=== PATIENT | female | born 1950 | race Caucasian/White ===

== ENCOUNTER 2018-12-24 10:57 | Inpatient (IN) | payer BC, SELFPAY ==
[2018-12-24 11:04] VITALS: BP 143/76; PULSE 117; RESP 18; TEMP 36.5; O2SAT 96
--- NOTE | 2018-12-24 11:26 | ED.GENADUL_ITS ---
Discharge Plan Discharge Details Chief Complaint: Abd Prob Primary Care Provider: Imani Currie ED Provider: Davis Cordero Home Meds and New Rx's Prescriptions: No Action fluoxetine 40 mg Capsule 40 mg PO DAILY RF: 0 aspirin 325 mg Tablet 325 mg PO DAILY RF: 0 alprazolam [Xanax] 0.5 mg Tablet 0.5 mg PO BID PRNRF: 0 pantoprazole 40 mg Tablet,Delayed Release (Dr/Ec) 40 mg PO DAILY RF: 0 lisinopril 10 mg Tablet 10 mg PO DAILY RF: 0 magnesium 250 mg Tablet 250 mg PO DAILY RF: 0 budesonide 3 mg Capsule,Delayed,Extend.Release 3 mg PO DAILY RF: 0 rosuvastatin [Crestor] 40 mg Tablet 40 mg PO DAILY RF: 0 levothyroxine 50 mcg Capsule 50 mcg PO DAILY RF: 0 Combivent Respimat 20-100 mcg/actuation Mist See Rx Instructions .ROUTE .COMPLEX RF: 0 Medical Decision Making 68-year-old female presents with a day and a half of crampy lower abdominal pain that is associated with nausea but no emesis. She arrives to the ER with slightly tachycardic but afebrile. She is had previous aortobifem as well as ventral hernia repair with mesh. She does have a palpable but reducible hernia in the midline of the upper abdomen. Differential diagnosis includes bowel obstruction, incarcerated hernia, diverticulitis, colitis. IV access established, patient referred for laboratory testing, given antiemetic and fluids, CT of the abdomen obtained Labs are reassuring with a white blood cell count of 10, hematocrit 41, platelets 328. Chemistries reveal all mild prerenal dehydration with a BUN of 28, creatinine 1.3. CT images reveal a sigmoid diverticulitis and also ileus with some partial small bowel dilatation. I did discuss the case with on-call surgery, Dr. Plata. She agrees with medical management. Surgery is happy to consult should the symptoms of bowel obstruction worsen. We will treat with ongoing fluid resuscitation, parenteral antibiotics. Lab Data Lab results reviewed: Yes I reviewed the patient's lab results. Laboratory Results - last 24 hr 12/24/18 12/24/18 11:49 11:49 WBC 10.19 RBC 4.78 Hgb 14.1 Hct 41.5 MCV 86.8 MCH 29.5 MCHC 34.0 RDW 14.3 Plt Count 328 MPV 9.3 Immature Gran % 0.2 Neutrophils % 81.8 Lymphocytes % 14.7 Monocytes % 2.9 Eosinophils % 0.3 Basophils % 0.1 Absolute Neutrophils 8.33 H Absolute Lymphocytes 1.50 Absolute Monocytes 0.30 Absolute Eosinophils 0.03 Absolute Basophils 0.01 Sodium 137 Potassium 4.5 Chloride 100 Carbon Dioxide 27.0 Anion Gap 10.0 BUN 28 H Creatinine 1.32 H Estimated GFR/1.73 m2 39.90 Glucose 181 H Calcium 10.2 H Total Bilirubin 0.2 AST 16 ALT 23 Alkaline Phosphatase 102 Total Protein 7.7 Albumin 3.7 Lipase 98 ECG Data Attestation: I personally reviewed and interpreted this ECG (s) as follows: Interpretation: Sinus tachycardia with a rate of 110, the QRS is narrow, there is no ST segment elevation HPI General Mode of arrival: ambulatory . Date/Time Provider Initiated Documentation: 12/24/18 11:07 . Limitations to Documentation: no limitations . Information obtained by: patient . History of Present Illness 68 year old F presents to the emergency department with the chief complaint of Lower abdominal pain, described as moderate, Quality is described as dull and constant, and is localized to the abdomen. Patient reports no radiation. Patient started experiencing this hour(s) and it has been intermittent. No relieving factors improve symptom(s), No exacerbating factors reported . Patient notes loss of appetite. Patient did receive the following treatments prior to arrival, none Related Data Home Medications Medication Instructions Recorded Confirmed alprazolam [Xanax] 0.5 mg PO BID PRN 12/24/18 12/24/18 aspirin 325 mg PO DAILY 12/24/18 12/24/18 budesonide 3 mg PO DAILY 12/24/18 12/24/18 fluoxetine 40 mg PO DAILY 12/24/18 12/24/18 ipratropium-albuterol [Combivent See Rx Instructions .ROUTE .COMPLEX 12/24/18 12/24/18 Respimat] levothyroxine 50 mcg PO DAILY 12/24/18 12/24/18 lisinopril 10 mg PO DAILY 12/24/18 12/24/18 magnesium 250 mg PO DAILY 12/24/18 12/24/18 pantoprazole 40 mg PO DAILY 12/24/18 12/24/18 rosuvastatin [Crestor] 40 mg PO DAILY 12/24/18 12/24/18 Allergies Allergy/AdvReac Type Severity Reaction Status Date / Time shrimp Allergy Unverified 12/24/18 11:08 General Stated Complaint: Abd Prob ALMAZ: 3 Review of Systems Review of Systems 6 systems reviewed and otherwise negative. Ate at [employer] this weekend. Has had brown stool. Nauseated without vomiting PFSH Social History Smoking/Tobacco Use Status: Never Alcohol Intake: never Drug use: Never Substance use type: does not use Do you feel safe at home: Yes Do you feel safe in your relationship?: Yes Exam Narrative Exam Narrative: GEN: awake, alert, oriented 3. Pleasant, well groomed, interactive. HEAD: Normocephalic, atraumatic ENT: Mucous membranes moist, oropharynx unremarkable, External ear exam unremarkable EYES: PERRL, EOMI NECK: Full ROM, no REKHA, no menigismus CHEST/RESP: Nontender, clear to auscultation bilateral, no wheeze/rhonchi/rales CARDIOVASCULAR: regular, tachycardic, no murmur, rub veda. 2+ Rad pulse bilateral ABDOMEN: Soft, reducible anterior hernia above the umbilicus, tender below the umbilicus to palpation, no mass. +Bowel sounds EXT: Full ROM, no edema, no rash Neuro: Grossly normal neurologic exam, conversant, interactive. Psych: Speech fluent, thoughts congruent, affect normal Course Vital Signs Temperature 36.5 C 12/24/18 11:04 Pulse 117 H 12/24/18 11:04 Respiratory Rate 18 12/24/18 11:04 Blood Pressure 143/76 H 12/24/18 11:04 Pulse Oximetry 96 12/24/18 11:04 Temperature 36.5 C 12/24/18 11:04 Temperature Source Temporal Artery Scan 12/24/18 11:04 Pulse 117 H 12/24/18 11:04 Respiratory Rate 18 12/24/18 11:04 Blood Pressure 143/76 H 12/24/18 11:04 Pulse Oximetry 96 12/24/18 11:04 Oxygen Delivery Method Room Air 12/24/18 11:04 Oxygen Flow Rate 0 12/24/18 11:04
--- NOTE | 2018-12-24 11:54 | NUR.NOTE ---
iv placed 20 in rac labs drawn Nursing Note:
[2018-12-24 12:03] LABS: Abs Immature Grans 0.02 k/cumm (0.0-0.09); Absolute Basophil Count 0.01 k/cumm (0.0-0.2); Absolute Eosinophil Count 0.03 k/cumm (0.0-0.7); Absolute Neutrophil Count 8.33 k/cumm (1.2-6.7); Basophils % 0.1; Eosinophils % 0.3; HCT 41.5 % (36.0-46.0); HGB 14.1 g/dL (12.0-15.5); Immature Grans % 0.2; Lymphocytes % 14.7; Mean Corpuscular Hemoglobin 29.5 pg (27.0-33.0); Mean Corpuscular Volume 86.8 fL (80-95); Mean Platelet Volume 9.3 fL (8.0-11.0); Monocytes % 2.9; Neutrophils % 81.8; Platelet Count 328 x1000/uL (130-400); RBC 4.78 m/cumm (4.00-5.20); RBC Distribution Width 14.3 % (11.7-14.6); White Blood Cell Count 10.19 k/cumm (4.4-10.8)
[2018-12-24 12:20] LABS: ALT 23 U/L (12-78); AST 16 U/L (15-37); Albumin 3.7 g/dL (3.4-5.0); Alkaline Phosphatase 102 U/L (46-116); BUN 28 mg/dL (7-18); Bilirubin, Total 0.2 mg/dL (0.2-1.0); CREATININE 1.32 mg/dL (0.55-1.02); Calcium 10.2 mg/dL (8.5-10.1); Chloride 100 mmol/L (98-107); Glucose 181 mg/dL (70-100); Lipase 98 U/L (73-393); Potassium 4.5 mmol/L (3.5-5.1); Sodium 137 mmol/L (136-145); Total Protein 7.7 g/dL (6.4-8.2)
[2018-12-24] MEDS: Ondansetron 4 MG/2 ML VIAL IVP ×2 (12:52→17:27)
[2018-12-24] MEDS: Normal Saline 1,000 ML 1000 ML IV (12:52)
--- NOTE | 2018-12-24 12:57 | DI.CT_ITS ---
SYMPTOMS/DIAGNOSIS: LOWER ABDOMINAL PAIN, ABDOMINAL HERNIAS CT SCAN OF THE ABDOMEN AND PELVIS: CT scan of the abdomen and pelvis was performed without intravenous contrast material. No acute findings are seen in the lung bases. The unenhanced liver is unremarkable. The patient appears to be status post cholecystectomy. There is no biliary ductal dilatation. The pancreas appears unremarkable, as do the spleen and adrenal glands. The kidneys show no evidence of obstructive uropathy. The urinary bladder is intact. The reproductive organs are unremarkable as visualized. There is diverticulosis of the sigmoid colon. There is a short segment in the mid sigmoid colon with pericolonic inflammatory changes suggestive of acute diverticulitis (series 3 image 614). There are dilated loops of small bowel. These are nonspecific. While this may represent an ileus, early small bowel obstruction cannot be entirely excluded. No free air is seen. There is a small amount of fluid in the pelvis. The patient has an aortobifemoral bypass. No significant abdominal or pelvic adenopathy is appreciated. Degenerative changes are seen in the spine. There are postsurgical changes of an anterior hernia repair with mesh placement. There is a small fat-containing anterior abdominal wall hernia to the left of the mesh. IMPRESSION: 1. Findings of acute sigmoid diverticulitis. No evidence of abscess or free air. 2. Nonspecific small amount of free pelvic fluid. 3. Dilated loops of small bowel. This may represent ileus versus an early small bowel obstruction. The findings were discussed with Dr. Cordero of the Emergency Department on the date of the examination.
--- NOTE | 2018-12-24 13:27 | NUR.NOTE ---
pt to ct Nursing Note:
[2018-12-24 13:49] LABS: Bilirubin Negative (Negative); Blood Negative (Negative); Clarity Clear (Clear); Glucose Negative (Negative); Ketones Negative (Negative); Leukocyte Esterase Negative (Negative); Nitrite Negative (Negative); Specific Gravity 1.015 (1.005-1.025); Urobilinogen 0.2 EU/dL (Up TO 0.2)
[2018-12-24] MEDS: PIPERACILLIN/TAZO 3.375 GM in Normal Saline 50 ML IVPB ×2 (15:58→22:07)
[2018-12-24 17:07] VITALS: BP 154/78; PULSE 138; RESP 22; O2SAT 97
[2018-12-24 17:25] VITALS: BP 122/88; PULSE 133; RESP 18; TEMP 36.7; O2SAT 97
[2018-12-24] MEDS: Lactated Ringers 1,000 ML 125 ML IV (17:29)
[2018-12-24] MEDS: Normal Saline Flush 10 ML SYR IVP ×2 (17:39→20:47)
--- NOTE | 2018-12-24 20:49 | W.MEDCONSULT ---
Date of service: 12/24/18 Time of Service: 16:00 Assessment and Plan (1) Abdominal pain: Current visit: Yes Status: Acute Clinically, I do not see evidence of diverticulitis. I feel that the etiology of abdominal pain has to do with probably transient but recurrent small bowel herniations via the dehisced abdominal muscle wall/failed mesh. Clinically, I think that the patient is developing a small bowel obstruction. I discussed the case with Dr Fowler of general surgery, who took the patient on her services. We will follow in consultation. Agree with bowel rest and empiric metronidazole/ciprofloxacin, though again I am not very impressed with LLQ symptoms where the patient is supposed to have diverticulitis. (2) COPD (chronic obstructive pulmonary disease): Current visit: Yes Status: Chronic Not in acute exacerbation. Will rx prn albuterol. (3) Diet-controlled type 2 diabetes mellitus: Current visit: Yes Status: Acute Will cover with SSI while NPO (4) Hyperlipidemia: Current visit: Yes Status: Acute continue statin (5) Hypertension: Current visit: Yes Status: Chronic hold acei - patient's Cr is slightly worse than her baseline. (6) CKD (chronic kidney disease) stage 3, GFR 30-59 ml/min: Current visit: Yes Status: Acute As above - with slight acute kidney injury, likely due to dehydration. For now, hold kevin-i. Agree with IVF. (7) Dehydration: Current visit: Yes Status: Acute As above (8) Colitis: Current visit: Yes Patient states she has a history of colitis, but cannot tell me exactly what kind. I suspect this is why she is on budesonide. We should attempt to find records. History of Present Illness Chief Complaint: abdominal pain, nausea Narrative: Ms Tejeda is a 68 year old female with PMHx of 2 prior abdominal surgeries, as well as diet-controlled type 2 DM, hypertension, hyperlipidemia, non-oxygen dependent COPD, who presented to [facility] today complaining of diffuse abdominal cramping and nausea with dry heaving since last night. She has not been able to have a BM or pass flatus since then. She has a history of a ventral hernia repair with mesh in place. About a year ago, she started noticing that something changed in the way that her abdomen felt around the place where she had the hernia. Today, in the ED, bowel loops could be palpated in RUQ through what seems to have been failed hernia repair with significant pain. Review of Systems Review of Systems 12 systems reviewed. Pertinent positives and negatives are as per HPI. In addition, the patient endorses sweats/subjective fevers, difficulty sleeping due to severe pain last night. [facility] Medical History (Updated 12/24/18 @ 21:09 by Sujatha Short MD) CKD (chronic kidney disease) stage 3, GFR 30-59 ml/min (Acute) Colitis (Acute) COPD (chronic obstructive pulmonary disease) (Chronic) Diet-controlled type 2 diabetes mellitus (Acute) Hyperlipidemia (Acute) Hypertension (Chronic) Surgical History (Updated 12/24/18 @ 20:57 by Sujatha Short MD) H/O non-cataract eye surgery (Acute) S/P aortic aneurysm repair (Acute) S/P cataract extraction and insertion of intraocular lens (Acute) S/P cholecystectomy (Acute) S/P tonsillectomy (Acute) S/P ventral herniorrhaphy (Acute) Family History (Updated 12/24/18 @ 20:59 by Sujatha Short MD) Father Heart disease CHF (congestive heart failure) Diabetes Hypertension Maternal Grandmother Stroke Paternal Grandmother Breast cancer Mother Vulvar cancer Social History (Updated 12/24/18 @ 20:59 by Sujatha Short MD) Smoking/Tobacco Use Status: Former Tobacco Use Pack-years: 120 Tobacco: How many years used: 30 Alcohol Intake: never Drug use: Never Substance use type: does not use Do you feel safe at home: Yes Do you feel safe in your relationship?: Yes Exam Narrative Exam Narrative: General: Very pleasant middle-aged female, appears comfortable when I came to examine her, A&OX3 Neurological: A&OX3, no focal deficits Psychiatric: Appropriate speech pattern/content Skin: Intact HEENT: Atraumatic, normocephalic, EOMI, dry MM, Clear oropharynx, no submandibular or cervical lymphadenopathy, no goiter or JVD Cardiovascular: RRR, no m/r/g Lungs: CTAB Gastrointestinal: abdomen is soft; a wide well healed incision througout upper abdomen; RUQ has easily palpable bowel which is easy to reduce through the abdominal wall; very TTP, I hear high pitched bowel sounds in RUQ only Extremities: no e/c/c BLE's, 1+ BLE pedal pulses Results Last Vital Signs Temp 36.7 C 12/24/18 17:25 Pulse 133 H 12/24/18 17:25 Resp 18 12/24/18 17:25 BP 122/88 12/24/18 17:25 Pulse Ox 97 12/24/18 17:25 Labs : 12/24/18 11:49 12/24/18 11:49 Laboratory Results - last 24 hr 12/24/18 12/24/18 12/24/18 11:49 11:49 13:40 WBC 10.19 RBC 4.78 Hgb 14.1 Hct 41.5 MCV 86.8 MCH 29.5 MCHC 34.0 RDW 14.3 Plt Count 328 MPV 9.3 Immature Gran % 0.2 Neutrophils % 81.8 Lymphocytes % 14.7 Monocytes % 2.9 Eosinophils % 0.3 Basophils % 0.1 Absolute Neutrophils 8.33 H Absolute Lymphocytes 1.50 Absolute Monocytes 0.30 Absolute Eosinophils 0.03 Absolute Basophils 0.01 Sodium 137 Potassium 4.5 Chloride 100 Carbon Dioxide 27.0 Anion Gap 10.0 BUN 28 H Creatinine 1.32 H Estimated GFR/1.73 m2 39.90 Glucose 181 H Calcium 10.2 H Total Bilirubin 0.2 AST 16 ALT 23 Alkaline Phosphatase 102 Total Protein 7.7 Albumin 3.7 Lipase 98 Urine Color Yellow Urine Clarity Clear Urine pH 7.0 Ur Specific [place] 1.015 Urine Protein Negative Urine Ketones Negative Urine Blood Negative Urine Nitrite Negative Urine Bilirubin Negative Urine Urobilinogen 0.2 Ur Leukocyte Esterase Negative Urine Glucose Negative CT abdomen/pelvis: 1. Findings of acute sigmoid diverticulitis. No evidence of abscess or free air. 2. Nonspecific small amount of free pelvic fluid. 3. Dilated loops of small bowel. This may represent ileus versus an early small bowel obstruction.
--- NOTE | 2018-12-24 22:11 | W.PM.HP.N ---
Date of service: 12/24/18 Time of Service: 16:45 Assessment and Plan (1) Diverticulitis large intestine: Current visit: Yes Status: Acute The CT findings are fairly subtle with a limited area of diverticulitis. Will continue antibiotics. The small bowel is slightly dilated, which may be an ileus from inflammation or a partial small bowel obstruction from adhesions. Hernias do not appear to be contributing. Will plan for bowel rest, antiemetics. If vomiting continues, may need NG placement (2) Ileus: Current visit: Yes Status: Acute History of Present Illness Narrative: Patient presented with a several day history of abdominal pain and dry heaves. Review of Systems Constitutional Denies fatigue and Denies headache(s) Eyes Denies change in vision ENT Denies headache(s) and Denies neck mass Cardiovascular Denies chest pain, Denies edema, Denies palpitations and Denies dyspnea Respiratory Denies cough, Denies dyspnea and Denies wheezing Gastrointestinal Denies hematochezia and Denies change in bowel habits Genitourinary Denies abnormal vaginal bleeding and Denies dysuria Musculoskeletal Denies joint swelling Integumentary/Breasts Denies new lesions and Denies rash Neurologic Denies confusion, Denies headache(s) and Denies focal weakness Psychiatric Reports system reviewed and no additional complaints, except as docu and Denies confusion Endocrine Denies fatigue and Denies palpitations Hematologic/Lymphatic Denies easy bleeding and Denies lymphadenopathy Allergic/Immunologic Denies wheezing [facility] Medical History CKD (chronic kidney disease) stage 3, GFR 30-59 ml/min (Acute) Colitis (Acute) COPD (chronic obstructive pulmonary disease) (Chronic) Diet-controlled type 2 diabetes mellitus (Acute) Hyperlipidemia (Acute) Hypertension (Chronic) Surgical History H/O non-cataract eye surgery (Acute) S/P aortic aneurysm repair (Acute) S/P cataract extraction and insertion of intraocular lens (Acute) S/P cholecystectomy (Acute) S/P tonsillectomy (Acute) S/P ventral herniorrhaphy (Acute) Family History Father Heart disease CHF (congestive heart failure) Diabetes Hypertension Maternal Grandmother Stroke Paternal Grandmother Breast cancer Mother Vulvar cancer Social History Smoking/Tobacco Use Status: Former Tobacco Use Pack-years: 120 Tobacco: How many years used: 30 Alcohol Intake: never Drug use: Never Substance use type: does not use Do you feel safe at home: Yes Do you feel safe in your relationship?: Yes Meds Home Medications Medication Instructions Recorded Confirmed Type alprazolam [Xanax] 0.5 mg PO BID PRN 12/24/18 12/24/18 History aspirin 325 mg PO DAILY 12/24/18 12/24/18 History budesonide 3 mg PO DAILY 12/24/18 12/24/18 History fluoxetine 40 mg PO DAILY 12/24/18 12/24/18 History ipratropium-albuterol [Combivent See Rx Instructions .ROUTE .COMPLEX 12/24/18 12/24/18 History Respimat] levothyroxine 50 mcg PO DAILY 12/24/18 12/24/18 History lisinopril 10 mg PO DAILY 12/24/18 12/24/18 History magnesium 250 mg PO DAILY 12/24/18 12/24/18 History pantoprazole 40 mg PO DAILY 12/24/18 12/24/18 History rosuvastatin [Crestor] 40 mg PO DAILY 12/24/18 12/24/18 History Allergies Allergy/AdvReac Type Severity Reaction Status Date / Time shrimp Allergy Unverified 12/24/18 11:08 Exam Const Orientation: oriented x3 HENMT Head: normal to inspection Eyes Sclera: sclerae normal Pupils: PERRL Neck Neck: no lymphadenopathy Resp Effort & Inspection: normal respiratory effort Auscultation: clear to auscultation bilaterally and no wheezes Cardio Rate: regular rate Rhythm: regular rhythm Pulses: dorsalis pedis pulses present GI Inspection: non-distended Palpation: soft and no hepatosplenomegaly Other: Abdomen is non distended Tender across upper abdomen Prior bilateral subcostal incision present. Fascial defects palpable but appear to be bridged by mesh on CT. No bowel present. Skin General skin exam: no rashes or lesions noted Neuro General: alert Cognition: normal cognition Extrem General: normal to inspection Psych Affect: normal affect Attitude: cooperative Results Labs : 12/24/18 11:49 12/24/18 11:49 Laboratory Results - last 24 hr 12/24/18 12/24/18 12/24/18 11:49 11:49 13:40 WBC 10.19 RBC 4.78 Hgb 14.1 Hct 41.5 MCV 86.8 MCH 29.5 MCHC 34.0 RDW 14.3 Plt Count 328 MPV 9.3 Immature Gran % 0.2 Neutrophils % 81.8 Lymphocytes % 14.7 Monocytes % 2.9 Eosinophils % 0.3 Basophils % 0.1 Absolute Neutrophils 8.33 H Absolute Lymphocytes 1.50 Absolute Monocytes 0.30 Absolute Eosinophils 0.03 Absolute Basophils 0.01 Sodium 137 Potassium 4.5 Chloride 100 Carbon Dioxide 27.0 Anion Gap 10.0 BUN 28 H Creatinine 1.32 H Estimated GFR/1.73 m2 39.90 Glucose 181 H Calcium 10.2 H Total Bilirubin 0.2 AST 16 ALT 23 Alkaline Phosphatase 102 Total Protein 7.7 Albumin 3.7 Lipase 98 Urine Color Yellow Urine Clarity Clear Urine pH 7.0 Ur Specific [place] 1.015 Urine Protein Negative Urine Ketones Negative Urine Blood Negative Urine Nitrite Negative Urine Bilirubin Negative Urine Urobilinogen 0.2 Ur Leukocyte Esterase Negative Urine Glucose Negative Last Vital Signs Temp 98.1 F 12/24/18 17:25 Pulse 133 H 12/24/18 17:25 Resp 18 12/24/18 17:25 BP 122/88 12/24/18 17:25 Pulse Ox 97 12/24/18 17:25
[2018-12-24] MEDS: Insulin Aspart 300 UNITS/3 ML PEN SC (22:54)
[2018-12-24 23:34] VITALS: BP 151/78; PULSE 115; RESP 16; TEMP 36.6; O2SAT 93
[2018-12-25] MEDS: Ondansetron 4 MG/2 ML VIAL IVP ×4 (00:58→21:21)
[2018-12-25] MEDS: Lactated Ringers 1,000 ML 125 ML IV ×2 (01:59→11:17)
[2018-12-25] MEDS: PIPERACILLIN/TAZO 3.375 GM in Normal Saline 50 ML IVPB ×4 (03:42→21:36)
[2018-12-25] MEDS: Insulin Aspart 300 UNITS/3 ML PEN SC (06:05)
--- NOTE | 2018-12-25 07:04 | PGE_ITS ---
Date of Service Date of service: 12/25/18 Time of Service: 07:04 Assessment and Plan (1) Ileus: Current visit: Yes Status: Acute DIET- NPO Antiemetic's are ordered. Continue IV fluids and Zosyn for Diverticulitis. AM labs PENDING Will continue bowel rest and IV hydration. (2) Diverticulitis large intestine: Current visit: Yes Status: Acute Subjective Interval history since last seen: Patient continues to be nauseas. (+) Emesis upon this providers arrival of 100cc's. She reports (+) flatus with dry heaving. She reports she feels she could have a BM. C/o generalized abdominal pain that increases with palpation. Exam Const General: cooperative and diaphoretic Orientation: alert and oriented x3 Resp Effort & Inspection: normal respiratory effort, no audible wheezes and no cough Auscultation: clear to auscultation bilaterally Cardio Rate: regular rate Rhythm: regular rhythm Heart Sounds: S1 normal, S2 normal and no murmurs GI Palpation: soft, no guarding and tender in the epigastrum, in the LLQ and in the RLQ Auscultation: hypoactive bowel sounds Objective Objective Clinical Data: Abnormal lab results 12/24/18 12/24/18 Range/Units 11:49 11:49 Absolute Neutrophils 8.33 H (1.2-6.7) k/cumm BUN 28 H (7-18) mg/dL Creatinine 1.32 H (0.55-1.02) mg/dL Glucose 181 H (70-100) mg/dL Calcium 10.2 H (8.5-10.1) mg/dL Vital Signs Temperature 36.6 C 12/24/18 23:34 Temperature Source Tympanic 12/24/18 23:34 Pulse 115 H 12/24/18 23:34 Pulse Rhythm Regular 12/24/18 20:30 Respiratory Rate 16 12/24/18 23:34 Respiratory Effort 12/24/18 20:30 Respiratory Depth Normal 12/24/18 20:30 Respiratory Pattern Normal 12/24/18 20:30 Blood Pressure 151/78 H 12/24/18 23:34 Pulse Oximetry 93 L 12/24/18 23:34 Oxygen Delivery Method Room Air 12/24/18 23:34 Oxygen Flow Rate 0 12/24/18 23:34 Pain Level 1 12/24/18 23:34 Intake & Output 12/24/18 12/25/18 12/25/18 18:59 06:59 18:59 Intake Total 1000 / 2467.083 1467.083 / 2467.083 Output Total 1450 / 1450 Balance 1000 / 1017.083 17.083 / 1017.083 Weight 71.668 kg Intake: IV 1000 / 2347.083 1347.083 / 2347.083 Oral 120 / 120 Output: Urine 1350 / 1350 Emesis 100 / 100 Other: Urine Color Yellow Urine Appearance Clear Voiding Methods Toilet Laboratory Results WBC 10.19 k/cumm (4.4-10.8) 12/24/18 11:49 RBC 4.78 m/cumm (4.00-5.20) 12/24/18 11:49 Hgb 14.1 g/dL (12.0-15.5) 12/24/18 11:49 Hct 41.5 % (36.0-46.0) 12/24/18 11:49 MCV 86.8 fL (80-95) 12/24/18 11:49 MCH 29.5 pg (27.0-33.0) 12/24/18 11:49 MCHC 34.0 g/dL (32.0-36.0) 12/24/18 11:49 RDW 14.3 % (11.7-14.6) 12/24/18 11:49 Plt Count 328 x1000/uL (130-400) 12/24/18 11:49 MPV 9.3 fL (8.0-11.0) 12/24/18 11:49 Immature Gran % 0.2 12/24/18 11:49 81.8 12/24/18 11:49 14.7 12/24/18 11:49 2.9 12/24/18 11:49 0.3 12/24/18 11:49 0.1 12/24/18 11:49 Absolute Neutrophils 8.33 k/cumm (1.2-6.7) H 12/24/18 11:49 Absolute Lymphocytes 1.50 k/cumm (1.2-3.4) 12/24/18 11:49 Absolute Monocytes 0.30 k/cumm (0.11-0.7) 12/24/18 11:49 Absolute Eosinophils 0.03 k/cumm (0.0-0.7) 12/24/18 11:49 Absolute Basophils 0.01 k/cumm (0.0-0.2) 12/24/18 11:49 Sodium 137 mmol/L (136-145) 12/24/18 11:49 Potassium 4.5 mmol/L (3.5-5.1) 12/24/18 11:49 Chloride 100 mmol/L (98-107) 12/24/18 11:49 Carbon Dioxide 27.0 mmol/L (21.0-32.0) 12/24/18 11:49 10.0 mmol/L (3-11) 12/24/18 11:49 BUN 28 mg/dL (7-18) H 12/24/18 11:49 1.32 mg/dL (0.55-1.02) H 12/24/18 11:49 39.90 (mL/min/1.73m2) 12/24/18 11:49 Glucose 181 mg/dL (70-100) H 12/24/18 11:49 Calcium 10.2 mg/dL (8.5-10.1) H 12/24/18 11:49 0.2 mg/dL (0.2-1.0) 12/24/18 11:49 AST 16 U/L (15-37) 12/24/18 11:49 ALT 23 U/L (12-78) 12/24/18 11:49 102 U/L (46-116) 12/24/18 11:49 7.7 g/dL (6.4-8.2) 12/24/18 11:49 3.7 g/dL (3.4-5.0) 12/24/18 11:49 98 U/L (73-393) 12/24/18 11:49 Yellow (Yellow) 12/24/18 13:40 Clear (Clear) 12/24/18 13:40 7.0 (5-8) 12/24/18 13:40 Ur Specific [place] 1.015 (1.005-1.025) 12/24/18 13:40 Negative mg/dL (Negative) 12/24/18 13:40 Negative mg/dL (Negative) 12/24/18 13:40 Negative (Negative) 12/24/18 13:40 Negative (Negative) 12/24/18 13:40 Negative (Negative) 12/24/18 13:40 0.2 EU/dL (Up TO 0.2) 12/24/18 13:40 Ur Leukocyte Esterase Negative (Negative) 12/24/18 13:40 Negative mg/dL (Negative) 12/24/18 13:40
[2018-12-25 07:25] VITALS: BP 141/87; PULSE 73; RESP 18; TEMP 37; O2SAT 93
[2018-12-25 07:28] LABS: Abs Immature Grans 0.03 k/cumm (0.0-0.09); Absolute Basophil Count 0.01 k/cumm (0.0-0.2); Absolute Eosinophil Count 0.01 k/cumm (0.0-0.7); Absolute Lymphocyte Count 2.25 k/cumm (1.2-3.4); Absolute Monocyte Count 0.53 k/cumm (0.11-0.7); Absolute Neutrophil Count 11.47 k/cumm (1.2-6.7); Basophils % 0.1; Eosinophils % 0.1; HCT 42.5 % (36.0-46.0); HGB 14.5 g/dL (12.0-15.5); Immature Grans % 0.2; Lymphocytes % 15.7; Mean Corp. HGB Concentration 34.1 g/dL (32.0-36.0); Mean Corpuscular Hemoglobin 29.8 pg (27.0-33.0); Mean Corpuscular Volume 87.3 fL (80-95); Mean Platelet Volume 9.7 fL (8.0-11.0); Monocytes % 3.7; Neutrophils % 80.2; Platelet Count 362 x1000/uL (130-400); RBC 4.87 m/cumm (4.00-5.20); RBC Distribution Width 14.7 % (11.7-14.6)
[2018-12-25 07:46] LABS: Anion Gap 10.5 mmol/L (3-11); BUN 25 mg/dL (7-18); CO2 24.5 mmol/L (21.0-32.0); CREATININE 1.32 mg/dL (0.55-1.02); Calcium 9.2 mg/dL (8.5-10.1); Chloride 104 mmol/L (98-107); Glucose 176 mg/dL (70-100); Potassium 4.2 mmol/L (3.5-5.1); Sodium 139 mmol/L (136-145)
[2018-12-25] MEDS: Ipratropium/Albuterol 4 GM 120 PUFF INH IH (09:54)
--- NOTE | 2018-12-25 10:44 | INITIAL_ITS ---
Care Management Initial Assess REASON FOR HOSPITALIZATION:: ileus vs obstruction PAST MEDICAL HISTORY/PAST SURGICAL HISTORY:: Medical: CKD stage 3, colitis, COPD, DM2, hyperlipidemia, HTN. Surgical: H/O non-cataract eye surgery, s/p aortic aneurism repair, s/p cataract and IOL, s/p cholecystectomy, tonsillectomy and ventral herniorrhaphy. PREVIOUS FUNCTIONAL STATUS/SOCIAL/FAMILY SUPPORTS:: Marleni is 68 yo woman who lives in her own home with her ROSAURA Dunlap, with whom she has been for over 30 y ears. She has never had children. 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 She commutes to [place] daily. She is usually active and independent and manages all her own ADL's. CURRENT FUNCTIONAL STATUS:: She is lying on stretcher bed in room when CM enters. She easily engages in discussion re plans. ADVANCE DIRECTIVES:: Document on file at [facility]. Her SO Germán Rogers is agent, and friend Ana Garcia is alternate. Has patient been provided with information about the portal?: Yes Did the patient sign up for the portal?: No CODE STATUS:: Full Code INSURANCE COVERAGE / FINANCIAL ISSUES:: BC/BS CURRENT HOME/COMMUNITY SERVICES/EQUIPMENT:: No services or equipment used PRIMARY CARE PHYSICIAN:: Imani Currie MD, [facility]. POTENTIAL DISCHARGE NEEDS:: Will need follow-up with PCP and surgeon as directed. PATIENT/FAMILY EDUCATION NEEDS:: Review d/c instructions re meds and activity levels, review Ask me Now questions. ANTICIPATED BARRIERS TO DISCHARGE:: none identified TRANSPORTATION:: via car with ROSAURA Dunlap. PLAN:: d/c home as per , no services anticipated.
[2018-12-25] MEDS: Normal Saline Flush 10 ML SYR IVP ×2 (12:52→21:21)
--- NOTE | 2018-12-25 13:03 | PHARADMIT ---
Addendum entered by Giorgio Witt III 12/28/18 10:53: Pharmacy Note Subjective Patient has been diagnosed with Diverticulitis of large intestine without perforation or abscess. Has been unable to tolerate advanced diet and MD will send her for CT scan. Has nausea and emesis overnight. Objective BP-151/87 HR-100 No Labs. FSBS-129 Last BM 12/27 Assessment Zosyn continues. Respiratory meds from home have not arrived. On Spiiva &Symbicort until then. Plan Original Note: Admission Pharmacy Clinical Review ILEUS VS OBSTRUCTION Code Status Full Code Current Weight Wgt-71.6 kg Renally Cleared and Narrow Therapeutic Index Meds CrCl~42 mL/min Meds-OK QTc Value / Action Taken QTc-440 NA BP Control, Fever BP- 141/87 Tmax- 37C Electrolytes reviewed Na- 139 K+4.2 DVT Prophylaxis ASA Opiate Usage / Scheduled Bowel Regimen Ordered Yes No Plt/SCr for Heparin / Enoxaparin Plts-362 SCr-1.32 INR for Warfarin NA H/H stable, WBC/Bands H&H- 14.5/42.5 WBC-14.30 Antibiotic appropriateness Zosyn, Cultures and Sensitivities NONE Surgical ABX d/c within 24 hr na DM control / Insulin Dosing BG- 176 Aspart Heart Failure (Check EF%) (CAROLYN's, B-Block, Diuretics) none IV to PO Switch No Home Meds Reviewed Yes Home Meds Not Ordered Lisinopril, Magnesium Comments
--- NOTE | 2018-12-25 15:06 | W.PM.PROGNOT ---
Date of Service Date of service: 12/25/18 Time of Service: 15:07 Assessment and Plan (1) Ileus: Current visit: Yes Status: Acute Will continue antiemetics. Change antacid to IV If has further emesis, will need NG placement (2) Diverticulitis large intestine: Current visit: Yes Status: Acute Continue IV antibiotics Subjective Interval history since last seen: Pain has improved. Has not used pain medication today. Continues to have nausea, using meds ATC. 100cc emesis early this am but non since. Passed flatus this am. Ambulated today. Exam Narrative Exam Narrative: Appears more comfortable Heart regular, slightly tachy Lungs CTA Abdomen soft, non tender - improved Objective Objective Clinical Data: Abnormal lab results 12/25/18 12/25/18 Range/Units 06:45 06:45 WBC 14.30 H D (4.4-10.8) k/cumm RDW 14.7 H (11.7-14.6) % Absolute Neutrophils 11.47 H (1.2-6.7) k/cumm BUN 25 H (7-18) mg/dL Creatinine 1.32 H (0.55-1.02) mg/dL Glucose 176 H (70-100) mg/dL Vital Signs Temperature 98.6 F 12/25/18 07:25 Temperature Source Tympanic 12/25/18 07:25 Pulse 73 12/25/18 07:25 Pulse Rhythm Regular 12/24/18 20:30 Respiratory Rate 18 12/25/18 07:25 Respiratory Effort 12/24/18 20:30 Respiratory Depth Normal 12/24/18 20:30 Respiratory Pattern Normal 12/24/18 20:30 Blood Pressure 141/87 H 12/25/18 07:25 Pulse Oximetry 93 L 12/25/18 07:25 Oxygen Delivery Method Room Air 12/25/18 07:25 Oxygen Flow Rate 0 12/25/18 07:25 Pain Level 3 12/25/18 07:25 Intake & Output 12/24/18 12/25/18 12/25/18 23:59 11:59 23:59 Intake Total 1681.25 / 1681.25 1623.833 / 1623.833 Output Total 650 / 650 1100 / 1350 250 / 1350 Balance 1031.25 / 1031.25 523.833 / 273.833 -250 / 273.833 Weight 158 lb 0.014 oz Intake: IV 1681.25 / 1681.25 1503.833 / 1503.833 Oral 120 / 120 Output: Urine 650 / 650 1000 / 1250 250 / 1250 Emesis 100 / 100 Other: Urine Color Light Lina Pale Pale Yellow Yellow Straw Urine Appearance Clear Clear Clear Urine Odor Normal Normal Voiding Methods Toilet Toilet Toilet Laboratory Results WBC 14.30 k/cumm (4.4-10.8) H D 12/25/18 06:45 RBC 4.87 m/cumm (4.00-5.20) 12/25/18 06:45 Hgb 14.5 g/dL (12.0-15.5) 12/25/18 06:45 Hct 42.5 % (36.0-46.0) 12/25/18 06:45 MCV 87.3 fL (80-95) 12/25/18 06:45 MCH 29.8 pg (27.0-33.0) 12/25/18 06:45 MCHC 34.1 g/dL (32.0-36.0) 12/25/18 06:45 RDW 14.7 % (11.7-14.6) H 12/25/18 06:45 Plt Count 362 x1000/uL (130-400) 12/25/18 06:45 MPV 9.7 fL (8.0-11.0) 12/25/18 06:45 Immature Gran % 0.2 12/25/18 06:45 80.2 12/25/18 06:45 15.7 12/25/18 06:45 3.7 12/25/18 06:45 0.1 12/25/18 06:45 0.1 12/25/18 06:45 Absolute Neutrophils 11.47 k/cumm (1.2-6.7) H 12/25/18 06:45 Absolute Lymphocytes 2.25 k/cumm (1.2-3.4) 12/25/18 06:45 Absolute Monocytes 0.53 k/cumm (0.11-0.7) 12/25/18 06:45 Absolute Eosinophils 0.01 k/cumm (0.0-0.7) 12/25/18 06:45 Absolute Basophils 0.01 k/cumm (0.0-0.2) 12/25/18 06:45 Sodium 139 mmol/L (136-145) 12/25/18 06:45 Potassium 4.2 mmol/L (3.5-5.1) 12/25/18 06:45 Chloride 104 mmol/L (98-107) 12/25/18 06:45 Carbon Dioxide 24.5 mmol/L (21.0-32.0) 12/25/18 06:45 10.5 mmol/L (3-11) 12/25/18 06:45 BUN 25 mg/dL (7-18) H 12/25/18 06:45 1.32 mg/dL (0.55-1.02) H 12/25/18 06:45 39.90 (mL/min/1.73m2) 12/25/18 06:45 Glucose 176 mg/dL (70-100) H 12/25/18 06:45 Calcium 9.2 mg/dL (8.5-10.1) 12/25/18 06:45 0.2 mg/dL (0.2-1.0) 12/24/18 11:49 AST 16 U/L (15-37) 12/24/18 11:49 ALT 23 U/L (12-78) 12/24/18 11:49 102 U/L (46-116) 12/24/18 11:49 7.7 g/dL (6.4-8.2) 12/24/18 11:49 3.7 g/dL (3.4-5.0) 12/24/18 11:49 98 U/L (73-393) 12/24/18 11:49 Yellow (Yellow) 12/24/18 13:40 Clear (Clear) 12/24/18 13:40 7.0 (5-8) 12/24/18 13:40 Ur Specific [place] 1.015 (1.005-1.025) 12/24/18 13:40 Negative mg/dL (Negative) 12/24/18 13:40 Negative mg/dL (Negative) 12/24/18 13:40 Negative (Negative) 12/24/18 13:40 Negative (Negative) 12/24/18 13:40 Negative (Negative) 12/24/18 13:40 0.2 EU/dL (Up TO 0.2) 12/24/18 13:40 Ur Leukocyte Esterase Negative (Negative) 12/24/18 13:40 Negative mg/dL (Negative) 12/24/18 13:40
[2018-12-25 15:51] VITALS: BP 143/83; PULSE 114; RESP 20; TEMP 37.6; O2SAT 95
[2018-12-25] MEDS: Pantoprazole 40 MG TABCR UD (16:04)
[2018-12-25] MEDS: Normal Saline 1,000 ML 125 ML IV (17:34)
--- NOTE | 2018-12-25 17:53 | W.PM.PROGNOT ---
Date of Service Date of service: 12/25/18 Time of Service: 17:53 Assessment and Plan (1) Abdominal pain: Current visit: Yes Status: Acute Due to an ileus. Defer care to general surgery. We are obtaining records from [facility] re etiology of colitis, though they will likely not have any relevance to what's going on currently (2) COPD (chronic obstructive pulmonary disease): Current visit: Yes Status: Chronic Not in acute exacerbation. Continue prn albuterol; scheduled combivent. (3) Diet-controlled type 2 diabetes mellitus: Current visit: Yes Status: Acute continue SSI while NPO (4) Hyperlipidemia: Current visit: Yes Status: Acute continue statin (5) Hypertension: Current visit: Yes Status: Chronic Continue to hold acei - monitor kidney function (6) CKD (chronic kidney disease) stage 3, GFR 30-59 ml/min: Current visit: Yes Status: Acute As above - with slight acute kidney injury, likely due to dehydration. For now, hold kevin-i. Continue IVF (7) Dehydration: Current visit: Yes Status: Acute As above (8) Colitis: Current visit: Yes Patient states she has a history of colitis, but cannot tell me exactly what kind. Obtaining records from [facility]. Subjective Interval history since last seen: Ms Tejeda states she feels a little better today. She denies dizziness, chest pain, shortness of breath. She hasn't been nauseated since this morning when she did have emesis. She had passed flatus at that time as well - none since. Pain is getting better. Has been having hiccups. Exam Narrative Exam Narrative: General: Very pleasant middle-aged female, laying comfortably in bed - also seen ambulating in the hallway today HEENT: EOMI, MMM Cardiovascular: RRR, no m/r/g Lungs: CTAB Gastrointestinal: abdomen is soft; loops of bowel still palpable in RUQ. 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 I had a hard time hearing any bowel sounds today Extremities: no e/c/c BLE's, 1+ BLE pedal pulses Objective Objective Clinical Data: Abnormal lab results 12/25/18 12/25/18 Range/Units 06:45 06:45 WBC 14.30 H D (4.4-10.8) k/cumm RDW 14.7 H (11.7-14.6) % Absolute Neutrophils 11.47 H (1.2-6.7) k/cumm BUN 25 H (7-18) mg/dL Creatinine 1.32 H (0.55-1.02) mg/dL Glucose 176 H (70-100) mg/dL Vital Signs Temperature 37.6 C H 12/25/18 15:51 Temperature Source Tympanic 12/25/18 15:51 Pulse 114 H 12/25/18 15:51 Pulse Rhythm Regular 12/25/18 07:45 Respiratory Rate 20 12/25/18 15:51 Respiratory Effort 12/25/18 07:45 Respiratory Depth Normal 12/25/18 07:45 Respiratory Pattern Normal 12/25/18 07:45 Blood Pressure 143/83 H 12/25/18 15:51 Pulse Oximetry 95 12/25/18 15:51 Oxygen Delivery Method Room Air 12/25/18 15:51 Oxygen Flow Rate 0 12/25/18 15:51 Pain Level 3 12/25/18 07:25 Intake & Output 12/24/18 12/25/18 12/25/18 23:59 11:59 23:59 Intake Total 1681.25 / 1681.25 1673.833 / 1673.833 Output Total 650 / 650 1100 / 1350 250 / 1350 Balance 1031.25 / 1031.25 573.833 / 323.833 -250 / 323.833 Weight 71.668 kg Intake: IV 1681.25 / 1681.25 1553.833 / 1553.833 Oral 120 / 120 Output: Urine 650 / 650 1000 / 1250 250 / 1250 Emesis 100 / 100 Other: Urine Color Light Lina Pale Pale Yellow Yellow Straw Urine Appearance Clear Clear Clear Urine Odor Normal Normal Voiding Methods Toilet Toilet Toilet Laboratory Results WBC 14.30 k/cumm (4.4-10.8) H D 12/25/18 06:45 RBC 4.87 m/cumm (4.00-5.20) 12/25/18 06:45 Hgb 14.5 g/dL (12.0-15.5) 12/25/18 06:45 Hct 42.5 % (36.0-46.0) 12/25/18 06:45 MCV 87.3 fL (80-95) 12/25/18 06:45 MCH 29.8 pg (27.0-33.0) 12/25/18 06:45 MCHC 34.1 g/dL (32.0-36.0) 12/25/18 06:45 RDW 14.7 % (11.7-14.6) H 12/25/18 06:45 Plt Count 362 x1000/uL (130-400) 12/25/18 06:45 MPV 9.7 fL (8.0-11.0) 12/25/18 06:45 Immature Gran % 0.2 12/25/18 06:45 80.2 12/25/18 06:45 15.7 12/25/18 06:45 3.7 12/25/18 06:45 0.1 12/25/18 06:45 0.1 12/25/18 06:45 Absolute Neutrophils 11.47 k/cumm (1.2-6.7) H 12/25/18 06:45 Absolute Lymphocytes 2.25 k/cumm (1.2-3.4) 12/25/18 06:45 Absolute Monocytes 0.53 k/cumm (0.11-0.7) 12/25/18 06:45 Absolute Eosinophils 0.01 k/cumm (0.0-0.7) 12/25/18 06:45 Absolute Basophils 0.01 k/cumm (0.0-0.2) 12/25/18 06:45 Sodium 139 mmol/L (136-145) 12/25/18 06:45 Potassium 4.2 mmol/L (3.5-5.1) 12/25/18 06:45 Chloride 104 mmol/L (98-107) 12/25/18 06:45 Carbon Dioxide 24.5 mmol/L (21.0-32.0) 12/25/18 06:45 10.5 mmol/L (3-11) 12/25/18 06:45 BUN 25 mg/dL (7-18) H 12/25/18 06:45 1.32 mg/dL (0.55-1.02) H 12/25/18 06:45 39.90 (mL/min/1.73m2) 12/25/18 06:45 Glucose 176 mg/dL (70-100) H 12/25/18 06:45 Calcium 9.2 mg/dL (8.5-10.1) 12/25/18 06:45 0.2 mg/dL (0.2-1.0) 12/24/18 11:49 AST 16 U/L (15-37) 12/24/18 11:49 ALT 23 U/L (12-78) 12/24/18 11:49 102 U/L (46-116) 12/24/18 11:49 7.7 g/dL (6.4-8.2) 12/24/18 11:49 3.7 g/dL (3.4-5.0) 12/24/18 11:49 98 U/L (73-393) 12/24/18 11:49 Yellow (Yellow) 12/24/18 13:40 Clear (Clear) 12/24/18 13:40 7.0 (5-8) 12/24/18 13:40 Ur Specific [place] 1.015 (1.005-1.025) 12/24/18 13:40 Negative mg/dL (Negative) 12/24/18 13:40 Negative mg/dL (Negative) 12/24/18 13:40 Negative (Negative) 12/24/18 13:40 Negative (Negative) 12/24/18 13:40 Negative (Negative) 12/24/18 13:40 0.2 EU/dL (Up TO 0.2) 12/24/18 13:40 Ur Leukocyte Esterase Negative (Negative) 12/24/18 13:40 Negative mg/dL (Negative) 12/24/18 13:40
[2018-12-25] MEDS: ALPRAZolam 0.5 MG TAB PO (18:27)
[2018-12-26 00:02] VITALS: BP 143/84; PULSE 118; RESP 18; TEMP 37.4; O2SAT 93
[2018-12-26] MEDS: Insulin Aspart 300 UNITS/3 ML PEN SC (00:12)
[2018-12-26] MEDS: Normal Saline 1,000 ML 125 ML IV (02:46)
[2018-12-26] MEDS: PIPERACILLIN/TAZO 3.375 GM in Normal Saline 50 ML IVPB ×4 (04:09→21:46)
[2018-12-26 04:16] VITALS: BP 155/90; PULSE 122; RESP 17; TEMP 36.6; O2SAT 94
[2018-12-26 07:12] LABS: Abs Immature Grans 0.03 k/cumm (0.0-0.09); Absolute Basophil Count 0.01 k/cumm (0.0-0.2); Absolute Eosinophil Count 0.01 k/cumm (0.0-0.7); Absolute Monocyte Count 0.64 k/cumm (0.11-0.7); Basophils % 0.1; Eosinophils % 0.1; HCT 39.1 % (36.0-46.0); HGB 13.4 g/dL (12.0-15.5); Immature Grans % 0.3; Lymphocytes % 18.2; Mean Corp. HGB Concentration 34.3 g/dL (32.0-36.0); Mean Corpuscular Hemoglobin 30.2 pg (27.0-33.0); Mean Corpuscular Volume 88.3 fL (80-95); Mean Platelet Volume 9.5 fL (8.0-11.0); Monocytes % 5.5; Neutrophils % 75.8; Platelet Count 293 x1000/uL (130-400); RBC 4.43 m/cumm (4.00-5.20); RBC Distribution Width 14.6 % (11.7-14.6); White Blood Cell Count 11.68 k/cumm (4.4-10.8)
--- NOTE | 2018-12-26 07:13 | PGE_ITS ---
Date of Service Date of service: 12/26/18 Time of Service: 07:13 Assessment and Plan (1) Ileus: Current visit: Yes Status: Acute (2) Diverticulitis large intestine: Current visit: Yes Status: Acute Patient reports feeling better today. Continue NPO, Ice chips okay. Denies nausea and vomiting (+) Flatus, No BM Encouraged ambulation as tolerated. Continue IV antibiotics. Subjective Interval history since last seen: Patient denies any nausea or vomiting. She reports her abdomen continues to be sore. (+) Flatus, No BM. She denies any fevers, chills or night sweats. Exam Const General: cooperative and comfortable Orientation: alert and oriented x3 Resp Effort & Inspection: normal respiratory effort, no audible wheezes and no cough GI Inspection: normal to inspection Palpation: soft, guarding and tender in the epigastrum; with no rebound tenderness Objective Objective Clinical Data: Abnormal lab results 12/25/18 12/25/18 Range/Units 06:45 06:45 WBC 14.30 H D (4.4-10.8) k/cumm RDW 14.7 H (11.7-14.6) % Absolute Neutrophils 11.47 H (1.2-6.7) k/cumm BUN 25 H (7-18) mg/dL Creatinine 1.32 H (0.55-1.02) mg/dL Glucose 176 H (70-100) mg/dL Vital Signs Temperature 36.6 C 12/26/18 04:16 Temperature Source Temporal Artery Scan 12/26/18 04:16 Pulse 122 H 12/26/18 04:16 Pulse Rhythm Regular 12/25/18 15:47 Respiratory Rate 17 12/26/18 04:16 Respiratory Effort 12/25/18 15:47 Respiratory Depth Normal 12/25/18 15:47 Respiratory Pattern Normal 12/25/18 15:47 Blood Pressure 155/90 H 12/26/18 04:16 Pulse Oximetry 94 L 12/26/18 04:16 Oxygen Delivery Method Room Air 12/26/18 04:16 Oxygen Flow Rate 0 12/26/18 04:16 Pain Level 2 12/26/18 04:16 Intake & Output 12/25/18 12/26/18 12/26/18 18:59 06:59 18:59 Intake Total 1689.0 / 2860.0 1171.0 / 2860.0 Output Total 750 / 750 Balance 939.0 / 2110.0 1171.0 / 2110.0 Intake: IV 1689.0 / 2860.0 1171.0 / 2860.0 Output: Urine 750 / 750 Other: Urine Color Yellow Urine Appearance Clear Urine Odor Normal Comment Void in toilet x1. Voiding Methods Toilet Laboratory Results WBC 14.30 k/cumm (4.4-10.8) H D 12/25/18 06:45 RBC 4.87 m/cumm (4.00-5.20) 12/25/18 06:45 Hgb 14.5 g/dL (12.0-15.5) 12/25/18 06:45 Hct 42.5 % (36.0-46.0) 12/25/18 06:45 MCV 87.3 fL (80-95) 12/25/18 06:45 MCH 29.8 pg (27.0-33.0) 12/25/18 06:45 MCHC 34.1 g/dL (32.0-36.0) 12/25/18 06:45 RDW 14.7 % (11.7-14.6) H 12/25/18 06:45 Plt Count 362 x1000/uL (130-400) 12/25/18 06:45 MPV 9.7 fL (8.0-11.0) 12/25/18 06:45 Immature Gran % 0.2 12/25/18 06:45 80.2 12/25/18 06:45 15.7 12/25/18 06:45 3.7 12/25/18 06:45 0.1 12/25/18 06:45 0.1 12/25/18 06:45 Absolute Neutrophils 11.47 k/cumm (1.2-6.7) H 12/25/18 06:45 Absolute Lymphocytes 2.25 k/cumm (1.2-3.4) 12/25/18 06:45 Absolute Monocytes 0.53 k/cumm (0.11-0.7) 12/25/18 06:45 Absolute Eosinophils 0.01 k/cumm (0.0-0.7) 12/25/18 06:45 Absolute Basophils 0.01 k/cumm (0.0-0.2) 12/25/18 06:45 Sodium 139 mmol/L (136-145) 12/25/18 06:45 Potassium 4.2 mmol/L (3.5-5.1) 12/25/18 06:45 Chloride 104 mmol/L (98-107) 12/25/18 06:45 Carbon Dioxide 24.5 mmol/L (21.0-32.0) 12/25/18 06:45 10.5 mmol/L (3-11) 12/25/18 06:45 BUN 25 mg/dL (7-18) H 12/25/18 06:45 1.32 mg/dL (0.55-1.02) H 12/25/18 06:45 39.90 (mL/min/1.73m2) 12/25/18 06:45 Glucose 176 mg/dL (70-100) H 12/25/18 06:45 Calcium 9.2 mg/dL (8.5-10.1) 12/25/18 06:45 0.2 mg/dL (0.2-1.0) 12/24/18 11:49 AST 16 U/L (15-37) 12/24/18 11:49 ALT 23 U/L (12-78) 12/24/18 11:49 102 U/L (46-116) 12/24/18 11:49 7.7 g/dL (6.4-8.2) 12/24/18 11:49 3.7 g/dL (3.4-5.0) 12/24/18 11:49 98 U/L (73-393) 12/24/18 11:49 Yellow (Yellow) 12/24/18 13:40 Clear (Clear) 12/24/18 13:40 7.0 (5-8) 12/24/18 13:40 Ur Specific [place] 1.015 (1.005-1.025) 12/24/18 13:40 Negative mg/dL (Negative) 12/24/18 13:40 Negative mg/dL (Negative) 12/24/18 13:40 Negative (Negative) 12/24/18 13:40 Negative (Negative) 12/24/18 13:40 Negative (Negative) 12/24/18 13:40 0.2 EU/dL (Up TO 0.2) 12/24/18 13:40 Ur Leukocyte Esterase Negative (Negative) 12/24/18 13:40 Negative mg/dL (Negative) 12/24/18 13:40
[2018-12-26 07:15] VITALS: BP 143/85; PULSE 113; RESP 18; TEMP 36.9; O2SAT 93
[2018-12-26 07:15] LABS: Absolute Lymphocyte Count 2.13 k/cumm (1.2-3.4); Absolute Neutrophil Count 8.85 k/cumm (1.2-6.7)
[2018-12-26 07:31] LABS: Anion Gap 11.4 mmol/L (3-11); BUN 20 mg/dL (7-18); CO2 23.6 mmol/L (21.0-32.0); CREATININE 1.24 mg/dL (0.55-1.02); Calcium 8.3 mg/dL (8.5-10.1); Chloride 105 mmol/L (98-107); Estimated GFR 42.89 (mL/min/1.73m2); Glucose 147 mg/dL (70-100); Magnesium 1.6 mg/dL (1.8-2.4); Potassium 3.8 mmol/L (3.5-5.1); Sodium 140 mmol/L (136-145)
[2018-12-26] MEDS: ALPRAZolam 0.5 MG TAB PO (09:52)
[2018-12-26] MEDS: MAGNESIUM SULFATE 2 GM/50 ML BAG IVPB (10:54)
--- NOTE | 2018-12-26 11:21 | PDOC.CMPRO ---
- If Service Date Differs Date of service: 12/26/18 Time of Service: 11:21 Care Management Progress Note S/O:Marleni was sitting up in bed when CM came to visit. She was pleasant and readily engaged in conversation. Marleni states she is feeling much better and that her pain has decreased. She states she is passing flatus but has not yet had a BM. She shared that her doctor told her that when she is able to have a BM she can be discharged. A; Marleni is a 68 year old woman admitted to [facility] on 12/24/18 with diverticulitis P: Marleni will likely be discharged home with no services when ready. CM will continue to support patient, family and discharge planning needs identified.
--- NOTE | 2018-12-26 12:51 | W.PM.PROGNOT ---
Date of Service Date of service: 12/26/18 Time of Service: 12:51 Assessment and Plan (1) Diverticulitis large intestine: Current visit: Yes Status: Acute A\\ Feeling better P\\ Start a clear liquid diet tonight Restart Home medications Suppository Qualifiers: Diverticulitis bleeding: without bleeding Diverticulitis complication: without perforation or abscess Qualified Code(s): K57.32 - Diverticulitis of large intestine without perforation or abscess without bleeding Subjective Interval history since last seen: Mrs. Tejeda is doing well. She has had some Popsicle and sips of water without Nausea or increased pain. She feels pressure like she needs to have a BM but hasn't been able to. Last BM was Monday or Monday. Positive Flatus Patient had some shaking last night. Wondering whether the shaking is due to her not being on her anti-depressant Exam GI Inspection: distended Palpation: soft and nontender Objective Objective Clinical Data: Abnormal lab results 12/26/18 12/26/18 Range/Units 06:40 06:40 WBC 11.68 H (4.4-10.8) k/cumm Absolute Neutrophils 8.85 H (1.2-6.7) k/cumm Anion Gap 11.4 H (3-11) mmol/L BUN 20 H (7-18) mg/dL Creatinine 1.24 H (0.55-1.02) mg/dL Glucose 147 H (70-100) mg/dL Calcium 8.3 L (8.5-10.1) mg/dL Magnesium 1.6 L (1.8-2.4) mg/dL Vital Signs Temperature 98.4 F 12/26/18 07:15 Temperature Source Tympanic 12/26/18 07:15 Pulse 113 H 12/26/18 07:15 Pulse Rhythm Regular 12/26/18 07:45 Respiratory Rate 18 12/26/18 07:15 Respiratory Effort 12/26/18 07:45 Respiratory Depth Normal 12/26/18 07:45 Respiratory Pattern Normal 12/26/18 07:45 Blood Pressure 143/85 H 12/26/18 07:15 Pulse Oximetry 93 L 12/26/18 07:15 Oxygen Delivery Method Room Air 12/26/18 07:15 Oxygen Flow Rate 0 12/26/18 07:15 Pain Level 1 12/26/18 07:15 Intake & Output 12/25/18 12/26/18 12/26/18 23:59 11:59 23:59 Intake Total 921.5 / 2595.333 1150.5 / 1150.5 Output Total 450 / 1550 400 / 400 Balance 471.5 / 1045.333 750.5 / 750.5 Intake: IV 921.5 / 2475.333 1150.5 / 1150.5 Output: Urine 450 / 1450 400 / 400 Other: Urine Color Yellow Pale Yellow Urine Appearance Clear Clear Urine Odor Normal Normal Comment Void in toilet x1. Voiding Methods Toilet Toilet Laboratory Results WBC 11.68 k/cumm (4.4-10.8) H 12/26/18 06:40 RBC 4.43 m/cumm (4.00-5.20) 12/26/18 06:40 Hgb 13.4 g/dL (12.0-15.5) 12/26/18 06:40 Hct 39.1 % (36.0-46.0) 12/26/18 06:40 MCV 88.3 fL (80-95) 12/26/18 06:40 MCH 30.2 pg (27.0-33.0) 12/26/18 06:40 MCHC 34.3 g/dL (32.0-36.0) 12/26/18 06:40 RDW 14.6 % (11.7-14.6) 12/26/18 06:40 Plt Count 293 x1000/uL (130-400) 12/26/18 06:40 MPV 9.5 fL (8.0-11.0) 12/26/18 06:40 Immature Gran % 0.3 12/26/18 06:40 75.8 12/26/18 06:40 18.2 12/26/18 06:40 5.5 12/26/18 06:40 0.1 12/26/18 06:40 0.1 12/26/18 06:40 Absolute Neutrophils 8.85 k/cumm (1.2-6.7) H 12/26/18 06:40 Absolute Lymphocytes 2.13 k/cumm (1.2-3.4) 12/26/18 06:40 Absolute Monocytes 0.64 k/cumm (0.11-0.7) 12/26/18 06:40 Absolute Eosinophils 0.01 k/cumm (0.0-0.7) 12/26/18 06:40 Absolute Basophils 0.01 k/cumm (0.0-0.2) 12/26/18 06:40 Sodium 140 mmol/L (136-145) 12/26/18 06:40 Potassium 3.8 mmol/L (3.5-5.1) 12/26/18 06:40 Chloride 105 mmol/L (98-107) 12/26/18 06:40 Carbon Dioxide 23.6 mmol/L (21.0-32.0) 12/26/18 06:40 11.4 mmol/L (3-11) H 12/26/18 06:40 BUN 20 mg/dL (7-18) H 12/26/18 06:40 1.24 mg/dL (0.55-1.02) H 12/26/18 06:40 42.89 (mL/min/1.73m2) 12/26/18 06:40 Glucose 147 mg/dL (70-100) H 12/26/18 06:40 Calcium 8.3 mg/dL (8.5-10.1) L 12/26/18 06:40 Magnesium 1.6 mg/dL (1.8-2.4) L 12/26/18 06:40 0.2 mg/dL (0.2-1.0) 12/24/18 11:49 AST 16 U/L (15-37) 12/24/18 11:49 ALT 23 U/L (12-78) 12/24/18 11:49 102 U/L (46-116) 12/24/18 11:49 7.7 g/dL (6.4-8.2) 12/24/18 11:49 3.7 g/dL (3.4-5.0) 12/24/18 11:49 98 U/L (73-393) 12/24/18 11:49 Yellow (Yellow) 12/24/18 13:40 Clear (Clear) 12/24/18 13:40 7.0 (5-8) 12/24/18 13:40 Ur Specific [place] 1.015 (1.005-1.025) 12/24/18 13:40 Negative mg/dL (Negative) 12/24/18 13:40 Negative mg/dL (Negative) 12/24/18 13:40 Negative (Negative) 12/24/18 13:40 Negative (Negative) 12/24/18 13:40 Negative (Negative) 12/24/18 13:40 0.2 EU/dL (Up TO 0.2) 12/24/18 13:40 Ur Leukocyte Esterase Negative (Negative) 12/24/18 13:40 Negative mg/dL (Negative) 12/24/18 13:40
[2018-12-26] MEDS: Ipratropium/Albuterol 4 GM 120 PUFF INH IH (12:53)
[2018-12-26] MEDS: Bisacodyl 10 MG SUPP PR (13:14)
[2018-12-26] MEDS: Normal Saline 1,000 ML 80 ML IV (14:38)
[2018-12-26 15:45] VITALS: BP 148/80; PULSE 110; RESP 18; TEMP 37.2; O2SAT 97
[2018-12-26] MEDS: Pantoprazole 40 MG TABCR UD (16:31)
[2018-12-26] MEDS: ALPRAZolam 0.25 MG TAB PO (21:11)
[2018-12-27 00:29] VITALS: BP 147/87; PULSE 107; RESP 16; TEMP 36.7; O2SAT 95
[2018-12-27] MEDS: PIPERACILLIN/TAZO 3.375 GM in Normal Saline 50 ML IVPB ×4 (03:38→22:24)
[2018-12-27] MEDS: Normal Saline 1,000 ML 80 ML IV ×2 (04:39→20:45)
[2018-12-27 07:14] LABS: Abs Immature Grans 0.03 k/cumm (0.0-0.09); Absolute Basophil Count 0.03 k/cumm (0.0-0.2); Absolute Eosinophil Count 0.12 k/cumm (0.0-0.7); Absolute Lymphocyte Count 1.82 k/cumm (1.2-3.4); Absolute Monocyte Count 0.64 k/cumm (0.11-0.7); Absolute Neutrophil Count 6.27 k/cumm (1.2-6.7); Basophils % 0.3; Eosinophils % 1.3; HCT 34.6 % (36.0-46.0); HGB 11.9 g/dL (12.0-15.5); Immature Grans % 0.3; Lymphocytes % 20.4; Mean Corp. HGB Concentration 34.4 g/dL (32.0-36.0); Mean Corpuscular Hemoglobin 30.1 pg (27.0-33.0); Mean Corpuscular Volume 87.6 fL (80-95); Mean Platelet Volume 9.5 fL (8.0-11.0); Monocytes % 7.2; Neutrophils % 70.5; Platelet Count 263 x1000/uL (130-400); RBC 3.95 m/cumm (4.00-5.20); RBC Distribution Width 13.9 % (11.7-14.6); White Blood Cell Count 8.91 k/cumm (4.4-10.8)
[2018-12-27 07:20] VITALS: BP 145/83; PULSE 104; RESP 18; TEMP 36.7; O2SAT 95
[2018-12-27 07:26] LABS: BUN 19 mg/dL (7-18); CREATININE 0.96 mg/dL (0.55-1.02); Calcium 8.3 mg/dL (8.5-10.1); Chloride 106 mmol/L (98-107); Estimated GFR 57.63 (mL/min/1.73m2); Glucose 140 mg/dL (70-100); Magnesium 2.2 mg/dL (1.8-2.4); Potassium 3.5 mmol/L (3.5-5.1); Sodium 140 mmol/L (136-145)
--- NOTE | 2018-12-27 07:30 | W.PM.PROGNOT ---
Date of Service Date of service: 12/27/18 Time of Service: 07:30 Assessment and Plan (1) Ileus: Current visit: Yes Status: Acute (+) BM x 2 Tolerating clear liquids Ambulating frequently. Will progress diet to Regular, Low fiber diet. Disposition- D/C home once tolerating regular diet. (2) Diverticulitis large intestine: Current visit: Yes Status: Acute Qualifiers: Diverticulitis bleeding: without bleeding Diverticulitis complication: without perforation or abscess Qualified Code(s): K57.32 - Diverticulitis of large intestine without perforation or abscess without bleeding Subjective Interval history since last seen: I had 2 BMs this morning. She has been ambulating frequently, independently in the sauceda. Tolerating clear liquids. Denies any nausea or vomiting. Exam Const General: cooperative, healthy appearing and comfortable Orientation: alert and oriented x3 Resp Effort & Inspection: normal respiratory effort, no audible wheezes and no cough GI Inspection: normal to inspection and distended Palpation: soft, no guarding and nontender Objective Objective Clinical Data: Abnormal lab results 12/26/18 12/27/18 Range/Units 06:40 06:25 RBC 3.95 L (4.00-5.20) m/cumm Hgb 11.9 L (12.0-15.5) g/dL Hct 34.6 L (36.0-46.0) % Anion Gap 11.4 H (3-11) mmol/L BUN 20 H (7-18) mg/dL Creatinine 1.24 H (0.55-1.02) mg/dL Glucose 147 H (70-100) mg/dL Calcium 8.3 L (8.5-10.1) mg/dL Magnesium 1.6 L (1.8-2.4) mg/dL Vital Signs Temperature 36.7 C 12/27/18 00:29 Temperature Source Tympanic 12/27/18 00:29 Pulse 107 H 12/27/18 00:29 Pulse Rhythm Regular 12/26/18 22:22 Respiratory Rate 16 12/27/18 00:29 Respiratory Effort Non-Labored 12/26/18 22:22 Respiratory Depth Normal 12/26/18 22:22 Respiratory Pattern Normal 12/26/18 22:22 Blood Pressure 147/87 H 12/27/18 00:29 Pulse Oximetry 95 12/27/18 00:29 Oxygen Delivery Method Room Air 12/27/18 00:29 Oxygen Flow Rate 0 12/27/18 00:29 Pain Level 0 12/27/18 00:29 Intake & Output 12/26/18 12/27/18 12/27/18 18:59 06:59 18:59 Intake Total 1400 / 2550.5 1150.5 / 2550.5 Output Total 600 / 800 200 / 800 Balance 800 / 1750.5 950.5 / 1750.5 Intake: IV 1150 / 2300.5 1150.5 / 2300.5 Oral 250 / 250 Output: Urine 600 / 800 200 / 800 Other: Urine Color Pale Yellow Yellow Yellow Urine Appearance Clear Clear Clear Urine Odor Normal Normal Comment Voiding independantly Stool Size Moderate Moderate Stool Characteristics Formed Liquid Hard Brown Brown Voiding Methods Toilet Toilet Toilet Laboratory Results WBC 8.91 k/cumm (4.4-10.8) 12/27/18 06:25 RBC 3.95 m/cumm (4.00-5.20) L 12/27/18 06:25 Hgb 11.9 g/dL (12.0-15.5) L 12/27/18 06:25 Hct 34.6 % (36.0-46.0) L 12/27/18 06:25 MCV 87.6 fL (80-95) 12/27/18 06:25 MCH 30.1 pg (27.0-33.0) 12/27/18 06:25 MCHC 34.4 g/dL (32.0-36.0) 12/27/18 06:25 RDW 13.9 % (11.7-14.6) 12/27/18 06:25 Plt Count 263 x1000/uL (130-400) 12/27/18 06:25 MPV 9.5 fL (8.0-11.0) 12/27/18 06:25 Immature Gran % 0.3 12/27/18 06:25 70.5 12/27/18 06:25 20.4 12/27/18 06:25 7.2 12/27/18 06:25 1.3 12/27/18 06:25 0.3 12/27/18 06:25 Absolute Neutrophils 6.27 k/cumm (1.2-6.7) 12/27/18 06:25 Absolute Lymphocytes 1.82 k/cumm (1.2-3.4) 12/27/18 06:25 Absolute Monocytes 0.64 k/cumm (0.11-0.7) 12/27/18 06:25 Absolute Eosinophils 0.12 k/cumm (0.0-0.7) 12/27/18 06:25 Absolute Basophils 0.03 k/cumm (0.0-0.2) 12/27/18 06:25 Sodium 140 mmol/L (136-145) 12/26/18 06:40 Potassium 3.8 mmol/L (3.5-5.1) 12/26/18 06:40 Chloride 105 mmol/L (98-107) 12/26/18 06:40 Carbon Dioxide 23.6 mmol/L (21.0-32.0) 12/26/18 06:40 11.4 mmol/L (3-11) H 12/26/18 06:40 BUN 20 mg/dL (7-18) H 12/26/18 06:40 1.24 mg/dL (0.55-1.02) H 12/26/18 06:40 42.89 (mL/min/1.73m2) 12/26/18 06:40 Glucose 147 mg/dL (70-100) H 12/26/18 06:40 Calcium 8.3 mg/dL (8.5-10.1) L 12/26/18 06:40 Magnesium 1.6 mg/dL (1.8-2.4) L 12/26/18 06:40 0.2 mg/dL (0.2-1.0) 12/24/18 11:49 AST 16 U/L (15-37) 12/24/18 11:49 ALT 23 U/L (12-78) 12/24/18 11:49 102 U/L (46-116) 12/24/18 11:49 7.7 g/dL (6.4-8.2) 12/24/18 11:49 3.7 g/dL (3.4-5.0) 12/24/18 11:49 98 U/L (73-393) 12/24/18 11:49 Yellow (Yellow) 12/24/18 13:40 Clear (Clear) 12/24/18 13:40 7.0 (5-8) 12/24/18 13:40 Ur Specific [place] 1.015 (1.005-1.025) 12/24/18 13:40 Negative mg/dL (Negative) 12/24/18 13:40 Negative mg/dL (Negative) 12/24/18 13:40 Negative (Negative) 12/24/18 13:40 Negative (Negative) 12/24/18 13:40 Negative (Negative) 12/24/18 13:40 0.2 EU/dL (Up TO 0.2) 12/24/18 13:40 Ur Leukocyte Esterase Negative (Negative) 12/24/18 13:40 Negative mg/dL (Negative) 12/24/18 13:40
[2018-12-27] MEDS: Lisinopril 20 MG TAB PO (07:47)
[2018-12-27] MEDS: Levothyroxine 50 MCG TAB PO (07:48)
[2018-12-27] MEDS: ROSUVASTATIN 20 MG TAB 40 MG PO (07:48)
[2018-12-27] MEDS: Aspirin 325 MG TAB PO (07:48)
[2018-12-27] MEDS: hydroCHLOROthiazide 12.5 MG TAB PO (07:49)
[2018-12-27] MEDS: Tiotropium Bromide-Respimat 10 PUFF INH 2 PUFF IH (09:35)
[2018-12-27] MEDS: Budesonide/Formoterol 160/4.5 6 GM 60 PUFF INH IH ×2 (09:36→20:45)
--- NOTE | 2018-12-27 15:37 | W.PM.PROGNOT ---
Date of Service Date of service: 12/27/18 Time of Service: 12:30 Assessment and Plan (1) Diverticulitis large intestine: Current visit: Yes Status: Acute Improving If she tolerates PO will plan for discharge in the am Qualifiers: Diverticulitis bleeding: without bleeding Diverticulitis complication: without perforation or abscess Qualified Code(s): K57.32 - Diverticulitis of large intestine without perforation or abscess without bleeding (2) Ileus: Current visit: Yes Status: Acute Subjective Interval history since last seen: Tolerated soft diet Had 3-4 loose stools today No nausea Exam GI Other: Abdomen still distended but soft. No tenderness Objective Objective Clinical Data: Abnormal lab results 12/27/18 12/27/18 Range/Units 06:25 06:25 RBC 3.95 L (4.00-5.20) m/cumm Hgb 11.9 L (12.0-15.5) g/dL Hct 34.6 L (36.0-46.0) % BUN 19 H (7-18) mg/dL Glucose 140 H (70-100) mg/dL Calcium 8.3 L (8.5-10.1) mg/dL Vital Signs Temperature 98.1 F 12/27/18 07:20 Temperature Source Tympanic 12/27/18 07:20 Pulse 104 H 12/27/18 07:20 Pulse Rhythm Regular 12/27/18 07:28 Respiratory Rate 18 12/27/18 07:20 Respiratory Effort Non-Labored 12/27/18 07:28 Respiratory Depth Normal 12/27/18 07:28 Respiratory Pattern Normal 12/27/18 07:28 Blood Pressure 145/83 H 12/27/18 07:20 Pulse Oximetry 95 12/27/18 07:20 Oxygen Delivery Method Room Air 12/27/18 07:20 Oxygen Flow Rate 0 12/27/18 07:20 Pain Level 0 12/27/18 07:20 Intake & Output 12/26/18 12/27/18 12/27/18 23:59 11:59 23:59 Intake Total 400.5 / 2551.0 1049 Output Total 400 / 800 Balance 0.5 / 1751.0 1049 Intake: IV 150.5 / 2301.0 1050 / 1100 50 / 1100 Oral 250 / 250 880 / 880 Output: Urine 400 / 800 Other: Urine Color Yellow Yellow Urine Appearance Clear Clear Urine Odor Normal Comment Voiding independantly pt voiding independently Stool Size Moderate Moderate Stool Characteristics Formed Liquid Hard Brown Brown Voiding Methods Toilet Toilet Laboratory Results WBC 8.91 k/cumm (4.4-10.8) 12/27/18 06:25 RBC 3.95 m/cumm (4.00-5.20) L 12/27/18 06:25 Hgb 11.9 g/dL (12.0-15.5) L 12/27/18 06:25 Hct 34.6 % (36.0-46.0) L 12/27/18 06:25 MCV 87.6 fL (80-95) 12/27/18 06:25 MCH 30.1 pg (27.0-33.0) 12/27/18 06:25 MCHC 34.4 g/dL (32.0-36.0) 12/27/18 06:25 RDW 13.9 % (11.7-14.6) 12/27/18 06:25 Plt Count 263 x1000/uL (130-400) 12/27/18 06:25 MPV 9.5 fL (8.0-11.0) 12/27/18 06:25 Immature Gran % 0.3 12/27/18 06:25 70.5 12/27/18 06:25 20.4 12/27/18 06:25 7.2 12/27/18 06:25 1.3 12/27/18 06:25 0.3 12/27/18 06:25 Absolute Neutrophils 6.27 k/cumm (1.2-6.7) 12/27/18 06:25 Absolute Lymphocytes 1.82 k/cumm (1.2-3.4) 12/27/18 06:25 Absolute Monocytes 0.64 k/cumm (0.11-0.7) 12/27/18 06:25 Absolute Eosinophils 0.12 k/cumm (0.0-0.7) 12/27/18 06:25 Absolute Basophils 0.03 k/cumm (0.0-0.2) 12/27/18 06:25 Sodium 140 mmol/L (136-145) 12/27/18 06:25 Potassium 3.5 mmol/L (3.5-5.1) 12/27/18 06:25 Chloride 106 mmol/L (98-107) 12/27/18 06:25 Carbon Dioxide 24.0 mmol/L (21.0-32.0) 12/27/18 06:25 10.0 mmol/L (3-11) 12/27/18 06:25 BUN 19 mg/dL (7-18) H 12/27/18 06:25 0.96 mg/dL (0.55-1.02) 12/27/18 06:25 57.63 (mL/min/1.73m2) 12/27/18 06:25 Glucose 140 mg/dL (70-100) H 12/27/18 06:25 Calcium 8.3 mg/dL (8.5-10.1) L 12/27/18 06:25 Magnesium 2.2 mg/dL (1.8-2.4) 12/27/18 06:25 0.2 mg/dL (0.2-1.0) 12/24/18 11:49 AST 16 U/L (15-37) 12/24/18 11:49 ALT 23 U/L (12-78) 12/24/18 11:49 102 U/L (46-116) 12/24/18 11:49 7.7 g/dL (6.4-8.2) 12/24/18 11:49 3.7 g/dL (3.4-5.0) 12/24/18 11:49 98 U/L (73-393) 12/24/18 11:49 Yellow (Yellow) 12/24/18 13:40 Clear (Clear) 12/24/18 13:40 7.0 (5-8) 12/24/18 13:40 Ur Specific [place] 1.015 (1.005-1.025) 12/24/18 13:40 Negative mg/dL (Negative) 12/24/18 13:40 Negative mg/dL (Negative) 12/24/18 13:40 Negative (Negative) 12/24/18 13:40 Negative (Negative) 12/24/18 13:40 Negative (Negative) 12/24/18 13:40 0.2 EU/dL (Up TO 0.2) 12/24/18 13:40 Ur Leukocyte Esterase Negative (Negative) 12/24/18 13:40 Negative mg/dL (Negative) 12/24/18 13:40
[2018-12-27 15:46] VITALS: BP 150/84; PULSE 97; RESP 18; TEMP 36.7; O2SAT 95
[2018-12-27] MEDS: Pantoprazole 40 MG TABCR UD (16:30)
--- NOTE | 2018-12-27 16:50 | W.INDIABCONS ---
Date of service: 12/27/18 Time of Service: 16:50 Diabetes Inpatient Consult DESCRIPTION/ASSESSMENT: Appreciate diabetes consult for Marleni Tejeda who is 68 and hospitalized for diverticulitis. She has type 2 diabetes managed with lifestyle with A1c 6.7 which she self reports and states that is high for her. Blood sugars here 109-145. BMI 23 although she states she is bloated because of the infection. Visited with her and her caregiver for the weekend. She reports feeling she knows what to do to manage her diabetes and does not need support at this time. INTERVENTION: No intervention suggested at this time. PLAN: She will continue her usual self management practices. She is aware of our services and will be in touch as desired. Time Spent in Nutritional Counseling and Treatment: 8 minuts face to face
--- NOTE | 2018-12-27 18:09 | PDOC.CMPRO ---
- If Service Date Differs Date of service: 12/27/18 Time of Service: 18:09 Care Management Progress Note S/O:Marleni was sitting up in bed visiting with her when CM came to the room. She was smiling and stated that she was feeling much better. She informed CM that she had been able to move her bowels and that the pain was significantly better. She stated that she will be discharged in the morning. She has only had one meal and said she wanted to be sure symptoms did not reoccur. A: Marleni is a 68 year old woman admitted to [facility] on 12/24/18 with diverticulitis P: Marleni will likely be discharged home with no services when ready. CM will continue to support patient, family and discharge planning needs identified.
[2018-12-27] MEDS: ALPRAZolam 0.25 MG TAB PO (21:41)
[2018-12-27] MEDS: Normal Saline Flush 10 ML SYR IVP (22:58)
[2018-12-27 23:22] VITALS: BP 166/80; PULSE 100; RESP 18; TEMP 36.9; O2SAT 94
[2018-12-28] MEDS: PIPERACILLIN/TAZO 3.375 GM in Normal Saline 50 ML IVPB ×4 (04:45→22:38)
[2018-12-28] MEDS: Ondansetron 4 MG/2 ML VIAL IVP ×2 (05:57→12:25)
[2018-12-28] MEDS: Normal Saline Flush 10 ML SYR IVP ×5 (05:57→20:49)
--- NOTE | 2018-12-28 07:27 | DI.CT_ITS ---
SYMPTOM/DIAGNOSIS: VOMITING CT ABDOMEN AND PELVIS: CT scan of the abdomen and pelvis was performed following the uneventful administration of intravenous and oral contrast material. Comparison is 12/24/18 No acute findings are seen in the lung bases. The liver is normal in size. Tiny hypodensities are seen in the liver. They are too small for further characterization but likely reflect small cysts. The patient is status post cholecystectomy. Mild intra and extra hepatic biliary ductal dilatation is present. This may be due to the post cholecystectomy state. No obstructing lesion is seen. The pancreas is unremarkable as are the spleen and adrenal glands. The kidneys, ureters and bladder are unremarkable. The reproductive organs are unremarkable. There is moderately severe dilatation of the proximal small bowel. There is a transition noted in the right mid abdomen (Series 5, Image 531). The small bowel distally and colon are of normal caliber. There is diverticulosis seen in the colon. Mild pericolonic inflammatory changes and bowel wall thickening are seen in the proximal sigmoid colon. This appears grossly unchanged compared to the prior examination. There is a small amount of abdominal and pelvic ascites. No pneumoperitoneum is seen. No significant abdominal or pelvic adenopathy is present. There is atherosclerosis of the abdominal aorta noted. There is a small right pleural effusion and a small right basilar infiltrate. This may represent atelectasis or pneumonia. IMPRESSION: Findings of a small bowel obstruction with transition seen in the mid right abdomen (Series 5, Image 531). 2. Small right pleural effusion and right basilar infiltrate which may represent atelectasis or pneumonia. 3. Diverticular disease involving the sigmoid colon with mild inflammatory changes see around the proximal sigmoid colon and acute diverticulitis cannot be excluded. 4. Small amount of abdominal and pelvic ascites.
--- NOTE | 2018-12-28 07:29 | W.PM.PROGNOT ---
Date of Service Date of service: 12/28/18 Time of Service: 07:29 Assessment and Plan (1) Vomiting: Current visit: Yes Status: Acute She has not tolerated advancing her diet Will re-evaluate with CT with oral contrast if able Subjective Interval history since last seen: Had light dinner last night. Developed nausea overnight and had several episodes of small volume emesis this am. Bile in appearance No pain but feels bloated Is passing flatus Exam Narrative Exam Narrative: Alert Lungs CTA Heart RRR Abd distended but stable/soft. No tenderness Objective Objective Clinical Data: Abnormal lab results 12/27/18 Range/Units 06:25 BUN 19 H (7-18) mg/dL Glucose 140 H (70-100) mg/dL Calcium 8.3 L (8.5-10.1) mg/dL Vital Signs Temperature 98.4 F 12/27/18 23:22 Temperature Source Tympanic 12/27/18 23:22 Pulse 100 H 12/27/18 23:22 Pulse Rhythm Regular 12/27/18 20:47 Respiratory Rate 18 12/27/18 23:22 Respiratory Effort 12/28/18 05:54 Respiratory Depth Normal 12/28/18 05:54 Respiratory Pattern Normal 12/28/18 05:54 Blood Pressure 166/80 H 12/27/18 23:22 Pulse Oximetry 94 L 12/27/18 23:22 Oxygen Delivery Method Room Air 12/27/18 23:22 Oxygen Flow Rate 0 12/27/18 23:22 Pain Level 0 12/27/18 23:22 Intake & Output 12/27/18 12/27/18 12/28/18 11:59 23:59 11:59 Intake Total 1050 / 3130.5 2080.5 / 3130.5 100.5 / 100.5 Output Total 200 / 200 Balance 1050 / 3130.5 2080.5 / 3130.5 -99.5 / -99.5 Intake: IV 1050 / 2250.5 1200.5 / 2250.5 100.5 / 100.5 Oral 880 / 880 Output: Emesis 200 / 200 Other: Urine Color Yellow Urine Appearance Clear Clear Clear Comment Voiding independantly pt voiding independently Stool Size Moderate Stool Characteristics Liquid Brown Emesis Description Bile Voiding Methods Toilet Toilet Laboratory Results WBC 8.91 k/cumm (4.4-10.8) 12/27/18 06:25 RBC 3.95 m/cumm (4.00-5.20) L 12/27/18 06:25 Hgb 11.9 g/dL (12.0-15.5) L 12/27/18 06:25 Hct 34.6 % (36.0-46.0) L 12/27/18 06:25 MCV 87.6 fL (80-95) 12/27/18 06:25 MCH 30.1 pg (27.0-33.0) 12/27/18 06:25 MCHC 34.4 g/dL (32.0-36.0) 12/27/18 06:25 RDW 13.9 % (11.7-14.6) 12/27/18 06:25 Plt Count 263 x1000/uL (130-400) 12/27/18 06:25 MPV 9.5 fL (8.0-11.0) 12/27/18 06:25 Immature Gran % 0.3 12/27/18 06:25 70.5 12/27/18 06:25 20.4 12/27/18 06:25 7.2 12/27/18 06:25 1.3 12/27/18 06:25 0.3 12/27/18 06:25 Absolute Neutrophils 6.27 k/cumm (1.2-6.7) 12/27/18 06:25 Absolute Lymphocytes 1.82 k/cumm (1.2-3.4) 12/27/18 06:25 Absolute Monocytes 0.64 k/cumm (0.11-0.7) 12/27/18 06:25 Absolute Eosinophils 0.12 k/cumm (0.0-0.7) 12/27/18 06:25 Absolute Basophils 0.03 k/cumm (0.0-0.2) 12/27/18 06:25 Sodium 140 mmol/L (136-145) 12/27/18 06:25 Potassium 3.5 mmol/L (3.5-5.1) 12/27/18 06:25 Chloride 106 mmol/L (98-107) 12/27/18 06:25 Carbon Dioxide 24.0 mmol/L (21.0-32.0) 12/27/18 06:25 10.0 mmol/L (3-11) 12/27/18 06:25 BUN 19 mg/dL (7-18) H 12/27/18 06:25 0.96 mg/dL (0.55-1.02) 12/27/18 06:25 57.63 (mL/min/1.73m2) 12/27/18 06:25 Glucose 140 mg/dL (70-100) H 12/27/18 06:25 Calcium 8.3 mg/dL (8.5-10.1) L 12/27/18 06:25 Magnesium 2.2 mg/dL (1.8-2.4) 12/27/18 06:25 0.2 mg/dL (0.2-1.0) 12/24/18 11:49 AST 16 U/L (15-37) 12/24/18 11:49 ALT 23 U/L (12-78) 12/24/18 11:49 102 U/L (46-116) 12/24/18 11:49 7.7 g/dL (6.4-8.2) 12/24/18 11:49 3.7 g/dL (3.4-5.0) 12/24/18 11:49 98 U/L (73-393) 12/24/18 11:49 Yellow (Yellow) 12/24/18 13:40 Clear (Clear) 12/24/18 13:40 7.0 (5-8) 12/24/18 13:40 Ur Specific [place] 1.015 (1.005-1.025) 12/24/18 13:40 Negative mg/dL (Negative) 12/24/18 13:40 Negative mg/dL (Negative) 12/24/18 13:40 Negative (Negative) 12/24/18 13:40 Negative (Negative) 12/24/18 13:40 Negative (Negative) 12/24/18 13:40 0.2 EU/dL (Up TO 0.2) 12/24/18 13:40 Ur Leukocyte Esterase Negative (Negative) 12/24/18 13:40 Negative mg/dL (Negative) 12/24/18 13:40
[2018-12-28 07:30] VITALS: BP 151/87; PULSE 100; RESP 18; TEMP 36.4; O2SAT 93
[2018-12-28] MEDS: Budesonide/Formoterol 160/4.5 6 GM 60 PUFF INH IH ×2 (08:06→20:50)
[2018-12-28] MEDS: Tiotropium Bromide-Respimat 10 PUFF INH 2 PUFF IH (08:07)
[2018-12-28] MEDS: Omnipaque 350 MG/ML 100 ML BTL IJ (10:16)
--- NOTE | 2018-12-28 13:29 | PGE_ITS ---
Date of Service Date of service: 12/28/18 Time of Service: 13:29 Assessment and Plan (1) Small bowel obstruction: Current visit: Yes Status: Acute CT scan reviewed. Shows distal small bowel obstruction. Discussed options with patient including NG tube placement or surgery. We agreed to proceed with placement of the NG tube, which may need to be in place for 24-48 hours. Objective Objective Clinical Data: Vital Signs Temperature 97.5 F L 12/28/18 07:30 Temperature Source Tympanic 12/28/18 07:30 Pulse 100 H 12/28/18 07:30 Pulse Rhythm Regular 12/28/18 07:30 Respiratory Rate 18 12/28/18 07:30 Respiratory Effort 12/28/18 07:30 Respiratory Depth Normal 12/28/18 07:30 Respiratory Pattern Normal 12/28/18 07:30 Blood Pressure 151/87 H 12/28/18 07:30 Pulse Oximetry 93 L 12/28/18 07:30 Oxygen Delivery Method Room Air 12/28/18 07:30 Oxygen Flow Rate 0 12/28/18 07:30 Pain Level 1 12/28/18 07:30 Intake & Output 12/27/18 12/28/18 12/28/18 23:59 11:59 23:59 Intake Total 2080.5 / 3130.5 951.667 / 971.667 20 / 971.667 Output Total 200 / 200 Balance 2080.5 / 3130.5 751.667 / 771.667 20 / 771.667 Intake: IV 1200.5 / 2250.5 951.667 / 971.667 20 / 971.667 Oral 880 / 880 Output: Emesis 200 / 200 Other: Urine Color Pale Yellow Urine Appearance Clear Clear Comment pt voiding independently Emesis Description Bile Voiding Methods Toilet Toilet Laboratory Results WBC 8.91 k/cumm (4.4-10.8) 12/27/18 06:25 RBC 3.95 m/cumm (4.00-5.20) L 12/27/18 06:25 Hgb 11.9 g/dL (12.0-15.5) L 12/27/18 06:25 Hct 34.6 % (36.0-46.0) L 12/27/18 06:25 MCV 87.6 fL (80-95) 12/27/18 06:25 MCH 30.1 pg (27.0-33.0) 12/27/18 06:25 MCHC 34.4 g/dL (32.0-36.0) 12/27/18 06:25 RDW 13.9 % (11.7-14.6) 12/27/18 06:25 Plt Count 263 x1000/uL (130-400) 12/27/18 06:25 MPV 9.5 fL (8.0-11.0) 12/27/18 06:25 Immature Gran % 0.3 12/27/18 06:25 70.5 12/27/18 06:25 20.4 12/27/18 06:25 7.2 12/27/18 06:25 1.3 12/27/18 06:25 0.3 12/27/18 06:25 Absolute Neutrophils 6.27 k/cumm (1.2-6.7) 12/27/18 06:25 Absolute Lymphocytes 1.82 k/cumm (1.2-3.4) 12/27/18 06:25 Absolute Monocytes 0.64 k/cumm (0.11-0.7) 12/27/18 06:25 Absolute Eosinophils 0.12 k/cumm (0.0-0.7) 12/27/18 06:25 Absolute Basophils 0.03 k/cumm (0.0-0.2) 12/27/18 06:25 Sodium 140 mmol/L (136-145) 12/27/18 06:25 Potassium 3.5 mmol/L (3.5-5.1) 12/27/18 06:25 Chloride 106 mmol/L (98-107) 12/27/18 06:25 Carbon Dioxide 24.0 mmol/L (21.0-32.0) 12/27/18 06:25 10.0 mmol/L (3-11) 12/27/18 06:25 BUN 19 mg/dL (7-18) H 12/27/18 06:25 0.96 mg/dL (0.55-1.02) 12/27/18 06:25 57.63 (mL/min/1.73m2) 12/27/18 06:25 Glucose 140 mg/dL (70-100) H 12/27/18 06:25 Calcium 8.3 mg/dL (8.5-10.1) L 12/27/18 06:25 Magnesium 2.2 mg/dL (1.8-2.4) 12/27/18 06:25 0.2 mg/dL (0.2-1.0) 12/24/18 11:49 AST 16 U/L (15-37) 12/24/18 11:49 ALT 23 U/L (12-78) 12/24/18 11:49 102 U/L (46-116) 12/24/18 11:49 7.7 g/dL (6.4-8.2) 12/24/18 11:49 3.7 g/dL (3.4-5.0) 12/24/18 11:49 98 U/L (73-393) 12/24/18 11:49 Yellow (Yellow) 12/24/18 13:40 Clear (Clear) 12/24/18 13:40 7.0 (5-8) 12/24/18 13:40 Ur Specific [place] 1.015 (1.005-1.025) 12/24/18 13:40 Negative mg/dL (Negative) 12/24/18 13:40 Negative mg/dL (Negative) 12/24/18 13:40 Negative (Negative) 12/24/18 13:40 Negative (Negative) 12/24/18 13:40 Negative (Negative) 12/24/18 13:40 0.2 EU/dL (Up TO 0.2) 12/24/18 13:40 Ur Leukocyte Esterase Negative (Negative) 12/24/18 13:40 Negative mg/dL (Negative) 12/24/18 13:40
[2018-12-28] MEDS: Normal Saline 1,000 ML 125 ML IV (13:44)
[2018-12-28] MEDS: LORazepam 2 MG/ML VIAL 1 MG IVP ×2 (14:42→20:49)
[2018-12-28] MEDS: Lidocaine 2% Jelly 6 ML SYR TP (15:08)
--- NOTE | 2018-12-28 15:27 | CMPROGNOTE_ITS ---
Care Management Progress Note S/O: Marleni was unable to tolerate diet advancement through the evening and developed nausea overnight and emesis this morning. Per MD, Marleni has agreed to NG tube placement-anticipated for at least a day due to recurrent bowel obstruction as noted on CT with oral contrast per MD. Marleni remains on IVF and IV medications at this time. CM continues to follow. A: Marleni is a 68 year old woman admitted to [facility] on 12/24/18 with diverticulitis P: Marleni will have NG tube placed and continue to be closely monitored. CM will continue to support discharge planning considerations.
--- NOTE | 2018-12-28 15:38 | CHAPLAIN ---
I introduced myself to Marleni, explained my role and offered support. She said she is feeling worse today than yesterday, but did not seem distressed about this. Her significant other has been in to visit and walk the halls with her.
--- NOTE | 2018-12-28 15:44 | W.PM.PROGNOT ---
Date of Service Date of service: 12/26/18 Time of Service: 15:44 Subjective Interval history since last seen: Hospitalists are signing off. Please, reconsult if needed. Objective Objective Clinical Data: Vital Signs Temperature 36.4 C L 12/28/18 07:30 Temperature Source Tympanic 12/28/18 07:30 Pulse 100 H 12/28/18 07:30 Pulse Rhythm Regular 12/28/18 07:30 Respiratory Rate 18 12/28/18 07:30 Respiratory Effort 12/28/18 07:30 Respiratory Depth Normal 12/28/18 07:30 Respiratory Pattern Normal 12/28/18 07:30 Blood Pressure 151/87 H 12/28/18 07:30 Pulse Oximetry 93 L 12/28/18 07:30 Oxygen Delivery Method Room Air 12/28/18 07:30 Oxygen Flow Rate 0 12/28/18 07:30 Pain Level 1 12/28/18 07:30 Intake & Output 12/27/18 12/28/18 12/28/18 23:59 11:59 23:59 Intake Total 2080.5 / 3130.5 951.667 / 991.667 40 / 991.667 Output Total 200 / 200 Balance 2080.5 / 3130.5 751.667 / 791.667 40 / 791.667 Intake: IV 1200.5 / 2250.5 951.667 / 991.667 40 / 991.667 Oral 880 / 880 Output: Emesis 200 / 200 Other: Urine Color Pale Yellow Urine Appearance Clear Clear Comment pt voiding independently Emesis Description Bile Voiding Methods Toilet Toilet Laboratory Results WBC 8.91 k/cumm (4.4-10.8) 12/27/18 06:25 RBC 3.95 m/cumm (4.00-5.20) L 12/27/18 06:25 Hgb 11.9 g/dL (12.0-15.5) L 12/27/18 06:25 Hct 34.6 % (36.0-46.0) L 12/27/18 06:25 MCV 87.6 fL (80-95) 12/27/18 06:25 MCH 30.1 pg (27.0-33.0) 12/27/18 06:25 MCHC 34.4 g/dL (32.0-36.0) 12/27/18 06:25 RDW 13.9 % (11.7-14.6) 12/27/18 06:25 Plt Count 263 x1000/uL (130-400) 12/27/18 06:25 MPV 9.5 fL (8.0-11.0) 12/27/18 06:25 Immature Gran % 0.3 12/27/18 06:25 70.5 12/27/18 06:25 20.4 12/27/18 06:25 7.2 12/27/18 06:25 1.3 12/27/18 06:25 0.3 12/27/18 06:25 Absolute Neutrophils 6.27 k/cumm (1.2-6.7) 12/27/18 06:25 Absolute Lymphocytes 1.82 k/cumm (1.2-3.4) 12/27/18 06:25 Absolute Monocytes 0.64 k/cumm (0.11-0.7) 12/27/18 06:25 Absolute Eosinophils 0.12 k/cumm (0.0-0.7) 12/27/18 06:25 Absolute Basophils 0.03 k/cumm (0.0-0.2) 12/27/18 06:25 Sodium 140 mmol/L (136-145) 12/27/18 06:25 Potassium 3.5 mmol/L (3.5-5.1) 12/27/18 06:25 Chloride 106 mmol/L (98-107) 12/27/18 06:25 Carbon Dioxide 24.0 mmol/L (21.0-32.0) 12/27/18 06:25 10.0 mmol/L (3-11) 12/27/18 06:25 BUN 19 mg/dL (7-18) H 12/27/18 06:25 0.96 mg/dL (0.55-1.02) 12/27/18 06:25 57.63 (mL/min/1.73m2) 12/27/18 06:25 Glucose 140 mg/dL (70-100) H 12/27/18 06:25 Calcium 8.3 mg/dL (8.5-10.1) L 12/27/18 06:25 Magnesium 2.2 mg/dL (1.8-2.4) 12/27/18 06:25 0.2 mg/dL (0.2-1.0) 12/24/18 11:49 AST 16 U/L (15-37) 12/24/18 11:49 ALT 23 U/L (12-78) 12/24/18 11:49 102 U/L (46-116) 12/24/18 11:49 7.7 g/dL (6.4-8.2) 12/24/18 11:49 3.7 g/dL (3.4-5.0) 12/24/18 11:49 98 U/L (73-393) 12/24/18 11:49 Yellow (Yellow) 12/24/18 13:40 Clear (Clear) 12/24/18 13:40 7.0 (5-8) 12/24/18 13:40 Ur Specific [place] 1.015 (1.005-1.025) 12/24/18 13:40 Negative mg/dL (Negative) 12/24/18 13:40 Negative mg/dL (Negative) 12/24/18 13:40 Negative (Negative) 12/24/18 13:40 Negative (Negative) 12/24/18 13:40 Negative (Negative) 12/24/18 13:40 0.2 EU/dL (Up TO 0.2) 12/24/18 13:40 Ur Leukocyte Esterase Negative (Negative) 12/24/18 13:40 Negative mg/dL (Negative) 12/24/18 13:40
[2018-12-28 15:56] VITALS: BP 132/80; PULSE 95; RESP 18; TEMP 37.1; O2SAT 95
[2018-12-28] MEDS: Lactated Ringers 1,000 ML 125 ML IV (17:39)
[2018-12-28 18:31] VITALS: PULSE 106
[2018-12-28 19:22] VITALS: BP 133/84; PULSE 93; RESP 16; TEMP 36; O2SAT 96
[2018-12-28 20:54] VITALS: PULSE 97
[2018-12-28 23:52] VITALS: BP 112/67; PULSE 107; RESP 18; TEMP 36.5; O2SAT 94
[2018-12-29] VITALS (14 sets, daily range): BP systolic 134–150; BP diastolic 74–93; PULSE 88–114; RESP 18–20; TEMP 36.8–37.9; O2SAT 94–97
[2018-12-29] MEDS: Lactated Ringers 1,000 ML 125 ML IV ×3 (01:34→18:50)
[2018-12-29] MEDS: PIPERACILLIN/TAZO 3.375 GM in Normal Saline 50 ML IVPB ×4 (04:05→21:11)
[2018-12-29] MEDS: LORazepam 2 MG/ML VIAL 1 MG IVP ×4 (05:22→20:24)
[2018-12-29] MEDS: Normal Saline Flush 10 ML SYR IVP ×5 (05:23→20:46)
--- NOTE | 2018-12-29 07:30 | DI.RAD_ITS ---
SYMPTOMS/DIAGNOSIS: SMALL BOWEL OBSTRUCTION VERSUS ILEUS PA CHEST AND FLAT AND UPRIGHT ABDOMEN: Comparison is made with CT of the abdomen and pelvis December,. There are multiple dilated loops of small bowel seen centrally in the abdomen with air- fluid levels consistent with a small bowel obstruction. No free air is seen. A nasogastric tube has been placed; however, the tip appears to lie in the upper esophagus. The heart size is normal. The lungs are clear. IMPRESSION: Nasogastric tube appears to be positioned in the upper esophagus. Small bowel obstruction.
--- NOTE | 2018-12-29 08:14 | CMPROGNOTE_ITS ---
- If Service Date Differs Date of service: 12/29/18 Time of Service: 08:14 Care Management Progress Note S/O:CM met with Marleni in the room she is alert. She has an NG tube that needs to be reinserted at the time of CM visit. Marleni will have no change in status today her fiance is at the bedside. Marleni has medications ordered to treat pain and nausea she remains NPO. A: Marleni is a 68 year old woman admitted to [facility] on 12/24/18 with diverticulitis P: Marleni will have NG tube placed and continue to be closely monitored. CM will continue to support discharge planning considerations.
[2018-12-29] MEDS: Tiotropium Bromide-Respimat 10 PUFF INH 2 PUFF IH (08:28)
[2018-12-29] MEDS: Budesonide/Formoterol 160/4.5 6 GM 60 PUFF INH IH ×2 (08:29→19:30)
[2018-12-29] MEDS: Levothyroxine 100 MCG VIAL 25 MCG IVP (08:30)
[2018-12-29] MEDS: Pantoprazole 40 MG VIAL IVP (08:30)
--- NOTE | 2018-12-29 09:42 | DI.VRAD_ITS ---
Addendum created by Dylan Gooden MD on 12/29/2018 9:42:15 AM EDT Correction the report should read There is a tube which overlies the midline. The tip terminates 7 cm above the sage Initial report created on 12/29/2018 9:41:44 AM EDT EXAM: XR Abdomen 2 Views with XR Chest 1 View EXAM DATE/TIME: 12/29/2018 12:00 AM CLINICAL HISTORY: 68 years old, female; Abdominal pain; Other: Sbo TECHNIQUE: Imaging protocol: XR of the abdomen (2 views) with XR chest (1 view). COMPARISON: CT ABDOMEN PELVIS WO 12/24/2018 1:32 PM FINDINGS: Tubes, catheters and devices: There is 2 which overlies the midline. The tip terminates 7 cm above the sage. Lungs: Normal. No consolidation. Pleural space: Normal. No pneumothorax. Heart/Mediastinum: Normal. No cardiomegaly. Gastrointestinal tract: Dilated loops of bowel consistent with small bowel obstruction. Multiple air-fluid levels. Intraperitoneal space: Normal. No free air. Bones/joints: Normal. No acute fracture. Soft tissues: Normal. IMPRESSION: 1. There is 2 which overlies the midline. The tip terminates 7 cm above the sage. 2. Dilated loops of bowel consistent with small bowel obstruction. Multiple air-fluid levels. Dictated and Authenticated by: Dylan Gooden MD. Ordering:TED Ayers MD
--- NOTE | 2018-12-29 11:15 | W.PM.PROGNOT ---
Date of Service Date of service: 12/29/18 Time of Service: 11:15 Assessment and Plan (1) Small bowel obstruction: Current visit: Yes Status: Acute A\\ NG tube not in place. Repositioned ABDO Xray showes no imrpovement. Patient not passing flatus. Abdomen is soft and non-tender P\\ Continue with NG to LIWS and bowel rest Discussed potential for surgery with Marleni and her fiance. Usually SBO due to adhesions resolve without usrgery. As long as she doesn't develop any worrisome abdominal symptoms we will give her 48 to 72 hours and re-assess on Monday if no improvement (2) Anxiety: Current visit: Yes Status: Chronic A\\ Patient feeling anxious. requesting Ativan be changed to q4h prn P\\ \Change frequency of ativan to q4H prn Start her back on her desvenlafaxine tomorrow. Will clamp NG for 30 minutes after giving it. Subjective Interval history since last seen: Mrs. Tejeda is doing OK. Her abdomen feels better then yesterday. Has had >2000 ml out of NG tube. NO more emesis. No nausea. Denies flatus. No fevers Exam Resp Effort & Inspection: normal respiratory effort Auscultation: clear to auscultation bilaterally Cardio Rate: regular rate Rhythm: regular rhythm GI Palpation: soft, no hepatosplenomegaly and nontender Auscultation: absent bowel sounds Other: NG tube at 20 cm. XRAY showes it is in the esophagus. NG tube pushed back down and is at 50 cm at the nose. Air is auscultated in the stomach after that. NG tube placed back to suction. Abdomen image: 1. 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 Objective Objective Clinical Data: Vital Signs Temperature 98.4 F 12/29/18 07:55 Temperature Source Temporal Artery Scan 12/29/18 07:55 Pulse 103 H 12/29/18 07:55 Pulse Rhythm Regular 12/29/18 08:15 Respiratory Rate 18 12/29/18 07:55 Respiratory Effort Non-Labored 12/29/18 08:15 Respiratory Depth Normal 12/29/18 08:15 Respiratory Pattern Normal 12/29/18 08:15 Blood Pressure 134/75 12/29/18 07:55 Pulse Oximetry 95 12/29/18 07:55 Oxygen Delivery Method Room Air 12/29/18 07:55 Oxygen Flow Rate 0 12/29/18 07:55 Pain Level 3 12/29/18 07:55 Comment 12/29/18 07:55 Intake & Output 12/28/18 12/28/18 12/29/18 11:59 23:59 11:59 Intake Total 951.667 / 1572.667 570.5 / 5183.723 2280.083 / 2090.083 Output Total 200 / 3450 3250 / 3450 Balance 751.667 / -1877.333 -2679.5 / -6008.570 0216.083 / 2090.083 Intake: IV 951.667 / 1542.667 540.5 / 9450.444 0339.083 / 2090.083 Oral 30 / 30 Output: Gastric Drainage 2450 / 2450 Left Nare 2450 / 2450 Urine 800 / 800 Emesis 200 / 200 Other: Urine Color Pale Yellow Yellow Urine Appearance Clear Clear Emesis Description Bile Gastric Occult Blood Left Nare Negative Voiding Methods Toilet Bedside Commode Laboratory Results WBC 8.91 k/cumm (4.4-10.8) 12/27/18 06:25 RBC 3.95 m/cumm (4.00-5.20) L 12/27/18 06:25 Hgb 11.9 g/dL (12.0-15.5) L 12/27/18 06:25 Hct 34.6 % (36.0-46.0) L 12/27/18 06:25 MCV 87.6 fL (80-95) 12/27/18 06:25 MCH 30.1 pg (27.0-33.0) 12/27/18 06:25 MCHC 34.4 g/dL (32.0-36.0) 12/27/18 06:25 RDW 13.9 % (11.7-14.6) 12/27/18 06:25 Plt Count 263 x1000/uL (130-400) 12/27/18 06:25 MPV 9.5 fL (8.0-11.0) 12/27/18 06:25 Immature Gran % 0.3 12/27/18 06:25 70.5 12/27/18 06:25 20.4 12/27/18 06:25 7.2 12/27/18 06:25 1.3 12/27/18 06:25 0.3 12/27/18 06:25 Absolute Neutrophils 6.27 k/cumm (1.2-6.7) 12/27/18 06:25 Absolute Lymphocytes 1.82 k/cumm (1.2-3.4) 12/27/18 06:25 Absolute Monocytes 0.64 k/cumm (0.11-0.7) 12/27/18 06:25 Absolute Eosinophils 0.12 k/cumm (0.0-0.7) 12/27/18 06:25 Absolute Basophils 0.03 k/cumm (0.0-0.2) 12/27/18 06:25 Sodium 140 mmol/L (136-145) 12/27/18 06:25 Potassium 3.5 mmol/L (3.5-5.1) 12/27/18 06:25 Chloride 106 mmol/L (98-107) 12/27/18 06:25 Carbon Dioxide 24.0 mmol/L (21.0-32.0) 12/27/18 06:25 10.0 mmol/L (3-11) 12/27/18 06:25 BUN 19 mg/dL (7-18) H 12/27/18 06:25 0.96 mg/dL (0.55-1.02) 12/27/18 06:25 57.63 (mL/min/1.73m2) 12/27/18 06:25 Glucose 140 mg/dL (70-100) H 12/27/18 06:25 Calcium 8.3 mg/dL (8.5-10.1) L 12/27/18 06:25 Magnesium 2.2 mg/dL (1.8-2.4) 12/27/18 06:25 0.2 mg/dL (0.2-1.0) 12/24/18 11:49 AST 16 U/L (15-37) 12/24/18 11:49 ALT 23 U/L (12-78) 12/24/18 11:49 102 U/L (46-116) 12/24/18 11:49 7.7 g/dL (6.4-8.2) 12/24/18 11:49 3.7 g/dL (3.4-5.0) 12/24/18 11:49 98 U/L (73-393) 12/24/18 11:49 Yellow (Yellow) 12/24/18 13:40 Clear (Clear) 12/24/18 13:40 7.0 (5-8) 12/24/18 13:40 Ur Specific [place] 1.015 (1.005-1.025) 12/24/18 13:40 Negative mg/dL (Negative) 12/24/18 13:40 Negative mg/dL (Negative) 12/24/18 13:40 Negative (Negative) 12/24/18 13:40 Negative (Negative) 12/24/18 13:40 Negative (Negative) 12/24/18 13:40 0.2 EU/dL (Up TO 0.2) 12/24/18 13:40 Ur Leukocyte Esterase Negative (Negative) 12/24/18 13:40 Negative mg/dL (Negative) 12/24/18 13:40
[2018-12-29] MEDS: Metoprolol 5 MG/5 ML VIAL IVP ×2 (13:48→20:46)
[2018-12-30] VITALS (14 sets, daily range): BP systolic 120–155; BP diastolic 68–92; PULSE 86–129; RESP 16–20; TEMP 36.2–37.1; O2SAT 94–98
[2018-12-30] MEDS: Normal Saline Flush 10 ML SYR IVP ×7 (00:45→23:07)
[2018-12-30] MEDS: LORazepam 2 MG/ML VIAL 1 MG IVP ×6 (00:45→23:06)
[2018-12-30] MEDS: Lactated Ringers 1,000 ML 125 ML IV ×2 (02:42→15:14)
[2018-12-30] MEDS: PIPERACILLIN/TAZO 3.375 GM in Normal Saline 50 ML IVPB ×4 (04:35→23:06)
--- NOTE | 2018-12-30 07:49 | DI.RAD_ITS ---
SYMPTOMS/DIAGNOSIS: SMALL BOWEL OBSTRUCTION PA CHEST AND FLAT AND UPRIGHT VIEWS OF THE ABDOMEN: There are multiple leads coiled over the chest. The nasogastric tube has been advanced, which projects in the fundus of the stomach. There has been some decrease in the degree of small bowel dilatation when compared with the previous exam. A small amount of gas is seen scattered in the colon. The lungs appear clear. IMPRESSION: Improvement in small bowel dilatation status post placement of nasogastric tube.
--- NOTE | 2018-12-30 07:56 | DI.VRAD_ITS ---
EXAM: XR Abdomen 2 Views with XR Chest 1 View EXAM DATE/TIME: 12/30/2018 12:01 AM CLINICAL HISTORY: 68 years old, female; Other: Sbo TECHNIQUE: Imaging protocol: XR of the abdomen (2 views) with XR chest (1 view). COMPARISON: SC XR ABD FLAT UPRIGHT PA CHEST 12/29/2018 9:05 AM FINDINGS: NG tube in the stomach Mild interval decrease in small bowel dilatation with air extending into the colon and rectal vault. No gross free air IMPRESSION: Decrease in bowel distention and air noted distally as described. Findings presumably represent evolving ileus /partial small bowel obstruction Dictated and Authenticated by: Yahir Beatty MD. Ordering:ETD Ayers MD
[2018-12-30] MEDS: Pantoprazole 40 MG VIAL IVP (08:38)
[2018-12-30] MEDS: Levothyroxine 100 MCG VIAL 25 MCG IVP (08:38)
[2018-12-30] MEDS: Budesonide/Formoterol 160/4.5 6 GM 60 PUFF INH IH ×2 (11:37→20:52)
[2018-12-30] MEDS: Tiotropium Bromide-Respimat 10 PUFF INH 2 PUFF IH (11:39)
--- NOTE | 2018-12-30 12:43 | PGE_ITS ---
Date of Service Date of service: 12/30/18 Time of Service: 12:43 Assessment and Plan (1) Anxiety: Current visit: Yes Status: Chronic A\\ Feeling anxious. Has been taking ativan 1 mg q 6 hours P\\ restart home medications for anxiety and mood issues (2) Small bowel obstruction: Current visit: Yes Status: Acute A\\ Abdominal XRAy showes decrease in small bowel dilatation and air to the rectum Clinicall patient having copious amounts of liquid stools and is passing flatus Feels hungry NG out put none since 6:30 am P\\ NG tube removed and started on sips of clears (3) Diverticulitis large intestine: Current visit: Yes Status: Acute A\\ No LLQ pain Last WBC count was normal P\\ Continue antibiotics for 14 days Advance diet slowly to low fiber Is scheduled to have a Colonoscopy in late December or early January already at [facility] Patient asked to follow up in the next 2 weeks with her Manager Installation to schedule Colonoscopy Qualifiers: Diverticulitis bleeding: without bleeding Diverticulitis complication: without perforation or abscess Qualified Code(s): K57.32 - Diverticulitis of large intestine without perforation or abscess without bleeding (4) Hypertension: Current visit: Yes Status: Chronic A\\ HAs had high Bp. Was given only one dose of IV Lopressor overnight P\\ restart Home BP meds and continue to monitor Qualifiers: Hypertension type: renovascular hypertension Qualified Code(s): I15.0 - Renovascular hypertension (5) COPD (chronic obstructive pulmonary disease): Current visit: Yes Status: Chronic A\\ Doing well. No exacerbations P\\ Continue Home medications Qualifiers: COPD type: unspecified COPD Qualified Code(s): J44.9 - Chronic obstructive pulmonary disease, unspecified (6) CKD (chronic kidney disease) stage 3, GFR 30-59 ml/min: Current visit: Yes Status: Acute A\\ No worsening P\\ Continue to monitor (7) Discharged to home: Current visit: Yes Status: Acute Plan on discharge to home either later tomorrow or Monday in am if doing well. Reassess tomorrow Will need to be discharged on either Cipro and Flagyl or Augmentin tid for a total Abx treatment time of 2 weeks Subjective Interval history since last seen: Marleni is feeling better. She had copious amount of liquid stool starting last night. She is passing flatus and her NG output has diminished. She also states her abdominal distention is much better. She feels her stomach is more normal in size now. Exam Resp Effort & Inspection: normal respiratory effort Auscultation: clear to auscultation bilaterally Cardio Rate: regular rate Rhythm: regular rhythm GI Inspection: normal to inspection Palpation: soft, no hepatosplenomegaly and nontender Auscultation: hypoactive bowel sounds Objective Objective Clinical Data: Vital Signs Temperature 98.8 F 12/30/18 11:20 Temperature Source Tympanic 12/30/18 11:20 Pulse 102 H 12/30/18 11:20 Pulse Rhythm Regular 12/29/18 19:41 Respiratory Rate 20 12/30/18 11:20 Respiratory Effort Non-Labored 12/29/18 19:41 Respiratory Depth Normal 12/29/18 19:41 Respiratory Pattern Normal 12/29/18 19:41 Blood Pressure 155/92 H 12/30/18 11:20 Pulse Oximetry 97 12/30/18 11:20 Oxygen Delivery Method Room Air 12/30/18 11:20 Oxygen Flow Rate 0 12/30/18 11:20 Pain Level 0 12/30/18 11:20 Comment 12/30/18 11:20 Intake & Output 12/29/18 12/30/18 12/30/18 23:59 11:59 23:59 Intake Total 1210 / 3400.583 1203.333 / 1203.333 Output Total 600 / 600 600 / 600 Balance 610 / 2800.583 603.333 / 603.333 Intake: IV 1100 / 3290.583 1083.333 / 1083.333 Oral 110 / 110 120 / 120 Output: Gastric Drainage 600 / 600 600 / 600 Left Nare 600 / 600 600 / 600 Other: Urine Appearance Clear Comment Voided with BM. Stool Size Copious Stool Characteristics Liquid Voiding Methods Bedside Commode Laboratory Results WBC 8.91 k/cumm (4.4-10.8) 12/27/18 06:25 RBC 3.95 m/cumm (4.00-5.20) L 12/27/18 06:25 Hgb 11.9 g/dL (12.0-15.5) L 12/27/18 06:25 Hct 34.6 % (36.0-46.0) L 12/27/18 06:25 MCV 87.6 fL (80-95) 12/27/18 06:25 MCH 30.1 pg (27.0-33.0) 12/27/18 06:25 MCHC 34.4 g/dL (32.0-36.0) 12/27/18 06:25 RDW 13.9 % (11.7-14.6) 12/27/18 06:25 Plt Count 263 x1000/uL (130-400) 12/27/18 06:25 MPV 9.5 fL (8.0-11.0) 12/27/18 06:25 Immature Gran % 0.3 12/27/18 06:25 70.5 12/27/18 06:25 20.4 12/27/18 06:25 7.2 12/27/18 06:25 1.3 12/27/18 06:25 0.3 12/27/18 06:25 Absolute Neutrophils 6.27 k/cumm (1.2-6.7) 12/27/18 06:25 Absolute Lymphocytes 1.82 k/cumm (1.2-3.4) 12/27/18 06:25 Absolute Monocytes 0.64 k/cumm (0.11-0.7) 12/27/18 06:25 Absolute Eosinophils 0.12 k/cumm (0.0-0.7) 12/27/18 06:25 Absolute Basophils 0.03 k/cumm (0.0-0.2) 12/27/18 06:25 Sodium 140 mmol/L (136-145) 12/27/18 06:25 Potassium 3.5 mmol/L (3.5-5.1) 12/27/18 06:25 Chloride 106 mmol/L (98-107) 12/27/18 06:25 Carbon Dioxide 24.0 mmol/L (21.0-32.0) 12/27/18 06:25 10.0 mmol/L (3-11) 12/27/18 06:25 BUN 19 mg/dL (7-18) H 12/27/18 06:25 0.96 mg/dL (0.55-1.02) 12/27/18 06:25 57.63 (mL/min/1.73m2) 12/27/18 06:25 Glucose 140 mg/dL (70-100) H 12/27/18 06:25 Calcium 8.3 mg/dL (8.5-10.1) L 12/27/18 06:25 Magnesium 2.2 mg/dL (1.8-2.4) 12/27/18 06:25 0.2 mg/dL (0.2-1.0) 12/24/18 11:49 AST 16 U/L (15-37) 12/24/18 11:49 ALT 23 U/L (12-78) 12/24/18 11:49 102 U/L (46-116) 12/24/18 11:49 7.7 g/dL (6.4-8.2) 12/24/18 11:49 3.7 g/dL (3.4-5.0) 12/24/18 11:49 98 U/L (73-393) 12/24/18 11:49 Yellow (Yellow) 12/24/18 13:40 Clear (Clear) 12/24/18 13:40 7.0 (5-8) 12/24/18 13:40 Ur Specific [place] 1.015 (1.005-1.025) 12/24/18 13:40 Negative mg/dL (Negative) 12/24/18 13:40 Negative mg/dL (Negative) 12/24/18 13:40 Negative (Negative) 12/24/18 13:40 Negative (Negative) 12/24/18 13:40 Negative (Negative) 12/24/18 13:40 0.2 EU/dL (Up TO 0.2) 12/24/18 13:40 Ur Leukocyte Esterase Negative (Negative) 12/24/18 13:40 Negative mg/dL (Negative) 12/24/18 13:40
[2018-12-30] MEDS: Metoprolol 5 MG/5 ML VIAL IVP ×2 (13:37→18:23)
--- NOTE | 2018-12-30 14:03 | PDOC.CMPRO ---
- If Service Date Differs Date of service: 12/30/18 Time of Service: 14:03 Care Management Progress Note S/O:CM met with Marleni in the room she is alert she reported that she is feeling better and has been ambulating in the sauceda. If she continues to improve per provider she may be able to discharge home Monday. A: Marleni is a 68 year old woman admitted to [facility] on 12/24/18 with diverticulitis P: Marleni continues to be closely monitored. CM will continue to support discharge planning considerations. [facility] will transport her home when medically ready she will plan to follow up with GI in two weeks ans as needed.
[2018-12-31] MEDS: PIPERACILLIN/TAZO 3.375 GM in Normal Saline 50 ML IVPB ×2 (03:47→10:20)
[2018-12-31] MEDS: Lactated Ringers 1,000 ML 125 ML IV (03:47)
[2018-12-31] MEDS: Levothyroxine 50 MCG TAB PO (06:49)
[2018-12-31] MEDS: hydroCHLOROthiazide 12.5 MG TAB PO (07:35)
[2018-12-31] MEDS: Lisinopril 20 MG TAB PO (07:35)
[2018-12-31] MEDS: Pantoprazole 40 MG TABCR PO (07:35)
[2018-12-31] MEDS: Tiotropium Bromide-Respimat 10 PUFF INH 2 PUFF IH (07:36)
[2018-12-31] MEDS: Budesonide/Formoterol 160/4.5 6 GM 60 PUFF INH IH (07:36)
--- NOTE | 2018-12-31 07:38 | RESPIRATORY ---
pt took sprivia and sybicort 2 pufs and tolerated well. Bs clear bilat
[2018-12-31] MEDS: Normal Saline Flush 10 ML SYR IVP (07:41)
--- NOTE | 2018-12-31 07:55 | W.PM.PROGNOT ---
Date of Service Date of service: 12/31/18 Time of Service: 07:55 Assessment and Plan (1) Vomiting: Current visit: Yes Status: Acute (2) Small bowel obstruction: Current visit: Yes Status: Acute Tolerated clear liquid diet yesterday, will trial soft post op diet today. Denies nausea and vomiting. (+) BMs; liquid stools Disposition- D/C home once tolerating a regular diet. (3) Anxiety: Current visit: Yes Status: Chronic Subjective Interval history since last seen: I am feeling better, yesterday was the most I have been able to eat. Denies any nausea and vomiting. BMs x 2 of liquid stool this morning. Do you think I can go home today? Exam Const General: cooperative, healthy appearing and comfortable Orientation: alert and oriented x3 Resp Effort & Inspection: normal respiratory effort, no audible wheezes and no cough GI Inspection: normal to inspection and non-distended Palpation: soft, no guarding and nontender Auscultation: hypoactive bowel sounds Objective Objective Clinical Data: Vital Signs Temperature 36.2 C L 12/30/18 19:55 Temperature Source Tympanic 12/30/18 19:55 Pulse 96 H 12/30/18 19:55 Pulse Rhythm Regular 12/30/18 15:30 Respiratory Rate 16 12/30/18 19:55 Respiratory Effort Non-Labored 12/30/18 15:30 Respiratory Depth Normal 12/30/18 15:30 Respiratory Pattern Normal 12/30/18 15:30 Blood Pressure 124/74 12/30/18 19:55 Pulse Oximetry 97 12/30/18 19:55 Oxygen Delivery Method Room Air 12/30/18 19:55 Oxygen Flow Rate 0 12/30/18 19:55 Pain Level 0 12/30/18 19:55 Comment 12/30/18 11:20 Intake & Output 12/30/18 12/31/18 12/31/18 18:59 06:59 18:59 Intake Total 1255.833 / 2980.000 1724.167 / 2980.000 Output Total 1500 / 1500 Balance -244.167 / 5836.253 7097.167 / 1480.000 Intake: IV 1195.833 / 2200.000 1004.167 / 2200.000 Oral 60 / 780 720 / 780 Output: Stool 1500 / 1500 Other: Urine Appearance Clear Comment Urine mixed with stool. Stool Size Moderate Stool Characteristics Liquid Brown Voiding Methods Bedside Commode Laboratory Results WBC 8.91 k/cumm (4.4-10.8) 12/27/18 06:25 RBC 3.95 m/cumm (4.00-5.20) L 12/27/18 06:25 Hgb 11.9 g/dL (12.0-15.5) L 12/27/18 06:25 Hct 34.6 % (36.0-46.0) L 12/27/18 06:25 MCV 87.6 fL (80-95) 12/27/18 06:25 MCH 30.1 pg (27.0-33.0) 12/27/18 06:25 MCHC 34.4 g/dL (32.0-36.0) 12/27/18 06:25 RDW 13.9 % (11.7-14.6) 12/27/18 06:25 Plt Count 263 x1000/uL (130-400) 12/27/18 06:25 MPV 9.5 fL (8.0-11.0) 12/27/18 06:25 Immature Gran % 0.3 12/27/18 06:25 70.5 12/27/18 06:25 20.4 12/27/18 06:25 7.2 12/27/18 06:25 1.3 12/27/18 06:25 0.3 12/27/18 06:25 Absolute Neutrophils 6.27 k/cumm (1.2-6.7) 12/27/18 06:25 Absolute Lymphocytes 1.82 k/cumm (1.2-3.4) 12/27/18 06:25 Absolute Monocytes 0.64 k/cumm (0.11-0.7) 12/27/18 06:25 Absolute Eosinophils 0.12 k/cumm (0.0-0.7) 12/27/18 06:25 Absolute Basophils 0.03 k/cumm (0.0-0.2) 12/27/18 06:25 Sodium 140 mmol/L (136-145) 12/27/18 06:25 Potassium 3.5 mmol/L (3.5-5.1) 12/27/18 06:25 Chloride 106 mmol/L (98-107) 12/27/18 06:25 Carbon Dioxide 24.0 mmol/L (21.0-32.0) 12/27/18 06:25 10.0 mmol/L (3-11) 12/27/18 06:25 BUN 19 mg/dL (7-18) H 12/27/18 06:25 0.96 mg/dL (0.55-1.02) 12/27/18 06:25 57.63 (mL/min/1.73m2) 12/27/18 06:25 Glucose 140 mg/dL (70-100) H 12/27/18 06:25 Calcium 8.3 mg/dL (8.5-10.1) L 12/27/18 06:25 Magnesium 2.2 mg/dL (1.8-2.4) 12/27/18 06:25 0.2 mg/dL (0.2-1.0) 12/24/18 11:49 AST 16 U/L (15-37) 12/24/18 11:49 ALT 23 U/L (12-78) 12/24/18 11:49 102 U/L (46-116) 12/24/18 11:49 7.7 g/dL (6.4-8.2) 12/24/18 11:49 3.7 g/dL (3.4-5.0) 12/24/18 11:49 98 U/L (73-393) 12/24/18 11:49 Yellow (Yellow) 12/24/18 13:40 Clear (Clear) 12/24/18 13:40 7.0 (5-8) 12/24/18 13:40 Ur Specific [place] 1.015 (1.005-1.025) 12/24/18 13:40 Negative mg/dL (Negative) 12/24/18 13:40 Negative mg/dL (Negative) 12/24/18 13:40 Negative (Negative) 12/24/18 13:40 Negative (Negative) 12/24/18 13:40 Negative (Negative) 12/24/18 13:40 0.2 EU/dL (Up TO 0.2) 12/24/18 13:40 Ur Leukocyte Esterase Negative (Negative) 12/24/18 13:40 Negative mg/dL (Negative) 12/24/18 13:40
[2018-12-31 08:06] VITALS: BP 137/78; PULSE 94; RESP 17; TEMP 36.8; O2SAT 96
--- NOTE | 2018-12-31 12:33 | W.PM.DS.N ---
Date of service: 12/31/18 Time of Service: 12:33 DS: Diagnosis Discharge Diagnosis (1) Small bowel obstruction: Status: Acute (2) Diverticulitis large intestine: Status: Acute Discharge Plan Disposition Patient Disposition: HOME Condition: Stable Discharge Details Chief Complaint: Abd Prob Clinical Impression: Diverticulitis of sigmoid colon, Ileus Reason For Visit: Small bowel obstruction Admit Date/Time: 12/24/18 15:41 Admit Provider: Jalyn Fowler Attending Provider: Jalyn Fowler Primary Care Provider: Imani Currie ED Provider: Davis Cordero Hospital Course Hospital Course: This patient presented with nausea, vomiting and upper abdominal pain. CT scan of the abdomen and pelvis showed evidence of mild sigmoid diverticulitis as well as a ileus versus small bowel obstruction. Patient has had prior abdominal surgery including an aortobifemoral bypass and ventral hernia repair. She initially responded to bowel rest and antibiotics. Diet was resumed but when she was back on a soft diet she had return of vomiting. Follow-up CT scan showed a worsening small bowel obstruction so an NG tube was placed with an initial output of over 2 L. After a day or 2 with NG tube she began having multiple stools. Her persistent nausea had also been relieved by the NG placement. The NG tube was discontinued and her diet slowly advanced without difficulty. On the day of discharge she was without nausea or pain. She is tolerating a soft diet. She has had 2 small bowel movements the day of discharge. Her abdominal examination was benign. She was discharged home with instructions to continue soft diet through the end of the week. Home Meds and New Rx's Prescriptions: New amoxicillin-pot clavulanate 875-125 mg tablet 1 tab PO BID Qty: 14 RF: 0 Continued fluoxetine 40 mg Capsule 40 mg PO DAILY RF: 0 aspirin 325 mg Tablet 325 mg PO DAILY RF: 0 pantoprazole 40 mg Tablet,Delayed Release (Dr/Ec) 40 mg PO DAILY RF: 0 rosuvastatin [Crestor] 40 mg Tablet 40 mg PO DAILY RF: 0 levothyroxine 50 mcg Capsule 50 mcg PO DAILY RF: 0 Combivent Respimat 20-100 mcg/actuation Mist See Rx Instructions .ROUTE .COMPLEX RF: 0 ginseng 100 mg Capsule 100 mg PO DAILY RF: 0 lisinopril-hydrochlorothiazide 20-12.5 mg Tablet 1 tab PO DAILY RF: 0 tretinoin [Retin-A] 0.025 % Cream See Rx Instructions .ROUTE .COMPLEX RF: 0 alprazolam 0.25 mg Tablet 0.25 - 0.75 mg PO HS RF: 0 calcium carbonate [Calcium 500] 500 mg calcium (1,250 mg) Tablet 500 mg PO DAILY RF: 0 ascorbic acid (vitamin C) [Vitamin C] 500 mg Tablet 500 mg PO DAILY RF: 0 nitroglycerin [Nitrostat] 0.4 mg Tablet, Sublingual 0.4 mg sublingual PRN PRN (Reason: Chest Pain) RF: 0 vitamin B complex [B-Complex] Tablet 1 tab PO DAILY RF: 0 cholecalciferol (vitamin D3) [Vitamin D3] 1,000 unit Capsule 1,000 unit PO BID RF: 0 magnesium L-lactate 84 mg Tablet Extended Release 84 mg PO DAILY RF: 0 Atrovent HFA 17 mcg/actuation Hfa Aerosol Inhaler 2 puff INHALATION Q8H RF: 0 desvenlafaxine succinate 50 mg Tablet Extended Release 24 Hr 150 mg PO DAILY RF: 0 Anoro Ellipta 62.5-25 mcg/actuation Blister With Device 1 inh INHALATION DAILY RF: 0 Multi-Day Plus Minerals 18 mg iron-400 mcg-25 mcg Tablet 1 tab PO DAILY RF: 0 Discontinued loperamide 2 mg Tablet 2 mg PO Q4H PRNRF: 0 Discharge Instructions Additional Instructions: Call for any worsening pain, nausea or vomiting Follow up as needed Stand Alone Forms: Nursing Discharge Form Referrals: Jalyn Fowler MD [ [facility] STAFF PHYSICIAN] - Activity:: Activity as Tolerated Equipment/Supplies:: No Equipment Needed Diet:: Soft through the rest of the week Discharge Orders Discharge Orders: Discharge Order (Routine); Ordered 12/31/18 Ordered By: Jalyn Fowler DS: Data Vitals/I&O Vitals and I&O: Vital Signs Temperature 98.2 F 12/31/18 08:06 Temperature Source Tympanic 12/31/18 08:06 Pulse 94 H 12/31/18 08:06 Pulse Rhythm Regular 12/31/18 07:30 Respiratory Rate 17 12/31/18 08:06 Respiratory Effort Non-Labored 12/31/18 07:30 Respiratory Depth Normal 12/31/18 07:30 Respiratory Pattern Normal 12/31/18 07:30 Blood Pressure 137/78 12/31/18 08:06 Pulse Oximetry 96 12/31/18 08:06 Oxygen Delivery Method Room Air 12/31/18 08:06 Oxygen Flow Rate 0 12/31/18 08:06 Pain Level 0 12/31/18 07:30 Comment 12/30/18 11:20 Intake & Output 12/30/18 12/31/18 12/31/18 23:59 11:59 23:59 Intake Total 915.833 / 4023.333 1004.167 / 1004.167 Balance 915.833 / 0926.141 4064.167 / 1004.167 Intake: IV 195.833 / 3183.333 1004.167 / 1004.167 Oral 720 / 840 Other: Urine Appearance Clear Comment Urine mixed with stool. voided in toilet Stool Size Moderate Stool Characteristics Liquid Brown Voiding Methods Bedside Commode Toilet [facility] Medical History Anxiety (Chronic) CKD (chronic kidney disease) stage 3, GFR 30-59 ml/min (Acute) Colitis (Acute) COPD (chronic obstructive pulmonary disease) (Chronic) Diet-controlled type 2 diabetes mellitus (Acute) Hyperlipidemia (Acute) Hypertension (Chronic) Surgical History H/O non-cataract eye surgery (Acute) S/P aortic aneurysm repair (Acute) S/P cataract extraction and insertion of intraocular lens (Acute) S/P cholecystectomy (Acute) S/P tonsillectomy (Acute) S/P ventral herniorrhaphy (Acute) Family History Father Heart disease CHF (congestive heart failure) Diabetes Hypertension Maternal Grandmother Stroke Paternal Grandmother Breast cancer Mother Vulvar cancer Social History Smoking/Tobacco Use Status: Former Tobacco Use Pack-years: 120 Tobacco: How many years used: 30 Alcohol Intake: never Drug use: Never Substance use type: does not use Do you feel safe at home: Yes Do you feel safe in your relationship?: Yes
--- NOTE | 2018-12-31 14:16 | PDOC.CMDIS ---
- If Service Date Differs Date of service: 12/31/18 Time of Service: 14:16 LACE Index Scoring Tool - Questions: Length of Stay (in days): 7 - 13 Acuity (Admit via E.D.?): Yes Comorbidities: Chronic Pulmonary Disease, Liver or Renal Disease E.D. Visits: 1 - Answers: Total Score: 14 Risk of Readmission: High Risk Care Management Discharge Reason for Hospitalization: ileus vs obstruction Discharge Plan: Marleni will be discharged home with no new services. She will be transported home with family. Marleni will follow up with her suregeon, PCP and the discharge plan of care. Patient/Family Education Needs: Discharge plan, limitations, follow up plan, Ask Me Three.
== END 2018-12-31 14:03 | disposition home or self-care (01) | DRG 389 ==
LOC: ER 16:18 → MS 17:13
PROVIDERS: Internal Medicine; Admitting Provider Surgery; Emergency Provider Emergency Medicine; PCP Family Medicine; Visit Provider Surgery
DX: K56.609 Unspecified intestinal obstruction, unspecified as to partial versus complete obstruction (principal); K57.32 Diverticulitis of large intestine without perforation or abscess without bleeding; K56.7 Ileus, unspecified; Z98.62 Peripheral vascular angioplasty status; N18.3 Chronic kidney disease, stage 3 (moderate); J44.9 Chronic obstructive pulmonary disease, unspecified; E11.9 Type 2 diabetes mellitus without complications; I12.9 Hypertensive chronic kidney disease with stage 1 through stage 4 chronic kidney disease, or unspecified chronic kidney disease; E78.5 Hyperlipidemia, unspecified; Z87.891 Personal history of nicotine dependence; T84.41 Breakdown (mechanical) of other internal orthopedic devices, implants and grafts; Y83.2 Surgical operation with anastomosis, bypass or graft as the cause of abnormal reaction of the patient, or of later complication, without mention of misadventure at the time of the procedure; E86.0 Dehydration; K52.9 Noninfective gastroenteritis and colitis, unspecified; Z71.3 Dietary counseling and surveillance; R11.2 Nausea with vomiting, unspecified; F41.9 Anxiety disorder, unspecified
CPT/HCPCS: 36415; 80048; 80053; 83690; 93005; 94640; 96361; 96365; 96366; 96375; 99222; 99231; 99232; 99233; 99238; 99254; 99285; NC; 74022; 74176; 74177; 81003; 83735; 85025; 93010; 99284; G0378; J2060; J2405; J2543; J3490

== ENCOUNTER 2019-01-03 17:34 | Emergency (ER) | payer BC, SELFPAY ==
[2019-01-03 17:48] VITALS: BP 129/72; PULSE 118; RESP 16; TEMP 36.5; O2SAT 98
--- NOTE | 2019-01-03 18:18 | ED.GENADUL_ITS ---
Discharge Plan Disposition Patient Disposition: HOME Condition: Good Discharge Details Chief Complaint: RashLesion Clinical Impression: Rash Primary Care Provider: Imani Currie ED Provider: Reji Chavez Home Meds and New Rx's Prescriptions: New moxifloxacin 400 mg tablet 400 mg PO DAILY Qty: 7 RF: 0 Continued fluoxetine 40 mg Capsule 40 mg PO DAILY RF: 0 aspirin 325 mg Tablet 325 mg PO DAILY RF: 0 pantoprazole 40 mg Tablet,Delayed Release (Dr/Ec) 40 mg PO DAILY RF: 0 rosuvastatin [Crestor] 40 mg Tablet 40 mg PO DAILY RF: 0 levothyroxine 50 mcg Capsule 50 mcg PO DAILY RF: 0 Combivent Respimat 20-100 mcg/actuation Mist See Rx Instructions .ROUTE .COMPLEX RF: 0 ginseng 100 mg Capsule 100 mg PO DAILY RF: 0 lisinopril-hydrochlorothiazide 20-12.5 mg Tablet 1 tab PO DAILY RF: 0 tretinoin [Retin-A] 0.025 % Cream See Rx Instructions .ROUTE .COMPLEX RF: 0 alprazolam 0.25 mg Tablet 0.25 - 0.75 mg PO HS RF: 0 calcium carbonate [Calcium 500] 500 mg calcium (1,250 mg) Tablet 500 mg PO DAILY RF: 0 ascorbic acid (vitamin C) [Vitamin C] 500 mg Tablet 500 mg PO DAILY RF: 0 nitroglycerin [Nitrostat] 0.4 mg Tablet, Sublingual 0.4 mg sublingual PRN PRN (Reason: Chest Pain) RF: 0 vitamin B complex [B-Complex] Tablet 1 tab PO DAILY RF: 0 cholecalciferol (vitamin D3) [Vitamin D3] 1,000 unit Capsule 1,000 unit PO BID RF: 0 magnesium L-lactate 84 mg Tablet Extended Release 84 mg PO DAILY RF: 0 Atrovent HFA 17 mcg/actuation Hfa Aerosol Inhaler 2 puff INHALATION Q8H RF: 0 desvenlafaxine succinate 50 mg Tablet Extended Release 24 Hr 150 mg PO DAILY RF: 0 Anoro Ellipta 62.5-25 mcg/actuation Blister With Device 1 inh INHALATION DAILY RF: 0 Multi-Day Plus Minerals 18 mg iron-400 mcg-25 mcg Tablet 1 tab PO DAILY RF: 0 Discontinued amoxicillin-pot clavulanate 875-125 mg tablet 1 tab PO BID Qty: 14 RF: 0 Discharge Instructions Instructions: Urticaria (ED), Acute Rash (ED) Additional Instructions: Your symptoms are consistent with an allergic reaction from your Augmentin. Please stop taking the Augmentin. Please take [id number] 25 mg Benadryl every 6 hours. If you have any return of your abdominal pain or nausea or discomfort over the next 24 hours please start taking the moxifloxacin as directed. If you notice any new lesions in your mouth, any burning when you pee, any worsening of your rash, please return immediately for reassessment. If you notice any worsening of your symptoms, or any new symptoms such as vomiting, diarrhea, fever, chills, shortness of breath, chest pain, numbness, weakness, or fainting , please return immediately to the emergency department for reevaluation. Please follow up with your primary care provider as soon as possible for reassessment and reevaluation. As always, it was a pleasure participating in your medical care today. Referrals: Imani Currie [Primary Care Provider] - Discharge Data Discharge Date/Time-TO BE ENTERED AT DEPARTURE: 01/03/19 18:35 Medical Decision Making This is a 68-year-old female who was recently admitted and then discharged for a small bowel obstruction and diverticulitis. She was discharged home with Augmentin after receiving a course of antibiotics here in the hospital for 8 days. She developed a rash today after 1.5 days of Augmentin use. She has notable maculopapular rash that is blanchable with no red flags of oral lesions, burning with urination, vesicles, or other abnormalities. No current clinical evidence of staph scalded skin syndrome, erythema multiforme, erythema migrans, toxic epidermal necrolysis, Larson-Jose syndrome, Kawasaki-like rash, meningococcemia, pemphigus vulgaris, or necrotizing fasciitis. I suspect her signs and symptoms are secondary to her Augmentin, this is a drug allergic reaction. No sloughing of the skin, negative Nikolsky sign. Will recommend stopping the Augmentin. The patient has complete resolution of her abdominal pain, bowel movements are normal. She has been eating and drinking well. We discussed risks and benefits of switching to an alternative agent. At this time she would like to hold off in any additional antibiotics, but she will be given a prescription for moxifloxacin for diverticulitis. She will reassess her abdominal status in 24 hours, if she has any abdominal pain, nausea or diarrhea she will start taking the moxifloxacin. I did discuss the risk of delaying antibiotic therapy, she also understands this risk. I have extensively reviewed the treatment plan and discharge instructions with the patient and their family. I have addressed all patient concerns at this time. The patient and family was m silver aware of what symptoms to monitor for that would warrant a return to the emergency department. Discussed the plan with the patient and family, they demonstrate verbal understanding and agreement with our assessment and plan at this time. HPI General Date/Time Provider Initiated Documentation: 01/03/19 17:53 . HPI Narrative: This is a 68-year-old female who presents today for evaluation of rash. Patient was recently admitted and then subsequently discharged with an S ENEDINA that resolved with NG tube, as well as diverticulitis. She had course of antibiotics during her 8-day stay here, and was discharged home with a prescription for Augmentin what appears to be 5-day course. She is currently on day 1.5 and this morning she noticed a notable rash no chest abdomen back. It is notably itchy. She denies any lesions in her mouth, she denies any burning sensation when she pees. Aside for shrimp she denies any previous reaction like this. She is unsure if she has had Augmentin before. When she has a reaction to shrimp she gets notable angioedema she denies any of the symptoms at this time. She denies any vomiting, diarrhea, chest pain, abdominal pain, throat tightness, or other complaint. She states that her abdominal pain that was here when she was initially admitted is completely resolved. She has no other complaints modifying factors at this time. Related Data Home Medications Medication Instructions Recorded Confirmed Combivent Respimat See Rx Instructions .ROUTE .COMPLEX 12/24/18 12/24/18 aspirin 325 mg PO DAILY 12/24/18 12/24/18 fluoxetine 40 mg PO DAILY 12/24/18 12/24/18 levothyroxine 50 mcg PO DAILY 12/24/18 12/24/18 pantoprazole 40 mg PO DAILY 12/24/18 12/24/18 rosuvastatin [Crestor] 40 mg PO DAILY 12/24/18 12/24/18 Anoro Ellipta 1 inh INHALATION DAILY 12/26/18 12/26/18 Atrovent HFA 2 puff INHALATION Q8H 12/26/18 12/26/18 Multi-Day Plus Minerals 1 tab PO DAILY 12/26/18 12/26/18 alprazolam 0.25 - 0.75 mg PO HS 12/26/18 12/26/18 ascorbic acid (vitamin C) [Vitamin 500 mg PO DAILY 12/26/18 12/26/18 C] calcium carbonate [Calcium 500] 500 mg PO DAILY 12/26/18 12/26/18 cholecalciferol (vitamin D3) 1,000 unit PO BID 12/26/18 12/26/18 [Vitamin D3] desvenlafaxine succinate 150 mg PO DAILY 12/26/18 12/26/18 ginseng 100 mg PO DAILY 12/26/18 12/26/18 lisinopril-hydrochlorothiazide 1 tab PO DAILY 12/26/18 12/26/18 magnesium L-lactate 84 mg PO DAILY 12/26/18 12/26/18 nitroglycerin [Nitrostat] 0.4 mg SUBLINGUAL PRN PRN 12/26/18 12/26/18 tretinoin [Retin-A] See Rx Instructions .ROUTE .COMPLEX 12/26/18 12/26/18 vitamin B complex [B-Complex] 1 tab PO DAILY 12/26/18 12/26/18 moxifloxacin 400 mg PO DAILY #7 tab 01/03/19 Previous Rx's Medication Instructions Recorded moxifloxacin 400 mg PO DAILY #7 tab 01/03/19 Allergies Allergy/AdvReac Type Severity Reaction Status Date / Time shrimp Allergy Unverified 12/24/18 11:08 General Stated Complaint: RashLesion ALMAZ: 3 Review of Systems Review of Systems All systems reviewed & are unremarkable except as noted in HPI and below PFSH Social History Smoking/Tobacco Use Status: Former Tobacco Use Pack-years: 120 Tobacco: How many years used: 30 Alcohol Intake: never Drug use: Never Substance use type: does not use Do you feel safe at home: Yes Do you feel safe in your relationship?: Yes Exam Narrative Exam Narrative: 1.Const: Well-nourished, Well-developed, appearing stated age 2.Eyes: PERRL, no conjunctival injection, and symmetrical lids. 3.ENT: Atraumatic external nose and ears. Moist MM. Neck: Symmetric, trachea midline, No thyromegaly. No oral lesions 4.CVS: +S1/S2, No murmurs or gallops. Peripheral pulses 2+ and equal in all extremities. Brisk capillary refill in all extremities. 5.RESP: Unlabored respiratory effort. Clear to auscultation bilaterally. No wheezes rales or rhonchi 6.GI: Soft, Nontender/Nondistended, No hepatosplenomegaly. No guarding or rebound. 7.MSK: Normocephalic/Atraumatic, Extremities w/o deformity or ttp No cyanosis or clubbing, Normal movement of all extremities 8.Skin: Notable macular papular rash that is easily blanchable over the chest abdomen back and proximal thighs. Negative Nikolsky sign. No large vesicles or bulla. No palpable purpura. No oral lesions. No mucosal lesions. No evidence of severe cellulitis. No evidence of vaccine preventable rash. 9.Neuro: coater slate II-XII grossly intact. Sensation grossly intact, no focal neurologic deficits. 10.Psych: (AAO) x3. Appropriate mood and affect Course Vital Signs Temperature 36.5 C 01/03/19 17:48 Pulse 118 H 01/03/19 17:48 Respiratory Rate 16 01/03/19 17:48 Blood Pressure 129/72 01/03/19 17:48 Pulse Oximetry 98 01/03/19 17:48 Temperature 36.5 C 01/03/19 17:48 Temperature Source Skin 01/03/19 17:48 Pulse 118 H 01/03/19 17:48 Respiratory Rate 16 01/03/19 17:48 Blood Pressure 129/72 01/03/19 17:48 Blood Pressure Position Sitting 01/03/19 17:48 Pulse Oximetry 98 01/03/19 17:48
== END 2019-01-03 18:35 | disposition home or self-care (01) ==
PROVIDERS: Emergency Provider Student in an Organized Health Care Education/Training Program; PCP Family Medicine
DX: R21 Rash and other nonspecific skin eruption (principal); T36.0X5A Adverse effect of penicillins, initial encounter
CPT/HCPCS: 99283

== ENCOUNTER 2019-12-02 10:02 | Observation (INO) | payer BC, SELFPAY ==
[2019-12-02] VITALS (28 sets, daily range): BP systolic 135–179; BP diastolic 70–99; PULSE 101–126; RESP 1–27; TEMP 36.6–37.1; O2SAT 92–99
--- NOTE | 2019-12-02 | DI.US_ITS ---
EXAM: US EXTREMITY VENOUS BI CLINICAL HISTORY: elevated d-dimer, mild sob. TECHNIQUE: Lower extremity venous ultrasound performed using grayscale, color-flow, and spectral Dop pler analysis. COMPARISON: No exams were available for comparison FINDINGS: The bilateral common femoral, femoral and popliteal veins demonstrate normal compressibility, augment ation, and color Doppler. The posterior tibial veins are patent. The saphenous vein appears free of t hrombus. No Hidalgo's cyst or hematoma is seen. IMPRESSION: No evidence of DVT. DATA REPOSITORY:
--- NOTE | 2019-12-02 10:10 | W.ED.GENAD ---
Discharge Plan Disposition Condition: Good Discharge Details Chief Complaint: GenMedical Admit Date/Time: 12/02/19 12:48 Admit Provider: Sujatha Short Attending Provider: Sujatha Short Primary Care Provider: Imani Currie ED Provider: Bel Vargas Discharge Instructions Activity:: Activity as Tolerated Equipment/Supplies:: No Equipment Needed Diet:: As Tolerated Discharge Orders Discharge Orders: Discharge Order (Routine); Ordered 12/03/19 Ordered By: Jasmina Juan Discharge Data Discharge Date/Time-TO BE ENTERED AT DEPARTURE: 12/02/19 14:05 Medical Decision Making Marleni Tejeda is a 69-year-old woman with a history of chronic kidney disease, COPD, diet-controlled diabetes, hyperlipidemia, hypertension, history of aortic aneurysm repair presenting to the emergency department with weakness, elevated heart rate, and upper abdominal pain over the past 3 days. On exam patient is well and nontoxic-appearing. Heart rate initially 120, 100-110 after 500cc of IV fluid, abdominal exam benign. Concern for dehydration, metabolic/electrolyte derangement, gastritis/PUD, pancreatitis, biliary disease, other. Low suspicion for ACS, pulmonary embolism. Doubt acute aortic pathology. Exam/history is not consistent with sepsis, mesenteric ischemia. Plan for EKG, screening labs, chest x-ray, continue IV fluid hydration, telemetry. Patient refusing pain medications. Will monitor and reassess. Labs reviewed. Leukocytosis at 13, d-dimer elevated, calcium elevated at 12.3, creatinine elevated from most recent 0.9-1.6, GFR 30.. Concern for unclear etiology of hypercalcemia. Ionized calcium is a send out lab. Plan to continue IV fluids. Given heart rate improvement after fluids (heart rate now approximately 100) and labs showing hypercalcemia, overall low suspicion for acute aortic process, pulmonary embolism. Given patient's acute on chronic renal failure, I do not feel that the risk of worsening her kidney failure with IV contrast is worth the benefit of CTA, my given my low suspicion for acute aortic pathology or pulmonary embolism. Plan for CT abdomen/pelvis without contrast at this time. CT okay. Plan for admission for IVF hydration, repeat labs, possible CT versus VQ for r/o PE. Clinical Impression: dehydration, hypercalcemia Disposition: [facility] inpatient Medical Records Medical records reviewed: Yes I reviewed the patient's medical records. Imaging Data Radiologic Study: Attestation: I personally reviewed and interpreted this imaging study as follows: Radiologist's impression: EXAM: CT ABDOMEN PELVIS WO CLINICAL HISTORY: UPPER ABD PAIN. TECHNIQUE: Imaging Protocol: Axial computed tomography images with coronal and sagittal reformatted images were created and reviewed. Oral: no COMPARISON: No exams were available for comparison FINDINGS: ABDOMEN: Lung Bases: Normal where visualized. Liver: Normal density. No measurable mass. Gallbladder and biliary tract: No radiodense calculus or dilation. Pancreas: Normal density, no abnormal calcifications or inflammatory process. Spleen: Normal. Kidneys: Normal size, contour and axis. No radiodense stones or obstructive uropathy. No masses seen. Adrenal glands: No masses seen. Lymph nodes: Within normal limits. Abdominal Aorta: Aortoiliac bypass graft. There is an anterior abdominal wall hernia repair. No new or recurrent hernia. PELVIS: Bladder: Symmetric distention, no gross wall thickening. Bowel: Mild sigmoid diverticulosis. No obstruction or bowel wall thickening. Normal appendix. Peritoneal cavity: No ascites, collection or mesenteric inflammatory response. Reproductive organs: Within normal limits. Bones: Degenerative disc changes.. IMPRESSION: No acute abnormality. EXAM: US EXTREMITY VENOUS BI CLINICAL HISTORY: elevated d-dimer, mild sob. TECHNIQUE: Lower extremity venous ultrasound performed using grayscale, color-flow, and spectral Doppler analysis. COMPARISON: No exams were available for comparison FINDINGS: The bilateral common femoral, femoral and popliteal veins demonstrate normal compressibility, augmentation, and color Doppler. The posterior tibial veins are patent. The saphenous vein appears free of thrombus. No Hidalgo's cyst or hematoma is seen. IMPRESSION: No evidence of DVT. EXAM: XR PORTABLE CHEST AP CLINICAL HISTORY: SOB TECHNIQUE: 2D digital imaging was performed. COMPARISON: No exams were available for comparison FINDINGS: LUNGS: Clear. No pleural abnormality seen. HEART: Normal. MEDIASTINUM: Normal. OTHER FINDINGS: None. IMPRESSION: No acute pulmonary findings. Lab Data Lab results reviewed: Yes I reviewed the patient's lab results. Labs: Laboratory Tests Range/Units 12/02/19 12/02/19 12/02/19 10:25 10:25 10:25 WBC (4.4-10.8) k/cumm 13.27 H RBC (4.00-5.20) m/cumm 5.31 H Hgb (12.0-15.5) g/dL 15.6 H Hct (36.0-46.0) % 46.1 H MCV (80-95) fL 86.8 MCH (27.0-33.0) pg 29.4 MCHC (32.0-36.0) g/dL 33.8 RDW (11.7-14.6) % 15.1 H Plt Count (130-400) x1000/uL 396 MPV (8.0-11.0) fL 9.6 Immature Gran % % 0.2 Neutrophils % 65.8 Lymphocytes % 25.8 Monocytes % 5.0 Eosinophils % 2.7 Basophils % 0.5 Absolute Neutrophils (1.2-6.7) k/cumm 8.73 H Absolute Lymphocytes (1.2-3.4) k/cumm 3.42 H Absolute Monocytes (0.11-0.7) k/cumm 0.66 Absolute Eosinophils (0.0-0.7) k/cumm 0.36 Absolute Basophils (0.0-0.2) k/cumm 0.07 PT (9.3-11.0) sec INR (0.9-1.1) D-Dimer (<500) ng/mlFEU 2169 H Sodium (136-145) mmol/L 136 Potassium (3.5-5.1) mmol/L 4.7 Chloride (98-107) mmol/L 97 L Carbon Dioxide (21.0-32.0) mmol/L 28.6 Anion Gap (3-11) mmol/L 10.4 BUN (7-18) mg/dL 38 H Creatinine (0.55-1.02) mg/dL 1.64 H Estimated GFR/1.73 m2 (mL/min/1.73m2) 30.97 Glucose (74-106) mg/dL 185 H Calcium (8.5-10.1) mg/dL 12.3 H* Magnesium (1.8-2.4) mg/dL Total Bilirubin (0.2-1.0) mg/dL 0.3 AST (15-37) U/L 28 ALT (14-59) U/L 29 Alkaline Phosphatase (46-116) U/L 107 Creatine Kinase (26-192) U/L Troponin I (<0.06) ng/mL < 0.05 NT-Pro-B Natriuret Pep (<300) pg/mL 42 Total Protein (6.4-8.2) g/dL 8.2 Albumin (3.4-5.0) g/dL 4.2 Lipase (73-393) U/L 126 25-OH Vitamin D Total (30-100) ng/ml TSH (0.36-3.74) uIU/mL Patient ABO/Rh Antibody Screen Range/Units 12/02/19 12/02/19 12/02/19 10:25 10:25 10:25 WBC (4.4-10.8) k/cumm RBC (4.00-5.20) m/cumm Hgb (12.0-15.5) g/dL Hct (36.0-46.0) % MCV (80-95) fL MCH (27.0-33.0) pg MCHC (32.0-36.0) g/dL RDW (11.7-14.6) % Plt Count (130-400) x1000/uL MPV (8.0-11.0) fL Immature Gran % % Neutrophils % Lymphocytes % Monocytes % Eosinophils % Basophils % Absolute Neutrophils (1.2-6.7) k/cumm Absolute Lymphocytes (1.2-3.4) k/cumm Absolute Monocytes (0.11-0.7) k/cumm Absolute Eosinophils (0.0-0.7) k/cumm Absolute Basophils (0.0-0.2) k/cumm PT (9.3-11.0) sec 10.7 INR (0.9-1.1) 1.1 D-Dimer (<500) ng/mlFEU Sodium (136-145) mmol/L Potassium (3.5-5.1) mmol/L Chloride (98-107) mmol/L Carbon Dioxide (21.0-32.0) mmol/L Anion Gap (3-11) mmol/L BUN (7-18) mg/dL Creatinine (0.55-1.02) mg/dL Estimated GFR/1.73 m2 (mL/min/1.73m2) Glucose (74-106) mg/dL Calcium (8.5-10.1) mg/dL Magnesium (1.8-2.4) mg/dL 2.0 Total Bilirubin (0.2-1.0) mg/dL AST (15-37) U/L ALT (14-59) U/L Alkaline Phosphatase (46-116) U/L Creatine Kinase (26-192) U/L Troponin I (<0.06) ng/mL NT-Pro-B Natriuret Pep (<300) pg/mL Total Protein (6.4-8.2) g/dL Albumin (3.4-5.0) g/dL Lipase (73-393) U/L 25-OH Vitamin D Total (30-100) ng/ml TSH (0.36-3.74) uIU/mL 3.52 Patient ABO/Rh Antibody Screen Range/Units 12/02/19 12/02/19 12/02/19 10:25 10:25 11:05 WBC (4.4-10.8) k/cumm RBC (4.00-5.20) m/cumm Hgb (12.0-15.5) g/dL Hct (36.0-46.0) % MCV (80-95) fL MCH (27.0-33.0) pg MCHC (32.0-36.0) g/dL RDW (11.7-14.6) % Plt Count (130-400) x1000/uL MPV (8.0-11.0) fL Immature Gran % % Neutrophils % Lymphocytes % Monocytes % Eosinophils % Basophils % Absolute Neutrophils (1.2-6.7) k/cumm Absolute Lymphocytes (1.2-3.4) k/cumm Absolute Monocytes (0.11-0.7) k/cumm Absolute Eosinophils (0.0-0.7) k/cumm Absolute Basophils (0.0-0.2) k/cumm PT (9.3-11.0) sec INR (0.9-1.1) D-Dimer (<500) ng/mlFEU Sodium (136-145) mmol/L Potassium (3.5-5.1) mmol/L Chloride (98-107) mmol/L Carbon Dioxide (21.0-32.0) mmol/L Anion Gap (3-11) mmol/L BUN (7-18) mg/dL Creatinine (0.55-1.02) mg/dL Estimated GFR/1.73 m2 (mL/min/1.73m2) Glucose (74-106) mg/dL Calcium (8.5-10.1) mg/dL Magnesium (1.8-2.4) mg/dL Total Bilirubin (0.2-1.0) mg/dL AST (15-37) U/L ALT (14-59) U/L Alkaline Phosphatase (46-116) U/L Creatine Kinase (26-192) U/L 152 Troponin I (<0.06) ng/mL NT-Pro-B Natriuret Pep (<300) pg/mL Total Protein (6.4-8.2) g/dL Albumin (3.4-5.0) g/dL Lipase (73-393) U/L 25-OH Vitamin D Total (30-100) ng/ml 43.4 TSH (0.36-3.74) uIU/mL Patient ABO/Rh O Positive Antibody Screen Negative ECG Data Attestation: I personally reviewed and interpreted this ECG (s) as follows: Interpretation: EKG shows sinus tachycardia at 125, question NH depression, no acute ischemic changes, poor R wave progression, nondiagnostic EKG HPI General Mode of arrival: ambulatory. Date/Time Provider Initiated Documentation: 12/02/19 10:07. Limitations to Documentation: no limitations. Information obtained by: patient, RN notes reviewed and old records reviewed. HPI Narrative: Marleni Tejeda is a 69-year-old woman with a history of chronic kidney disease, COPD, diet-controlled diabetes, hyperlipidemia, hypertension, status post aortic aneurysm repair presenting to the emergency department with 3 days of lightheadedness with standing, sensation of elevated heart rate, and upper abdominal pain. Patient reports that 3 days ago she noticed that she was feeling generally weak, in addition to feeling lightheaded as if she would pass out when standing. Patient reports that her heart rate has seemed elevated, particularly when climbing stairs or walking. Patient reports that 3 days ago she also developed intermittent upper abdominal pain that seems to occur with eating and then resolved. Patient reports that she has also felt mildly short of breath over the past 3 days, but this has not prevented her from doing her usual activities. Patient reports that she has been eating somewhat less than usual due to the abdominal pain, patient also reports that she has not been drinking fluids. Patient reports that since working at home did the pandemic, she often forgets to drink fluids, and patient is not sure that she has even been drinking 1 cup of water a day. She reports mild intermittent diarrhea over the past few days. Patient denies any other pain, fever, cough, vomiting, numbness, focal weakness, rash, swelling. Related Data Home Medications Medication Instructions Recorded Confirmed Combivent Respimat See Rx Instructions .ROUTE .COMPLEX 12/24/18 12/02/19 aspirin 325 mg PO DAILY 12/24/18 12/02/19 fluoxetine 40 mg PO DAILY 12/24/18 12/02/19 levothyroxine 50 mcg PO DAILY 12/24/18 12/02/19 pantoprazole 40 mg PO DAILY 12/24/18 12/02/19 rosuvastatin [Crestor] 40 mg PO DAILY 12/24/18 12/02/19 Anoro Ellipta 1 inh INHALATION DAILY 12/26/18 12/02/19 Atrovent HFA 2 puff INHALATION Q8H 12/26/18 12/02/19 Multi-Day Plus Minerals 1 tab PO DAILY 12/26/18 12/02/19 alprazolam 0.25 - 0.75 mg PO HS 12/26/18 12/02/19 ascorbic acid (vitamin C) [Vitamin 500 mg PO DAILY 12/26/18 12/02/19 C] calcium carbonate [Calcium 500] 500 mg PO DAILY 12/26/18 12/02/19 cholecalciferol (vitamin D3) 1,000 unit PO BID 12/26/18 12/02/19 [Vitamin D3] desvenlafaxine succinate 150 mg PO DAILY 12/26/18 12/02/19 ginseng 100 mg PO DAILY 12/26/18 12/02/19 lisinopril-hydrochlorothiazide 1 tab PO DAILY 12/26/18 12/02/19 magnesium L-lactate 84 mg PO DAILY 12/26/18 12/02/19 nitroglycerin [Nitrostat] 0.4 mg SUBLINGUAL PRN PRN 12/26/18 12/02/19 tretinoin [Retin-A] See Rx Instructions .ROUTE .COMPLEX 12/26/18 12/02/19 vitamin B complex [B-Complex] 1 tab PO DAILY 12/26/18 12/02/19 moxifloxacin 400 mg PO DAILY #7 tab 01/03/19 12/02/19 dicyclomine 10 mg PO QID #60 cap 12/03/19 famotidine 10 mg PO DAILY #30 tab 12/03/19 Previous Rx's Medication Instructions Recorded moxifloxacin 400 mg PO DAILY #7 tab 01/03/19 dicyclomine 10 mg PO QID #60 cap 12/03/19 famotidine 10 mg PO DAILY #30 tab 12/03/19 Allergies Allergy/AdvReac Type Severity Reaction Status Date / Time shrimp Allergy Unverified 12/02/19 10:15 General ALMAZ: 3 Review of Systems Narrative: Constitutional: denies fevers, reports generalized Eyes: denies eye pain ENT: denies ear pain, dental pain, sore throat Cardiovascular: denies chest pain, edema, reports lightheadedness, palpitations Respiratory: denies cough, reports SOB GI: denies vomiting, diarrhea, reports abdominal pain : denies flank pain MSK: denies back pain, neck pain, arthralgias, myalgias Skin: denies rash Neuro: denies headaches, numbness, focal weakness [facility] Medical History Anxiety (Chronic) CKD (chronic kidney disease) stage 3, GFR 30-59 ml/min (Chronic) Colitis (Acute) COPD (chronic obstructive pulmonary disease) (Chronic) Diet-controlled type 2 diabetes mellitus (Acute) Discharged to home (Inactive) Diverticulitis large intestine (Resolved) Hyperlipidemia (Acute) Hypertension (Chronic) Ileus (Inactive) Small bowel obstruction (Inactive) Vomiting (Inactive) Surgical History H/O non-cataract eye surgery (Acute) L eye - retinal surgery S/P aortic aneurysm repair (Acute) S/P cataract extraction and insertion of intraocular lens (Acute) S/P cholecystectomy (Acute) S/P tonsillectomy (Acute) S/P ventral herniorrhaphy (Acute) Family History Father Heart disease CHF (congestive heart failure) Diabetes Hypertension Maternal Grandmother Stroke Paternal Grandmother Breast cancer Mother Vulvar cancer Social History Smoking/Tobacco Use Status: Former Tobacco Use Pack-years: 120 Tobacco: How many years used: 30 Alcohol Intake: never Drug use: Never Substance use type: does not use Do you feel safe at home: Yes Do you feel safe in your relationship?: Yes Exam Narrative Exam Narrative: Constitutional: well and [id number], pleasant, conversing normally HENT: head atraumatic/normocephalic/normal inspection, mucous membranes moist Eyes: conjunctiva normal, sclera normal, pupils 3mm b/l Neck: no stridor, normal ROM, trachea midline Chest: normal inspection Resp: normal work of breathing, LCTAB Cardio: tachycardic rate, normal rhythm, no murmur appreciated GI: abdomen soft, non-tender, non-distended, well healed surgical scars noted (s/p AAA repair and hernia repair) Back: normal inspection, no rash Skin: warm, dry, normal color, no rash Neuro: alert, not altered, grossly non-focal, normal tone Ext: no edema, no posterior calf TTP Psych: normal mood, normal affect, normal behavior
--- NOTE | 2019-12-02 10:15 | DI.RAD_ITS ---
EXAM: XR PORTABLE CHEST AP CLINICAL HISTORY: SOB TECHNIQUE: 2D digital imaging was performed. COMPARISON: No exams were available for comparison FINDINGS: LUNGS: Clear. No pleural abnormality seen. HEART: Normal. MEDIASTINUM: Normal. OTHER FINDINGS: None. IMPRESSION: No acute pulmonary findings. DATA REPOSITORY: RADIATION DOSE DELIVERED:
[2019-12-02 10:40] LABS: Abs Immature Grans 0.03 k/cumm (0.0-0.09); Absolute Eosinophil Count 0.36 k/cumm (0.0-0.7); Basophils % 0.5; Eosinophils % 2.7; HCT 46.1 % (36.0-46.0); HGB 15.6 g/dL (12.0-15.5); Immature Grans % 0.2 %; Lymphocytes % 25.8; Mean Corp. HGB Concentration 33.8 g/dL (32.0-36.0); Mean Corpuscular Hemoglobin 29.4 pg (27.0-33.0); Mean Corpuscular Volume 86.8 fL (80-95); Mean Platelet Volume 9.6 fL (8.0-11.0); Neutrophils % 65.8; Platelet Count 396 x1000/uL (130-400); RBC 5.31 m/cumm (4.00-5.20); RBC Distribution Width 15.1 % (11.7-14.6); White Blood Cell Count 13.27 k/cumm (4.4-10.8)
[2019-12-02 10:43] LABS: Absolute Basophil Count 0.07 k/cumm (0.0-0.2); Absolute Lymphocyte Count 3.42 k/cumm (1.2-3.4); Absolute Monocyte Count 0.66 k/cumm (0.11-0.7); Absolute Neutrophil Count 8.73 k/cumm (1.2-6.7)
[2019-12-02 11:10] LABS: ALT 29 U/L (14-59); AST 28 U/L (15-37); Albumin 4.2 g/dL (3.4-5.0); Alkaline Phosphatase 107 U/L (46-116); Anion Gap 10.4 mmol/L (3-11); BUN 38 mg/dL (7-18); Bilirubin, Total 0.3 mg/dL (0.2-1.0); CO2 28.6 mmol/L (21.0-32.0); CREATININE 1.64 mg/dL (0.55-1.02); Chloride 97 mmol/L (98-107); Estimated GFR 30.97 (mL/min/1.73m2); Glucose 185 mg/dL (74-106); Lipase 126 U/L (73-393); NT-proBNP 42 pg/mL (<300); Potassium 4.7 mmol/L (3.5-5.1); Sodium 136 mmol/L (136-145); Total Protein 8.2 g/dL (6.4-8.2)
[2019-12-02 11:11] LABS: Calcium 12.3 mg/dL (8.5-10.1); Troponin I < 0.05 ng/mL (<0.06)
--- NOTE | 2019-12-02 11:15 | DI.CT_ITS ---
EXAM: CT ABDOMEN PELVIS WO CLINICAL HISTORY: UPPER ABD PAIN. TECHNIQUE: Imaging Protocol: Axial computed tomography images with coronal and sagittal reformatted images were created and reviewed. Oral: no COMPARISON: No exams were available for comparison FINDINGS: ABDOMEN: Lung Bases: Normal where visualized. Liver: Normal density. No measurable mass. Gallbladder and biliary tract: No radiodense calculus or dilation. Pancreas: Normal density, no abnormal calcifications or inflammatory process. Spleen: Normal. Kidneys: Normal size, contour and axis. No radiodense stones or obstructive uropathy. No masses seen. Adrenal glands: No masses seen. Lymph nodes: Within normal limits. Abdominal Aorta: Aortoiliac bypass graft. There is an anterior abdominal wall hernia repair. No new or recurrent hernia. PELVIS: Bladder: Symmetric distention, no gross wall thickening. Bowel: Mild sigmoid diverticulosis. No obstruction or bowel wall thickening. Normal appendix. Peritoneal cavity: No ascites, collection or mesenteric inflammatory response. Reproductive organs: Within normal limits. Bones: Degenerative disc changes.. IMPRESSION: No acute abnormality. RADIATION DOSE DELIVERED: Total DLP DATA REPOSITORY: All CT scans at this facility are submitted to the National Radiology Data Registry (NRDR) Dose Index Registry (DIR) with the [employer] ([employer]). RADIATION OPTIMIZATION: All CT scans at this facility use at least one of these dose optimization te chniques: automated exposure control; mA and/or kV adjustment per patient size (includes targeted exa ms where dose is matched to clinical indication); or iterative reconstruction.
[2019-12-02 11:17] LABS: INR 1.1 (0.9-1.1); Prothrombin Time 10.7 sec (9.3-11.0)
[2019-12-02 11:24] LABS: D-Dimer 2169 ng/mlFEU (<500)
[2019-12-02 11:44] LABS: TSH (W/Ref FT4) 3.52 uIU/mL (0.36-3.74)
[2019-12-02 13:22] LABS: Creatine Kinase 152 U/L (26-192)
[2019-12-02 13:29] LABS: Lactate 1.8 mmol/L (0.6-1.4)
[2019-12-02 13:49] LABS: Vitamin D 25 Total 43.4 ng/ml (30-100)
--- NOTE | 2019-12-02 13:50 | W.PM.HP.N ---
Date of service: 12/02/19 Time of Service: 13:50 Assessment and Plan Assessment and plan (1) Pulmonary embolism: Status: Chronic (2) Dehydration: Start date: 12/02/19 Start time: 14:10 Status: Acute Assessment and plan: Presents with weakness and light headedness, appears dehydrated, likely also why she is hypercalcemic and could be contributing to symptoms. Will hydrate with NS Repeat labs, hold tums, calcium, vitamins and vitamin D. CPK normal Tsh normal Vitamin D level 43.4 PTH rp pending Lactate 1.8 Likely she is dehydrated contributing to hypercalcemia (3) Hypercalcemia: Start date: 12/02/19 Start time: 14:14 Status: Acute Assessment and plan: see above (4) Acute on chronic kidney failure: Start date: 12/02/19 Start time: 14:20 Status: Acute Assessment and plan: Creatinine 1.64 based on past values appears creatinine has been 1.1-1.2 at baseline. Likely secondary to dehydration. infuse IVF, hold nephrotoxic medications. repeat BMP in am (5) Anxiety: Start date: 12/02/19 Start time: 15:24 Status: Chronic Assessment and plan: This is a highly anxious woman worse since onset of COVID. 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 She takes xanax at night and being at the hospital has increased her anxiety which could be contributing to her elevated HR, could also be dehydration. Will dose xanax BID prn for anxiety and at hs. (6) Hypertension: Start date: 12/02/19 Start time: 14:20 Status: Chronic Assessment and plan: hold kevin and hctz at this time. Monitor BP and will consider CCB if needed. Qualifiers: Hypertension type: renovascular hypertension Qualified Code(s): I15.0 - Renovascular hypertension (7) Abdominal pain: Start date: 12/02/19 Start time: 14:24 Status: Chronic Assessment and plan: This does not appear to be new pain, she really should follow up with GI as an outpatient. For now will put her on dicyclomine QID, add famotidine. (8) COPD (chronic obstructive pulmonary disease): Start date: 12/02/19 Start time: 14:15 Status: Chronic Assessment and plan: Not exacerbated at this time. Continue home regimen Qualifiers: COPD type: unspecified COPD Qualified Code(s): J44.9 - Chronic obstructive pulmonary disease, unspecified (9) Hyperlipidemia: Start date: 12/02/19 Start time: 14:19 Status: Acute Assessment and plan: CPK normal, continue statin (10) Diet-controlled type 2 diabetes mellitus: Start date: 12/02/19 Start time: 14:19 Status: Acute Assessment and plan: Will check BID fingersticks. Diet controlled. Will also check A1C History of Present Illness History of Present Illness Chief Complaint: Dehydration, Hypercalcemia, R/O PE Narrative: 69 y.o female with PMH of HLD, HTN, COPD, CKD, DM-diet controlled, triple A repair presents to emergency department with weakness, elevated HR, and abdominal pain over the past three days. Approximately three days ago patient states she started feeling weak and as if she was going to pass out with abdominal pain intermittently, she states she has not vomited nor did she have nausea. She has been working at home since and her anxiety with current social situations has been worse. She takes xanax for anxiety. She was drinking at least 32 oz of water while at work however since working from home her fluid intake has decreased. She has been walking her dogs daily but when the humidity is high she does have a harder time breathing. She states she has days when she does chew a lot of alkaseltzer chews for her abdominal pain and the pain is usually followed by a BM relieving pain. Labs in the ED remarkable for hypercalcemia-12.3, TL creat1.64, elevated d-dimer- 2169, unable to obtain CTA to r/o PE, will obtain VQ in am, start with heparin drip until VQ r/o PE, not a strong suspicion for PE. Bilateral U/S negative for DVT. CXR negative for acute pulmonary findings. CT abd negative for acute abnormality. Likely her abdominal pain is IBS with constipation based on history and symptoms. Will treat abd pain with dicyclomine, she does need to f/u with GI as outpatient, she also states that sometimes she has mid-sternal pain after eating she currently takes protonix will add famotidine to regimen as well. Hydrate with IVF overnight. VQ scan in am, will admit to m/s observation with telemetry. Repeat calcium this evening. She denies CP, SOB (she states she has VILLALTA from COPD), N/V/D. Review of Systems All systems reviewed & are unremarkable except as noted in HPI and below PFSH Medical History (Updated 12/02/19 @ 14:25 by Jasmina Juan NP) Anxiety (Chronic) CKD (chronic kidney disease) stage 3, GFR 30-59 ml/min (Chronic) Colitis (Acute) COPD (chronic obstructive pulmonary disease) (Chronic) Diet-controlled type 2 diabetes mellitus (Acute) Discharged to home (Inactive) Diverticulitis large intestine (Resolved) Hyperlipidemia (Acute) Hypertension (Chronic) Ileus (Inactive) Small bowel obstruction (Inactive) Vomiting (Inactive) Surgical History H/O non-cataract eye surgery (Acute) L eye - retinal surgery S/P aortic aneurysm repair (Acute) S/P cataract extraction and insertion of intraocular lens (Acute) S/P cholecystectomy (Acute) S/P tonsillectomy (Acute) S/P ventral herniorrhaphy (Acute) Family History Father Heart disease CHF (congestive heart failure) Diabetes Hypertension Maternal Grandmother Stroke Paternal Grandmother Breast cancer Mother Vulvar cancer Social History Smoking/Tobacco Use Status: Former Tobacco Use Pack-years: 120 Tobacco: How many years used: 30 Alcohol Intake: never Drug use: Never Substance use type: does not use Do you feel safe at home: Yes Do you feel safe in your relationship?: Yes Meds Home Medications and Allergies Home Medications Medication Instructions Recorded Confirmed Type Combivent Respimat See Rx Instructions .ROUTE .COMPLEX 12/24/18 12/02/19 History aspirin 325 mg PO DAILY 12/24/18 12/02/19 History fluoxetine 40 mg PO DAILY 12/24/18 12/02/19 History levothyroxine 50 mcg PO DAILY 12/24/18 12/02/19 History pantoprazole 40 mg PO DAILY 12/24/18 12/02/19 History rosuvastatin [Crestor] 40 mg PO DAILY 12/24/18 12/02/19 History Anoro Ellipta 1 inh INHALATION DAILY 12/26/18 12/02/19 History Atrovent HFA 2 puff INHALATION Q8H 12/26/18 12/02/19 History Multi-Day Plus Minerals 1 tab PO DAILY 12/26/18 12/02/19 History alprazolam 0.25 - 0.75 mg PO HS 12/26/18 12/02/19 History ascorbic acid (vitamin C) [Vitamin 500 mg PO DAILY 12/26/18 12/02/19 History C] calcium carbonate [Calcium 500] 500 mg PO DAILY 12/26/18 12/02/19 History cholecalciferol (vitamin D3) 1,000 unit PO BID 12/26/18 12/02/19 History [Vitamin D3] desvenlafaxine succinate 150 mg PO DAILY 12/26/18 12/02/19 History ginseng 100 mg PO DAILY 12/26/18 12/02/19 History lisinopril-hydrochlorothiazide 1 tab PO DAILY 12/26/18 12/02/19 History magnesium L-lactate 84 mg PO DAILY 12/26/18 12/02/19 History nitroglycerin [Nitrostat] 0.4 mg SUBLINGUAL PRN PRN 12/26/18 12/02/19 History tretinoin [Retin-A] See Rx Instructions .ROUTE .COMPLEX 12/26/18 12/02/19 History vitamin B complex [B-Complex] 1 tab PO DAILY 12/26/18 12/02/19 History moxifloxacin 400 mg PO DAILY #7 tab 01/03/19 12/02/19 Rx Allergies Allergy/AdvReac Type Severity Reaction Status Date / Time shrimp Allergy Unverified 12/02/19 10:15 Results Labs Result diagrams: 12/02/19 10:25 12/02/19 10:25 Labs: Laboratory Results - last 24 hr 12/02/19 12/02/19 12/02/19 10:25 10:25 10:25 WBC 13.27 H RBC 5.31 H Hgb 15.6 H Hct 46.1 H MCV 86.8 MCH 29.4 MCHC 33.8 RDW 15.1 H Plt Count 396 MPV 9.6 Immature Gran % 0.2 Neutrophils % 65.8 Lymphocytes % 25.8 Monocytes % 5.0 Eosinophils % 2.7 Basophils % 0.5 Absolute Neutrophils 8.73 H Absolute Lymphocytes 3.42 H Absolute Monocytes 0.66 Absolute Eosinophils 0.36 Absolute Basophils 0.07 PT INR D-Dimer 2169 H Sodium 136 Potassium 4.7 Chloride 97 L Carbon Dioxide 28.6 Anion Gap 10.4 BUN 38 H Creatinine 1.64 H Estimated GFR/1.73 m2 30.97 Glucose 185 H Lactate Calcium 12.3 H* Magnesium Total Bilirubin 0.3 AST 28 ALT 29 Alkaline Phosphatase 107 Creatine Kinase Troponin I < 0.05 NT-Pro-B Natriuret Pep 42 Total Protein 8.2 Albumin 4.2 Lipase 126 TSH Patient ABO/Rh Antibody Screen 12/02/19 12/02/19 12/02/19 10:25 10:25 10:25 WBC RBC Hgb Hct MCV MCH MCHC RDW Plt Count MPV Immature Gran % Neutrophils % Lymphocytes % Monocytes % Eosinophils % Basophils % Absolute Neutrophils Absolute Lymphocytes Absolute Monocytes Absolute Eosinophils Absolute Basophils PT 10.7 INR 1.1 D-Dimer Sodium Potassium Chloride Carbon Dioxide Anion Gap BUN Creatinine Estimated GFR/1.73 m2 Glucose Lactate Calcium Magnesium 2.0 Total Bilirubin AST ALT Alkaline Phosphatase Creatine Kinase Troponin I NT-Pro-B Natriuret Pep Total Protein Albumin Lipase TSH 3.52 Patient ABO/Rh Antibody Screen 12/02/19 12/02/19 12/02/19 10:25 11:05 13:13 WBC RBC Hgb Hct MCV MCH MCHC RDW Plt Count MPV Immature Gran % Neutrophils % Lymphocytes % Monocytes % Eosinophils % Basophils % Absolute Neutrophils Absolute Lymphocytes Absolute Monocytes Absolute Eosinophils Absolute Basophils PT INR D-Dimer Sodium Potassium Chloride Carbon Dioxide Anion Gap BUN Creatinine Estimated GFR/1.73 m2 Glucose Lactate 1.8 H Calcium Magnesium Total Bilirubin AST ALT Alkaline Phosphatase Creatine Kinase 152 Troponin I NT-Pro-B Natriuret Pep Total Protein Albumin Lipase TSH Patient ABO/Rh O Positive Antibody Screen Negative Last Vital Signs Temp 36.6 C 12/02/19 10:08 Pulse 103 H 12/02/19 11:46 Resp 16 12/02/19 12:00 BP 145/71 H 12/02/19 11:46 Pulse Ox 96 12/02/19 11:50 COVID-19 Screening Have you, or has anyone in your household, traveled outside of [place] in the last 14 days?: NO Had IN PERSON contact w/suspected or confirmed C-19 person: No
[2019-12-02 14:25] LABS: Troponin I < 0.05 ng/mL (<0.06)
[2019-12-02] MEDS: Normal Saline 1,000 ML 100 ML IV (15:08)
[2019-12-02] MEDS: Normal Saline Flush 10 ML SYR IVP (15:08)
[2019-12-02] MEDS: Normal Saline 500 ML 1000 ML IV (16:05)
[2019-12-02] MEDS: Dicyclomine 10 MG CAP PO ×2 (16:06→20:13)
[2019-12-02 16:52] LABS: PTT Activated 21.9 sec (21.0-31.4)
[2019-12-02] MEDS: Albuterol/Ipratropium 3 ML UPD VIAL UPD (18:53)
[2019-12-02] MEDS: diphenhydrAMINE 25 MG CAP PO (22:33)
--- NOTE | 2019-12-03 | DI.NM_ITS ---
EXAM: NM LUNG SCAN VENT PERF AEROS CLINICAL HISTORY: SOB, elevated Ddimer. TECHNIQUE: Injected Dose: Ventilation: 33.8 mCi Tc-99m DTPA via inhalation Perfusion: 5.5 mCi Tc-99m MAA via IV COMPARISON: CR XR PORTABLE CHEST AP from 12/02/2019 FINDINGS: Chest X-Ray: Clear lungs. Perfusion: Normal. No segmental or subsegmental defects. Ventilation:Normal homogeneous ventilation . IMPRESSION: 1. Low probability VQ examination. . . . Modified PIOPED II criteria Probability Criteria High Two or more segments of V/Q mismatch Low Normal Perfusion, Non segmental perfusion abnormalitie s, pleural effusion in at least 1/3 of pleural cavity with no other defect Radiograph/perfusion matched defect in mid to upper lung confined to segment, one to three small segmental perfusion defects (<25% of segment) Perfusion defect smaller than corresponding radiogra phic lesion. Intermediate All other findings DATA REPOSITORY:
[2019-12-03 00:16] LABS: PTT Activated > 155.0 sec (21.0-31.4)
[2019-12-03 00:29] VITALS: PULSE 109; RESP 1; RESP 16; O2SAT 94
[2019-12-03] MEDS: Albuterol/Ipratropium 3 ML UPD VIAL UPD ×2 (00:29→06:04)
[2019-12-03 03:55] VITALS: BP 110/72; PULSE 125; RESP 18; TEMP 36.8; O2SAT 95
[2019-12-03 06:04] VITALS: PULSE 109; RESP 1; RESP 20; O2SAT 100
[2019-12-03] MEDS: Levothyroxine 50 MCG TAB PO (06:04)
[2019-12-03] MEDS: Normal Saline 1,000 ML 100 ML IV (06:10)
[2019-12-03 07:04] LABS: Abs Immature Grans 0.02 k/cumm (0.0-0.09); Absolute Basophil Count 0.04 k/cumm (0.0-0.2); Absolute Eosinophil Count 0.25 k/cumm (0.0-0.7); Absolute Lymphocyte Count 3.43 k/cumm (1.2-3.4); Absolute Monocyte Count 0.64 k/cumm (0.11-0.7); Absolute Neutrophil Count 4.87 k/cumm (1.2-6.7); Basophils % 0.4; Eosinophils % 2.7; HCT 36.1 % (36.0-46.0); HGB 11.9 g/dL (12.0-15.5); Immature Grans % 0.2 %; Lymphocytes % 37.1; Mean Corpuscular Hemoglobin 28.9 pg (27.0-33.0); Mean Corpuscular Volume 87.6 fL (80-95); Mean Platelet Volume 9.4 fL (8.0-11.0); Monocytes % 6.9; Neutrophils % 52.7; Platelet Count 265 x1000/uL (130-400); RBC 4.12 m/cumm (4.00-5.20); RBC Distribution Width 15.1 % (11.7-14.6); White Blood Cell Count 9.25 k/cumm (4.4-10.8)
[2019-12-03 07:12] LABS: Anion Gap 6.5 mmol/L (3-11); BUN 27 mg/dL (7-18); CO2 25.5 mmol/L (21.0-32.0); CREATININE 1.29 mg/dL (0.55-1.02); Calcium 9.4 mg/dL (8.5-10.1); Chloride 103 mmol/L (98-107); Estimated GFR 40.86 (mL/min/1.73m2); Glucose 147 mg/dL (74-106); Sodium 135 mmol/L (136-145)
[2019-12-03 07:25] LABS: Hemoglobin A1C 6.5 % (3.8-5.6)
[2019-12-03 07:47] LABS: PTT Activated 75.6 sec (21.0-31.4)
[2019-12-03 08:26] VITALS: BP 134/75; PULSE 107; RESP 18; TEMP 35.9; O2SAT 96
[2019-12-03 08:30] LABS: COVID-19 RT-PCR UVMMC Result Negative (Negative)
[2019-12-03] MEDS: Famotidine 20 MG TAB 10 MG PO (09:16)
[2019-12-03] MEDS: Aspirin 325 MG TAB PO (09:16)
[2019-12-03] MEDS: ROSUVASTATIN 20 MG TAB 40 MG PO (09:17)
[2019-12-03] MEDS: Pantoprazole 40 MG TABCR PO (09:18)
[2019-12-03] MEDS: Dicyclomine 10 MG CAP PO ×2 (09:18→12:25)
--- NOTE | 2019-12-03 10:02 | PDOC.CMIN ---
- If Service Date Differs Date of service: 12/03/19 Time of Service: 10:02 Care Management Initial Assess REASON FOR HOSPITALIZATION:: Pulmonary Embolism PAST MEDICAL HISTORY/PAST SURGICAL HISTORY:: Medical History (Updated 12/02/19 @ 14:25 by Jasmina Juan NP). Anxiety (Chronic). CKD (chronic kidney disease) stage 3, GFR 30-59 ml/min (Chronic). Colitis (Acute). COPD (chronic obstructive pulmonary disease) (Chronic). Diet-controlled type 2 diabetes mellitus (Acute). Discharged to home (Inactive). Diverticulitis large intestine (Resolved). Hyperlipidemia (Acute). Hypertension (Chronic). Ileus (Inactive). Small bowel obstruction (Inactive). Vomiting (Inactive). Surgical History . H/O non-cataract eye surgery (Acute). L eye - retinal surgery. S/P aortic aneurysm repair (Acute). S/P cataract extraction and insertion of intraocular lens (Acute). S/P cholecystectomy (Acute). S/P tonsillectomy (Acute). S/P ventral herniorrhaphy (Acute) PREVIOUS FUNCTIONAL STATUS/SOCIAL/FAMILY SUPPORTS:: Marleni is 69 yo woman who lives in her own home with her fimarjorie Dunlap, with whom she has been for over 30 years. She has never had children. 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 She commutes to [place] daily. She is usually active and independent and manages all her own ADL's. CURRENT FUNCTIONAL STATUS:: Marleni was sitting up in bed when CM met with her. She was pleasant and engaged readily in conversation. Marleni shared that she will be discharged later today, which she is very happy about. 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 Marleni stated that she is really nervous about the Covid pandemic and rarely leaves her home. ADVANCE DIRECTIVES:: On file. Significant other Germán Rogers is agent Has patient been provided with info about the portal/API?: Yes Did the patient sign up for the portal?: No CODE STATUS:: Full Code INSURANCE COVERAGE / FINANCIAL ISSUES:: FERMIN KENDRICK CURRENT HOME/COMMUNITY SERVICES/EQUIPMENT:: none PRIMARY CARE PHYSICIAN:: Imani Currie - [facility] POTENTIAL DISCHARGE NEEDS:: [place] up with PCP and discharge plan of care PATIENT/FAMILY EDUCATION NEEDS:: Discharge plan, limitations, Follow up plan, Ask Me Three TRANSPORTATION:: via private vehicle with friends PLAN:: Marleni will ne discharged home with no new services. She will folllow up with her PCP and discharge plan of care and transport via private vehicle with her fiancee.
[2019-12-03] MEDS: ALPRAZolam 0.25 MG TAB PO (10:57)
[2019-12-03] MEDS: Normal Saline Flush 10 ML SYR IVP (10:58)
--- NOTE | 2019-12-03 11:26 | W.PM.DS.N ---
Date of service: 12/03/19 Time of Service: 11:27 DS: Diagnosis Discharge Diagnosis (1) Hypercalcemia: Start date: 12/03/19 Start time: 11:40 Status: Resolved Asessment and Plan: Likely due in setting of dehydration. Normalized at 9.4 today. Also held all calcium supplements. She denies drinking milk. She does endorse not drinking as much as usual. Recommend increasing fluid intake, cut back on taking calcium supplements. (2) Dehydration: Start date: 12/03/19 Start time: 11:43 Status: Resolved Asessment and Plan: Likely in setting of poor fluid intake. Labs normalized and she does feel better today. Ambulated around hallway no weakness, dizziness or lightheadedness. (3) Pulmonary embolism: Start date: 12/03/19 Start time: 11:27 Status: Ruled-out Asessment and Plan: VQ scan negative. Heparin drip dcd (4) Acute on chronic kidney failure: Start date: 12/03/19 Start time: 11:44 Status: Resolved Asessment and Plan: Renal function improved. At baseline now of 1.29. (5) Anxiety: Start date: 12/03/19 Start time: 11:45 Status: Chronic Asessment and Plan: Would likely benefit from SSRI, recommend follow up with primary and have discussion regarding anxiety. She uses xanax as needed at this time. (6) Hypertension: Start date: 12/03/19 Start time: 11:47 Status: Chronic Asessment and Plan: Will restart bp meds on discharge (7) Abdominal pain: Start date: 12/03/19 Start time: 11:47 Status: Chronic Asessment and Plan: No abdominal pain on admission. I did start bentayl while she was here and this appeared to be beneficial I will write for home script. Also recommend follow up with GI for further management of abdominal symptoms. (8) COPD (chronic obstructive pulmonary disease): Start date: 12/03/19 Start time: 11:48 Status: Chronic Asessment and Plan: Not exacerbated at this time. Continue home regimen (9) Hyperlipidemia: Start date: 12/03/19 Start time: 11:49 Status: Acute Asessment and Plan: continue statin (10) Diet-controlled type 2 diabetes mellitus: Start date: 12/03/19 Start time: 11:49 Status: Acute Asessment and Plan: A1c 6.5, continue to control with diet and exercise. Above case discussed with Dr. Short who is in agreement. Discharge Plan Disposition Patient Disposition: HOME Condition: Good Discharge Details Chief Complaint: GenMedical Reason For Visit: HYPERCALCEMIA,DEHYDRATION Admit Date/Time: 12/02/19 12:48 Admit Provider: Sujatha Short Attending Provider: Sujatha Short Primary Care Provider: Imani Currie ED Provider: Bel Vargas Hospital Course Hospital Course: 69 y.o female with PMH of HLD, HTN, COPD, CKD, DM-diet controlled, triple A repair presents to emergency department with weakness, elevated HR, and abdominal pain over the past three days. Approximately four days ago patient states she started feeling weak and as if she was going to pass out with abdominal pain intermittently, she states she has not vomited nor did she have nausea. She has been working at home since [facility] and her anxiety with current social situations has been worse. She takes xanax for anxiety. She was drinking at least 32 oz of water while at work however since working from home her fluid intake has decreased. She has been walking her dogs daily but when the humidity is high she does have a harder time breathing. She states she has days when she does chew a lot of alkaseltzer chews for her abdominal pain and the pain is usually followed by a BM relieving pain. Labs in the ED remarkable for hypercalcemia-12.3, TL creat1.64, elevated d-dimer- 2169, unable to obtain CTA to r/o PE, Bilateral U/S negative for DVT. CXR negative for acute pulmonary findings. She was admitted to obs for further management. CT abd negative for acute abnormality. Likely her abdominal pain is IBS with constipation based on history and symptoms. Abd pain was treated with dicyclomine, and she appeared to do well having no pain on admission, she does need to f/u with GI as outpatient, she also states that sometimes she has mid-sternal pain after eating she currently takes protonix will add famotidine to regimen as well. Her labs normazlied overnight with IV hydration. VQ scan was negative for PE, Heparin gtt dcd, she was able to ambulate around unit without any dizziness or lightheadedness. She feels well and is being discharged home. She will need follow up with PCP in 2 weeks. She is a very anxious lady that would benefit from an SSRI with xanax for break threw anxiety. She denies CP, SOB, N/V/D. Home Meds and New Rx's Prescriptions: New famotidine 20 mg Tablet 10 mg PO DAILY Qty: 30 RF: 0 dicyclomine 10 mg Capsule 10 mg PO QID Qty: 60 RF: 0 Continued fluoxetine 40 mg Capsule 40 mg PO DAILY RF: 0 aspirin 325 mg Tablet 325 mg PO DAILY RF: 0 pantoprazole 40 mg Tablet,Delayed Release (Dr/Ec) 40 mg PO DAILY RF: 0 rosuvastatin [Crestor] 40 mg Tablet 40 mg PO DAILY RF: 0 levothyroxine 50 mcg Capsule 50 mcg PO DAILY RF: 0 Combivent Respimat 20-100 mcg/actuation Mist See Rx Instructions .ROUTE .COMPLEX RF: 0 ginseng 100 mg Capsule 100 mg PO DAILY RF: 0 lisinopril-hydrochlorothiazide 20-12.5 mg Tablet 1 tab PO DAILY RF: 0 tretinoin [Retin-A] 0.025 % Cream See Rx Instructions .ROUTE .COMPLEX RF: 0 alprazolam 0.25 mg Tablet 0.25 - 0.75 mg PO HS RF: 0 calcium carbonate [Calcium 500] 500 mg calcium (1,250 mg) Tablet 500 mg PO DAILY RF: 0 ascorbic acid (vitamin C) [Vitamin C] 500 mg Tablet 500 mg PO DAILY RF: 0 nitroglycerin [Nitrostat] 0.4 mg Tablet, Sublingual 0.4 mg sublingual PRN PRN (Reason: Chest Pain) RF: 0 vitamin B complex [B-Complex] Tablet 1 tab PO DAILY RF: 0 cholecalciferol (vitamin D3) [Vitamin D3] 1,000 unit Capsule 1,000 unit PO BID RF: 0 magnesium L-lactate 84 mg Tablet Extended Release 84 mg PO DAILY RF: 0 Atrovent HFA 17 mcg/actuation Hfa Aerosol Inhaler 2 puff INHALATION Q8H RF: 0 desvenlafaxine succinate 50 mg Tablet Extended Release 24 Hr 150 mg PO DAILY RF: 0 Anoro Ellipta 62.5-25 mcg/actuation Blister With Device 1 inh INHALATION DAILY RF: 0 Multi-Day Plus Minerals 18 mg iron-400 mcg-25 mcg Tablet 1 tab PO DAILY RF: 0 moxifloxacin 400 mg tablet 400 mg PO DAILY Qty: 7 RF: 0 Discharge Instructions Instructions: Acute Kidney Injury (DC), Hypercalcemia (DC), Anxiety (DC) Additional Instructions: Follow up with PCP in 2 weeks. Speak with them about trying an SSRI for anxiety. I have started you on bentyl for abdominal pain, you can take 1 tab 4 times a day for abdominal pain. Follow up with GI for abdominal pain and symptoms. Activity:: Activity as Tolerated Equipment/Supplies:: No Equipment Needed Diet:: As Tolerated Discharge Orders Discharge Orders: Discharge Order (Routine); Ordered 12/03/19 Ordered By: Jasmina Juan DS: Summary Status at Discharge Functional status at discharge: independent ambulation Overall status at discharge: patient is back to baseline Mental Status: mental status grossly normal Speech and Movement: speech and movement normal Mood: congruent mood Affect: normal affect Exam Narrative Exam Narrative: Constitutional: well and [id number], pleasant, conversing normally HENT: head atraumatic/normocephalic/normal inspection, mucous membranes moist Eyes: conjunctiva normal, sclera normal, pupils 3mm b/l Neck: no stridor, normal ROM, trachea midline Chest: normal inspection Resp: normal work of breathing, LCTAB Cardio: normal rate, normal rhythm, no murmur appreciated GI: abdomen soft, non-tender, non-distended Back: normal inspection, no rash Skin: warm, dry, normal color, no rash Neuro: alert, not altered, grossly non-focal, normal tone Ext: no edema Psych: normal mood, normal affect, normal behavior Psych Mental Status: mental status grossly normal Speech and Movement: speech and movement normal Mood: congruent mood Affect: normal affect DS: Data Vitals/I&O Vitals and I&O: Vital Signs Temperature 35.9 C L 12/03/19 08:26 Temperature Source Tympanic 12/03/19 08:26 Pulse 107 H 12/03/19 08:26 Pulse Rhythm Regular 12/03/19 00:30 Pulse 109 H 12/02/19 12:00 Respiratory Rate 18 12/03/19 08:26 Respiratory Effort 12/03/19 00:30 Respiratory Depth Normal 12/03/19 00:30 Respiratory Pattern Normal 12/03/19 00:30 Blood Pressure 134/75 12/03/19 08:26 Blood Pressure Mean 90 07/06/20 11:46 Blood Pressure Position Supine 12/02/19 10:08 Pulse Oximetry 96 12/03/19 08:26 Oxygen Delivery Method Room Air 12/03/19 08:26 Oxygen Flow Rate 0 12/03/19 08:26 Pain Level 0 12/03/19 08:26 Comment 12/03/19 08:26 Intake & Output 12/02/19 12/02/19 12/03/19 11:59 23:59 11:59 Intake Total 595 / 595 1798.333 / 1798.333 Output Total 1350 / 1350 Balance 595 / 595 448.333 / 448.333 Weight 68.039 kg 68.039 kg Intake: IV 595 / 595 1218.333 / 1218.333 Oral 580 / 580 Output: Urine 1350 / 1350 Other: Urine Color Yellow Urine Appearance Clear Clear Urine Odor Normal Comment pt flushed Voiding Methods Toilet Toilet Data Completed and Pending Completed studies during hospitalization [Text1]: CLINICAL HISTORY: SOB, elevated Ddimer. TECHNIQUE: Injected Dose: Ventilation: 33.8 mCi Tc-99m DTPA via inhalation Perfusion: 5.5 mCi Tc-99m MAA via IV COMPARISON: CR XR PORTABLE CHEST AP from 12/02/2019 FINDINGS: Chest X-Ray: Clear lungs. Perfusion: Normal. No segmental or subsegmental defects. Ventilation:Normal homogeneous ventilation . IMPRESSION: 1. Low probability VQ examination. . . . Modified PIOPED II criteria Probability Criteria High Two or more segments of V/Q mismatch Low Normal Perfusion, Non segmental perfusion abnormalities, pleural effusion in at least 1/3 of pleural cavity with no other defect Radiograph/perfusion matched defect in mid to upper lung confined to segment, one to three small segmental perfusion defects (<25% of segment) Perfusion defect smaller than corresponding radiographic lesion. Intermediate All other findings DATA REPOSITORY: EXAM: CT ABDOMEN PELVIS WO CLINICAL HISTORY: UPPER ABD PAIN. TECHNIQUE: Imaging Protocol: Axial computed tomography images with coronal and sagittal reformatted images were created and reviewed. Oral: no COMPARISON: No exams were available for comparison FINDINGS: ABDOMEN: Lung Bases: Normal where visualized. Liver: Normal density. No measurable mass. Gallbladder and biliary tract: No radiodense calculus or dilation. Pancreas: Normal density, no abnormal calcifications or inflammatory process. Spleen: Normal. Kidneys: Normal size, contour and axis. No radiodense stones or obstructive uropathy. No masses seen. Adrenal glands: No masses seen. Lymph nodes: Within normal limits. Abdominal Aorta: Aortoiliac bypass graft. There is an anterior abdominal wall hernia repair. No new or recurrent hernia. PELVIS: Bladder: Symmetric distention, no gross wall thickening. Bowel: Mild sigmoid diverticulosis. No obstruction or bowel wall thickening. Normal appendix. Peritoneal cavity: No ascites, collection or mesenteric inflammatory response. Reproductive organs: Within normal limits. Bones: Degenerative disc changes.. IMPRESSION: No acute abnormality. RADIATION DOSE DELIVERED: Total DLP Labs on day of discharge: Labs from last 24 hours 12/03/19 12/03/19 12/03/19 15:23 06:35 06:35 WBC RBC Hgb Hct MCV MCH MCHC RDW Plt Count MPV Immature Gran % Neutrophils % Lymphocytes % Monocytes % Eosinophils % Basophils % Absolute Neutrophils Absolute Lymphocytes Absolute Monocytes Absolute Eosinophils Absolute Basophils PT INR APTT Pending 75.6 H D Sodium Potassium Chloride Carbon Dioxide Anion Gap BUN Creatinine Estimated GFR/1.73 m2 Glucose Hemoglobin A1c 6.5 H Lactate Calcium Magnesium Creatine Kinase Troponin I 25-OH Vitamin D Total TSH PTH Related Peptide Urine Color Urine Clarity Urine pH Ur Specific [place] Urine Protein Urine Ketones Urine Blood Urine Nitrite Urine Bilirubin Urine Urobilinogen Ur Leukocyte Esterase Urine Glucose COVID-19 PCR Nasopharyn COVID-19 PCR Ref Test Perform Site Patient ABO/Rh Antibody Screen 12/03/19 12/03/19 12/02/19 06:35 06:35 23:15 WBC 9.25 D RBC 4.12 Hgb 11.9 L D Hct 36.1 D MCV 87.6 MCH 28.9 MCHC 33.0 RDW 15.1 H Plt Count 265 D MPV 9.4 Immature Gran % 0.2 Neutrophils % 52.7 Lymphocytes % 37.1 Monocytes % 6.9 Eosinophils % 2.7 Basophils % 0.4 Absolute Neutrophils 4.87 Absolute Lymphocytes 3.43 H Absolute Monocytes 0.64 Absolute Eosinophils 0.25 Absolute Basophils 0.04 PT INR APTT > 155.0 H* D Sodium 135 L Potassium 4.0 Chloride 103 Carbon Dioxide 25.5 Anion Gap 6.5 BUN 27 H D Creatinine 1.29 H Estimated GFR/1.73 m2 40.86 Glucose 147 H Hemoglobin A1c Lactate Calcium 9.4 Magnesium Creatine Kinase Troponin I 25-OH Vitamin D Total TSH PTH Related Peptide Urine Color Urine Clarity Urine pH Ur Specific [place] Urine Protein Urine Ketones Urine Blood Urine Nitrite Urine Bilirubin Urine Urobilinogen Ur Leukocyte Esterase Urine Glucose COVID-19 PCR Nasopharyn COVID-19 PCR Ref Test Perform Site Patient ABO/Rh Antibody Screen 12/02/19 12/02/19 12/02/19 21:15 16:22 13:50 WBC RBC Hgb Hct MCV MCH MCHC RDW Plt Count MPV Immature Gran % Neutrophils % Lymphocytes % Monocytes % Eosinophils % Basophils % Absolute Neutrophils Absolute Lymphocytes Absolute Monocytes Absolute Eosinophils Absolute Basophils PT INR APTT 21.9 Sodium Potassium Chloride Carbon Dioxide Anion Gap BUN Creatinine Estimated GFR/1.73 m2 Glucose Hemoglobin A1c Lactate Calcium 10.0 Magnesium Creatine Kinase Troponin I 25-OH Vitamin D Total TSH PTH Related Peptide Urine Color Urine Clarity Urine pH Ur Specific [place] Urine Protein Urine Ketones Urine Blood Urine Nitrite Urine Bilirubin Urine Urobilinogen Ur Leukocyte Esterase Urine Glucose COVID-19 PCR Negative Nasopharyn COVID-19 PCR Not Applicable Ref Test Perform Site [facility] lab Patient ABO/Rh Antibody Screen 12/02/19 12/02/19 12/02/19 13:50 13:13 13:13 WBC RBC Hgb Hct MCV MCH MCHC RDW Plt Count MPV Immature Gran % Neutrophils % Lymphocytes % Monocytes % Eosinophils % Basophils % Absolute Neutrophils Absolute Lymphocytes Absolute Monocytes Absolute Eosinophils Absolute Basophils PT INR APTT Sodium Potassium Chloride Carbon Dioxide Anion Gap BUN Creatinine Estimated GFR/1.73 m2 Glucose Hemoglobin A1c Lactate 1.8 H Calcium Magnesium Creatine Kinase Troponin I < 0.05 25-OH Vitamin D Total TSH PTH Related Peptide Pending Urine Color Urine Clarity Urine pH Ur Specific [place] Urine Protein Urine Ketones Urine Blood Urine Nitrite Urine Bilirubin Urine Urobilinogen Ur Leukocyte Esterase Urine Glucose COVID-19 PCR Nasopharyn COVID-19 PCR Ref Test Perform Site Patient ABO/Rh Antibody Screen 12/02/19 12/02/19 12/02/19 13:06 11:05 10:25 WBC RBC Hgb Hct MCV MCH MCHC RDW Plt Count MPV Immature Gran % Neutrophils % Lymphocytes % Monocytes % Eosinophils % Basophils % Absolute Neutrophils Absolute Lymphocytes Absolute Monocytes Absolute Eosinophils Absolute Basophils PT INR APTT Sodium Potassium Chloride Carbon Dioxide Anion Gap BUN Creatinine Estimated GFR/1.73 m2 Glucose Hemoglobin A1c Lactate Calcium Magnesium Creatine Kinase Troponin I 25-OH Vitamin D Total 43.4 TSH PTH Related Peptide Urine Color Cancelled Urine Clarity Cancelled Urine pH Cancelled Ur Specific [place] Cancelled Urine Protein Cancelled Urine Ketones Cancelled Urine Blood Cancelled Urine Nitrite Cancelled Urine Bilirubin Cancelled Urine Urobilinogen Cancelled Ur Leukocyte Esterase Cancelled Urine Glucose Cancelled COVID-19 PCR Nasopharyn COVID-19 PCR Ref Test Perform Site Patient ABO/Rh O Positive Antibody Screen Negative 12/02/19 12/02/19 12/02/19 10:25 10:25 10:25 WBC RBC Hgb Hct MCV MCH MCHC RDW Plt Count MPV Immature Gran % Neutrophils % Lymphocytes % Monocytes % Eosinophils % Basophils % Absolute Neutrophils Absolute Lymphocytes Absolute Monocytes Absolute Eosinophils Absolute Basophils PT INR APTT Sodium Potassium Chloride Carbon Dioxide Anion Gap BUN Creatinine Estimated GFR/1.73 m2 Glucose Hemoglobin A1c Lactate Calcium Magnesium 2.0 Creatine Kinase 152 Troponin I 25-OH Vitamin D Total TSH 3.52 PTH Related Peptide Urine Color Urine Clarity Urine pH Ur Specific [place] Urine Protein Urine Ketones Urine Blood Urine Nitrite Urine Bilirubin Urine Urobilinogen Ur Leukocyte Esterase Urine Glucose COVID-19 PCR Nasopharyn COVID-19 PCR Ref Test Perform Site Patient ABO/Rh Antibody Screen 12/02/19 10:25 WBC RBC Hgb Hct MCV MCH MCHC RDW Plt Count MPV Immature Gran % Neutrophils % Lymphocytes % Monocytes % Eosinophils % Basophils % Absolute Neutrophils Absolute Lymphocytes Absolute Monocytes Absolute Eosinophils Absolute Basophils PT 10.7 INR 1.1 APTT Sodium Potassium Chloride Carbon Dioxide Anion Gap BUN Creatinine Estimated GFR/1.73 m2 Glucose Hemoglobin A1c Lactate Calcium Magnesium Creatine Kinase Troponin I 25-OH Vitamin D Total TSH PTH Related Peptide Urine Color Urine Clarity Urine pH Ur Specific [place] Urine Protein Urine Ketones Urine Blood Urine Nitrite Urine Bilirubin Urine Urobilinogen Ur Leukocyte Esterase Urine Glucose COVID-19 PCR Nasopharyn COVID-19 PCR Ref Test Perform Site Patient ABO/Rh Antibody Screen [facility] Medical History Anxiety (Chronic) CKD (chronic kidney disease) stage 3, GFR 30-59 ml/min (Chronic) Colitis (Acute) COPD (chronic obstructive pulmonary disease) (Chronic) Diet-controlled type 2 diabetes mellitus (Acute) Discharged to home (Inactive) Diverticulitis large intestine (Resolved) Hyperlipidemia (Acute) Hypertension (Chronic) Ileus (Inactive) Small bowel obstruction (Inactive) Vomiting (Inactive) Surgical History H/O non-cataract eye surgery (Acute) L eye - retinal surgery S/P aortic aneurysm repair (Acute) S/P cataract extraction and insertion of intraocular lens (Acute) S/P cholecystectomy (Acute) S/P tonsillectomy (Acute) S/P ventral herniorrhaphy (Acute) Family History Father Heart disease CHF (congestive heart failure) Diabetes Hypertension Maternal Grandmother Stroke Paternal Grandmother Breast cancer Mother Vulvar cancer Social History Smoking/Tobacco Use Status: Former Tobacco Use Pack-years: 120 Tobacco: How many years used: 30 Alcohol Intake: never Drug use: Never Substance use type: does not use Do you feel safe at home: Yes Do you feel safe in your relationship?: Yes
[2019-12-03 11:40] VITALS: BP 144/74; PULSE 92; RESP 18; TEMP 36.7; O2SAT 97
[2019-12-03 11:54] VITALS: PULSE 104
--- NOTE | 2019-12-03 15:20 | PDOC.CMDIS ---
- If Service Date Differs Date of service: 12/03/19 Time of Service: 15:20 LACE Index Scoring Tool - Questions: Length of Stay (in days): 1 Acuity (Admit via E.D.?): Yes Comorbidities: Chronic Pulmonary Disease, Liver or Renal Disease E.D. Visits: 3 - Answers: Total Score: 12 Risk of Readmission: High Risk Care Management Discharge Reason for Hospitalization: Pulmonary Embolism Discharge Plan: Marleni will be discharged home with no new services. She will folllow up with her PCP and discharge plan of care and transport via private vehicle with her justinmargarethe. Patient/Family Education Needs: Discharge plan, limitations, Follow up plan, Ask Me Three
[2019-12-06 16:10] LABS: PTH-Related Peptide 0.6 pmol/L (< or = 4.2)
== END 2019-12-03 13:25 | disposition home or self-care (01) ==
LOC: ER 13:06 → MS 14:04
PROVIDERS: General Practice; Nurse Practitioner Family; Admitting Provider Internal Medicine; Emergency Provider Student in an Organized Health Care Education/Training Program; PCP Family Medicine; Visit Provider Internal Medicine
DX: E86.0 Dehydration (principal); E83.52 Hypercalcemia; N17.9 Acute kidney failure, unspecified; F41.9 Anxiety disorder, unspecified; Z11.59 Encounter for screening for other viral diseases; I15.0 Renovascular hypertension; J44.9 Chronic obstructive pulmonary disease, unspecified; E11.22 Type 2 diabetes mellitus with diabetic chronic kidney disease; E78.5 Hyperlipidemia, unspecified; N18.3 Chronic kidney disease, stage 3 (moderate); Z79.899 Other long term (current) drug therapy
CPT/HCPCS: 36410; 36415; 80048; 80053; 82306; 82550; 83690; 86850; 86900; 86901; 93005; 94640; 99217; 99220; 99285; U0003; 71045; 74176; 78582; 81003; 82310; 82397; 83036; 83605; 83735; 83880; 84443; 84484; 85025; 85379; 85610; 85730; 93010; 93970; G0378; J7620

== ENCOUNTER 2020-06-02 11:20 | Emergency (ER) | payer BC, SELFPAY ==
[2020-06-02] VITALS (41 sets, daily range): BP systolic 92–108; BP diastolic 51–83; PULSE 86–115; RESP 12–28; TEMP 36.3–36.4; O2SAT 94–98
--- NOTE | 2020-06-02 11:15 | RT.EKG_ITS ---
APPROVED REPORT Exam: Resting ECG Patient Location: E HR:109 bpm ECG Measurements Heart Rate 109 AXIS MS 129 P 59 QRSd 86 QRS 65 QT 337 T 24 QTc 455 Conclusion Sinus tachycardia...rate> 99 I have reviewed and interpreted ECG and agree with software generated interpretation.
--- NOTE | 2020-06-02 11:21 | ED.GENADUL_ITS ---
Discharge Plan Disposition Patient Disposition: HOME Condition: Improving Discharge Details Clinical Impression: Fatigue, Diarrhea Primary Care Provider: Imani Currie ED Provider: Ingrid Sandoval Home Meds and New Rx's Prescriptions: Continued aspirin 325 mg Tablet 325 mg PO DAILY RF: 0 pantoprazole 40 mg Tablet,Delayed Release (Dr/Ec) 40 mg PO DAILY RF: 0 rosuvastatin [Crestor] 40 mg Tablet 40 mg PO DAILY RF: 0 levothyroxine 50 mcg Capsule 50 mcg PO DAILY RF: 0 Combivent Respimat 20-100 mcg/actuation Mist See Rx Instructions .ROUTE .COMPLEX RF: 0 lisinopril-hydrochlorothiazide 20-12.5 mg Tablet 1 tab PO DAILY RF: 0 alprazolam 0.25 mg Tablet 0.25 - 0.75 mg PO HS RF: 0 ascorbic acid (vitamin C) [Vitamin C] 500 mg Tablet 500 mg PO DAILY RF: 0 nitroglycerin [Nitrostat] 0.4 mg Tablet, Sublingual 0.4 mg sublingual PRN PRN (Reason: Chest Pain) RF: 0 vitamin B complex [B-Complex] Tablet 1 tab PO DAILY RF: 0 cholecalciferol (vitamin D3) [Vitamin D3] 1,000 unit Capsule 1,000 unit PO BID RF: 0 magnesium L-lactate 84 mg Tablet Extended Release 84 mg PO DAILY RF: 0 desvenlafaxine succinate 50 mg Tablet Extended Release 24 Hr 150 mg PO DAILY RF: 0 Anoro Ellipta 62.5-25 mcg/actuation Blister With Device 1 inh INHALATION DAILY RF: 0 Multi-Day Plus Minerals 18 mg iron-400 mcg-25 mcg Tablet 1 tab PO DAILY RF: 0 albuterol sulfate 90 mcg/actuation HFA aerosol inhaler 2 inh INHALATION Q6H PRN PRNRF: 0 Discharge Instructions Instructions: Acute Diarrhea (ED), Fatigue (ED) Additional Instructions: Drink plenty of fluids and get plenty of rest. Alternate tylenol and motrin as needed and directed for pain. Call your primary care doctor's office tomorrow to schedule follow-up appointment for reevaluation and for final results of your stool specimen. Return immediately to the emergency department if you develop any worsening or new concerning symptoms. Discharge Data Discharge Physician: Ingrid Sandoval Medical Decision Making 69-year-old female with a history of anxiety, hypertension, hyperlipidemia, COPD, diabetes and chronic kidney disease presents with 1 month of fatigue, shortness of breath with exertion and body aches and 1 week of watery brown diarrhea. Heart rate 100s. Blood pressure soft at systolic of 90s to 100s. She is afebrile and appears comfortable and nontoxic. Lungs clear bilaterally. Abdomen soft with tenderness across lower aspect. Differential diagnosis includes ACS, pneumonia, CHF, PE, colitis, gastroenteritis, bacterial diarrheal illness, UTI. Will place an IV, bolus IV fluids, screening labs, urinalysis, CT chest abdomen pelvis. Labs reviewed and note a normal white blood cell count. Her BUN and creatinine and GFR are diminished, will cancel IV contrast and give oral contrast. Troponin negative. 1430 --patient reassessed and she states she feels better. History and presentation not consistent with PE. Her heart rate has improved with IV fluids and she denies any shortness of breath at rest, only with exertion. She has had diarrhea and fatigue which is likely contributing to her tachycardia and shortness of breath with exertion. CT chest abdomen pelvis negative for acute findings. Able to eventually obtain a urine which was negative for infection. C. difficile negative. 1800 --patient disposition delayed due to critical patient in ED. Patient reassessed and she feels much better. She is requesting to go home. She is advised to increase fluids, rest and to follow-up with her primary care doctor for reevaluation and for final results of her stool sample. Usual and customary return precautions given prior to discharge. Medical Records Medical records reviewed: Yes I reviewed the patient's medical records. Imaging Data Radiologic Study: Radiologist's impression: CT CHEST/ABD/PEL WO CLINICAL HISTORY: sob w/ exertion, r/o PE/pneumonia TECHNIQUE: Imaging Protocol: Axial computed tomography images with coronal and sagittal reformatted images were created and reviewed CONTRAST MATERIAL: Imaging Protocol: Axial computed tomography images with coronal and sagittal reformatted images were created and reviewed. COMPARISON: CT CT ABDOMEN PELVIS WO from 12/02/2019 FINDINGS: CHEST: Tracheobronchial tree: Patent where visualized. Mediastinum and Raiza: No dominant adenopathy or fluid collection. Pulmonary parenchyma: No consolidation or dominant measurable mass. Centrilobular emphysema. Dependent atelectasis in the bases. Pleura: No effusion or pneumothorax. Heart: The heart is not dilated. Mild coronary artery calcification. No pericardial effusion. Aorta: Thoracic aorta non-dilated. Atherosclerosis. Lymph nodes: Within normal limits. Bones:Degenerative changes. Soft tissues: Unremarkable. ABDOMEN: Liver: Normal density. No measurable mass. Gallbladder and Biliary Tract: Status post cholecystectomy. No biliary ductal dilatation. Pancreas: Normal density, no abnormal calcifications or inflammatory process. Spleen: Normal. Adrenals: No masses seen. Kidneys: Normal size, contour and axis. No radiodense stones or obstructive uropathy. No masses seen. Abdominal Aorta: Abdominal portion non-dilated. There is an aortoiliac bypass graft. Atherosclerosis. Bowel: No obstruction or bowel wall thickening. No evidence of acute appendicitis. There are fluid-filled loops of small and large bowel suspicious for a diarrheal illness. Please correlate clinically. The cecum lies to the left of midline. Peritoneal Cavity: No ascites, collection or mesenteric inflammatory response. Lymph Nodes: Within normal limits. Bones: Degenerative changes. Soft Tissues: Unremarkable. PELVIS: Bladder: Symmetric distention, no gross wall thickening. Reproductive Organs: Unremarkable as visualized. Lymph Nodes: Within normal limits. Bones: Degenerative changes. IMPRESSION: 1. No acute pulmonary process. 2. Fluid-filled loops of small and large bowel suspicious for diarrheal illness. 3. Findings were discussed with the emergency department on the date of the examination. Lab Data Lab results reviewed: Yes I reviewed the patient's lab results. ECG Data Attestation: I personally reviewed and interpreted this ECG (s) as follows: Interpretation: Rate of 109, sinus, no acute ST ovation or depression. DE 129. QRS 86. QTc 455. HPI General Mode of arrival: ambulatory . Date/Time Provider Initiated Documentation: 06/02/20 11:21 . Limitations to Documentation: no limitations . Information obtained by: patient . HPI Narrative: Patient is a 6-year-old female with a history of anxiety, hypertension, hyperlipidemia, chronic kidney disease, COPD presents for fatigue, shortness of breath with exertion, body aches for the past 3 weeks and watery brown diarrhea for the past week, and headache for the past 2 days. She states she has not sought treatment for these symptoms but wanted to be checked out as it was not improving. She states when she gets up and walks around she becomes short of breath and this improves with rest. She admits to a minimal nonproductive cough. She states she has had approximately 4-5 episodes of watery brown diarrhea daily for the past week. She states she has been eating normally. She denies any chest pain, fever, chills, abdominal pain, nausea, vomiting, urinary symptoms, recent travel, recent antibiotics, recent known sick contacts. Related Data Home Medications Medication Instructions Recorded Confirmed Combivent Respimat See Rx Instructions .ROUTE .COMPLEX 12/24/18 06/02/20 aspirin 325 mg PO DAILY 12/24/18 06/02/20 levothyroxine 50 mcg PO DAILY 12/24/18 06/02/20 pantoprazole 40 mg PO DAILY 12/24/18 06/02/20 rosuvastatin [Crestor] 40 mg PO DAILY 12/24/18 06/02/20 Anoro Ellipta 1 inh INHALATION DAILY 12/26/18 06/02/20 Multi-Day Plus Minerals 1 tab PO DAILY 12/26/18 06/02/20 alprazolam 0.25 - 0.75 mg PO HS 12/26/18 06/02/20 ascorbic acid (vitamin C) [Vitamin 500 mg PO DAILY 12/26/18 06/02/20 C] cholecalciferol (vitamin D3) 1,000 unit PO BID 12/26/18 06/02/20 [Vitamin D3] desvenlafaxine succinate 150 mg PO DAILY 12/26/18 06/02/20 lisinopril-hydrochlorothiazide 1 tab PO DAILY 12/26/18 06/02/20 magnesium L-lactate 84 mg PO DAILY 12/26/18 06/02/20 nitroglycerin [Nitrostat] 0.4 mg SUBLINGUAL PRN PRN 12/26/18 06/02/20 vitamin B complex [B-Complex] 1 tab PO DAILY 12/26/18 06/02/20 albuterol sulfate 2 inh INHALATION Q6H PRN PRN 06/02/20 06/02/20 Allergies Allergy/AdvReac Type Severity Reaction Status Date / Time shrimp Allergy Unverified 06/02/20 11:33 General ALMAZ: 2 Review of Systems All systems reviewed & are unremarkable except as noted in HPI and below Constitutional Constitutional: Reports as per HPI, Denies chills and Denies fever(s) Eyes Eyes: Denies blurry vision ENT Ears, Nose, Mouth, and Throat: Denies dizziness, Denies sore throat and Denies throat swelling Cardiovascular Cardiovascular: Denies chest pain and Reports dyspnea Respiratory Respiratory: Denies cough and Reports dyspnea Gastrointestinal Gastrointestinal: Denies abdominal pain, Reports diarrhea and Denies vomiting Genitourinary Genitourinary: Denies hematuria and Denies dysuria Musculoskeletal Musculoskeletal: Denies back pain and Denies numbness Integumentary/Breasts Skin/Breast: Denies lesions and Denies rash Neurologic Neurologic: Denies dizziness, Denies localized weakness and Denies numbness Allergic/Immunologic Allergic/Immunologic: Denies throat swelling [facility] Medical History (Updated 06/02/20 @ 18:16 by Ingrid Sandoval DO) Anxiety CKD (chronic kidney disease) stage 3, GFR 30-59 ml/min Colitis COPD (chronic obstructive pulmonary disease) Diet-controlled type 2 diabetes mellitus Discharged to home Diverticulitis large intestine Hyperlipidemia Hypertension Ileus Small bowel obstruction Vomiting Surgical History H/O non-cataract eye surgery L eye - retinal surgery S/P aortic aneurysm repair S/P cataract extraction and insertion of intraocular lens S/P cholecystectomy S/P tonsillectomy S/P ventral herniorrhaphy Family History Father Heart disease CHF (congestive heart failure) Diabetes Hypertension Maternal Grandmother Stroke Paternal Grandmother Breast cancer Mother Vulvar cancer Social History Smoking/Tobacco Use Status: Former Tobacco Use Pack-years: 120 Tobacco: How many years used: 30 Smoking risk assessment performed?: Yes Alcohol Intake: never Drug use: Never Substance use type: does not use Do you feel safe at home: Yes Do you feel safe in your relationship?: Yes Exam Const General: cooperative and no acute distress Orientation: alert, awake and oriented x3 HENMT Head: normal to inspection Face and sinus: normal facial exam Eyes General: appearance normal, both eyes and all related structures EOM: EOM intact bilaterally Neck Neck: normal visual inspection and No submandibular swelling Lymphatic: no lymphadenopathy noted Chest Chest: normal inspection of the chest and no tenderness Resp Effort & Inspection: normal respiratory effort and able to speak in complete sentences Auscultation: clear to auscultation bilaterally Cardio Rate: regular rate Rhythm: regular rhythm GI Inspection: normal to inspection Palpation: soft, not firm, not rigid and tender in the LLQ, in the RLQ and suprapubicly Auscultation: hypoactive bowel sounds Back/Spine/Pelvis Thoracic/Lumbar Spine: thoracic and lumbar spine normal to inspection Skin General skin exam: no rashes or lesions noted Neuro General: patient alert, patient awake and patient oriented x3 Cognition: normal cognition Speech: speech normal Motor: muscle tone normal throughout Sensory Exam: no sensory deficits noted Extrem General: normal to inspection, full ROM, capillary refill normal, no calf tenderness bilaterally and no edema Psych Appearance: grossly normal Mental Status: mental status grossly normal Speech and Movement: speech and movement normal Affect: normal affect
[2020-06-02 12:20] LABS: Abs Immature Grans 0.01 10^3/uL (0.0-0.06); Absolute Basophil Count 0.04 10^3/uL (0.0-0.2); Absolute Eosinophil Count 0.03 10^3/uL (0.0-0.7); Absolute Lymphocyte Count 1.91 10^3/uL (1.2-3.4); Absolute Neutrophil Count 2.66 10^3/uL (1.2-6.7); Basophils % 0.8; Eosinophils % 0.6; HCT 38.7 % (36.0-46.0); HGB 13.1 g/dL (11.2-15.7); Immature Grans % 0.2; Lymphocytes % 36.4; MCH 29.3 pg (27.0-33.0); MCHC 33.9 % (32.0-36.0); MCV 86.6 fL (80-95); MPV 9.8 fL (8.0-11.0); Monocytes % 11.4; Neutrophils % 50.6; Nucleated RBC 0 %; Platelet Count 194 10^3/uL (130-400); RBC 4.47 10^6/uL (3.93-5.22); RDW 14.1 % (11.7-14.6); RDW-SD 45.2 fL; WBC 5.25 10^3/uL (4.4-10.8)
--- NOTE | 2020-06-02 12:23 | DI.CT_ITS ---
EXAM: CT CHEST/ABD/PEL WO CLINICAL HISTORY: sob w/ exertion, r/o PE/pneumonia TECHNIQUE: Imaging Protocol: Axial computed tomography images with coronal and sagittal reformatted images were created and reviewed CONTRAST MATERIAL: Imaging Protocol: Axial computed tomography images with coronal and sagittal refo rmatted images were created and reviewed. COMPARISON: CT CT ABDOMEN PELVIS WO from 12/02/2019 FINDINGS: CHEST: Tracheobronchial tree: Patent where visualized. Mediastinum and Raiza: No dominant adenopathy or fluid collection. Pulmonary parenchyma: No consolidation or dominant measurable mass. Centrilobular emphysema. Depende nt atelectasis in the bases. Pleura: No effusion or pneumothorax. Heart: The heart is not dilated. Mild coronary artery calcification. No pericardial effusion. Aorta: Thoracic aorta non-dilated. Atherosclerosis. Lymph nodes: Within normal limits. Bones:Degenerative changes. Soft tissues: Unremarkable. ABDOMEN: Liver: Normal density. No measurable mass. Gallbladder and Biliary Tract: Status post cholecystectomy. No biliary ductal dilatation. Pancreas: Normal density, no abnormal calcifications or inflammatory process. Spleen: Normal. Adrenals: No masses seen. Kidneys: Normal size, contour and axis. No radiodense stones or obstructive uropathy. No masses seen. Abdominal Aorta: Abdominal portion non-dilated. There is an aortoiliac bypass graft. Atherosclerosis . Bowel: No obstruction or bowel wall thickening. No evidence of acute appendicitis. There are fluid-f illed loops of small and large bowel suspicious for a diarrheal illness. Please correlate clinically . The cecum lies to the left of midline. Peritoneal Cavity: No ascites, collection or mesenteric inflammatory response. Lymph Nodes: Within normal limits. Bones: Degenerative changes. Soft Tissues: Unremarkable. PELVIS: Bladder: Symmetric distention, no gross wall thickening. Reproductive Organs: Unremarkable as visualized. Lymph Nodes: Within normal limits. Bones: Degenerative changes. IMPRESSION: 1. No acute pulmonary process. 2. Fluid-filled loops of small and large bowel suspicious for diarrheal illness. 3. Findings were discussed with the emergency department on the date of the examination. RADIATION DOSE DELIVERED: 1,338.21mGy.cm Total DLP 1,338.21mGy.cm Total DLP DATA REPOSITORY: All CT scans at this facility are submitted to the National Radiology Data Registry (NRDR) Dose Index Registry (DIR) with the [employer] ([employer]). RADIATION OPTIMIZATION: All CT scans at this facility use at least one of these dose optimization te chniques: automated exposure control; mA and/or kV adjustment per patient size (includes targeted exa ms where dose is matched to clinical indication); or iterative reconstruction.
[2020-06-02 12:33] LABS: INR 1.1 (0.9-1.1); PTT Activated 22.1 sec (21.0-27.5); Prothrombin Time 10.8 sec (9.3-11.0)
[2020-06-02 12:37] LABS: ALT 28 U/L (14-59); AST 21 U/L (15-37); Albumin 3.3 g/dL (3.4-5.0); Alkaline Phosphatase 123 U/L (46-116); Anion Gap 11.6 mmol/L (3-11); BUN 37 mg/dL (7-18); Bilirubin, Total 0.2 mg/dL (0.2-1.0); CO2 22.4 mmol/L (21.0-32.0); CREATININE 1.96 mg/dL (0.55-1.02); Calcium 9.6 mg/dL (8.5-10.1); Chloride 100 mmol/L (98-107); Estimated GFR 25.21 (mL/min/1.73m2); Glucose 175 mg/dL (74-106); Magnesium 2.1 mg/dL (1.8-2.4); Potassium 3.6 mmol/L (3.5-5.1); Sodium 134 mmol/L (136-145); Total Protein 7.9 g/dL (6.4-8.2); Troponin I < 0.05 ng/mL (<0.06)
[2020-06-02] MEDS: Normal Saline 500 ML IV ×2 (12:38→15:11)
[2020-06-02] MEDS: ACETAMINOPHEN 1,000 MG/100 ML BTL 400 MG IVPB (12:38)
[2020-06-02] MEDS: Omnipaque 350 MG/ML 50 ML BTL IJ (13:23)
[2020-06-02] MEDS: Breeza Beverage 473 ML BTL PO (13:25)
[2020-06-02 15:59] LABS: C Diff PCR Negative (Negative)
[2020-06-02 16:37] LABS: Bilirubin Negative (Negative); Blood Negative (Negative); Clarity Clear (Clear); Glucose Negative (Negative); Ketones Negative (Negative); Leukocyte Esterase Trace (Negative); Nitrite Negative (Negative); Specific Gravity 1.015 (1.005-1.025); Urobilinogen 0.2 EU/dL (Up TO 0.2); pH 5.5 (5-8)
[2020-06-02 16:48] LABS: Bacteria Rare HPF (Negative); Casts Negative LPF (Negative); Crystals Negative HPF (Negative); Epithelial Cells Rare HPF (Negative); Mucus Negative (Negative); Other Cells Negative (Negative); RBC Negative HPF (0-2); WBC 0-2 HPF (0-5)
[2020-06-02 16:49] LABS: C & S Indicated? No
[2020-06-05 11:06] LABS: Campylobacter PCR Negative (Negative); Salmonella PCR Negative (Negative); Shiga Toxin PCR Negative (Negative); Shigella/Enteroinvasive Ecoli Negative (Negative)
== END 2020-06-02 18:27 | disposition home or self-care (01) ==
PROVIDERS: Emergency Provider Physician Assistant; PCP Family Medicine
DX: R53.83 Other fatigue (principal); R19.7 Diarrhea, unspecified; M79.10 Myalgia, unspecified site; E11.22 Type 2 diabetes mellitus with diabetic chronic kidney disease; I12.9 Hypertensive chronic kidney disease with stage 1 through stage 4 chronic kidney disease, or unspecified chronic kidney disease; N18.30 Chronic kidney disease, stage 3 unspecified; J44.9 Chronic obstructive pulmonary disease, unspecified; Z87.891 Personal history of nicotine dependence
CPT/HCPCS: 36415; 71250; 80053; 87493; 87505; 93005; 96361; 96374; 99285; 74176; 81003; 81015; 83735; 84443; 84484; 85025; 85610; 85730; 93010; J0131; Q9967

== ENCOUNTER 2021-01-18 10:33 | Emergency (ER) | payer MEDICARE, BC, SELFPAY ==
[2021-01-18] VITALS (31 sets, daily range): BP systolic 100–123; BP diastolic 52–74; PULSE 75–99; RESP 13–23; TEMP 36.4–36.6; O2SAT 94–98
--- NOTE | 2021-01-18 10:30 | RT.EKG_ITS ---
APPROVED REPORT Exam: Resting ECG Reason for Exam: dizzy Patient Location: E HR:94 bpm ECG Measurements Heart Rate 94 AXIS MS 139 P 61 QRSd 89 QRS 65 QT 378 T 21 QTc 474 Conclusion Sinus rhythm...normal P axis, V-rate 60- 99
--- NOTE | 2021-01-18 11:00 | DI.RAD_ITS ---
Exam(s) XR CHEST 2V PA LATERAL EXAM: XR CHEST 2V PA LATERAL CLINICAL HISTORY: weakness. TECHNIQUE: 2D digital imaging was performed. COMPARISON: CR XR PORTABLE CHEST AP from 12/02/2019 FINDINGS: Heart size is normal. The mediastinum is not widened. Lungs are clear. No infiltrates nor pleural effusions. IMPRESSION: No acute pulmonary findings.No significant change compared to November 2019 DATA REPOSITORY: RADIATION DOSE DELIVERED:
--- NOTE | 2021-01-18 11:03 | ED.GENADUL_ITS ---
Discharge Plan Disposition Patient Disposition: HOME Condition: Improving Discharge Details Clinical Impression: Acute dehydration, Acute hypokalemia, UTI (urinary tract infection) Primary Care Provider: Imani Currie ED Provider: Ingrid Sandoval Home Meds and New Rx's Prescriptions: New cephalexin 500 mg capsule 500 mg PO TID 7 Days Qty: 21 RF: 0 psyllium Powder 1 tbsp PO BID Qty: 300 RF: 0 Continued aspirin 325 mg Tablet 325 mg PO DAILY RF: 0 pantoprazole 40 mg Tablet,Delayed Release (Dr/Ec) 40 mg PO DAILY RF: 0 rosuvastatin [Crestor] 40 mg Tablet 40 mg PO DAILY RF: 0 levothyroxine 50 mcg Capsule 50 mcg PO DAILY RF: 0 alprazolam 0.25 mg Tablet 0.25 - 0.75 mg PO HS RF: 0 ascorbic acid (vitamin C) [Vitamin C] 500 mg Tablet 500 mg PO DAILY RF: 0 nitroglycerin [Nitrostat] 0.4 mg Tablet, Sublingual 0.4 mg sublingual PRN PRN (Reason: Chest Pain) RF: 0 vitamin B complex [B-Complex] Tablet 1 tab PO DAILY RF: 0 cholecalciferol (vitamin D3) [Vitamin D3] 1,000 unit Capsule 1,000 unit PO BID RF: 0 magnesium L-lactate 84 mg Tablet Extended Release 84 mg PO DAILY RF: 0 desvenlafaxine succinate 50 mg Tablet Extended Release 24 Hr 150 mg PO DAILY RF: 0 Anoro Ellipta 62.5-25 mcg/actuation Blister With Device 1 inh INHALATION DAILY RF: 0 Multi-Day Plus Minerals 18 mg iron-400 mcg-25 mcg Tablet 1 tab PO DAILY RF: 0 ginseng 100 mg Capsule 100 mg PO DAILY RF: 0 metoprolol succinate 25 mg Tablet Extended Release 24 Hr 25 mg PO DAILY RF: 0 lisinopril-hydrochlorothiazide 10-12.5 mg tablet 1 tab PO DAILY RF: 0 albuterol sulfate [Proventil HFA] 90 mcg/actuation Hfa Aerosol Inhaler 2 puff INHALATION QID PRNRF: 0 fluticasone propionate 50 mcg/actuation spray,suspension 50 mcg INTRANASAL DAILY RF: 0 omega-3 fatty acids-vitamin E 1,000 mg Capsule 1 cap PO DAILY RF: 0 Januvia 100 mg Tablet 100 mg PO DAILY RF: 0 Discharge Instructions Instructions: Dehydration (ED), Urinary Tract Infection in Women (ED), Hypokalemia (ED) Additional Instructions: Please take antibiotic as prescribed for urinary tract infection. We will ask the laboratory to perform a culture of your urinalysis today. You will receive a phone call if you need any further instructions for this. May liberalize potassium-containing foods in the diet such as almonds or cashews, strawberries and bananas, dark leafy greens. You may also use a caas-ycp-yewcwqv electrolyte supplement such as NUUN tablets, once per day. We will ask our care management team to arrange a follow-up for you at the [facility]. I will ask that a copy of the chart be sent for their records. You may benefit from a stool bulking agent such as 1 teaspoon of psyllium twice daily. Return to the emergency department for any acute concerns Referrals: Imani Currie [Primary Care Provider] - Discharge Data Discharge Date/Time-TO BE ENTERED AT DEPARTURE: 01/18/21 15:34 Medical Decision Making <Davis Cordero MD - Last Filed: 01/19/21 09:11> 70-year-old female with a history of chronic kidney disease, colitis with frequent bouts of diarrhea presents with generalized illness over 1 week which she describes as a weakness that is worse with ambulation and with rising to seated position. She is not had chest pain but does have some mild shortness of breath with exertion. On arrival her vital signs are notable for slightly elevated pulse at triage, mucous membranes are dry. Differential diagnosis includes dehydration, electrolyte abnormalities, must rule out underlying coronary disease. Patient had an unremarkable screening EKG. She is referred for laboratory testing, which reveals dehydration and hypokalemia. Urinalysis with probable UTI, will be cultured. Will place on Keflex. Chest x-ray unremarkable. Electrolyte supplemented in the emergency department, repeat laboratories obtained; repeat troponin is negative, repeat electrolyte. Patient improving, will arrange follow-up with the patient's primary care physician for recheck of labs. Lab Data Lab results reviewed: Yes I reviewed the patient's lab results. Labs: Laboratory Results - last 24 hr 01/18/21 01/18/21 01/18/21 11:05 11:05 11:20 WBC 6.01 RBC 4.66 Hgb 14.0 Hct 40.9 MCV 87.8 MCH 30.0 MCHC 34.2 RDW 14.5 Plt Count 325 MPV 9.6 Immature Gran % 0.3 Neutrophils % 33.6 Lymphocytes % 52.6 Monocytes % 12.0 Eosinophils % 0.5 Basophils % 1.0 Nucleated RBC % 0 Absolute Neutrophils 2.02 Absolute Lymphocytes 3.16 Absolute Monocytes 0.72 Absolute Eosinophils 0.03 Absolute Basophils 0.06 Sodium 132 L Potassium 2.9 L Chloride 94 L Carbon Dioxide 22.6 Anion Gap 15.4 H BUN 52 H Creatinine 2.7 H Estimated GFR/1.73 m2 17.37 Glucose 166 H Calcium 10.1 Magnesium 1.8 Total Bilirubin 0.3 AST 20 ALT 23 Alkaline Phosphatase 108 Troponin I < 0.05 Total Protein 8.1 Albumin 3.7 TSH 0.23 L Urine Color Yellow Urine Clarity Sl Cloudy Urine pH 5.0 Ur Specific [place] >= 1.030 H Urine Protein Negative Urine Ketones Negative Urine Blood Negative Urine Nitrite Negative Urine Bilirubin Negative Urine Urobilinogen 0.2 Ur Leukocyte Esterase Small H Urine RBC Negative Urine WBC 5-10 Ur Epithelial Cells Rare Urine Crystals Negative Urine Bacteria Moderate Urine Casts Negative Urine Mucus Negative Urine Other Negative Ur Culture Indicated? Yes Urine Glucose Negative <Ingrid Sandoval DO - Last Filed: 01/18/21 21:50> 1500 -- please see Dr. Cordero's note for initial presentation, exam and plan. Case endorsed to follow-up on repeat BMP for renal function. If renal function improves, will plan for discharge to home. 1510 -- Repeat BMP notes improvement in BUN and creatinine. K+ normalized. Patient states she feels much better and is requesting to go home. She appears comfortable and nontoxic. Her vitals are within normal limits. She requested prescriptions sent electronically to her pharmacy. She admitted to 3 weeks of fatigue, low back pain and intermittent dyspnea on exertion. Discussed that her work-up was reassuring with 2 negative troponins, unremarkable EKG and a negative chest x-ray. Discussed that her fatigue, diarrhea and low back pain may be due to her UTI found on workup today. Advised to increase fluids, rest, supplement K+ in her diet. She is advised to call her primary doctor tomorrow for follow-up within the next week for reevaluation and consideration for outpatient stress test or pulmonary function test if her mild dyspnea on exertion persists or worsens. Her chart notes an allergy to penicillin which she states is itching. She denies any history of anaphylaxis to penicillin. She was placed on Keflex by Dr. Cordero and given 1 dose here without adverse reaction. Usual and customary return precautions given prior to discharge. HPI <Davis Cordero MD - Last Filed: 01/19/21 09:11> General Mode of arrival: ambulatory . Date/Time Provider Initiated Documentation: 01/18/21 10:33 . Limitations to Documentation: no limitations . Information obtained by: patient and family . History of Present Illness 70 year old F presents to the emergency department with the chief complaint of Generalized weakness, lightheadedness, described as moderate, Quality is described as dull and constant, Patient reports no radiation. Patient started experiencing this day(s) and it has been intermittent. Rest improves symptom(s), Movement worsens symptoms . Patient notes shortness of breath and weakness; denies chest pain, headaches, loss of appetite, nausea/vomiting and syncope. Patient did receive the following treatments prior to arrival, none Related Data Home Medications Medication Instructions Recorded Confirmed aspirin 325 mg PO DAILY 12/24/18 01/18/21 levothyroxine 50 mcg PO DAILY 12/24/18 01/18/21 pantoprazole 40 mg PO DAILY 12/24/18 01/18/21 rosuvastatin [Crestor] 40 mg PO DAILY 12/24/18 01/18/21 Anoro Ellipta 1 inh INHALATION DAILY 12/26/18 01/18/21 Multi-Day Plus Minerals 1 tab PO DAILY 12/26/18 01/18/21 alprazolam 0.25 - 0.75 mg PO HS 12/26/18 01/18/21 ascorbic acid (vitamin C) [Vitamin 500 mg PO DAILY 12/26/18 01/18/21 C] cholecalciferol (vitamin D3) 1,000 unit PO BID 12/26/18 01/18/21 [Vitamin D3] desvenlafaxine succinate 150 mg PO DAILY 12/26/18 01/18/21 magnesium L-lactate 84 mg PO DAILY 12/26/18 01/18/21 nitroglycerin [Nitrostat] 0.4 mg SUBLINGUAL PRN PRN 12/26/18 01/18/21 vitamin B complex [B-Complex] 1 tab PO DAILY 12/26/18 01/18/21 Januvia 100 mg PO DAILY 01/18/21 01/18/21 albuterol sulfate [Proventil HFA] 2 puff INHALATION QID PRN 01/18/21 01/18/21 cephalexin 500 mg PO TID 7 Days #21 cap 01/18/21 fluticasone propionate 50 mcg INTRANASAL DAILY 01/18/21 01/18/21 ginseng 100 mg PO DAILY 01/18/21 01/18/21 lisinopril-hydrochlorothiazide 1 tab PO DAILY 01/18/21 01/18/21 metoprolol succinate 25 mg PO DAILY 01/18/21 01/18/21 omega-3 fatty acids-vitamin E 1 cap PO DAILY 01/18/21 01/18/21 psyllium 1 tbsp PO BID #300 g 01/18/21 Previous Rx's Medication Instructions Recorded cephalexin 500 mg PO TID 7 Days #21 cap 01/18/21 psyllium 1 tbsp PO BID #300 g 01/18/21 Allergies Allergy/AdvReac Type Severity Reaction Status Date / Time adhesive Allergy Unverified 01/18/21 15:20 amoxicillin [From Augmentin] Allergy Unverified 01/18/21 15:20 clavulanic acid Allergy Unverified 01/18/21 15:20 [From Augmentin] Penicillins Allergy Unverified 01/18/21 15:20 shrimp Allergy Unverified 01/18/21 15:20 trazodone Allergy Unverified 01/18/21 15:20 General Stated Complaint: Dizzy/Sync ALMAZ: 3 Review of Systems <Davis Cordero MD - Last Filed: 01/19/21 09:11> Narrative: Frequent diarrhea, history of colitis, states no change. Feels weak and lightheaded with movement. No syncope. No headache. 8 systems reviewed and otherwise negative. PFSH <Davis Cordero MD - Last Filed: 01/19/21 09:11> Medical History (Updated 01/18/21 @ 14:51 by Davis Cordero MD) Anxiety CKD (chronic kidney disease) stage 3, GFR 30-59 ml/min Colitis COPD (chronic obstructive pulmonary disease) Diet-controlled type 2 diabetes mellitus Discharged to home Diverticulitis large intestine Hyperlipidemia Hypertension Ileus Small bowel obstruction Vomiting Surgical History H/O non-cataract eye surgery L eye - retinal surgery S/P aortic aneurysm repair S/P cataract extraction and insertion of intraocular lens S/P cholecystectomy S/P tonsillectomy S/P ventral herniorrhaphy Family History Father Heart disease CHF (congestive heart failure) Diabetes Hypertension Maternal Grandmother Stroke Paternal Grandmother Breast cancer Mother Vulvar cancer Social History Smoking/Tobacco Use Status: Former Tobacco Use Pack-years: 120 Tobacco: How many years used: 30 Smoking risk assessment performed?: Yes Alcohol Intake: current Drug use: Never Substance use type: does not use Do you feel safe at home: Yes Do you feel safe in your relationship?: Yes Exam <Davis Cordero MD - Last Filed: 01/19/21 09:11> Narrative Exam Narrative: GEN: awake, alert, oriented 3. Pleasant, well groomed, interactive. HEAD: Normocephalic, atraumatic ENT: Mucous membranes dry, oropharynx unremarkable, External ear exam unremarkable EYES: PERRL, EOMI NECK: Full ROM, no REKHA, no menigismus CHEST/RESP: Nontender, clear to auscultation bilateral, no wheeze/rhonchi/rales CARDIOVASCULAR: RRR, no murmur, rub veda. 2+ Rad pulse bilateral ABDOMEN: Soft, nontender, no mass. +Bowel sounds EXT: Full ROM, no edema, no rash Neuro: Grossly normal neurologic exam, conversant, interactive. Psych: Speech fluent, thoughts congruent, affect normal Course <Davis Cordero MD - Last Filed: 01/19/21 09:11> Vital Signs Vital signs: Vital Signs Temperature 36.6 C 01/18/21 10:47 Pulse 99 H 01/18/21 10:47 Respiratory Rate 18 01/18/21 10:47 Blood Pressure 119/55 L 01/18/21 10:47 Pulse Oximetry 96 01/18/21 10:47 Temperature 36.6 C 01/18/21 10:47 Temperature Source Skin 01/18/21 10:47 Pulse 99 H 01/18/21 10:47 Respiratory Rate 18 01/18/21 10:47 Respiratory Effort Non-Labored 01/18/21 10:49 Blood Pressure 119/55 L 01/18/21 10:47 Blood Pressure Position Sitting 01/18/21 10:47 Pulse Oximetry 96 01/18/21 10:47 Oxygen Delivery Method Room Air 01/18/21 10:47 Oxygen Flow Rate 0 01/18/21 10:47 Pain Level 5 01/18/21 10:47 Sign Out <Davis Cordero MD - Last Filed: 01/19/21 09:11> Sign Out Data: Sign Out Comment: pending repeat basic Last updated by Davis Cordero MD at 01/18/21 14:58
[2021-01-18 11:14] LABS: Abs Immature Grans 0.02 10^3/uL (0.0-0.06); Absolute Basophil Count 0.06 10^3/uL (0.0-0.2); Absolute Eosinophil Count 0.03 10^3/uL (0.0-0.7); Absolute Lymphocyte Count 3.16 10^3/uL (1.2-3.4); Absolute Monocyte Count 0.72 10^3/uL (0.1-0.8); Absolute Neutrophil Count 2.02 10^3/uL (1.2-6.7); Eosinophils % 0.5; HCT 40.9 % (36.0-46.0); Immature Grans % 0.3; Lymphocytes % 52.6; MCHC 34.2 % (32.0-36.0); MCV 87.8 fL (80-95); MPV 9.6 fL (8.0-11.0); Neutrophils % 33.6; Nucleated RBC 0 %; Platelet Count 325 10^3/uL (130-400); RBC 4.66 10^6/uL (3.93-5.22); RDW 14.5 % (11.7-14.6); RDW-SD 46.7 fL; WBC 6.01 10^3/uL (4.4-10.8)
[2021-01-18] MEDS: Normal Saline 1,000 ML 150 ML IV (11:21)
[2021-01-18 11:27] LABS: Bilirubin Negative (Negative); Blood Negative (Negative); Clarity Sl Cloudy (Clear); Glucose Negative (Negative); Ketones Negative (Negative); Leukocyte Esterase Small (Negative); Nitrite Negative (Negative); Specific Gravity >= 1.030 (1.005-1.025); Urobilinogen 0.2 EU/dL (Up TO 0.2)
[2021-01-18 11:35] LABS: Bacteria Moderate HPF (Negative); Casts Negative LPF (Negative); Crystals Negative HPF (Negative); Epithelial Cells Rare HPF (Negative); Mucus Negative (Negative); Other Cells Negative (Negative); RBC Negative HPF (0-2)
[2021-01-18 11:36] LABS: ALT 23 U/L (14-59); AST 20 U/L (15-37); Albumin 3.7 g/dL (3.4-5.0); Alkaline Phosphatase 108 U/L (46-116); Anion Gap 15.4 mmol/L (3-11); BUN 52 mg/dL (7-18); Bilirubin, Total 0.3 mg/dL (0.2-1.0); CO2 22.6 mmol/L (21.0-32.0); CREATININE 2.7 mg/dL (0.55-1.02); Calcium 10.1 mg/dL (8.5-10.1); Chloride 94 mmol/L (98-107); Estimated GFR 17.37 (mL/min/1.73m2); Glucose 166 mg/dL (74-106); Magnesium 1.8 mg/dL (1.8-2.4); Sodium 132 mmol/L (136-145); TSH 0.23 uIU/mL (0.36-3.74); Total Protein 8.1 g/dL (6.4-8.2)
[2021-01-18 11:36] LABS: C & S Indicated? Yes
[2021-01-18 11:38] LABS: Potassium 2.9 mmol/L (3.5-5.1); Troponin I < 0.05 ng/mL (<0.06)
[2021-01-18] MEDS: Potassium Chloride Liquid 20 MEQ PKT PO (12:06)
[2021-01-18] MEDS: POTASSIUM CHLORIDE 20 MEQ/100 ML BAG 50 MEQ IVPB (12:07)
[2021-01-18] MEDS: Normal Saline 1,000 ML 500 ML IV (13:13)
[2021-01-18 14:38] LABS: Troponin I < 0.05 ng/mL (<0.06)
[2021-01-18 15:02] LABS: Anion Gap 10.3 mmol/L (3-11); BUN 49 mg/dL (7-18); CO2 22.7 mmol/L (21.0-32.0); CREATININE 2.2 mg/dL (0.55-1.02); Calcium 8.8 mg/dL (8.5-10.1); Chloride 103 mmol/L (98-107); Glucose 89 mg/dL (74-106); Potassium 3.7 mmol/L (3.5-5.1); Sodium 136 mmol/L (136-145)
[2021-01-18] MEDS: Cephalexin 500 MG CAP PO (15:16)
== END 2021-01-18 15:34 | disposition home or self-care (01) ==
PROVIDERS: Emergency Medicine; Emergency Provider Physician Assistant; PCP Family Medicine
DX: E86.0 Dehydration (principal); N39.0 Urinary tract infection, site not specified; B96.89 Other specified bacterial agents as the cause of diseases classified elsewhere; E87.6 Hypokalemia; R53.1 Weakness; R42 Dizziness and giddiness
CPT/HCPCS: 36415; 80048; 80053; 93005; 96361; 96365; 96366; 99284; 71046; 81003; 81015; 83735; 84443; 84484; 85025; 87086; 93010; J3480

== ENCOUNTER 2022-03-09 16:02 | Outpatient (REF) | payer MEDICARE, BC, SELFPAY ==
[2022-03-09 19:43] LABS: Abs Immature Grans 0.05 10^3/uL (0.0-0.06); Absolute Basophil Count 0.05 10^3/uL (0.0-0.2); Absolute Eosinophil Count 0.04 10^3/uL (0.0-0.7); Absolute Lymphocyte Count 2.93 10^3/uL (1.2-3.4); Absolute Monocyte Count 0.51 10^3/uL (0.1-0.8); Absolute Neutrophil Count 4.72 10^3/uL (1.2-6.7); Basophils % 0.6; Eosinophils % 0.5; HCT 39.4 % (36.0-46.0); Immature Grans % 0.6; Lymphocytes % 35.3; MCH 29.7 pg (27.0-33.0); MCV 90 fL (80-95); Monocytes % 6.1; Neutrophils % 56.9; Platelet Count 270 10^3/uL (130-400); RBC 4.38 10^6/uL (3.93-5.22); RDW 13.6 % (11.7-14.6)
[2022-03-09 20:00] LABS: ALT 62 U/L (14-59); AST 45 U/L (15-37); Albumin 3.8 g/dL (3.4-5.0); Alkaline Phosphatase 109 U/L (46-116); Anion Gap 10.1 mmol/L (3-11); BUN 31 mg/dL (7-18); Bilirubin, Total 0.2 mg/dL (0.2-1.0); CO2 25.9 mmol/L (21.0-32.0); CREATININE 1.1 mg/dL (0.55-1.02); Calcium 9.4 mg/dL (8.5-10.1); Chloride 105 mmol/L (98-107); Estimated GFR 53.39 (mL/min/1.73m2); Glucose 134 mg/dL (74-106); Potassium 3.9 mmol/L (3.5-5.1); Sodium 141 mmol/L (136-145); TSH (W/Ref FT4) 0.72 uIU/mL (0.36-3.74); Total Protein 7.2 g/dL (6.4-8.2)
[2022-03-09 20:01] LABS: COMMENT (LAB VIEW ONLY) 89.77 mg/dL; Microalb ug/mg Crea 5.2 ug/mg Cr
== END 2022-03-09 16:03 | disposition home or self-care (01) ==
LOC: NCHCN 16:02
PROVIDERS: PCP Family Medicine; Visit Provider Nurse Practitioner Family
DX: E11.9 Type 2 diabetes mellitus without complications (principal); E03.9 Hypothyroidism, unspecified; I10 Essential (primary) hypertension; N18.30 Chronic kidney disease, stage 3 unspecified; J44.9 Chronic obstructive pulmonary disease, unspecified
CPT/HCPCS: 80053; 82043; 82570; 84443; 85025

== ENCOUNTER 2022-07-14 02:48 | Outpatient (CLI) | payer MEDICARE, BC, SELFPAY ==
[2022-07-14] MEDS: Albuterol HFA 18 GM 200 PUFF INH IH (16:15)
[2022-07-14] MEDS: Inhaler, Assist Device 1 EACH MC (16:16)
--- NOTE | 2022-07-15 15:12 | W.PFT ---
Date of service: 07/14/22 Time of Service: 15:06 Pulmonary Function Test Result Requesting Provider Raysa Tan Indications: Asthma and COPD Interpretation Spirometry: Although the FEV1/FVC ratio is normal, mild obstructive disease is possible based on the flow volume loop and volume time curve. No significant bronchodilator response. Lung Volumes: Normal lung volumes. Diffusion Capacity: Decreased diffusion. Airway Pressure: Normal airways resistance. Impression Possible mild chronic obstruction. Decreased diffusion could represent early interstitial lung disease, emphysema without COPD or pulmonary vascular disease (pulmonary hypertension). Clinical Correlation therefore is recommended.
== END 2022-07-14 02:49 | disposition home or self-care (01) ==
LOC: RT 02:49
PROVIDERS: PCP Family Medicine; Visit Provider Nurse Practitioner Family
DX: J44.9 Chronic obstructive pulmonary disease, unspecified (principal)
CPT/HCPCS: 94060; 94726; 94729

== ENCOUNTER 2022-09-12 15:11 | Outpatient (REF) | payer MEDICARE, BC, SELFPAY ==
[2022-09-12 15:45] LABS: Abs Immature Grans 0.04 10^3/uL (0.0-0.06); Absolute Basophil Count 0.06 10^3/uL (0.0-0.2); Absolute Eosinophil Count 0.03 10^3/uL (0.0-0.7); Absolute Lymphocyte Count 3.33 10^3/uL (1.2-3.4); Absolute Neutrophil Count 5.07 10^3/uL (1.2-6.7); Basophils % 0.6; Eosinophils % 0.3; HCT 39.3 % (36.0-46.0); HGB 13.1 g/dL (11.2-15.7); Immature Grans % 0.4; Lymphocytes % 35.7; MCH 29.4 pg (27.0-33.0); MCHC 33.3 % (32.0-36.0); MCV 88 fL (80-95); Monocytes % 8.6; Neutrophils % 54.4; Platelet Count 264 10^3/uL (130-400); RBC 4.45 10^6/uL (3.93-5.22); RDW 14.9 % (11.7-14.6); RDW-SD 48.3 fL; WBC 9.33 10^3/uL (4.4-10.8)
[2022-09-12 16:07] LABS: Hemoglobin A1C 7.1 % (<5.7)
[2022-09-12 16:16] LABS: ALT 27 U/L (14-59); AST 22 U/L (15-37); Albumin 3.7 g/dL (3.4-5.0); Alkaline Phosphatase 80 U/L (46-116); BUN 38 mg/dL (7-18); Bilirubin, Total 0.3 mg/dL (0.2-1.0); CREATININE 1.7 mg/dL (0.55-1.02); Calcium 9.8 mg/dL (8.5-10.1); Calculated LDL 63 mg/dL (<100); Chloride 104 mmol/L (98-107); Cholesterol 186 mg/dL (<200); Estimated GFR 31.66 (mL/min/1.73m2); Glucose 108 mg/dL (74-106); HDL Cholesterol 89 mg/dL (40-60); Potassium 3.3 mmol/L (3.5-5.1); Sodium 141 mmol/L (136-145); TSH (W/Ref FT4) 1.47 uIU/mL (0.36-3.74); Total Protein 7.2 g/dL (6.4-8.2); Triglyceride 170 mg/dL (<150)
== END 2022-09-12 15:12 | disposition home or self-care (01) ==
LOC: NCHCN 15:11
PROVIDERS: PCP Family Medicine; Visit Provider Nurse Practitioner Family
DX: E03.9 Hypothyroidism, unspecified (principal); I10 Essential (primary) hypertension; E83.42 Hypomagnesemia; E11.9 Type 2 diabetes mellitus without complications; K52.831 Collagenous colitis
CPT/HCPCS: 80053; 80061; 83036; 84443; 85025

== ENCOUNTER 2022-09-22 01:06 | Outpatient (CLI) | payer MEDICARE, BC, SELFPAY ==
--- NOTE | 2022-09-22 | DI.MAMMO_ITS ---
Exam(s) MAMMO SCREENING EXAM: MAMMO SCREENING CLINICAL HISTORY: SCREENING MAMMO FOR BREAST CANCER Z12.39 TECHNIQUE: Bilateral full field digital CC and MLO mammographic images were obtained with 3D tomosyn thesis and utilizing computer aided detection (CAD). COMPARISON: Available for comparison. FINDINGS: Masses/Architectural Distortion: None seen. Microcalcifications: No suspicious pleomorphic-type are seen. Stable benign type calcifications are s een in both breasts. Skin Thickening/Nipple Retraction: None. IMPRESSION: 1. No significant interval change with no specific features of malignancy noted. 2. Unless there is more urgent need, screening mammography is recommended, as per [place] [employer] guidelines. BI-RADS Category 2 - Benign Findings Breast Density - Category C - Heterogeneously dense Breast density category C or D implies that the patient has dense breast tissue. Dense breast tissue is very common and is not abnormal but dense breast tissue can make it harder to find cancer on a ma mmogram. Also, dense breast tissue may increase their breast cancer risk. This information about the result of the mammogram report was provided to the patient to raise their awareness. Use this report when you speak with the patient about their risks for breast cancer, which includes their family hist ory. At that time, you may recommend for more screening tests (Ultrasound or MRI) as they might be us eful based on their risk. A negative radiographic report should not delay biopsy if a dominant or clinically suspicious mass is present. Up to ten percent of cancers are not identified on mammography. A negative report may reinforce clinical impression. Adenosis and dense breasts may obscure an underlying neoplasm. False positive reports average 6 to 10%. Patient will receive a letter notifying them of these results.
== END 2022-09-22 01:26 ==
LOC: DI 01:07
PROVIDERS: PCP Family Medicine; Visit Provider Nurse Practitioner Family
DX: Z12.31 Encounter for screening mammogram for malignant neoplasm of breast (principal)
CPT/HCPCS: 77063; 77067

== ENCOUNTER 2022-09-26 01:38 | Outpatient (CLI) | payer MEDICARE, BC, SELFPAY ==
--- NOTE | 2022-09-26 | DI.DEXA_ITS ---
Exam(s) XR DEXA BONE DENSITY W/WO LILI EXAM: XR DEXA BONE DENSITY W/WO LILI CLINICAL HISTORY: SCREENING FOR OSTEOPOROSIS IN POSTMENOPAUSAL WOMAN,Z78.0 TECHNIQUE: COMPARISON: No exams were available for comparison FINDINGS: Lateral Spine Image: Unremarkable. No compression deformities identified. Left hip: Total T-Score: -0.3 Total Z-Score: 1.4 T- and Z-scores: Within normal limits. Lumbar Spine: Total T-Score: 0.2 Total Z-Score: 2.5 T- and Z-scores: Within normal limits. IMPRESSION: No evidence of osteoporosis.
== END 2022-09-26 01:58 ==
PROVIDERS: PCP Family Medicine; Visit Provider Nurse Practitioner Family
DX: Z78.0 Asymptomatic menopausal state (principal)
CPT/HCPCS: 77080

== ENCOUNTER 2022-12-19 14:51 | Outpatient (REF) | payer MEDICARE, BC, SELFPAY ==
--- OUTSIDE RECORDS SUMMARY | 2022-12-19 14:55 | XMS_ITS | Continuity of Care Document ---
Author Name Unknown Organization [facility] Address [address] [place] [address] Care Team Providers Care Rhinologist Name Role Phone SHIRLEY LAWLER Primary Care Physician [phone] Encounter [facility] [facility] NBR [id number] Date(s): 12/05/22 - 12/05/22 [facility] [address] [place] [address]- [place] Encounter Diagnosis Lymphocytic colitis(Discharge Diagnosis) - 12/05/22 History of adenomatous polyp of colon(Discharge Diagnosis) - 12/05/22 Discharge Disposition: Home-No Follow Up Attending Physician: Mohamud Carpenter MD Admitting Physician: Mohamud Carpenter MD Referring Physician: Mohamud Carpenter MD Allergies, Adverse Reactions, Alerts Substance Reaction Severity Status amoxicillin Hives Severe Active Adhesive Bandage Moderate Active Shrimp Hives Severe Active Assessment and Plan Future Appointments Diagnostic Tests Pending * Pathology Request 12/05/22 Functional Status 12/05/22 ADLs Independent Other exposure to Infectious Disease Non e 11/30/22 Living Situation Home independently Medications Albuterol (Eqv-Proventil HFA) 90 mcg/inh inhalation aerosol 1 puffs, Inhale, every 4 hr, 0 Refill(s) Start Date: 09/21/22 Status: Ordered ALPRAZolam 0.5 mg oral tablet 0.5 mg = 1 tab, Oral, TID, 0 Refill(s) Start Date: 09/21/22 Stop Date: 10/21/22 Status: Ordered Anoro Ellipta 62.5 mcg-25 mcg/inh inhalation powder 1 puffs, Inhale, Daily, # 60 EA, 0 Refill(s) Start Date: 09/21/22 Status: Ordered B-Complex with B-12 oral tablet 1 tab, Oral, Daily, # 90 tab, 0 Refill(s) Start Date: 09/21/22 Stop Date: 12/20/22 Status: Ordered Blood Glucose Monitor Kit Supply, See instructions, # 1 EA, 0 Refill(s) Start Date: 09/21/22 Status: Ordered budesonide 3 mg oral delayed release capsule 9 mg = 3 cap, Oral, every morning, PRN colitis, Take 3 capsules by mouth once a day., # 168 cap, 0 Refill(s) Start Date: 09/21/22 Status: Ordered calcium carbonate 500 mg (200 mg elemental calcium) oral tablet, chewable 500 mg = 1 tab, Chewed, Daily, # 60 tab, 0 Refill(s) Start Date: 09/21/22 Status: Ordered Delica Lancets See Instructions, 0 Refill(s) Start Date: 09/21/22 Status: Ordered Fish Oil 1000 mg oral capsule 1,000 mg = 1 cap, Oral, Daily, # 60 cap, 0 Refill(s) Start Date: 09/21/22 Stop Date: 11/20/22 Status: Ordered fluticasone propionate 50 mcg =, Subacromial, BID, [place] 2 sprays into both nostrils BID, 0 Refill(s) Start Date: 09/21/22 Status: Ordered glyBURIDE 5 mg oral tablet 5 mg = 1 tab, Oral, Daily, PRN elevated blood sugar, # 90 tab, 0 Refill(s) Start Date: 11/30/22 Status: Ordered GoLYTELY oral powder for reconstitution 240 mL, Oral, every 10 min, # 4,000 mL, 0 Refill(s), Pharmacy: [id number] Start Date: 09/23/22 Stop Date: 09/24/22 Status: Ordered Januvia 100 mg oral tablet 100 mg 1 tab, Oral, Daily, # 30 tab, 0 Refill(s) Start Date: 09/21/22 Stop Date: 10/21/22 Status: Ordered Lexapro 20 mg oral tablet 20 mg = 1 tab, Oral, Daily, # 30 tab, 0 Refill(s) Start Date: 09/21/22 Stop Date: 10/21/22 Status: Ordered lisinopril-hydroCHLOROthiazide 10 mg-12.5 mg oral tablet 1 tab, Oral, Daily, # 90 tab, 0 Refill(s) Start Date: 09/21/22 Status: Ordered magnesium lactate 84 mg oral tablet, extended release 84 mg = 1 tab, Oral, Daily, 0 Refill(s) Start Date: 09/21/22 Stop Date: 10/21/22 Status: Ordered metoprolol succinate 25 mg oral capsule, extended release 25 mg = 1 cap, Oral, Daily, # 90 cap, 0 Refill(s) Start Date: 09/21/22 Stop Date: 12/20/22 Status: Ordered One Touch Ultra Test Strips Supply, See instructions, # 1 EA, 0 Refill(s) Start Date: 09/21/22 Status: Ordered pantoprazole 40 mg oral delayed release tablet 40 mg = 1 tab, Oral, Daily, # 60 tab, 0 Refill(s) Start Date: 09/21/22 Stop Date: 11/20/22 Status: Ordered rosuvastatin 40 mg oral tablet 40 mg = 1 tab, Oral, Daily, # 90 tab, 0 Refill(s) Start Date: 09/21/22 Status: Ordered Vitamin C 500 mg oral tablet 500 mg = 1 tab, Oral, Daily, # 90 tab, 0 Refill(s) Start Date: 09/21/22 Stop Date: 12/20/22 Status: Ordered Vitamin D3 1000 intl units oral capsule 25 mcg = 1 cap, Oral, Daily, # 100 cap, 0 Refill(s) Start Date: 09/21/22 Status: Ordered Problem List Condition Confirmation Course Effective Dates Status Health Status Informant Antral ulcer Confirmed Active Anxiety Confirmed Active Asthma with COPD (chronic obstructive pulmonary disease) Confirmed Active Tubulovillous adenoma Confirmed Active Cataract Confirmed Active Chronic kidney disease Confirmed Active CKD stage 3 Confirmed Active Constipation Confirmed Active Depression Confirmed Active Diarrhea Confirmed Active Diverticulitis Confirmed Active Dyspnea Confirmed Active GERD (gastroesophageal reflux disease) Confirmed Active Hearing loss Confirmed Active Pyrosis Confirmed Active History of adenomatous polyp of colon Confirmed Active Hyperlipidemia Confirmed Active HTN (hypertension) Confirmed Active Hypertriglyceridemia Confirmed Active Hypomagnesemia Confirmed Active Hypothyroidism Confirmed Active Ingrown toenail Confirmed Active Claudication Confirmed Active Bowel obstruction Confirmed Active Long QT syndrome Confirmed Active Hair loss Confirmed Active Lymphocytic colitis Confirmed Active Macular drusen Confirmed Active Type II diabetes mellitus Confirmed Active Vitamin D deficiency Confirmed Active Procedures Procedure Date Related Diagnosis Body Site Status Colonoscopy Biopsy 1 12/05/22 Comp leted Arthroscopy of shoulder C ompleted Bypass/graft of artery, lower legs Completed Cholecystectomy Completed Cholecystectomy Completed Colonoscopy Completed EGD - Esophagogastroduodenoscopy Completed Tonsillectomy Completed 1auto-populated from documented surgical case Vital Signs Most recent to oldest [Reference Range]: 1 2 Temperature Tympanic [36.6-37.9 Deg C] 3 6.4 Deg C *LOW* (12/05/22 7:13 AM) Peripheral Pulse Rate [60-100 bpm] 90 bp m (12/05/22 9:15 AM) 86 bpm (12/05/22 9:08 AM) Heart Rate Monitored [60-100 bpm] 100 bp m (12/05/22 7:13 AM) Respiratory Rate [12-24 br/min] 16 br/mi n (12/05/22 7:13 AM) Blood Pressure [90-140/60-90 mmHg] 103/6 2mmHg (12/05/22 9:08 AM) 144/93mmHg *HI* (12/05/22 7:13 AM) Mean Arterial Pressure, Cuff [65-140 mmH g] 76 mmHg (12/05/22 9:08 AM) Mean Arterial Pressure Cuff 74 mmHg (12/05/22 9:08 AM) Weight 63.500 kg (11/30/22 3:53 PM) Weight Dosing 63.500 kg (11/30/22 3:53 PM) Height 157.480 cm (11/30/22 3:53 PM) Height/Length Dosing 157.480 cm (11/30/22 3:53 PM) Social History Social History Type Response Tobacco Former tobacco user Tobacco Use:. Sex Hospital Discharge Instructions Patient Education 12/05/2022 08:06:41 Diverticulosis Diverticulosis Diverticulosis is a condition that develops when small pouches (diverticula) form in the wall of the large intestine (colon). The colon is where water is absorbed and stool (feces) is formed. The pouches form when the inside layer of the colon pushes through weak spots in the outer layers of the colon. You may have a few pouches or many of them. The pouches usually do not cause problems unless they become inflamed or infected. When this happens, the condition is called diverticulitis. What are the causes? The cause of this condition is not known. What increases the risk? The following factors may make you more likely to develop this condition: ??? Being older than age 60. Your risk for this condition increases with age. Diverticulosis is rare among people younger than age 30. By age 80, many people have it. ??? Eating a low-fiber diet. ??? Having frequent constipation. ??? Being overweight. ??? Not getting enough exercise. ??? Smoking. ??? Taking kssi-weo-wqfjwod pain medicines, like aspirin and ibuprofen. ??? Having a family history of diverticulosis. What are the signs or symptoms? In most people, there are no symptoms of this condition. If you do have symptoms, they may include: ??? Bloating. ??? Cramps in the abdomen. ??? Constipation or diarrhea. ??? Pain in the lower left side of the abdomen. How is this diagnosed? Because diverticulosis usually has no symptoms, it is most often diagnosed during an exam for othercolon problems. The condition may be diagnosed by: ??? Using a flexible scope to examine the colon (colonoscopy). ??? Taking an X-ray of the colon after dye has been put into the colon (barium enema). ??? Having a CT scan. How is this treated? You may not need treatment for this condition. Your health care provider may recommend treatment toprevent problems. You may need treatment if you have symptoms or if you previously had diverticulitis. Treatment may include: ??? Eating a high-fiber diet. ??? Taking a fiber supplement. ??? Taking a live bacteria supplement (probiotic). ??? Taking medicine to relax your colon. Follow these instructions at home: Medicines ??? Take owsg-pbx-aviadxy and prescription medicines only as told by your health care provider. ??? If told by your health care provider, take a fiber supplement or probiotic. Constipation prevention Your condition may cause constipation. To prevent or treat constipation, you may need to: ??? Drink enough fluid to keep your urine pale yellow. ??? Take rkgu-qui-xcduvdt or prescription medicines. ??? Eat foods that are high in fiber, such as beans, whole grains, and fresh fruits and vegetables. ??? Limit foods that are high in fat and processed sugars, such as fried or sweet foods. General instructions ??? Try not to strain when you have a bowel movement. ??? Keep all follow-up visits as told by your health care provider. This is important. Contact a health care provider if you: ??? Have pain in your abdomen. ??? Have bloating. ??? Have cramps. ??? Have not had a bowel movement in 3 days. Get help right away if: ??? Your pain gets worse. ??? Your bloating becomes very bad. ??? You have a fever or chills, and your symptoms suddenly get worse. ??? You vomit. ??? You have bowel movements that are bloody or black. ??? You have bleeding from your rectum. Summary ??? Diverticulosis is a condition that develops when small pouches (diverticula) form in the wall of the large intestine (colon). ??? You may have a few pouches or many of them. ??? This condition is most often diagnosed during an exam for other colon problems. ??? Treatment may include increasing the fiber in your diet, taking supplements, or taking medicines. This information is not intended to replace advice given to you by your health care provider. Make sure you discuss any questions you have with your health care provider. Document Revised: 12/12/2019 Document Reviewed: 12/12/2019 [employer] Patient Education ?? 2022 [employer]. 12/05/2022 08:06:40 Colonoscopy, Adult, Care After Colonoscopy, Adult, Care After The following information offers guidance on how to care for yourself after your procedure. Your health care provider may also give you more specific instructions. If you have problems or questions, contact your health care provider. What can I expect after the procedure? After the procedure, it is common to have: ??? A small amount of blood in your stool for 24 hours after the procedure. ??? Some gas. ??? Mild cramping or bloating of your abdomen. Follow these instructions at home: Eating and drinking ??? Drink enough fluid to keep your urine pale yellow. ??? Follow instructions from your health care provider about eating or drinking restrictions. ??? Resume your normal diet as told by your health care provider. Avoid heavy or fried foods that are hard to digest. Activity ??? Rest as told by your health care provider. ??? Avoid sitting for a long time without moving. Get up to take short walks every 1???2 hours. This is important to improve blood flow and breathing. Ask for help if you feel weak or unsteady. ??? Return to your normal activities as told by your health care provider. Ask your health care provider what activities are safe for you. Managing cramping and bloating ??? Try walking around when you have cramps or feel bloated. ??? If directed, apply heat to your abdomen as told by your health care provider. Use the heat source that your health care provider recommends, such as a moist heat pack or a heating pad. ??? Place a towel between your skin and the heat source. ??? Leave the heat on for 20???30 minutes. ??? Remove the heat if your skin turns bright red. This is especially important if you are unable to feel pain, heat, or cold. You have a greater risk of getting burned. General instructions ??? If you were given a sedative during the procedure, it can affect you for several hours. Do not drive or operate machinery until your health care provider says that it is safe. ??? For the first 24 hours after the procedure: ??? Do not sign important documents. ??? Do not drink alcohol. ??? Do your regular daily activities at a slower pace than normal. ??? Eat soft foods that are easy to digest. ??? Take gcph-wnw-uiwjzei and prescription medicines only as told by your health care provider. ??? Keep all follow-up visits. This is important. Contact a health care provider if: ??? You have blood in your stool 2???3 days after the procedure. Get help right away if: ??? You have more than a small spotting of blood in your stool. ??? You have large blood clots in your stool. ??? You have swelling of your abdomen. ??? You have nausea or vomiting. ??? You have a fever. ??? You have increasing pain in your abdomen that is not relieved with medicine. These symptoms may be an emergency. Get help right away. Call 911. ??? Do not wait to see if the symptoms will go away. ??? Do not drive yourself to the hospital. Summary ??? After the procedure, it is common to have a small amount of blood in your stool. You may also have mild cramping and bloating of your abdomen. ??? If you were given a sedative during the procedure, it can affect you for several hours. Do not drive or operate machinery until your health care provider says that it is safe. ??? Get help right away if you have a lot of blood in your stool, nausea or vomiting, a fever, or increased pain in your abdomen. This information is not intended to replace advice given to you by your health care provider. Make sure you discuss any questions you have with your health care provider. Document Revised: 01/05/2022 Document Reviewed: 01/05/2022 [facility] Patient Education ?? 2022 [employer] 12/05/2022 08:06:38 Colon Polyps Colon Polyps Colon polyps are tissue growths inside the colon, which is part of the large intestine. They are one of the types of polyps that can grow in the body. A polyp may be a round bump or a mushroom-shapedgrowth. You could have one polyp or more than one. Most colon polyps are noncancerous (benign). However, some colon polyps can become cancerous over time. Finding and removing the polyps early can help prevent this. What are the causes? The exact cause of colon polyps is not known. What increases the risk? The following factors may make you more likely to develop this condition: ??? Having a family history of colorectal cancer or colon polyps. ??? Being older than 45 years of age. ??? Being younger than 45 years of age and having a significant family history of colorectal canceror colon polyps or a genetic condition that puts you at higher risk of getting colon polyps. ??? Having inflammatory bowel disease, such as ulcerative colitis or Crohn's disease. ??? Having certain conditions passed from parent to child (hereditary conditions), such as: ??? Familial adenomatous polyposis (FAP). ??? Sánchez syndrome. ??? Turcot syndrome. ??? Peutz???Jeghers syndrome. ??? MUTYH-associated polyposis (MAP). ??? Being overweight. ??? Certain lifestyle factors. These include smoking cigarettes, drinking too much alcohol, not getting enough exercise, and eating a diet that is high in fat and red meat and low in fiber. ??? Having had childhood cancer that was treated with radiation of the abdomen. What are the signs or symptoms? Many times, there are no symptoms. If you have symptoms, they may include: ??? Blood coming from the rectum during a bowel movement. ??? Blood in the stool (feces). The blood may be bright red or very dark in color. ??? Pain in the abdomen. ??? A change in bowel habits, such as constipation or diarrhea. How is this diagnosed? This condition is diagnosed with a colonoscopy. This is a procedure in which a lighted, flexible scope is inserted into the opening between the buttocks (anus) and then passed into the colon to examine the area. Polyps are sometimes found when a colonoscopy is done as part of routine cancer screening tests. How is this treated? This condition is treated by removing any polyps that are found. Most polyps can be removed during a colonoscopy. Those polyps will then be tested for cancer. Additional treatment may be needed depending on the results of testing. Follow these instructions at home: Eating and drinking ??? Eat foods that are high in fiber, such as fruits, vegetables, and whole grains. ??? Eat foods that are high in calcium and vitamin D, such as milk, cheese, yogurt, eggs, liver, fish, and broccoli. ??? Limit foods that are high in fat, such as fried foods and desserts. ??? Limit the amount of red meat, precooked or cured meat, or other processed meat that you eat, such as hot dogs, sausages, foster, or meat loaves. ??? Limit sugary drinks. Lifestyle ??? Maintain a healthy weight, or lose weight if recommended by your health care provider. ??? Exercise every day or as told by your health care provider. ??? Do not use any products that contain nicotine or tobacco, such as cigarettes, e-cigarettes, andchewing tobacco. If you need help quitting, ask your health care provider. ??? Do not drink alcohol if: ??? Your health care provider tells you not to drink. ??? You are , may be , or are planning to become . ??? If you drink alcohol: ??? Limit how much you use to: ??? 0???1 drink a day for women. ??? 0???2 drinks a day for men. ??? Know how much alcohol is in your drink. In the [place] one drink equals one 12 oz bottle of beer (355 mL), one 5 oz glass of wine (148 mL), or one 1?? oz glass of hard liquor (44 mL). General instructions ??? Take xqzy-iqs-fzoajtd and prescription medicines only as told by your health care provider. ??? Keep all follow-up visits. This is important. This includes having regularly scheduled colonoscopies. Talk to your health care provider about when you need a colonoscopy. Contact a health care provider if: ??? You have new or worsening bleeding during a bowel movement. ??? You have new or increased blood in your stool. ??? You have a change in bowel habits. ??? You lose weight for no known reason. Summary ??? Colon polyps are tissue growths inside the colon, which is part of the large intestine. They are one type of polyp that can grow in the body. ??? Most colon polyps are noncancerous (benign), but some can become cancerous over time. ??? This condition is diagnosed with a colonoscopy. ??? This condition is treated by removing any polyps that are found. Most polyps can be removed during a colonoscopy. This information is not intended to replace advice given to you by your health care provider. Make sure you discuss any questions you have with your health care provider. Document Revised: 09/02/2020 Document Reviewed: 09/02/2020 [facility] Patient Education ?? 2022 [employer]. Discharge instructions * Sara Tomlinson: PERFORM Event Display: Discharge Instructions Authored Date: [id number] YAEL TERRAZAS :1950 Age:72 years Sex:Female Visit Date:12/05/2022 Primary Care Physician: SHIRLEY LAWLER [facility] Discharge Instructions We would like to thank you for allowing us to assist you with your healthcare needs. The following includes patient education materials and information regarding your injury/illness. Your Next Steps Scheduled Future Appointments Monday 11:30 AM EDT ?? With: Yael Saldana APRN Where: [facility] Gastroenterology Status: Confirmed Medications What How Much When Why Instructions Next Dose Unchanged albuterol (Albuterol (Eqv-Proventil HFA) 90mcg/ inh inhalation aerosol) 1 Puffs Inhale (breathe in) Every 4 hours Unchanged ALPRAZolam (ALPRAZolam 0.5 mg oral tablet) 1 tab Oral (given by mouth) 3 times a day Duration: 30 Days Unchanged ascorbic acid (Vitamin C 500 mg oral tablet) 1 tab Oral (given by mouth) Every day Duration: 90 Days Unchanged budesonide (budesonide 3 mg oral delayed release capsule) 3 Capsules Oral (given by mouth) Every morning as needed for colitis Take 3 capsules by mouth once a day. ?? Unchanged calcium carbonate (calcium carbonate 500 mg (200 mg elemental calcium) oral tablet, chewable) 1 tab Chewed Every day Unchanged cholecalciferol (Vitamin D3 1000 intl units oral capsule) 1 Capsules Oral (given by mouth) Every day Unchanged Delica Lancets See instructions Unchanged Durable Medical Equipment for Prescription (Blood Glucose Monitor Kit) See instructions Unchanged escitalopram (Lexapro 20 mg oral tablet) 1 tab Oral (given by mouth) Every day Duration: 30 Days Unchanged fluticasone (fluticasone propionate) 50 Micrograms Subacromial 2 times a day [place] 2 sprays into both nostrils BID ?? Unchanged glyBURIDE (glyBURIDE 5 mg oral tablet) 1 tab Oral (given by mouth) Every day as needed for elevated blood sugar Unchanged lisinopril-hydroCHLOROthiazide (lisinopril-hydroCHLOROthiazide 10 mg- 12.5 mg oral tablet) 1 tab Oral (given by mouth) Every day Unchanged magnesium lactate (magnesium lactate 84 mg oral tablet, extended release) 1 tab Oral (given by mouth) Every day Duration: 30 Days Unchanged metoprolol (metoprolol succinate 25 mg oral capsule, extended release) 1 Capsules Oral (given by mouth) Every day Duration: 90 Days Unchanged multivitamin (B-Complex with B-12 oral tablet) 1 tab Oral (given by mouth) Every day Duration: 90 Days Unchanged omega-3 polyunsaturated fatty acids (Fish Oil 1000 mg oral capsule) 1 Capsules Oral (given by mouth) Every day Duration: 60 Days Unchanged One Touch Ultra Test Strips See instructions Unchanged pantoprazole (pantoprazole 40 mg oral delayed release tablet) 1 tab Oral (given by mouth) Every day Duration: 60 Days Unchanged polyethylene glycol 3350 with electrolytes (GoLYTELY oral powder for reconstitution) 240 [place]iliters Oral (given by mouth) Every 10 minutes Collagenous colitis Diarrhea Pyrosis GERD (gastroesophageal reflux disease) Duration: 1 Days Unchanged rosuvastatin (rosuvastatin 40 mg oral tablet) 1 tab Oral (given by mouth) Every day Unchanged SITagliptin (Januvia 100 mg oral tablet) 1 tab Oral (given by mouth) Every day Duration: 30 Days Unchanged umeclidinium-vilanterol (Anoro Ellipta 62.5 mcg-25 mcg/ inh inhalation powder) 1 Puffs Inhale (breathe in) Every day Your Summary Your Care Team Admitting Physician - Mohamud Carpenter MD Attending Physician - Mohamud Carpenter MD Primary Care Physician - SHIRLEY LAWLER Referring Physician - Mohamud Carpenter MD Your Diagnosis Lymphocytic colitis History of adenomatous polyp of colon Problems Ongoing - Any problem that you are currently receiving treatment for. Antral ulcer Anxiety Asthma with COPD (chronic obstructive pulmonary disease) Bowel obstruction Cataract Chronic kidney disease CKD stage 3 Claudication Constipation Depression Diarrhea Diverticulitis Dyspnea GERD (gastroesophageal reflux disease) Hair loss Hearing loss History of adenomatous polyp of colon HTN (hypertension) Hyperlipidemia Hypertriglyceridemia Hypomagnesemia Hypothyroidism Ingrown toenail Long QT syndrome Lymphocytic colitis Macular drusen Pyrosis Tubulovillous adenoma Type II diabetes mellitus Vitamin D deficiency Procedures Performed ???Colonoscopy Biopsy (12/05/2022)???Arthroscopy of shoulder???Bypass/graft of artery, lower legs???Cholecystectomy???EGD - Esophagogastroduodenoscopy???Tonsillectomy Discharge Vitals Temperature??(Tympanic) 97.5 ??F (36.4 ??C) Heart Rate??(Peripheral) 90 Respiratory Rate?? 16 Blood Pressure?? 103/62?? Allergies Shrimp??(Hives) amoxicillin??(Hives) Adhesive Bandage Education Materials Diverticulosis Diverticulosis is a condition that develops when small pouches (diverticula) form in the wall of the large intestine (colon). The colon is where water is absorbed and stool (feces) is formed. The pouches form when the inside layer of the colon pushes through weak spots in the outer layers of the colon. You may have a few pouches or many of them. The pouches usually do not cause problems unless they become inflamed or infected. When this happens, the condition is called diverticulitis. What are the causes? The cause of this condition is not known. What increases the risk? The following factors may make you more likely to develop this condition: ? Being older than age 60. Your risk for this condition increases with age. Diverticulosis is rare among people younger than age 30. By age 80, many people have it. ? Eating a low-fiber diet. ? Having frequent constipation. ? Being overweight. ? Not getting enough exercise. ? Smoking. ? Taking dcxp-xww-qwvvjcm pain medicines, like aspirin and ibuprofen. ? Having a family history of diverticulosis. What are the signs or symptoms? In most people, there are no symptoms of this condition. If you do have symptoms, they may include: ? Bloating. ? Cramps in the abdomen. ? Constipation or diarrhea. ? Pain in the lower left side of the abdomen. How is this diagnosed? Because diverticulosis usually has no symptoms, it is most often diagnosed during an exam for othercolon problems. The condition may be diagnosed by: ? Using a flexible scope to examine the colon (colonoscopy). ? Taking an X-ray of the colon after dye has been put into the colon (barium enema). ? Having a CT scan. How is this treated? You may not need treatment for this condition. Your health care provider may recommend treatment toprevent problems. You may need treatment if you have symptoms or if you previously had diverticulitis. Treatment may include: ? Eating a high-fiber diet. ? Taking a fiber supplement. ? Taking a live bacteria supplement (probiotic). ? Taking medicine to relax your colon. Follow these instructions at home: Medicines ? Take yrgw-ctq-snnbaho and prescription medicines only as told by your health care provider. ? If told by your health care provider, take a fiber supplement or probiotic. Constipation prevention Your condition may cause constipation. To prevent or treat constipation, you may need to: ? Drink enough fluid to keep your urine pale yellow. ? Take hcyl-vil-gmhqkmj or prescription medicines. ? Eat foods that are high in fiber, such as beans, whole grains, and fresh fruits and vegetables. ? Limit foods that are high in fat and processed sugars, such as fried or sweet foods. General instructions ? Try not to strain when you have a bowel movement. ? Keep all follow-up visits as told by your health care provider. This is important. Contact a health care provider if you: ? Have pain in your abdomen. ? Have bloating. ? Have cramps. ? Have not had a bowel movement in 3 days. Get help right away if: ? Your pain gets worse. ? Your bloating becomes very bad. ? You have a fever or chills, and your symptoms suddenly get worse. ? You vomit. ? You have bowel movements that are bloody or black. ? You have bleeding from your rectum. Summary ? Diverticulosis is a condition that develops when small pouches (diverticula) form in the wall of the large intestine (colon). ? You may have a few pouches or many of them. ? This condition is most often diagnosed during an exam for other colon problems. ? Treatment may include increasing the fiber in your diet, taking supplements, or taking medicines. This information is not intended to replace advice given to you by your health care provider. Make sure you discuss any questions you have with your health care provider. Document Revised: 12/12/2019 Document Reviewed: 12/12/2019 [employer] Patient Education ?? 2022 [employer]. Colonoscopy, Adult, Care After The following information offers guidance on how to care for yourself after your procedure. Your health care provider may also give you more specific instructions. If you have problems or questions, contact your health care provider. What can I expect after the procedure? After the procedure, it is common to have: ? A small amount of blood in your stool for 24 hours after the procedure. ? Some gas. ? Mild cramping or bloating of your abdomen. Follow these instructions at home: Eating and drinking ? Drink enough fluid to keep your urine pale yellow. ? Follow instructions from your health care provider about eating or drinking restrictions. ? Resume your normal diet as told by your health care provider. Avoid heavy or fried foods that are hard to digest. Activity ? Rest as told by your health care provider. ? Avoid sitting for a long time without moving. Get up to take short walks every 1???2 hours. This isimportant to improve blood flow and breathing. Ask for help if you feel weak or unsteady. ? Return to your normal activities as told by your health care provider. Ask your health care provider what activities are safe for you. Managing cramping and bloating ? Try walking around when you have cramps or feel bloated. ? If directed, apply heat to your abdomen as told by your health care provider. Use the heat source that your health care provider recommends, such as a moist heat pack or a heating pad. ? Place a towel between your skin and the heat source. ? Leave the heat on for 20???30 minutes. ? Remove the heat if your skin turns bright red. This is especially important if you are unable to feel pain, heat, or cold. You have a greater risk of getting burned. General instructions ? If you were given a sedative during the procedure, it can affect you for several hours. Do not drive or operate machinery until your health care provider says that it is safe. ? For the first 24 hours after the procedure: ? Do not sign important documents. ? Do not drink alcohol. ? Do your regular daily activities at a slower pace than normal. ? Eat soft foods that are easy to digest. ? Take rvcz-ggc-uzlbewl and prescription medicines only as told by your health care provider. ? Keep all follow-up visits. This is important. Contact a health care provider if: ? You have blood in your stool 2???3 days after the procedure. Get help right away if: ? You have more than a small spotting of blood in your stool. ? You have large blood clots in your stool. ? You have swelling of your abdomen. ? You have nausea or vomiting. ? You have a fever. ? You have increasing pain in your abdomen that is not relieved with medicine. These symptoms may be an emergency. Get help right away. Call 911. ? Do not wait to see if the symptoms will go away. ? Do not drive yourself to the hospital. Summary ? After the procedure, it is common to have a small amount of blood in your stool. You may also have mild cramping and bloating of your abdomen. ? If you were given a sedative during the procedure, it can affect you for several hours. Do not drive or operate machinery until your health care provider says that it is safe. ? Get help right away if you have a lot of blood in your stool, nausea or vomiting, a fever, or increased pain in your abdomen. This information is not intended to replace advice given to you by your health care provider. Make sure you discuss any questions you have with your health care provider. Document Revised: 01/05/2022 Document Reviewed: 01/05/2022 [facility] Patient Education ?? 2022 [employer] Colon Polyps Colon polyps are tissue growths inside the colon, which is part of the large intestine. They are one of the types of polyps that can grow in the body. A polyp may be a round bump or a mushroom-shapedgrowth. You could have one polyp or more than one. Most colon polyps are noncancerous (benign). However, some colon polyps can become cancerous over time. Finding and removing the polyps early can help prevent this. What are the causes? The exact cause of colon polyps is not known. What increases the risk? The following factors may make you more likely to develop this condition: ? Having a family history of colorectal cancer or colon polyps. ? Being older than 45 years of age. ? Being younger than 45 years of age and having a significant family history of colorectal cancer or colon polyps or a genetic condition that puts you at higher risk of getting colon polyps. ? Having inflammatory bowel disease, such as ulcerative colitis or Crohn's disease. ? Having certain conditions passed from parent to child (hereditary conditions), such as: ? Familial adenomatous polyposis (FAP). ? Sánchez syndrome. ? Turcot syndrome. ? Peutz???Jeghers syndrome. ? MUTYH-associated polyposis (MAP). ? Being overweight. ? Certain lifestyle factors. These include smoking cigarettes, drinking too much alcohol, not gettingenough exercise, and eating a diet that is high in fat and red meat and low in fiber. ? Having had childhood cancer that was treated with radiation of the abdomen. What are the signs or symptoms? Many times, there are no symptoms. If you have symptoms, they may include: ? Blood coming from the rectum during a bowel movement. ? Blood in the stool (feces). The blood may be bright red or very dark in color. ? Pain in the abdomen. ? A change in bowel habits, such as constipation or diarrhea. How is this diagnosed? This condition is diagnosed with a colonoscopy. This is a procedure in which a lighted, flexible scope is inserted into the opening between the buttocks (anus) and then passed into the colon to examine the area. Polyps are sometimes found when a colonoscopy is done as part of routine cancer screening tests. How is this treated? This condition is treated by removing any polyps that are found. Most polyps can be removed during a colonoscopy. Those polyps will then be tested for cancer. Additional treatment may be needed depending on the results of testing. Follow these instructions at home: Eating and drinking ? Eat foods that are high in fiber, such as fruits, vegetables, and whole grains. ? Eat foods that are high in calcium and vitamin D, such as milk, cheese, yogurt, eggs, liver, fish, and broccoli. ? Limit foods that are high in fat, such as fried foods and desserts. ? Limit the amount of red meat, precooked or cured meat, or other processed meat that you eat, such as hot dogs, sausages, foster, or meat loaves. ? Limit sugary drinks. Lifestyle ? Maintain a healthy weight, or lose weight if recommended by your health care provider. ? Exercise every day or as told by your health care provider. ? Do not use any products that contain nicotine or tobacco, such as cigarettes, e- cigarettes, and chewing tobacco. If you need help quitting, ask your health care provider. ? Do not drink alcohol if: ? Your health care provider tells you not to drink. ? You are , may be , or are planning to become . ? If you drink alcohol: ? Limit how much you use to: ? 0???1 drink a day for women. ? 0???2 drinks a day for men. ? Know how much alcohol is in your drink. In the [place] one drink equals one 12 oz bottle of beer (355mL), one 5 oz glass of wine (148 mL), or one 1?? oz glass of hard liquor (44 mL). General instructions ? Take wggc-ecz-ajykpmd and prescription medicines only as told by your health care provider. ? Keep all follow-up visits. This is important. This includes having regularly scheduled colonoscopies. Talk to your health care provider about when you need a colonoscopy. Contact a health care provider if: ? You have new or worsening bleeding during a bowel movement. ? You have new or increased blood in your stool. ? You have a change in bowel habits. ? You lose weight for no known reason. Summary ? Colon polyps are tissue growths inside the colon, which is part of the large intestine. They are one type of polyp that can grow in the body. ? Most colon polyps are noncancerous (benign), but some can become cancerous over time. ? This condition is diagnosed with a colonoscopy. ? This condition is treated by removing any polyps that are found. Most polyps can be removed during a colonoscopy. This information is not intended to replace advice given to you by your health care provider. Make sure you discuss any questions you have with your health care provider. Document Revised: 09/02/2020 Document Reviewed: 09/02/2020 [employer] Patient Education ?? 2022 [employer] Patient Name:YAEL TERRAZAS Karthikeyan I have received this information and my questions have been answered. Patient/Campground Attendant Name: Patient/Campground Attendant Signature: Relationship to Patient: Witness Name/Signature: Date: Electronically Signed on: 12/05/2022 09:17 EDTSigned by: * Event Display: Discharge Instructions History and physical note * Event Display: History and Physical Update * Mohamud Carpenter MD: PERFORM Event Display: History and Physical Authored Date: [id number] YAEL TERRAZAS :1950 Age:72 years Sex:Female Visit Date:12/05/2022 Primary Care Physician: SHIRLEY LAWLER History of Present Illness 72-year-old female with a history of adenomatous colon polyps in 2012,??negative colonoscopy in 2016, history of lymphocytic colitis in 2013.?? Noncompliant with budesonide??which is effective when taken. Physical Exam Vitals & Measurements T:??36.4?C ??(Tympanic)?? HR:??100??(Monitored)?? RR:??16?? BP:??144/93?? SpO2:??100%?? Well-developed well-nourished white female no acute distress Lungs: Clear to auscultation bilaterally Heart: Regular rhythm S1-S2 Abdomen: Soft nontender Assessment/Plan 1.??Lymphocytic colitis??K52.832 Colonoscopy??to confirm diagnosis. 2.??History of adenomatous polyp of colon??Z86.010 Surveillance colonoscopy today. Orders: Normal Saline Flush, 10 mL, IV Flush, Injection, As Directed, PRN linen sorter, First Dose: 12/05/22 7:14:00 EDT, Routine Sodium Chloride 0.9% 1,000 mL, Total Volume (mL): 1,000, 1,000 mL, Soln-IV, IV, 50 mL/hr, Start Date: 12/05/22 7:14:00 EDT, 63.5 kg, Populate Charting Weight From Order, 1.67, m2 Blood Glucose Monitoring POC RE, 12/05/22 7:14:00 EDT, Stop date 12/05/22 7:14:00 EDT NPO, 12/05/22 7:14:00 EDT, Constant Indicator Obtain consent, 12/05/22 7:14:00 EDT, Constant Order, 12/05/22 7:14:00 EDT Peripheral IV Insertion, 12/05/22 7:14:00 EDT Saline Lock Convert From IV, 12/05/22 7:14:00 EDT, Stop date 12/05/22 7:14:00 EDT Vital Signs, 12/05/22 7:14:00 EDT, Stop date 12/05/22 7:14:00 EDT, Routine Problem List/Past Medical History Ongoing Antral ulcer Anxiety Asthma with COPD (chronic obstructive pulmonary disease) Bowel obstruction Cataract Chronic kidney disease CKD stage 3 Claudication Constipation Depression Diarrhea Diverticulitis Dyspnea GERD (gastroesophageal reflux disease) Hair loss Hearing loss History of adenomatous polyp of colon HTN (hypertension) Hyperlipidemia Hypertriglyceridemia Hypomagnesemia Hypothyroidism Ingrown toenail Long QT syndrome Lymphocytic colitis Macular drusen Pyrosis Tubulovillous adenoma Type II diabetes mellitus Vitamin D deficiency Historical No qualifying data Procedure/Surgical History ???Arthroscopy of shoulder???Bypass/graft of artery, lower legs???Cholecystectomy???Cholecystectomy???Colonoscopy???EGD - Esophagogastroduodenoscopy???Tonsillectomy Medications Inpatient Normal Saline Flush, 10 mL, IV Flush, As Directed, PRN Sodium Chloride 0.9% 1,000 mL, 1000 mL, IV Home Albuterol (Eqv-Proventil HFA) 90 mcg/inh inhalation aerosol, 1 puffs, Inhale, every 4 hr ALPRAZolam 0.5 mg oral tablet, 0.5 mg= 1 tab, Oral, TID Anoro Ellipta 62.5 mcg-25 mcg/inh inhalation powder, 1 puffs, Inhale, Daily B-Complex with B-12 oral tablet, 1 tab, Oral, Daily Blood Glucose Monitor Kit, See instructions budesonide 3 mg oral delayed release capsule, 9 mg= 3 cap, Oral, every morning, PRN calcium carbonate 500 mg (200 mg elemental calcium) oral tablet, chewable, 500 mg= 1 tab, Chewed, Daily Delica Lancets, See Instructions Fish Oil 1000 mg oral capsule, 1000 mg= 1 cap, Oral, Daily fluticasone propionate, 50 mcg, Subacromial, BID glyBURIDE 5 mg oral tablet, 5 mg= 1 tab, Oral, Daily, PRN GoLYTELY oral powder for reconstitution, 240 mL, Oral, every 10 min Januvia 100 mg oral tablet, 100 mg= 1 tab, Oral, Daily Lexapro 20 mg oral tablet, 20 mg= 1 tab, Oral, Daily lisinopril-hydroCHLOROthiazide 10 mg-12.5 mg oral tablet, 1 tab, Oral, Daily magnesium lactate 84 mg oral tablet, extended release, 84 mg= 1 tab, Oral, Daily metoprolol succinate 25 mg oral capsule, extended release, 25 mg= 1 cap, Oral, Daily One Touch Ultra Test Strips, See instructions pantoprazole 40 mg oral delayed release tablet, 40 mg= 1 tab, Oral, Daily rosuvastatin 40 mg oral tablet, 40 mg= 1 tab, Oral, Daily Vitamin C 500 mg oral tablet, 500 mg= 1 tab, Oral, Daily Vitamin D3 1000 intl units oral capsule, 25 mcg= 1 cap, Oral, Daily Allergies Shrimp??(Hives) amoxicillin??(Hives) Adhesive Bandage Social History Alcohol Current, Liquor, 1-2 times per month Electronic Cigarette/Vaping Electronic Cigarette Use: Never. Substance Use Never Tobacco Former tobacco user Tobacco Use:. Family History Family history is negative Electronically Signed on 12/05/22 07:47 AM Mohamud Carpenter MD Patient Care team information Care Team Personnel Name: SHIRLEY LAWLER Position: No Access Member Role: Primary Care Physician Address: Address: [address] [place] [address]- Care Team Related Persons Name: DEBRA AYALA
--- OUTSIDE RECORDS SUMMARY | 2022-12-19 14:55 | XMS_ITS | Continuity of Care Document ---
Author Name Unknown Organization [facility] Ambulatory Clinics Address [address] [place] [address] Care Team Providers Care Grizzlyman Name Role Phone Raysa Tan Primary Care Physician [phone] Encounter [facility] NBR [id number] Date(s): 09/23/22 - 09/23/22 [facility] Ambulatory Clinics [address] [place], [place] [address] Encounter Diagnosis Collagenous colitis(Discharge Diagnosis) - 09/23/22 Diarrhea(Discharge Diagnosis) - 09/23/22 Pyrosis(Discharge Diagnosis) - 09/23/22 GERD (gastroesophageal reflux disease)(Discharge Diagnosis) - 09/23/22 Discharge Disposition: Home or Self Care Attending Physician: Yael Saldana APRN Allergies, Adverse Reactions, Alerts No Known Allergies Assessment and Plan Future Appointments Functional Status 09/23/22 Other exposure to Infectious Disease Non e Medications Albuterol (Eqv-Proventil HFA) 90 mcg/inh inhalation [...] 0 Refill(s) Start Date: 09/21/22 Status: Ordered Atrovent HFA 17 mcg/inh inhalation aerosol 2 puffs, Inhale, QID, # 12.9 g, 0 Refill(s) Start Date: 09/21/22 Status: Ordered B-Complex with B-12 oral tablet 1 tab, Oral, Daily, # 90 tab, 0 Refill(s) Start Date: 09/21/22 Stop Date: 12/20/22 Status: Ordered Blood Glucose Monitor Kit Supply, See instructions, # 1 EA, 0 Refill(s) Start Date: 09/21/22 Status: Ordered budesonide 3 mg oral delayed release capsule 9 mg = 3 cap, Oral, every morning, Take 3 capsules by mouth once a [...] fluticasone propionate 50 mcg =, Subacromial, BID, [place] 2 sprays into both nostrils BID, 0 Refill(s) Start Date: 09/21/22 Status: Ordered GoLYTELY oral powder for reconstitution 240 mL, Oral, every 10 min, # 4,000 mL, 0 Refill(s), Pharmacy: [id number] Start Date: 09/23/22 Stop Date: 09/24/22 [...] Confirmed Active Chronic kidney disease Confirmed Active Collagenous colitis Confirmed Active Constipation Confirmed Active Depression Confirmed Active Diarrhea Confirmed Active Diverticulitis Confirmed Active Dyspnea Confirmed Active GERD (gastroesophageal reflux disease) Confirmed Active Hearing loss Confirmed Active Pyrosis Confirmed Active Hyperlipidemia Confirmed Active HTN (hypertension) Confirmed Active Hypertriglyceridemia Confirmed Active Hypomagnesemia Confirmed Active Hypothyroidism Confirmed Active Ingrown toenail Confirmed Active Claudication Confirmed Active Bowel obstruction Confirmed Active Long QT syndrome Confirmed Active Hair loss Confirmed Active Macular drusen Confirmed Active Type II diabetes mellitus Confirmed Active Vitamin D deficiency Confirmed Active Procedures Procedure Date Related Diagnosis Body Site Status Cholecystectomy Completed Colonoscopy Completed EGD (esophagogastroduodenosc opy) and closure of duodenal fistula Comp leted Vital Signs Most recent to oldest [Reference Range]: 1 Temperature Temporal Artery [36-38 Deg C ] 35.3 Deg C *LOW* (09/23/22 10:55 AM) Apical Heart Rate [60-100 bpm] 75 bpm (09/23/22 10:55 AM) Blood Pressure [90-140/60-90 mmHg] 112/6 0mmHg (09/23/22 10:55 AM) Weight 61.9 kg (09/23/22 10:55 AM) Weight Measured (lbs) 136.466 lb (09/23/22 10:55 AM) Hardy Body Weight Calculated 50.1 kg (09/23/22 10:55 AM) Height 157.48 cm (09/23/22 10:55 AM) Height/Length Measured (inches) 62 inch (09/23/22 10:55 AM) BSA Measured 1.65 m2 (09/23/22 10:55 AM) Body Mass Index 24.96 kg/m2 (09/23/22 10:55 AM) Social History Social History Type Response Tobacco Former tobacco user Tobacco Use:. Sex Physician Outpatient Note * Yael Saldana APRN: PERFORM Event Display: Office Clinic Note Physician Authored Date: [id number] YAEL TERRAZAS :1950 Age:71 years Sex:Female Visit Date:09/23/2022 Primary Care Physician: Raysa Tan Chief Complaint Chronic diarrhea collagenous colitis History of Present Illness Patient is a 71-year-old female at the request of Raysa Tan??for chronic diarrhea and collagenous colitis.?This is an initial consult.?Patient states she has been told she has a??collagenous colitis for years. ??She has been on budesonide 9 mg??daily intermittently.?? She states in the last??2 weeks she has been taking??either 6 or 9 mg daily??as she is having 6-7 bowel movements per day.??Her stools are [place] form 7. ??Denies any melena or hematochezia.?? Usually develops diarrhea after taking??Yaa-[place] for??stomach upset and constipation.?? This usually triggers diarrhea. ??She avoids all other NSAIDs.?? She takes pantoprazole 40 mg every morning. ??Advised to take it 40 mg??30 minutes before evening meal as her symptoms of pyrosis are worse at night.?? Has abdominal cramping with diarrhea. ??Denies any nausea or vomiting. ??Denies melena or hematochezia.?? Weight is stable. ??Has decreased appetite with diarrhea. ??Denies dyspepsia, dysphagia or globus sensation. ?? 5 to 6 years ago she had a EGD showing gastric ulcers??with NSAID use. ??She has been avoiding NSAIDs since.?? She also had a colonoscopy and was told to follow- up in 10 years. ?? She has sought care??at [facility] in the past for GI.?? Those records are??pending. ?? Patient reports having a cholecystectomy at the age of 44.?? At the time of questioning she wondersif that is when her diarrhea began. ?? Denies any family history of gastrointestinal cancers, inflammatory bowel disease or celiac disease. Review of Systems General: Denies malaise or fatigue. HEENT: Denies globus sensation or dysphagia. Respiratory: Denies shortness of breath, cough, or wheeze. Cardiovascular: Denies chest pain, palpitations, lightheadedness, dizziness, syncope or peripheral edema. ?? Abdomen:??Complains of lower abdominal cramping with diarrhea, diarrhea, decreased appetite with diarrhea and pyrosis.?? Denies any nausea or vomiting. ??Denies constipation, melena or hematochezia.?? Weight is stable. ??Denies dyspepsia. Skin: Denies rashes or lesions. Neurological: Denies any problems with gait or balance. Physical Exam Vitals & Measurements T:??35.3?C ??(Temporal Artery)?? HR:??75??(Apical)?? BP:??112/60?? SpO2:??94%?? HT:??157.48??cm?? WT:??61.9??kg?? BMI:??24.96?? BSA:??1.65?? General: Well-nourished well-developed??female??in no acute distress. HEENT: Head is normocephalic, trachea midline, and no cervical lymphadenopathy. Respiratory: Respirations are even and unlabored. ??Lungs are clear to auscultation. Cardiovascular: Regular rate and rhythm with S1 and S2. Abdomen: Positive bowel sounds x4 quadrants, no masses, no guarding, no tenderness. ??No hepatosplenomegaly. ??Abdomen is soft. Skin: Warm, dry, and pink. Neurological: Alert and oriented x3, speech is clear and gait is steady. Psychological: Pleasant, calm and cooperative. Assessment/Plan 1.??Collagenous colitis??K52.831 Patient reports a history of collagenous colitis and on budesonide 9 mg daily.?? She uses this intermittently. ??We will get a copy of previous??colonoscopy and pathology reports. ??Schedule colonoscopy to??assess for colitis or neoplasm.?? Cannot continue budesonide 9 mg daily. Ordered: GoLYTELY oral powder for reconstitution, 240 mL, Oral, every 10 min, # 4,000 mL, 0 Refill(s), Pharmacy: [id number] Follow-up Appointment Request LT_OR, *Est. 10/07/22 +/- 2 days, Future Order, after colonoscopy, In Approximately, [facility] Gastro[facility]ology Surgical Procedure Booking Request LT, 09/23/22 11:23:00 EDT, 12/05/22 10:00:00 EDT, diarrhea h/ocolits, Collagenous colitis Diarrhea Dyspnea Pyrosis, Outpatient, Colonoscopy, Primary Procedure, 30, MAC, 25, Mohamud Carpenter MD, Consent to read: [facility] [id number], [id number], [phone]... ?? 2.??Diarrhea??R19.7 As above.?? A component of her diarrhea may also be??bile acid malabsorption as she??has had a cholecystectomy. ??Consider??bile acid??sequestrant's??if pathology??shows no signs of??collagenous colitis. Ordered: GoLYTELY oral powder for reconstitution, 240 mL, Oral, every 10 min, # 4,000 mL, 0 Refill(s), Pharmacy: [id number] Follow-up Appointment Request LT_OR, *Est. 10/07/22 +/- 2 days, Future Order, after colonoscopy, In Approximately, [facility] Gastroenterology Surgical Procedure Booking Request LTTL, 09/23/22 11:23:00 EDT, 12/05/22 10:00:00 EDT, diarrhea h/ocolits, Collagenous colitis Diarrhea Dyspnea Pyrosis, Outpatient, Colonoscopy, Primary Procedure, 30, MAC, 25, Mohamud Carpenter MD, Consent to read: [facility] [id number], [phone], 453... ?? 3.??Pyrosis??R12 Pyrosis with GERD. ??Recommend??switching pantoprazole 40 mg daily to 30 minutes before evening meal. ??We discussed reflux triggering foods and beverages to avoid, to avoid eating 3 hours before bedtime and eat small frequent meals. ??We will get copy of previous EGD.?? If symptoms are not resolved with changing of timing of pantoprazole??and lifestyle modification consider EGD.?? Continue to avoid NSAIDs. Ordered: GoLYTELY oral powder for reconstitution, 240 mL, Oral, every 10 min, # 4,000 mL, 0 Refill(s), Pharmacy: [id number] Follow-up Appointment Request LT_OR, *Est. 10/07/22 +/- 2 days, Future Order, after colonoscopy, In Approximately, [facility] Gastroenterology Surgical Procedure Booking Request LT, 09/23/22 11:23:00 EDT, 12/05/22 10:00:00 EDT, diarrhea h/ocolits, Collagenous colitis Diarrhea Dyspnea Pyrosis, Outpatient, Colonoscopy, Primary Procedure, 30, MAC, 25, Mohamud Carpenter MD, Consent to read: [facility] [id number], [phone], 453... ?? 4.??GERD (gastroesophageal reflux disease)??K21.9 As above. Ordered: GoLYTELY oral powder for reconstitution, 240 mL, Oral, every 10 min, # 4,000 mL, 0 Refill(s), Pharmacy: [id number] ?? Voice recognition software utilized which may result in minor wine specialist error. Problem List/Past Medical History Ongoing Antral ulcer Anxiety Asthma with COPD (chronic obstructive pulmonary disease) Bowel obstruction Cataract Chronic kidney disease Claudication Collagenous colitis Constipation Depression Diarrhea Diverticulitis Dyspnea GERD (gastroesophageal reflux disease) Hair loss Hearing loss HTN (hypertension) Hyperlipidemia Hypertriglyceridemia Hypomagnesemia Hypothyroidism Ingrown toenail Long QT syndrome Macular drusen Pyrosis Tubulovillous adenoma Type II diabetes mellitus Vitamin D deficiency Historical No qualifying data Procedure/Surgical History ???Cholecystectomy???Colonoscopy???EGD (esophagogastroduodenoscopy) and closure of duodenal fistula Medications Albuterol (Eqv-Proventil HFA) 90 mcg/inh inhalation aerosol, 1 puffs, Inhale, every 4 hr ALPRAZolam 0.5 mg oral tablet, 0.5 mg= 1 tab, Oral, TID Anoro Ellipta 62.5 mcg-25 mcg/inh inhalation powder, 1 puffs, Inhale, Daily Atrovent HFA 17 mcg/inh inhalation aerosol, 2 puffs, Inhale, QID B-Complex with B-12 oral tablet, 1 tab, Oral, Daily Blood Glucose Monitor Kit, See instructions budesonide 3 mg oral delayed release capsule, 9 mg= 3 cap, Oral, every morning calcium carbonate 500 mg (200 mg elemental calcium) oral tablet, chewable, 500 mg= 1 tab, Chewed, Daily Delica Lancets, See Instructions Fish Oil 1000 mg oral capsule, 1000 mg= 1 cap, Oral, Daily fluticasone propionate, 50 mcg, Subacromial, BID Januvia 100 mg oral tablet, 100 mg= [...] 25 mcg= 1 cap, Oral, Daily Allergies No Known Allergies Social History Alcohol Current, Liquor, 1-2 times per month Electronic Cigarette/Vaping Electronic Cigarette Use: Never. Substance Use Never Tobacco Former tobacco user Tobacco Use:. Family History Family history is negative Electronically Signed on 09/23/22 11:30 AM Yael Saldana APRN Patient Care team information Care Team Personnel Name: Raysa Tan Position: No Access Member Role: Primary Care Physician Address: Address: [address] [place] [address]-
--- OUTSIDE RECORDS SUMMARY | 2022-12-19 14:55 | XMS_ITS | Continuity of Care Document ---
Author Name Unknown Organization [facility] Ambulatory Clinics Address [address] [place] [address] Care Team Providers Care Housecleaner Name Role Phone Raysa Tan Primary Care Physician [phone] Encounter [facility] NBR [id number] Date(s): 09/13/22 - 09/13/22 [facility] Ambulatory Clinics [address] [place] [address]- [place] Patient Care team information Care Team Personnel Name: Raysa Tan Position: No Access Member Role: Primary Care Physician Address: Address: [address] [place] [address]- [place]
[2022-12-19 15:05] LABS: Hemoglobin A1C 6.7 % (<5.7)
[2022-12-19 15:16] LABS: Anion Gap 6.4 mmol/L (3-11); BUN 22 mg/dL (7-18); CO2 29.6 mmol/L (21.0-32.0); CREATININE 1.5 mg/dL (0.55-1.02); Calcium 8.8 mg/dL (8.5-10.1); Chloride 97 mmol/L (98-107); Estimated GFR 36.57 (mL/min/1.73m2); Glucose 108 mg/dL (74-106); Potassium 4.4 mmol/L (3.5-5.1); Sodium 133 mmol/L (136-145); TSH (W/Ref FT4) 0.21 uIU/mL (0.36-3.74)
[2022-12-19 15:37] LABS: FREE T4 1.08 ng/dL (0.76-1.46)
== END 2022-12-19 14:52 | disposition home or self-care (01) ==
LOC: NCHCN 14:51
PROVIDERS: PCP Family Medicine; Visit Provider Nurse Practitioner Family
DX: E11.9 Type 2 diabetes mellitus without complications (principal); I10 Essential (primary) hypertension; E03.9 Hypothyroidism, unspecified; N18.30 Chronic kidney disease, stage 3 unspecified
CPT/HCPCS: 80048; 83036; 84439; 84443

== ENCOUNTER 2023-06-19 16:06 | Outpatient (REF) | payer MEDICARE, BC, SELFPAY ==
[2023-06-19 19:09] LABS: HCT 37.4 % (36.0-46.0); HGB 12.7 g/dL (11.2-15.7); MCH 29.1 pg (27.0-33.0); MCV 86 fL (80-95); MPV 9.9 fL (8.0-11.0); Platelet Count 281 10^3/uL (130-400); RBC 4.36 10^6/uL (3.93-5.22); RDW 14.5 % (11.7-14.6); RDW-SD 45.4 fL; WBC 9.03 10^3/uL (4.4-10.8)
[2023-06-19 19:24] LABS: ALT 23 U/L (14-59); AST 17 U/L (15-37); Albumin 3.5 g/dL (3.4-5.0); Alkaline Phosphatase 110 U/L (46-116); Anion Gap 11.2 mmol/L (3-11); BUN 19 mg/dL (7-18); Bilirubin, Total 0.3 mg/dL (0.2-1.0); CO2 24.8 mmol/L (21.0-32.0); CREATININE 1.7 mg/dL (0.55-1.02); Calcium 9.1 mg/dL (8.5-10.1); Calculated LDL 112 mg/dL (<100); Chloride 98 mmol/L (98-107); Cholesterol 218 mg/dL (<200); Estimated GFR 31.47 (mL/min/1.73m2); Glucose 96 mg/dL (74-106); HDL Cholesterol 63 mg/dL (40-60); Potassium 4.1 mmol/L (3.5-5.1); Sodium 134 mmol/L (136-145); TSH 1.43 uIU/mL (0.36-3.74); Total Protein 6.5 g/dL (6.4-8.2); Triglyceride 215 mg/dL (<150)
[2023-06-19 19:43] LABS: FREE T4 1.13 ng/dL (0.76-1.46)
[2023-06-19 20:05] LABS: Hemoglobin A1C 7.3 % (<5.7)
== END 2023-06-19 16:07 | disposition home or self-care (01) ==
LOC: NCHCN 16:06
PROVIDERS: PCP Family Medicine; Visit Provider Nurse Practitioner Family
DX: E11.9 Type 2 diabetes mellitus without complications (principal); E03.9 Hypothyroidism, unspecified; E78.5 Hyperlipidemia, unspecified; N18.30 Chronic kidney disease, stage 3 unspecified
CPT/HCPCS: 80053; 80061; 85027; 83036; 84439; 84443

== ENCOUNTER 2023-10-16 14:17 | Outpatient (REF) | payer MEDICARE, BC, SELFPAY ==
[2023-10-16 16:03] LABS: ALT 56 U/L (14-59); AST 38 U/L (15-37); Albumin 4.2 g/dL (3.4-5.0); Alkaline Phosphatase 116 U/L (46-116); Anion Gap 9.3 mmol/L (3-11); BUN 39 mg/dL (7-18); Bilirubin, Total 0.3 mg/dL (0.2-1.0); CO2 27.7 mmol/L (21.0-32.0); CREATININE 2.2 mg/dL (0.55-1.02); Calcium 9.8 mg/dL (8.5-10.1); Calculated LDL 45 mg/dL (<100); Chloride 101 mmol/L (98-107); Cholesterol 147 mg/dL (<200); Estimated GFR 23.09 (mL/min/1.73m2); Glucose 122 mg/dL (74-106); HDL Cholesterol 83 mg/dL (40-60); Potassium 4.3 mmol/L (3.5-5.1); Sodium 138 mmol/L (136-145); Total Protein 7.4 g/dL (6.4-8.2); Triglyceride 95 mg/dL (<150)
== END 2023-10-16 14:18 | disposition home or self-care (01) ==
LOC: NCHCN 14:17
PROVIDERS: PCP Family Medicine; Visit Provider Nurse Practitioner Family
DX: N18.30 Chronic kidney disease, stage 3 unspecified (principal); E78.5 Hyperlipidemia, unspecified
CPT/HCPCS: 80053; 80061

== ENCOUNTER → 2023-11-08 00:25 | Outpatient (CLI) | payer MEDICARE, BC, SELFPAY ==
--- NOTE | 2023-11-08 | DI.US_ITS ---
Exam(s) US AAA DIAGNOSTIC EXAM: US AAA DIAGNOSTIC CLINICAL HISTORY: H/O AAA REPAIR, Z98.62-peripheral vascular angioplasty status COMPARISON: CT CT CHEST/ABD/PEL WO from 06/02/2020 CR XR DEXA BONE DENSITY W/WO LILI from 09/26/2022 FINDINGS: Abdominal Aorta: Proximal: 2.0 x 1.9 cm. This is proximal to the abdominal aortic aneurysm repair. Mid: 1.6 x 1.6 cm Distal: 1.7 x 1.7 cm Iliac's: Right: 0.7 x 0.9 cm Left: 0.8 x 0.9 cm The origins of the celiac, superior mesenteric and renal arteries were visualized and are patent. Th e aortic repair appears to extend into the common iliac arteries. IMPRESSION: No evidence of abdominal aortic aneurysm. DATA REPOSITORY:
== END ==
PROVIDERS: PCP Family Medicine; Visit Provider Nurse Practitioner Family
DX: Z13.6 Encounter for screening for cardiovascular disorders (principal); Z98.62 Peripheral vascular angioplasty status
CPT/HCPCS: 76775

== ENCOUNTER 2024-01-15 15:16 | Outpatient (REF) | payer MEDICARE, BC, SELFPAY ==
[2024-01-15 19:21] LABS: ALT 70 U/L (14-59); AST 52 U/L (15-37); Albumin 4.2 g/dL (3.4-5.0); Alkaline Phosphatase 116 U/L (46-116); Anion Gap 9.5 mmol/L (3-11); BUN 33 mg/dL (7-18); Bilirubin, Total 0.39 mg/dL (0.2-1.0); CO2 28.5 mmol/L (21.0-32.0); CREATININE 1.8 mg/dL (0.55-1.02); Calcium 9.8 mg/dL (8.5-10.1); Chloride 98 mmol/L (98-107); Glucose 127 mg/dL (74-106); Potassium 4.3 mmol/L (3.5-5.1); Sodium 136 mmol/L (136-145); Total Protein 7.7 g/dL (6.4-8.2)
== END 2024-01-15 15:17 | disposition home or self-care (01) ==
LOC: NCHCN 15:16
PROVIDERS: PCP Nurse Practitioner Family; Visit Provider Nurse Practitioner Family
DX: N18.30 Chronic kidney disease, stage 3 unspecified (principal)
CPT/HCPCS: 80053

== ENCOUNTER 2024-05-23 16:05 | Emergency (ER) | payer MEDICARE, BC, SELFPAY ==
[2024-05-23 16:13] VITALS: BP 109/52; PULSE 70; RESP 16; TEMP 35.6; O2SAT 93
--- NOTE | 2024-05-23 16:15 | DI.RAD_ITS ---
Exam(s) XR HIP LT COMPLETE AP PELVIS XR FEMUR LT EXAM: XR HIP LT COMPLETE AP PELVIS and XR femur LT CLINICAL HISTORY: Fall, hip pain. TECHNIQUE: 2D digital imaging was performed of the left femur and hip. Five views were obtained. A P pelvis and lateral left hip, AP and lateral femur views were obtained. COMPARISON: CR XR ABD FLAT UPRIGHT PA CHEST from 12/30/2018 FINDINGS: BONES: No acute fracture is present. No bony destructive lesion is seen. JOINTS: No dislocation present. There are degenerative changes seen in the lower lumbar spine. The s acroiliac joints and symphysis pubis are unremarkable. SOFT TISSUE: Normal. IMPRESSION: No acute fracture or dislocation. DATA REPOSITORY: RADIATION DOSE DELIVERED:
--- NOTE | 2024-05-23 16:35 | ED.GENADUL_ITS ---
Discharge Plan Disposition Patient Disposition: Home Condition: Stable Discharge Details Clinical Impression: Sprain of left hip Primary Care Provider: SHIRLEY LAWLER ED Provider: Leslie Sandoval Home Meds and New Rx's Prescriptions: Continued aspirin 325 mg Tablet 325 mg PO DAILY pantoprazole 40 mg Tablet,Delayed Release (Dr/Ec) 40 mg PO DAILY rosuvastatin [Crestor] 40 mg Tablet 40 mg PO DAILY levothyroxine 50 mcg Capsule 50 mcg PO DAILY alprazolam 0.25 mg Tablet 0.25 - 0.75 mg PO HS ascorbic acid (vitamin C) [Vitamin C] 500 mg Tablet 500 mg PO DAILY vitamin B complex [B-Complex] Tablet 1 tab PO DAILY cholecalciferol (vitamin D3) [Vitamin D3] 1,000 unit Capsule 1,000 unit PO BID magnesium L-lactate 84 mg Tablet Extended Release 84 mg PO DAILY desvenlafaxine succinate 50 mg Tablet Extended Release 24 Hr 150 mg PO DAILY Anoro Ellipta 62.5-25 mcg/actuation Blister With Device 1 inh INHALATION DAILY Multi-Day Plus Minerals 18 mg iron-400 mcg-25 mcg Tablet 1 tab PO DAILY metoprolol succinate 25 mg Tablet Extended Release 24 Hr 25 mg PO DAILY lisinopril-hydrochlorothiazide 10-12.5 mg tablet 1 tab PO DAILY Patient Comments: TAKE ONE TABLET BY MOUTH EVERY DAY albuterol sulfate [Proventil HFA] 90 mcg/actuation Hfa Aerosol Inhaler 2 puff INHALATION QID PRN fluticasone propionate 50 mcg/actuation spray,suspension 50 mcg INTRANASAL DAILY PRN Patient Comments: USE 1 TO 2 SPRAYS INTO EACH NOSTRILS TWO TIMES A DAY FOR 1 WEEK omega-3 fatty acids-vitamin E 1,000 mg Capsule 1 cap PO DAILY Januvia 100 mg Tablet 100 mg PO DAILY escitalopram oxalate 20 mg tablet 20 mg PO DAILY Patient Comments: TAKE ONE TABLET BY MOUTH EVERY DAY hydroxyzine HCl 25 mg tablet 25 mg PO HS PRN Patient Comments: TAKE ONE TO TWO TABLETS BY MOUTH AT BEDTIME NEEDED Invokana 100 mg tablet 100 mg PO DAILY Discharge Instructions Instructions: Lower Extremity Muscle Strain, Preventing falls in adults, Using Cold for Pain Additional Instructions: No evidence of bony abnormality or fracture or broken bone time. Do suspect that you have a sprain or strain of your hip area and thigh area. Alternate ice and heat. Please take Tylenol or Ibuprofen with food every 4-6 hours as needed for pain and swelling. Take the muscle relaxers as needed, do not drive while taking these medications as they may make you sleepy. Follow up with primary care provider in 3-5 days. Return to ED sooner if any worsening or concerns. Referrals: SHIRLEY LAWLER, STATISTICAL REPORTING ANALYST [Primary Care Provider] - 5 days Discharge Data Discharge Date/Time-TO BE ENTERED AT DEPARTURE: 05/23/24 18:00 HPI General Mode of arrival: ambulatory . Date/Time Provider Initiated Documentation: 05/23/24 16:23 . Limitations to Documentation: no limitations . Information obtained by: patient, family, RN notes reviewed and old records rev iewed . HPI Narrative: 73-year-old female presents to the ER with a chief complaint of left posterior thigh and hip pain with walking backwards. She slipped on a vacuum cord around 3 PM this afternoon and did the splits. Couple of days ago she also fell on some boards while working on a project at home. She does have some bruising to the lateral aspect of her left thigh and lower leg from that fall. She has not pain with extension of her left hip, distal pulses intact, no pain with passive flexion or rotation. No shortening or obvious deformity. She did take some Tylenol prior to arrival. Does have a past medical history of high cholesterol, small bowel obstruction, diverticulitis, hypothyroidism, COPD. Related Data Home Medications ?Medication ?Instructions ?Recorded ?Confirmed aspirin 325 mg tablet 325 mg PO DAILY 12/24/18 05/23/24 levothyroxine 50 mcg capsule 50 mcg PO DAILY 12/24/18 05/23/24 pantoprazole 40 mg tablet,delayed 40 mg PO DAILY 12/24/18 05/23/24 release rosuvastatin 40 mg tablet (Crestor) 40 mg PO DAILY 12/24/18 01/18/21 alprazolam 0.25 mg tablet 0.25 - 0.75 mg PO HS 12/26/18 05/23/24 ascorbic acid (vitamin C) 500 mg 500 mg PO DAILY 12/26/18 05/23/24 tablet (Vitamin C) cholecalciferol (vitamin D3) 25 1,000 unit PO BID 12/26/18 05/23/24 mcg (1,000 unit) capsule (Vitamin D3) desvenlafaxine succinate 50 mg 150 mg PO DAILY 12/26/18 05/23/24 tablet,extended release 24 hr magnesium L-lactate 84 mg 84 mg PO DAILY 12/26/18 05/23/24 tablet,extended release multivit with minerals-iron 18 1 tab PO DAILY 12/26/18 05/23/24 mg-folic ac 400 mcg-vit K 25 mcg tablet (Multi-Day Plus Minerals) umeclidinium 62.5 mcg-vilanterol 1 inh inhalation DAILY 12/26/18 05/23/24 25 mcg/actuation powdr for inhalation (Anoro Ellipta) vitamin B complex (B-Complex 1 tab PO DAILY 12/26/18 05/23/24 tablet) albuterol sulfate 90 mcg/actuation 2 puff inhalation QID PRN 01/18/21 05/23/24 aerosol inhaler (Proventil HFA) fluticasone propionate 50 50 mcg intranasal DAILY PRN 01/18/21 05/23/24 mcg/actuation nasal spray,suspension lisinopril 10 1 tab PO DAILY 01/18/21 05/23/24 mg-hydrochlorothiazide 12.5 mg tablet metoprolol succinate 25 mg 25 mg PO DAILY 01/18/21 05/23/24 tablet,extended release 24 hr omega-3 fatty acids-vitamin E 1 cap PO DAILY 01/18/21 05/23/24 1,000 mg capsule sitagliptin phosphate 100 mg 100 mg PO DAILY 01/18/21 05/23/24 tablet (Januvia) canagliflozin 100 mg tablet 100 mg PO DAILY 05/23/24 05/23/24 (Invokana) escitalopram oxalate 20 mg tablet 20 mg PO DAILY 05/23/24 05/23/24 hydroxyzine HCl 25 mg tablet 25 mg PO HS PRN 05/23/24 05/23/24 Allergies Allergy/AdvReac Type Severity Reaction Status Date / Time Penicillins Allergy Unknown Other (See Unverified 05/23/24 16:19 Comment) adhesive Allergy Itching Unverified 05/23/24 16:19 amoxicillin (From Augmentin) Allergy Hives Unverified 05/23/24 16:19 clavulanic acid (From Allergy Hives Unverified 05/23/24 16:19 Augmentin) shrimp Allergy Anaphylaxis Unverified 05/23/24 16:19 trazodone Allergy Other (See Unverified 05/23/24 16:19 Comment) General Stated Complaint: Orthopedic ALMAZ: 3 Review of Systems All systems reviewed & are unremarkable except as noted in HPI and below Musculoskeletal Musculoskeletal: Reports as per HPI, Reports abnormal gait, Denies back pain, Denies deformity, Reports arthralgias, Reports limited range of motion and Repor ts stiffness Neurologic Neurologic: Reports abnormal gait Exam Narrative Exam Narrative: Constitutional: Alert and oriented x3. Appears stated age. Normal body habitus. Head: Normocephalic, no trauma. Chest: RRR, Normal S1, S2, distal pulses intact. Resp: Lungs clear to auscultation bilaterally, no wheezes, rales, or rhonchi. Abdomen: Soft, non-distended, Normoactive bowel sounds all 4 quads. Musculoskeletal: Moves all 4 extremities without difficulty. Does have pain with extension, as per HPI no pain with rotation. Distal CMS intact. Skin: No suspicious rashes or lesions. Capillary refill less than 2 sec. purple contusion noted to left lateral thigh at left lateral calf. Patient states that this is from a different fall. Neurologic: Cranial nerves II-XII intact. Alert and oriented x 3. Motor: No deficits noted. Sensory: Intact bilaterally all 4 extremities. Hematologic/Lymphatic: No ecchymosis, no lymphadenopathy. Course Vital Signs Vital signs: Vital Signs Temperature 35.6 C L 05/23/24 16:13 Pulse 70 05/23/24 16:13 Respiratory Rate 16 05/23/24 16:13 Blood Pressure 109/52 L 05/23/24 16:13 Pulse Oximetry 93 05/23/24 16:13 Temperature 35.6 C L 05/23/24 16:13 Temperature Source Temporal Artery Scan 05/23/24 16:13 Pulse 70 05/23/24 16:13 Respiratory Rate 16 05/23/24 16:13 Blood Pressure 109/52 L 05/23/24 16:13 Pulse Oximetry 93 05/23/24 16:13 Medical Decision Making 73-year-old female presents to the ER with a chief complaint of left posterior thigh and hip pain with walking backwards. She slipped on a vacuum cord around 3 PM this afternoon and did the splits. Couple of days ago she also fell on some boards while working on a project at home. She does have some bruising to the lateral aspect of her left thigh and lower leg from that fall. She has not pain with extension of her left hip, distal pulses intact, no pain with passive flexion or rotation. No shortening or obvious deformity. X-ray left hip pelvis and femur ordered. I do suspect musculoskeletal or ligament sprain. Will give Flexeril 10 mg p.o. X-rays show no acute dislocation or fracture I do suspect a sprain as noted above. Will give patient a few tablets of Flexeril to go home with short-term ice, heat Tylenol ibuprofen and follow-up if needed. This text was generated using [employer] system, please disregard any oddities of phrase or misspellings. Quality:SDOH Health Related Social Needs: No Data to Display PFSH All Active Problems (Updated 05/23/24 @ 17:35 by Leslie Sandoval NP) Sprain of left hip (Acute) UTI (urinary tract infection) (Acute) Acute hypokalemia (Acute) Acute dehydration (Acute) Anxiety (Chronic) CKD (chronic kidney disease) stage 3, GFR 30-59 ml/min (Chronic) Abdominal pain (Chronic) COPD (chronic obstructive pulmonary disease) (Chronic) Diet-controlled type 2 diabetes mellitus (Acute) Hyperlipidemia (Acute) Hypertension (Chronic) Medical History (Updated 05/23/24 @ 17:35 by Leslie Sandoval NP) Discharged to home Small bowel obstruction Vomiting Ileus Diverticulitis large intestine Colitis Surgical History S/P ventral herniorrhaphy S/P aortic aneurysm repair S/P tonsillectomy S/P cholecystectomy H/O non-cataract eye surgery L eye - retinal surgery S/P cataract extraction and insertion of intraocular lens Family History Father Heart disease CHF (congestive heart failure) Diabetes Hypertension Maternal Grandmother Stroke Paternal Grandmother Breast cancer Mother Vulvar cancer Social History Smoking/Tobacco Use Status: Former Tobacco Use Pack-years: 120 Tobacco: How many years used: 30 Smoking risk assessment performed?: Yes Alcohol Intake: current Drug use: Never Substance use type: does not use Do you feel safe at home: Yes Do you feel safe in your relationship?: Yes
[2024-05-23] MEDS: Cyclobenzaprine 10 MG TAB PO (16:59)
[2024-05-23 17:49] VITALS: BP 122/54; PULSE 69; O2SAT 93
[2024-05-23] MEDS: Cyclobenzaprine 10 MG TAB, 3 TABS/BTL PO (17:50)
== END 2024-05-23 18:00 | disposition home or self-care (01) ==
PROVIDERS: Emergency Provider Registered Nurse Emergency; PCP Nurse Practitioner Family
DX: S73.102A Unspecified sprain of left hip, initial encounter (principal); X58.XXXA Exposure to other specified factors, initial encounter
CPT/HCPCS: 73552; 99284; 73502; 99283

== ENCOUNTER 2024-06-09 05:51 | Emergency (ER) | payer MEDICARE, BC, SELFPAY ==
[2024-06-09] VITALS (26 sets, daily range): BP systolic 139–172; BP diastolic 51–69; PULSE 59–79; RESP 12–24; TEMP 36.1–36.5; O2SAT 86–98
--- NOTE | 2024-06-09 05:45 | DI.RAD_ITS ---
Exam(s) XR PELVIS AP EXAM: XR PELVIS AP CLINICAL HISTORY: fall, left hip pain. TECHNIQUE: 2D digital imaging was performed.One images were obtained. COMPARISON: CR XR HIP LT COMPLETE AP PELVIS from 05/23/2024 FINDINGS: BONES: No acute fracture is present. No bony destructive lesion is seen. JOINTS: No dislocation present. No joint space narrowing is present. SOFT TISSUE: Normal. IMPRESSION: No acute fracture. DATA REPOSITORY: RADIATION DOSE DELIVERED:
--- NOTE | 2024-06-09 05:45 | DI.RAD_ITS ---
Exam(s) XR FEMUR LT EXAM: XR FEMUR LT CLINICAL HISTORY: fall, left hip pain. TECHNIQUE: 2D digital imaging was performed of the left femur. Four images were obtained. AP and lat eral views were obtained. COMPARISON: CR XR FEMUR LT from 05/23/2024 FINDINGS: BONES: No acute fracture is present. No bony destructive lesion is seen. Visualized portion of knee a nd hip joints are unremarkable. SOFT TISSUE: Normal. IMPRESSION: No acute abnormalities present. DATA REPOSITORY: RADIATION DOSE DELIVERED:
--- NOTE | 2024-06-09 06:04 | DI.RAD_ITS ---
Exam(s) XR CHEST 1V IN DI DEPT EXAM: XR CHEST 1V IN DI DEPT CLINICAL HISTORY: SOB TECHNIQUE: 2D digital imaging was performed of the chest. One image was obtained. An AP view was ob tained. COMPARISON: CR XR CHEST 2V PA LATERAL from 01/18/2021 FINDINGS: MEDIASTINUM: Normal. HEART: Normal. PULMONARY VASCULATURE: Normal. LUNGS: No focal consolidating infiltrates. PLEURAL SPACE: There does appear to be blunting of the left costophrenic angle which may represent a tiny left pleural effusion. No right pleural effusion. No pneumothorax. BONE:Within normal limits for the patient's age. OTHER FINDINGS:Normal. IMPRESSION: Blunting of the left costophrenic angle suggesting a tiny left pleural effusion. Otherwise unremarka ble examination. DATA REPOSITORY: RADIATION DOSE DELIVERED:
[2024-06-09] MEDS: Acetaminophen 500 MG TAB 1000 MG PO (06:07)
[2024-06-09] MEDS: Diph,Pertuss(Acell),Tet Vac/Pf 0.5 ML SYR IM (06:12)
--- NOTE | 2024-06-09 06:16 | ED.GENADUL_ITS ---
Discharge Plan Disposition Patient Disposition: Home Condition: Good Discharge Details Clinical Impression: Contusion of left buttock, Skin tear of left forearm without complication Primary Care Provider: SHIRLEY LAWLER ED Provider: Reji Chavez Home Meds and New Rx's Prescriptions: New lidocaine [Lidoderm] 5 % adhesive patch,medicated 1 patch Topical Q24H Qty: 15 0RF No Action pantoprazole 40 mg Tablet,Delayed Release (Dr/Ec) 40 mg PO DAILY rosuvastatin [Crestor] 40 mg Tablet 40 mg PO DAILY levothyroxine 50 mcg Capsule 50 mcg PO DAILY alprazolam 0.25 mg Tablet 0.25 - 0.75 mg PO HS ascorbic acid (vitamin C) [Vitamin C] 500 mg Tablet 500 mg PO DAILY vitamin B complex [B-Complex] Tablet 1 tab PO DAILY cholecalciferol (vitamin D3) [Vitamin D3] 1,000 unit Capsule 1,000 unit PO BID magnesium L-lactate 84 mg Tablet Extended Release 84 mg PO DAILY desvenlafaxine succinate 50 mg Tablet Extended Release 24 Hr 150 mg PO DAILY Anoro Ellipta 62.5-25 mcg/actuation Blister With Device 1 inh INHALATION DAILY Multi-Day Plus Minerals 18 mg iron-400 mcg-25 mcg Tablet 1 tab PO DAILY metoprolol succinate 25 mg Tablet Extended Release 24 Hr 25 mg PO DAILY lisinopril-hydrochlorothiazide 10-12.5 mg tablet 1 tab PO DAILY Patient Comments: TAKE ONE TABLET BY MOUTH EVERY DAY albuterol sulfate [Proventil HFA] 90 mcg/actuation Hfa Aerosol Inhaler 2 puff INHALATION QID PRN fluticasone propionate 50 mcg/actuation spray,suspension 50 mcg INTRANASAL DAILY PRN Patient Comments: USE 1 TO 2 SPRAYS INTO EACH NOSTRILS TWO TIMES A DAY FOR 1 WEEK omega-3 fatty acids-vitamin E 1,000 mg Capsule 1 cap PO DAILY Januvia 100 mg Tablet 100 mg PO DAILY escitalopram oxalate 20 mg tablet 20 mg PO DAILY Patient Comments: TAKE ONE TABLET BY MOUTH EVERY DAY hydroxyzine HCl 25 mg tablet 25 mg PO HS PRN Patient Comments: TAKE ONE TO TWO TABLETS BY MOUTH AT BEDTIME NEEDED Invokana 100 mg tablet 100 mg PO DAILY aspirin 81 mg capsule 81 mg PO DAILY Discharge Instructions Instructions: Minor Contusion ED Additional Instructions: At this time you have no evidence of a fracture or broken hip thankfully. You do have a large contusion on your buttock. This will take a few days to reabsorb. Please use ice for the next 24 hours, and then transition to heat after that to help with reabsorption. I have sent a prescription of numbing patches that you can use on your buttock as needed for pain. Please use your walker at all times. Please do not go up stairs for the next week as your bruises heal. If you notice any worsening of your symptoms, or any new symptoms such as vomiting, diarrhea, fever, chills, shortness of breath, chest pain, numbness, weakness, or fainting , please return immediately to the emergency department for reevaluation. Please follow up with your primary care provider as soon as possible for reassessment and reevaluation. As always, it was a pleasure participating in your medical care today. Referrals: SHIRLEY LAWLER NP [Primary Care Provider] - Discharge Data Discharge Date/Time-TO BE ENTERED AT DEPARTURE: 06/09/24 09:04 HPI General Date/Time Provider Initiated Documentation: 06/09/24 05:56 . HPI Narrative: 73-year-old female with past medical history of chronic kidney disease, COPD, type 2 diabetes mellitus, hypertension, high cholesterol, who presents today for left hip pain after a fall. Patient states that she got up to go to the bathroom, and then unfortunately slipped in dog urine and landed on her left hip. She did not hit her head. She did not lose consciousness. She recalls the entire event. She was able to ambulate shortly thereafter but had pain in the left hip. EMS was contacted and they brought the patient to the ER for further evaluation. She denies any numbness or tingling. She does have a small skin tear on her left forearm. No pain in her forearm. No other complaints at this time. She is not on any blood thinners. Related Data Home Medications ?Medication ?Instructions ?Recorded ?Confirmed levothyroxine 50 mcg capsule 50 mcg PO DAILY 12/24/18 06/09/24 pantoprazole 40 mg tablet,delayed 40 mg PO DAILY 12/24/18 06/09/24 release rosuvastatin 40 mg tablet (Crestor) 40 mg PO DAILY 12/24/18 06/09/24 alprazolam 0.25 mg tablet 0.25 - 0.75 mg PO HS 12/26/18 06/09/24 ascorbic acid (vitamin C) 500 mg 500 mg PO DAILY 12/26/18 06/09/24 tablet (Vitamin C) cholecalciferol (vitamin D3) 25 1,000 unit PO BID 12/26/18 06/09/24 mcg (1,000 unit) capsule (Vitamin D3) desvenlafaxine succinate 50 mg 150 mg PO DAILY 12/26/18 06/09/24 tablet,extended release 24 hr magnesium L-lactate 84 mg 84 mg PO DAILY 12/26/18 06/09/24 tablet,extended release multivit with minerals-iron 18 1 tab PO DAILY 12/26/18 06/09/24 mg-folic ac 400 mcg-vit K 25 mcg tablet (Multi-Day Plus Minerals) umeclidinium 62.5 mcg-vilanterol 1 inh inhalation DAILY 12/26/18 06/09/24 25 mcg/actuation powdr for inhalation (Anoro Ellipta) vitamin B complex (B-Complex 1 tab PO DAILY 12/26/18 06/09/24 tablet) albuterol sulfate 90 mcg/actuation 2 puff inhalation QID PRN 01/18/21 06/09/24 aerosol inhaler (Proventil HFA) fluticasone propionate 50 50 mcg intranasal DAILY PRN 01/18/21 06/09/24 mcg/actuation nasal spray,suspension lisinopril 10 1 tab PO DAILY 01/18/21 06/09/24 mg-hydrochlorothiazide 12.5 mg tablet metoprolol succinate 25 mg 25 mg PO DAILY 01/18/21 06/09/24 tablet,extended release 24 hr omega-3 fatty acids-vitamin E 1 cap PO DAILY 01/18/21 06/09/24 1,000 mg capsule sitagliptin phosphate 100 mg 100 mg PO DAILY 01/18/21 06/09/24 tablet (Januvia) canagliflozin 100 mg tablet 100 mg PO DAILY 05/23/24 06/09/24 (Invokana) escitalopram oxalate 20 mg tablet 20 mg PO DAILY 05/23/24 06/09/24 hydroxyzine HCl 25 mg tablet 25 mg PO HS PRN 05/23/24 06/09/24 aspirin 81 mg capsule 81 mg PO DAILY 06/09/24 06/09/24 lidocaine 5 % topical patch 1 patch topical Q24H #15 ea 06/09/24 (Lidoderm) Previous Rx's ?Medication ?Instructions ?Recorded lidocaine 5 % topical patch 1 patch topical Q24H #15 ea 06/09/24 (Lidoderm) Allergies Allergy/AdvReac Type Severity Reaction Status Date / Time Penicillins Allergy Unknown Other (See Unverified 06/09/24 05:56 Comment) adhesive Allergy Itching Unverified 06/09/24 05:56 amoxicillin (From Augmentin) Allergy Hives Unverified 06/09/24 05:56 clavulanic acid (From Allergy Hives Unverified 06/09/24 05:56 Augmentin) shrimp Allergy Anaphylaxis Unverified 06/09/24 05:56 trazodone Allergy Other (See Unverified 06/09/24 05:56 Comment) General Stated Complaint: Fall/Non TraumaCriteria ALMAZ: 3 Exam Narrative Exam Narrative: 1.Const: Well-nourished, Well-developed, appearing stated age 2.Eyes: PERRL, no conjunctival injection, and symmetrical lids. 3.ENT: Atraumatic external nose and ears. Moist MM. Neck: Symmetric, trachea midline, No thyromegaly. 4.CVS: +S1/S2, Peripheral pulses 2+ and equal in all extremities. Brisk capillary refill in all extremities. 5.RESP: Unlabored respiratory effort. Clear to auscultation bilaterally. No wheezes rales or rhonchi 6.GI: Soft, Nontender/Nondistended, No hepatosplenomegaly. No guarding or rebound. 7.MSK: Normocephalic, left lower extremity demonstrates minimal greater trochanteric tenderness. No major deformity. She is able to flex and extend her hip with mild pain. Mild pain with rotation for both internal and external. Pelvis is stable. Right lower extremity unremarkable and nontender. Bilateral upper extremities nontender. There is a small skin tear over the left forearm. No active bleeding. No midline cervical thoracic or lumbar spine tenderness. 8.Skin: Warm, Dry. No rashes or lesions. Small skin tear on the left forearm with no active bleeding. 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 Sensation grossly intact, no focal neurologic deficits. 10.Psych: (AAO) x3. Appropriate mood and affect Course Vital Signs Vital signs: Vital Signs Temperature 36.1 C L 06/09/24 05:51 Pulse 79 06/09/24 05:51 Respiratory Rate 18 06/09/24 05:51 Blood Pressure 157/69 H 06/09/24 05:51 Pulse Oximetry 86 L 06/09/24 05:51 Temperature 36.1 C L 06/09/24 05:51 Temperature Source Temporal Artery Scan 06/09/24 05:51 Pulse 60 06/09/24 06:03 Pulse 63 06/09/24 06:10 Respiratory Rate 16 06/09/24 06:10 Blood Pressure 156/65 H 06/09/24 06:03 Blood Pressure Mean 93 06/09/24 06:03 Blood Pressure Position Supine 06/09/24 05:51 Pulse Oximetry 93 06/09/24 06:03 Oxygen Delivery Method Nasal Cannula 06/09/24 05:58 Oxygen Flow Rate 2 06/09/24 05:58 Pain Level 4 06/09/24 05:51 Medical Decision Making 73-year-old female with past medical history of chronic kidney disease, COPD, type 2 diabetes mellitus, hypertension, high cholesterol, who presents today for left hip pain after a fall. Patient states that she got up to go to the bathroom, and then unfortunately slipped in dog urine and landed on her left hip. She did not hit her head. She did not lose consciousness. She recalls the entire event. She was able to ambulate shortly thereafter but had pain in the left hip. EMS was contacted and they brought the patient to the ER for further evaluation. She denies any numbness or tingling. She does have a small skin tear on her left forearm. No pain in her forearm. No other complaints at this time. She is not on any blood thinners. Exam demonstrates mild left-sided hip pain, however she does demonstrate excellent range of motion with only mild pain. Neurovascular exam distally to the left hip demonstrates no neurovascular compromise. Concern for fracture versus contusion. Will give Tylenol, update her tetanus from her skin tear, get x-rays, monitor closely and reassess. With no evidence of cranial trauma, cervical thoracic or lumbar spine tenderness, or other signs of significant trauma I do not see an indication for further imaging of the head or neck. 7:56 AM X-rays are negative for acute fracture. No evidence of pneumonia, COVID flu and RSV are negative, no evidence of hip or pelvis fracture per radiology. Repeat exam was performed, the patient was able to get up and ambulate well with a walker. She does have a hematoma on her left buttock, but no evidence of fracture. Patient stable for discharge. Discussed the case with the patient and her who is at home. They both agree with plan. I have extensively reviewed the treatment plan and discharge instructions with the patient. I have addressed all patient concerns at this time. The patient was made aware of what symptoms to monitor for that would warrant a return to the emergency department. Discussed the plan with the patient, they demonstrate verbal understanding and agreement with our assessment and plan at this time. The documentation in this chart was dictated using [employer] net dictation software. Please excuse any dictation errors. FINDINGS: Bones/joints: Unremarkable. No acute fracture. Soft tissues: Unremarkable. IMPRESSION: No acute fracture or dislocation. Thank you for allowing us to participate in the care of your patient. Dictated and Authenticated by: Ailin Ware MD 06/09/2024 7:42 AM Eastern Time ([place] & [place]) FINDINGS: Lungs: No consolidation. Pleural spaces: Suspected trace left pleural effusion. No sizable right pleural effusion or pneumothorax. Heart/Mediastinum: No cardiomegaly. Bones/joints: Unremarkable. IMPRESSION: Suspected trace left pleural effusion. Thank you for allowing us to participate in the care of your patient. Dictated and Authenticated by: Ailin Ware MD 06/09/2024 7:43 AM Eastern Time ([place] & [place]) FINDINGS: Bones/joints: Unremarkable. No acute fracture. Soft tissues: Unremarkable. IMPRESSION: No acute fracture or dislocation. Thank you for allowing us to participate in the care of your patient. Dictated and Authenticated by: Ailin Ware MD 06/09/2024 7:43 AM Eastern Time ([place] & [place]) Quality:SDOH Health Related Social Needs: No Data to Display PFSH All Active Problems (Updated 06/09/24 @ 08:01 by Reji Chavez DO) Skin tear of left forearm without complication (Acute) Contusion of left buttock (Acute) Sprain of left hip (Acute) UTI (urinary tract infection) (Acute) Acute hypokalemia (Acute) Acute dehydration (Acute) Anxiety (Chronic) CKD (chronic kidney disease) stage 3, GFR 30-59 ml/min (Chronic) Abdominal pain (Chronic) COPD (chronic obstructive pulmonary disease) (Chronic) Diet-controlled type 2 diabetes mellitus (Acute) Hyperlipidemia (Acute) Hypertension (Chronic) Medical History (Updated 06/09/24 @ 08:01 by Reji Chavez DO) Discharged to home Small bowel obstruction Vomiting Ileus Diverticulitis large intestine Colitis Surgical History S/P ventral herniorrhaphy S/P aortic aneurysm repair S/P tonsillectomy S/P cholecystectomy H/O non-cataract eye surgery L eye - retinal surgery S/P cataract extraction and insertion of intraocular lens Family History Father Heart disease CHF (congestive heart failure) Diabetes Hypertension Maternal Grandmother Stroke Paternal Grandmother Breast cancer Mother Vulvar cancer Social History Smoking/Tobacco Use Status: Former Tobacco Use Pack-years: 120 Tobacco: How many years used: 30 Smoking risk assessment performed?: Yes Alcohol Intake: current Drug use: Never Substance use type: does not use Do you feel safe at home: Yes Do you feel safe in your relationship?: Yes
[2024-06-09 07:05] LABS: COVID-19 PCR Negative (Negative); Influenza A PCR Negative (Negative); Influenza B PCR Negative (Negative); RSV PCR Negative (Negative); Source Nasopharynx
--- NOTE | 2024-06-09 07:43 | DI.VRAD_ITS ---
PROCEDURE INFORMATION: Exam: XR Left Femur Exam date and time: 06/09/2024 6:46 AM Age: 73 years old Clinical indication: Other: Left hip pain TECHNIQUE: Imaging protocol: Radiologic exam of the left femur. Views: 2 views. COMPARISON: CR XR FEMUR LT 05/23/2024 4:44 PM FINDINGS: Bones/joints: Unremarkable. No acute fracture. Soft tissues: Unremarkable. IMPRESSION: No acute fracture or dislocation. Dictated and Authenticated by: Ailin Ware MD. Ordering:PRANAV Mendoza MD
--- NOTE | 2024-06-09 07:44 | DI.VRAD_ITS ---
PROCEDURE INFORMATION: Exam: XR Pelvis Exam date and time: 06/09/2024 6:53 AM Age: 73 years old Clinical indication: Hip pain and pelvic pain; Left hip TECHNIQUE: Imaging protocol: Radiologic exam of the pelvis. Views: 1 or 2 view. COMPARISON: CR XR HIP LT COMPLETE AP PELVIS 05/23/2024 4:42 PM FINDINGS: Bones/joints: Unremarkable. No acute fracture. Soft tissues: Unremarkable. IMPRESSION: No acute fracture or dislocation. Dictated and Authenticated by: Ailin Ware MD. Ordering:PRANAV Mendoza MD
--- NOTE | 2024-06-09 07:44 | DI.VRAD_ITS ---
PROCEDURE INFORMATION: Exam: XR Chest Exam date and time: 06/09/2024 6:59 AM Age: 73 years old Clinical indication: Shortness of breath TECHNIQUE: Imaging protocol: Radiologic exam of the chest. Views: 1 view. COMPARISON: CR XR CHEST 2V PA LATERAL 01/18/2021 12:21 PM FINDINGS: Lungs: No consolidation. Pleural spaces: Suspected trace left pleural effusion. No sizable right pleural effusion or pneumothorax. Heart/Mediastinum: No cardiomegaly. Bones/joints: Unremarkable. IMPRESSION: Suspected trace left pleural effusion. Dictated and Authenticated by: Ailin Ware MD. Ordering:PRANAV Mendoza MD
[2024-06-09] MEDS: Lidocaine 5% Patch 1 PATCH TP (08:12)
--- NOTE | 2024-06-10 10:04 | NUR.NOTE ---
Access chart to see if there was any documentation regarding the use of [facility] to transport the patient. Authorization form filled out, Maeve Santiago CM aware. Nursing Note:
== END 2024-06-09 09:04 | disposition home or self-care (01) ==
PROVIDERS: Emergency Provider Student in an Organized Health Care Education/Training Program; PCP Nurse Practitioner Family
DX: S51.812A Laceration without foreign body of left forearm, initial encounter (principal); S30.0XXA Contusion of lower back and pelvis, initial encounter; E11.22 Type 2 diabetes mellitus with diabetic chronic kidney disease; I12.9 Hypertensive chronic kidney disease with stage 1 through stage 4 chronic kidney disease, or unspecified chronic kidney disease; N18.30 Chronic kidney disease, stage 3 unspecified; E78.5 Hyperlipidemia, unspecified; J44.9 Chronic obstructive pulmonary disease, unspecified; Z79.82 Long term (current) use of aspirin; W01.0XXA Fall on same level from slipping, tripping and stumbling without subsequent striking against object, initial encounter; Y93.89 Activity, other specified; Y92.018 Other place in single-family (private) house as the place of occurrence of the external cause; Z87.891 Personal history of nicotine dependence; Z23 Encounter for immunization
CPT/HCPCS: 36415; 73552; 87637; 90471; 90715; 99284; 71045; 72170

== ENCOUNTER 2024-07-22 11:31 | Outpatient (REF) | payer MEDICARE, BC, SELFPAY ==
[2024-07-22 16:13] LABS: ALT 19 U/L (14-59); AST 23 U/L (15-37); Albumin 3.7 g/dL (3.4-5.0); Alkaline Phosphatase 100 U/L (46-116); Anion Gap 11.1 mmol/L (3-11); BUN 24 mg/dL (7-18); Bilirubin, Total 0.35 mg/dL (0.2-1.0); CO2 26.9 mmol/L (21.0-32.0); CREATININE 1.5 mg/dL (0.55-1.02); Calcium 9.8 mg/dL (8.5-10.1); Chloride 103 mmol/L (98-107); Estimated GFR 36.34 (mL/min/1.73m2); Glucose 134 mg/dL (74-106); Sodium 141 mmol/L (136-145); TSH (W/Ref FT4) 1.88 uIU/mL (0.36-3.74); Total Protein 7.4 g/dL (6.4-8.2)
[2024-07-22 16:17] LABS: Potassium 2.6 mmol/L (3.5-5.1)
[2024-07-22 19:40] LABS: Hemoglobin A1C 6.3 % (<5.7)
== END 2024-07-22 11:32 | disposition home or self-care (01) ==
LOC: NCHCN 11:31
PROVIDERS: PCP Nurse Practitioner Family; Visit Provider Nurse Practitioner Family
DX: E11.9 Type 2 diabetes mellitus without complications (principal); E03.9 Hypothyroidism, unspecified; N18.30 Chronic kidney disease, stage 3 unspecified
CPT/HCPCS: 80053; 83036; 84443

== ENCOUNTER 2024-08-02 11:15 | Outpatient (REF) | payer MEDICARE, BC, SELFPAY ==
[2024-08-02 16:29] LABS: Anion Gap 13.1 mmol/L (3-11); BUN 29 mg/dL (7-18); CO2 23.9 mmol/L (21.0-32.0); CREATININE 1.6 mg/dL (0.55-1.02); Calcium 9.7 mg/dL (8.5-10.1); Chloride 105 mmol/L (98-107); Estimated GFR 33.63 (mL/min/1.73m2); Glucose 130 mg/dL (74-106); Potassium 3.2 mmol/L (3.5-5.1); Sodium 142 mmol/L (136-145)
== END 2024-08-02 11:16 | disposition home or self-care (01) ==
LOC: NCHCN 11:15
PROVIDERS: PCP Nurse Practitioner Family; Visit Provider Nurse Practitioner Family
DX: E87.6 Hypokalemia (principal)
CPT/HCPCS: 80048

== ENCOUNTER 2024-10-14 13:30 | Outpatient (REF) | payer MEDICARE, BC, SELFPAY ==
[2024-10-14 16:41] LABS: Hemoglobin A1C 8.1 % (<5.7)
[2024-10-14 16:43] LABS: ALT 67 U/L (14-59); AST 41 U/L (15-37); Albumin 3.1 g/dL (3.4-5.0); Alkaline Phosphatase 120 U/L (46-116); BUN 23 mg/dL (7-18); Bilirubin, Total 0.4 mg/dL (0.2-1.0); CREATININE 1.5 mg/dL (0.55-1.02); Calcium 9.2 mg/dL (8.5-10.1); Chloride 107 mmol/L (98-107); Estimated GFR 36.34 (mL/min/1.73m2); Glucose 142 mg/dL (74-106); Potassium 3.3 mmol/L (3.5-5.1); Sodium 143 mmol/L (136-145); Total Protein 6.8 g/dL (6.4-8.2)
== END 2024-10-14 13:31 | disposition home or self-care (01) ==
LOC: NCHCN 13:30
PROVIDERS: PCP Nurse Practitioner Family; Visit Provider Nurse Practitioner Family
DX: E11.9 Type 2 diabetes mellitus without complications (principal); N18.30 Chronic kidney disease, stage 3 unspecified
CPT/HCPCS: 80053; 83036

== ENCOUNTER 2025-01-07 12:48 | Outpatient (REF) | payer MEDICARE, BC, SELFPAY ==
[2025-01-07 16:05] LABS: HCT 39.5 % (36.0-46.0); HGB 13.1 g/dL (11.2-15.7); MCH 28.1 pg (27.0-33.0); MCHC 33.2 % (32.0-36.0); MCV 85 fL (80-95); MPV 10.2 fL (8.0-11.0); Platelet Count 283 10^3/uL (130-400); RBC 4.66 10^6/uL (3.93-5.22); RDW 15.9 % (11.7-14.6); RDW-SD 49.1 fL; WBC 8.18 10^3/uL (4.4-10.8)
[2025-01-07 16:34] LABS: ALT 31 U/L (14-59); AST 39 U/L (15-37); Albumin 3.5 g/dL (3.4-5.0); Alkaline Phosphatase 103 U/L (46-116); Anion Gap 10.4 mmol/L (3-11); BUN 28 mg/dL (7-18); Bilirubin, Total 0.3 mg/dL (0.2-1.0); CO2 28.6 mmol/L (21.0-32.0); Calcium 9.2 mg/dL (8.5-10.1); Chloride 103 mmol/L (98-107); Estimated GFR 47.21 (mL/min/1.73m2); Glucose 132 mg/dL (74-106); Sodium 142 mmol/L (136-145); Total Protein 7.3 g/dL (6.4-8.2)
[2025-01-07 16:40] LABS: Potassium 2.8 mmol/L (3.5-5.1)
[2025-01-07 17:13] LABS: Hemoglobin A1C 6.1 % (<5.7)
== END 2025-01-07 12:49 | disposition home or self-care (01) ==
LOC: NCHCN 12:48
PROVIDERS: PCP Nurse Practitioner Family; Visit Provider Nurse Practitioner Family
DX: E11.22 Type 2 diabetes mellitus with diabetic chronic kidney disease (principal)
CPT/HCPCS: 80053; 85027; 83036

== ENCOUNTER 2025-01-28 15:20 | Outpatient (REF) | payer MEDICARE, BC, SELFPAY ==
[2025-01-28 15:43] LABS: ALT 48 U/L (14-59); AST 32 U/L (15-37); Albumin 3.5 g/dL (3.4-5.0); Alkaline Phosphatase 116 U/L (46-116); Anion Gap 8.4 mmol/L (3-11); BUN 21 mg/dL (7-18); Bilirubin, Total 0.3 mg/dL (0.2-1.0); CO2 28.6 mmol/L (21.0-32.0); Calcium 8.9 mg/dL (8.5-10.1); Chloride 108 mmol/L (98-107); Estimated GFR 39.23 (mL/min/1.73m2); Glucose 100 mg/dL (74-106); Magnesium 2.1 mg/dL (1.8-2.4); Sodium 145 mmol/L (136-145); Total Protein 6.8 g/dL (6.4-8.2)
[2025-01-28 15:48] LABS: Potassium 2.8 mmol/L (3.5-5.1)
== END 2025-01-28 15:21 | disposition home or self-care (01) ==
LOC: NCHCN 15:20
PROVIDERS: PCP Nurse Practitioner Family; Visit Provider Nurse Practitioner Family
DX: E87.6 Hypokalemia (principal)
CPT/HCPCS: 80053; 83735

== ENCOUNTER 2025-02-03 19:40 | Outpatient (REF) | payer MEDICARE, BC, SELFPAY ==
[2025-02-04 22:40] LABS: SAMPLE LIPEMIA CHECK 500 ml
== END 2025-02-03 19:41 | disposition home or self-care (01) ==
LOC: NCHCN 19:40
PROVIDERS: PCP Nurse Practitioner Family; Visit Provider Nurse Practitioner Family
DX: E87.6 Hypokalemia (principal)
CPT/HCPCS: 82088; 81050; 84133

== ENCOUNTER 2025-04-09 12:12 | Outpatient (REF) | payer MEDICARE, BC, SELFPAY ==
[2025-04-09 16:21] LABS: HCT 39.1 % (36.0-46.0); HGB 13.2 g/dL (11.2-15.7); MCH 27.8 pg (27.0-33.0); MCHC 33.8 % (32.0-36.0); MCV 83 fL (80-95); MPV 10.0 fL (8.0-11.0); Platelet Count 264 10^3/uL (130-400); RBC 4.74 10^6/uL (3.93-5.22); RDW 16.4 % (11.7-14.6); RDW-SD 49.1 fL; WBC 7.78 10^3/uL (4.4-10.8)
[2025-04-09 17:40] LABS: Hemoglobin A1C 6.8 % (<5.7)
[2025-04-09 18:28] LABS: ALT 23 U/L (10-49); AST 30 U/L (<34); Albumin 3.8 g/dL (3.4-5.0); Alkaline Phosphatase 122 U/L (46-116); Anion Gap 9.5 mmol/L (3-11); BUN 18 mg/dL (9-23); Bilirubin, Total 0.30 mg/dL (0.2-1.2); CO2 28.5 mmol/L (20.0-31.0); Calcium 8.5 mg/dL (8.3-10.6); Chloride 107 mmol/L (98-107); Glucose 122 mg/dL (74-106); Potassium 3.0 mmol/L (3.5-5.1); Sodium 145 mmol/L (136-145); Total Protein 6.3 g/dL (5.7-8.2)
== END 2025-04-09 12:13 | disposition home or self-care (01) ==
LOC: NCHCN 12:12
PROVIDERS: PCP Nurse Practitioner Family; Visit Provider Nurse Practitioner Family
DX: E11.22 Type 2 diabetes mellitus with diabetic chronic kidney disease (principal); N18.31 Chronic kidney disease, stage 3a; N18.30 Chronic kidney disease, stage 3 unspecified
CPT/HCPCS: 80053; 85027; 83036

== ENCOUNTER 2025-04-09 18:56 | Emergency (ER) | payer MEDICARE, BC, SELFPAY ==
[2025-04-09 19:02] VITALS: BP 155/87; PULSE 81; RESP 20; TEMP 36.4; O2SAT 92
[2025-04-09] MEDS: Potassium Chloride 20 MEQ TABCR (19:35)
[2025-04-09 20:43] VITALS: BP 155/87; PULSE 81; RESP 15; RESP 20; TEMP 36.4; O2SAT 92
--- NOTE | 2025-04-09 20:44 | W.ED.GENAD ---
Discharge Plan Disposition Patient Disposition: Home Condition: Stable Discharge Details Clinical Impression: Hypokalemia Primary Care Provider: SHIRLEY LAWLER ED Provider: Dex Miguel Home Meds and New Rx's Prescriptions: Continued pantoprazole 40 mg Tablet,Delayed Release (Dr/Ec) 40 mg PO DAILY rosuvastatin [Crestor] 40 mg Tablet 40 mg PO DAILY levothyroxine 50 mcg Capsule 50 mcg PO DAILY alprazolam 0.25 mg Tablet 0.25 - 0.75 mg PO HS ascorbic acid (vitamin C) [Vitamin C] 500 mg Tablet 500 mg PO DAILY vitamin B complex [B-Complex] Tablet 1 tab PO DAILY cholecalciferol (vitamin D3) [Vitamin D3] 1,000 unit Capsule 1,000 unit PO BID magnesium L-lactate 84 mg Tablet Extended Release 84 mg PO DAILY desvenlafaxine succinate 50 mg Tablet Extended Release 24 Hr 150 mg PO DAILY umeclidinium-vilanterol [Anoro Ellipta] 62.5-25 mcg/actuation Blister With Device 1 inh INHALATION DAILY Multi-Day Plus Minerals 18 mg iron-400 mcg-25 mcg Tablet 1 tab PO DAILY metoprolol succinate 25 mg Tablet Extended Release 24 Hr 25 mg PO DAILY lisinopril-hydrochlorothiazide 10-12.5 mg tablet 1 tab PO DAILY Patient Comments: TAKE ONE TABLET BY MOUTH EVERY DAY albuterol sulfate [Proventil HFA] 90 mcg/actuation Hfa Aerosol Inhaler 2 puff INHALATION QID PRN fluticasone propionate 50 mcg/actuation spray,suspension 50 mcg INTRANASAL DAILY PRN Patient Comments: USE 1 TO 2 SPRAYS INTO EACH NOSTRILS TWO TIMES A DAY FOR 1 WEEK omega-3 fatty acids-vitamin E 1,000 mg Capsule 1 cap PO DAILY Januvia 100 mg Tablet 100 mg PO DAILY escitalopram oxalate 20 mg tablet 20 mg PO DAILY Patient Comments: TAKE ONE TABLET BY MOUTH EVERY DAY hydroxyzine HCl 25 mg tablet 25 mg PO HS PRN Patient Comments: TAKE ONE TO TWO TABLETS BY MOUTH AT BEDTIME NEEDED Invokana 100 mg tablet 100 mg PO DAILY aspirin 81 mg capsule 81 mg PO DAILY lidocaine [Lidoderm] 5 % adhesive patch,medicated 1 patch Topical Q24H Qty: 15 0RF Discharge Instructions Additional Instructions: You had a creatinine of 1.2 and a GFR 44 on your labs today which were reassuring. I would recommend taking 30 mill equivalents twice daily of your potassium supplements and having your potassium rechecked next week with your primary care provider. If you feel more ill or have new symptoms such as severe weakness or difficulty breathing return to emergency department for reevaluation. Stand Alone Forms: Portal Information HPI General Mode of arrival: ambulatory. Date/Time Provider Initiated Documentation: 04/09/25 19:08. Limitations to Documentation: no limitations. Information obtained by: patient. History of Present Illness 74 year old F presents to the emergency department with the chief complaint of low potassium on routine labs, described as moderate, Patient started experiencing this day(s) (1) and it has been constant. No relieving factors improve symptom(s), No exacerbating factors reported . Patient notes no other symptoms.. Related Data Home Medications Medication Instructions Recorded Confirmed levothyroxine 50 mcg capsule 50 mcg PO DAILY 12/24/18 04/09/25 pantoprazole 40 mg tablet,delayed 40 mg PO DAILY 12/24/18 04/09/25 release rosuvastatin 40 mg tablet (Crestor) 40 mg PO DAILY 12/24/18 04/09/25 alprazolam 0.25 mg tablet 0.25 - 0.75 mg PO HS 12/26/18 04/09/25 ascorbic acid (vitamin C) 500 mg 500 mg PO DAILY 12/26/18 04/09/25 tablet (Vitamin C) cholecalciferol (vitamin D3) 25 1,000 unit PO BID 12/26/18 04/09/25 mcg (1,000 unit) capsule (Vitamin D3) desvenlafaxine succinate 50 mg 150 mg PO DAILY 12/26/18 04/09/25 tablet,extended release 24 hr magnesium L-lactate 84 mg 84 mg PO DAILY 12/26/18 04/09/25 tablet,extended release multivit with minerals-iron 18 1 tab PO DAILY 12/26/18 04/09/25 mg-folic ac 400 mcg-vit K 25 mcg tablet (Multi-Day Plus Minerals) umeclidinium 62.5 mcg-vilanterol 1 inh inhalation DAILY 12/26/18 04/09/25 25 mcg/actuation powdr for inhalation (Anoro Ellipta) vitamin B complex (B-Complex 1 tab PO DAILY 12/26/18 04/09/25 tablet) albuterol sulfate 90 mcg/actuation 2 puff inhalation QID PRN 01/18/21 04/09/25 aerosol inhaler (Proventil HFA) fluticasone propionate 50 50 mcg intranasal DAILY PRN 01/18/21 04/09/25 mcg/actuation nasal spray,suspension lisinopril 10 1 tab PO DAILY 01/18/21 04/09/25 mg-hydrochlorothiazide 12.5 mg tablet metoprolol succinate 25 mg 25 mg PO DAILY 01/18/21 04/09/25 tablet,extended release 24 hr omega-3 fatty acids-vitamin E 1 cap PO DAILY 01/18/21 04/09/25 1,000 mg capsule sitagliptin phosphate 100 mg 100 mg PO DAILY 01/18/21 04/09/25 tablet (Januvia) canagliflozin 100 mg tablet 100 mg PO DAILY 05/23/24 04/09/25 (Invokana) escitalopram oxalate 20 mg tablet 20 mg PO DAILY 05/23/24 04/09/25 hydroxyzine HCl 25 mg tablet 25 mg PO HS PRN 05/23/24 04/09/25 aspirin 81 mg capsule 81 mg PO DAILY 06/09/24 04/09/25 lidocaine 5 % topical patch 1 patch topical Q24H #15 ea 06/09/24 04/09/25 (Lidoderm) Previous Rx's Medication Instructions Recorded lidocaine 5 % topical patch 1 patch topical Q24H #15 ea 06/09/24 (Lidoderm) Allergies Allergy/AdvReac Type Severity Reaction Status Date / Time Penicillins Allergy Unknown Other (See Unverified 06/09/24 05:56 Comment) adhesive Allergy Itching Unverified 06/09/24 05:56 amoxicillin (From Augmentin) Allergy Hives Unverified 06/09/24 05:56 clavulanic acid (From Allergy Hives Unverified 06/09/24 05:56 Augmentin) shrimp Allergy Anaphylaxis Unverified 06/09/24 05:56 trazodone Allergy Other (See Unverified 06/09/24 05:56 Comment) General Stated Complaint: GenMedical ALMAZ: 3 Review of Systems All systems reviewed & are unremarkable except as noted in HPI and below Constitutional Constitutional: Denies chills and Denies fever(s) Cardiovascular Cardiovascular: Denies chest pain and Denies dyspnea Respiratory Respiratory: Denies cough and Denies dyspnea Gastrointestinal Gastrointestinal: Denies abdominal pain, Denies nausea and Denies vomiting Exam Const General: no acute distress Orientation: alert [facility] Head: normal to inspection Ears: external ears normal General nose exam: external nose normal Mouth: moist mucous membranes Eyes General: appearance normal, both eyes and all related structures Neck Neck: normal visual inspection Resp Effort & Inspection: normal respiratory effort and able to speak in complete sentences Cardio Rate: regular rate Skin General skin exam: no rashes or lesions noted Neuro General: patient alert and patient oriented x3 Extrem General: normal to inspection Psych Mental Status: mental status grossly normal Course Vital Signs Vital signs: Vital Signs Temperature 36.4 C 04/09/25 19:02 Pulse 81 04/09/25 19:02 Respiratory Rate 20 04/09/25 19:02 Blood Pressure 155/87 H 04/09/25 19:02 Pulse Oximetry 92 04/09/25 19:02 Temperature 36.4 C 04/09/25 19:02 Pulse 81 04/09/25 19:02 Respiratory Rate 20 04/09/25 19:02 Blood Pressure 155/87 H 04/09/25 19:02 Blood Pressure Position Sitting 04/09/25 19:02 Pulse Oximetry 92 04/09/25 19:02 Oxygen Delivery Method Room Air 04/09/25 19:02 Oxygen Flow Rate 0 04/09/25 19:02 Medical Decision Making 74-year-old female who states that her potassium level was usually low and takes 10 mill equivalents daily comes in after she had routine labs done with her PCP and her potassium was 3.0. She states she feels well without any complaints. Denies any weakness, difficulty breathing, chest pain, fevers, chills. Renal function was at baseline when was checked earlier today. I suspect her hypokalemia is from being on insulin and also hydrochlorothiazide and she states she has chronic colitis which causes her to have a lot of diarrhea which is likely causing this. She was given oral potassium, will recheck potassium and magnesium level and reassess. Patient still asymptomatic, potassium no significant changes. Given her lack of symptoms I do not feel she requires IV infusions or other workup. She has been taking 20 mill equivalents of potassium daily and will have her take 30 mill equivalents twice daily and have her potassium rechecked next week with her primary. Return precautions given. Differential Diagnosis Differential Diagnosis: Hypokalemia, hypomagnesemia PFSH All Active Problems (Updated 04/09/25 @ 21:50 by Dex Miguel MD) Hypokalemia (Acute) UTI (urinary tract infection) (Acute) Acute hypokalemia (Acute) Acute dehydration (Acute) Anxiety (Chronic) CKD (chronic kidney disease) stage 3, GFR 30-59 ml/min (Chronic) Abdominal pain (Chronic) COPD (chronic obstructive pulmonary disease) (Chronic) Diet-controlled type 2 diabetes mellitus (Acute) Hyperlipidemia (Acute) Hypertension (Chronic) Medical History (Updated 04/09/25 @ 21:50 by Dex Migule MD) Discharged to home Small bowel obstruction Vomiting Ileus Diverticulitis large intestine Colitis Surgical History S/P ventral herniorrhaphy S/P aortic aneurysm repair S/P tonsillectomy S/P cholecystectomy H/O non-cataract eye surgery L eye - retinal surgery S/P cataract extraction and insertion of intraocular lens Family History Father Heart disease CHF (congestive heart failure) Diabetes Hypertension Maternal Grandmother Stroke Paternal Grandmother Breast cancer Mother Vulvar cancer Social History Smoking/Tobacco Use Status: Former Tobacco Use Pack-years: 120 Tobacco: How many years used: 30 Smoking risk assessment performed?: Yes Alcohol Intake: current Drug use: Never Substance use type: does not use Do you feel safe at home: Yes Do you feel safe in your relationship?: Yes
[2025-04-09 21:14] LABS: Potassium 2.9 mmol/L (3.5-5.1)
[2025-04-09 21:16] LABS: Magnesium 1.9 mg/dL (1.6-2.6)
[2025-04-09 21:56] VITALS: BP 141/78; PULSE 72; RESP 20; O2SAT 97
== END 2025-04-09 21:56 | disposition home or self-care (01) ==
PROVIDERS: Emergency Provider Emergency Medicine; PCP Nurse Practitioner Family
DX: E87.6 Hypokalemia (principal)
CPT/HCPCS: 99283 ×2; 83735; 84132

== ENCOUNTER 2025-04-21 23:53 | Inpatient (IN) | payer MEDICARE, BC, SELFPAY ==
--- NOTE | 2025-04-21 23:45 | RT.EKG_ITS ---
APPROVED REPORT Exam: Resting ECG Reason for Exam: chest pain Patient Location: E HR:113 bpm ECG Measurements Heart Rate 113 AXIS LA 131 P 85 QRSd 82 QRS 43 QT 361 T 18 QTc 495 Conclusion Sinus tachycardia...rate> [address] segment or T wave abnormalities to suggest occlusive [place]
[2025-04-21 23:54] VITALS: PULSE 111; RESP 24; TEMP 35.7; O2SAT 97
[2025-04-21 23:57] VITALS: PULSE 111; PULSE 113; RESP 20; O2SAT 97
[2025-04-21 23:59] VITALS: RESP 16
[2025-04-22] VITALS (43 sets, daily range): BP systolic 103–192; BP diastolic 67–109; PULSE 86–127; RESP 10–33; TEMP 36.3–37; O2SAT 95–100; BMI 20.5
--- NOTE | 2025-04-22 | DI.CT_ITS ---
Exam(s) CT THORAX ABD/PEL CTA EXAM: CT THORAX ABD/PEL CTA CLINICAL HISTORY: Chest pain concern for dissection. TECHNIQUE: Imaging Protocol: Axial CT angiography was performed with multi- slice acquisition and multi-planar and/or 3D reconstructions. Lung Computer Aided Detection (CAD) was utilized. CONTRAST MATERIAL: Intravenous: Omnipaque 350 contrast volume:65 mL Oral: No COMPARISON: CT CT ABDOMEN PELVIS WO from 12/24/[address] ABDOMEN PELVIS W from 12/28/[address] ABDOMEN PELVIS WO from 12/02/[address] CHEST/ABD/PEL WO from 06/02/2020 FINDINGS: CHEST: Tracheobronchial tree: Patent where visualized. There is no evidence of bronchiectasis. Pulmonary parenchyma: No consolidation or dominant measurable mass. Moderate centrilobular emphysematous changes are present. Pulmonary Arteries: No evidence of filling defect to suggest pulmonary emboli. Mediastinum and Raiza: No dominant adenopathy or fluid collection. The esophagus is unremarkable.There is a small hiatal hernia. Visualized thyroid: Unremarkable. Pleura: No effusion or pneumothorax. Heart: The heart is not dilated. No coronary artery calcifications are seen. No pericardial effusion. Aorta: Thoracic aorta non-dilated. There is no evidence of dissection. Atherosclerotic calcification is present. Soft Tissues: Unremarkable. Bones: Within normal limits for the patient's age. ABDOMEN AND PELVIS: Abdomen: Celiac axis/mesenteric arteries: No evidence of occlusion or significant stenosis. Mild atherosclerotic calcification at the origin without significant stenosis. Renal Arteries: No evidence of occlusion or significant stenosis. Aorta: No evidence of occlusion or significant stenosis. No aneurysm or dissection. There is mural thrombus in the abdominal aorta narrowing the diameter down to 9 mm inferior to the renal artery takeoff. Pelvis: Iliac Arteries: No evidence of occlusion or significant stenosis. Common Femoral Arteries: No evidence of occlusion or significant stenosis. ABDOMEN: Liver: Normal density. No measurable mass. Portal, superior mesenteric and splenic veins: Unremarkable. Gallbladder and Biliary Tract: Gallbladder is absent. No significant biliary ductal dilatation. Pancreas: Normal density, no abnormal calcifications or inflammatory process. Spleen: Normal. Adrenals: No masses seen. Kidneys: Normal size, contour and axis. No radiodense stones or obstructive uropathy. There is a tiny simple cyst in the left kidney. No follow-up is recommended. Bowel: The cecum now appears to be located in the central abdomen and is distended. There is distension of small bowel and colonic loops. There is swirling of the mesenteric vessel seen in the central abdomen. 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 There is no evidence of appendicitis. Peritoneal Cavity: No ascites, collection or mesenteric inflammatory response. No free air. Lymph Nodes: Within normal limits. Bones: Within normal limits for the patient's age. Soft Tissues: There are postsurgical changes seen in the anterior abdominal wall. PELVIS: Bladder: Symmetric distention, no gross wall thickening. Reproductive Organs: Unremarkable as visualized. Lymph Nodes: Within normal limits. Bones: Within normal limits for the patient's age. IMPRESSION: 1. Distended cecum with with swelling of the mesenteric vessels and distended air-fluid levels in the small and large bowel, suspicious for cecal volvulus. 2. There is no evidence of a pulmonary embolism, thoracic aortic aneurysm or dissection. 3. No acute pulmonary process. 4. The preliminary [facility] report was reviewed. RADIATION DOSE DELIVERED: 317.75mGy.cm Total DLP DATA REPOSITORY: All CT scans at this facility are submitted to the National Radiology Data Registry (NRDR) Dose Index Registry (DIR) with the [employer] ([employer]). RADIATION OPTIMIZATION: All CT scans at this facility use at least one of these dose optimization techniques: automated exposure control; mA and/or kV adjustment per patient size (includes targeted exams where dose is matched to clinical indication); or iterative reconstruction.
--- NOTE | 2025-04-22 | RT.EKG_ITS ---
APPROVED REPORT Exam: Resting ECG Reason for Exam: chest pain Patient Location: E HR:102 bpm ECG Measurements Heart Rate 102 AXIS IN 134 P 82 QRSd 85 QRS 72 QT 374 T 43 QTc 488 Conclusion Sinus tachycardia...rate> [address] segment or T wave abnormalities to suggest occlusive [place]
[2025-04-22] MEDS: nitroGLYcerin 0.4 MG TAB SL (00:17)
[2025-04-22 00:18] LABS: Abs Immature Grans 0.06 10^3/uL (0.0-0.06); HCT 43.4 % (36.0-46.0); HGB 14.2 g/dL (11.2-15.7); MCH 27.0 pg (27.0-33.0); MCHC 32.7 % (32.0-36.0); MCV 83 fL (80-95); MPV 9.8 fL (8.0-11.0); Platelet Count 309 10^3/uL (130-400); RBC 5.26 10^6/uL (3.93-5.22); RDW 16.9 % (11.7-14.6); RDW-SD 50.6 fL; WBC 17.00 10^3/uL (4.4-10.8)
[2025-04-22] MEDS: MYLANTA 30 ML, LIDOCAINE 2% VISCOUS UD 15 ML PO (00:20)
[2025-04-22] MEDS: Normal Saline - Diluent 50 ML VIAL IJ (00:22)
[2025-04-22] MEDS: Omnipaque 350 MG/ML 100 ML BTL IJ (00:22)
[2025-04-22] MEDS: Normal Saline Flush 10 ML SYR IVP ×5 (00:23→20:50)
[2025-04-22 00:32] LABS: INR 1.2 (0.9-1.1); PTT Activated 23.0 sec (20.6-30.2); Prothrombin Time 11.7 sec (9.1-11.1)
--- NOTE | 2025-04-22 00:32 | ED.GENADUL_ITS ---
Discharge Plan Disposition Patient Disposition: Admit to [facility] Condition: Serious Discharge Details Clinical Impression: Cecal volvulus, Bowel obstruction, Metabolic acidosis Primary Care Provider: SHIRLEY LAWLER ED Provider: Dorene Zuluaga Home Meds and New Rx's Prescriptions: No Action pantoprazole 40 mg Tablet,Delayed Release (Dr/Ec) 40 mg PO DAILY rosuvastatin [Crestor] 40 mg Tablet 40 mg PO DAILY levothyroxine 50 mcg Capsule 50 mcg PO DAILY alprazolam 0.25 mg Tablet 0.25 - 0.75 mg PO HS ascorbic acid (vitamin C) [Vitamin C] 500 mg Tablet 500 mg PO DAILY vitamin B complex [B-Complex] Tablet 1 tab PO DAILY cholecalciferol (vitamin D3) [Vitamin D3] 1,000 unit Capsule 1,000 unit PO BID magnesium L-lactate 84 mg Tablet Extended Release 84 mg PO DAILY desvenlafaxine succinate 50 mg Tablet Extended Release 24 Hr 150 mg PO DAILY umeclidinium-vilanterol [Anoro Ellipta] 62.5-25 mcg/actuation Blister With Device 1 inh INHALATION DAILY Multi-Day Plus Minerals 18 mg iron-400 mcg-25 mcg Tablet 1 tab PO DAILY metoprolol succinate 25 mg Tablet Extended Release 24 Hr 25 mg PO DAILY lisinopril-hydrochlorothiazide 10-12.5 mg tablet 1 tab PO DAILY Patient Comments: TAKE ONE TABLET BY MOUTH EVERY DAY albuterol sulfate [Proventil HFA] 90 mcg/actuation Hfa Aerosol Inhaler 2 puff INHALATION QID PRN fluticasone propionate 50 mcg/actuation spray,suspension 50 mcg INTRANASAL DAILY PRN Patient Comments: USE 1 TO 2 SPRAYS INTO EACH NOSTRILS TWO TIMES A DAY FOR 1 WEEK omega-3 fatty acids-vitamin E 1,000 mg Capsule 1 cap PO DAILY Januvia 100 mg Tablet 100 mg PO DAILY (DME) FreeStyle Lite Strips Strip MISCELLANEOUS Patient Comments: USE 1 STRIP EVERY DAY DIRECTED FOR BLOOD GLUCOSE MONITORING lisinopril 5 mg tablet 5 mg PO DAILY Patient Comments: TAKE ONE TABLET BY MOUTH EVERY DAY FOR BLOOD PRESSURE ezetimibe 10 mg tablet 10 mg PO DAILY Patient Comments: TAKE ONE TABLET BY MOUTH EVERY DAY dapagliflozin propanediol [Farxiga] 5 mg tablet 5 mg PO DAILY Patient Comments: TAKE ONE TABLET BY MOUTH EVERY DAY DIRECTED FOR KIDNEY PROTECTION AND DIABETES potassium chloride 20 mEq tablet extended release 20 meq PO BID Patient Comments: TAKE ONE TABLET BY MOUTH TWICE A DAY DIRECTED insulin glargine U-300 conc 300 unit/mL (1.5 mL) insulin pen See Rx Instructions SUBCUT .COMPLEX Patient Comments: INJECT 10 UNITS SUBCUTANEOUSLY EVERY EVENING FOR DIABETES. MAY TITRATE BY 2 UNITS EVERY THREE DAYS TO MAINTAIN A MORNING B.G BETWEEN 80-140. Rx Instructions: subcutaneously INJECT 10 UNITS SUBCUTANEOUSLY EVERY EVENING FOR DIABETES. MAY TITRATE BY 2 UNITS EVERY THREE DAYS TO MAINTAIN A MORNING B.G BETWEEN 80-140.; INJECT 10 UNITS SUBCUTANEOUSLY EVERY EVENING FOR DIABETES. MAY TITRATE BY 2 UNITS EVERY THREE DAYS TO MAINTAIN A MORNING B.G BETWEEN 80-140. escitalopram oxalate 20 mg tablet 20 mg PO DAILY Patient Comments: TAKE ONE TABLET BY MOUTH EVERY DAY hydroxyzine HCl 25 mg tablet 25 mg PO HS PRN Patient Comments: TAKE ONE TO TWO TABLETS BY MOUTH AT BEDTIME NEEDED Invokana 100 mg tablet 100 mg PO DAILY aspirin 81 mg capsule 81 mg PO DAILY HPI General Mode of arrival: EMS . Date/Time Provider Initiated Documentation: 04/21/25 23:55 . Limitations to Documentation: no limitations . Information obtained by: patient, family and old records reviewed . HPI Narrative: 74yo F with hx T2DM, HTN, HLD, CKD, COPD, hypokalemia, hx aortibifemoral bypass presenting via EMS for chest pain. Started around 11pm while watching TV; first felt very nauseated, and then had 8/10 sharp chest pain with no alleviating or aggravating factors. Does not radiate. Not pleuritic. Never had pain like this before. Took 325 of ASA and called 911. After EMS arrival vomited x 1 (nonbloody nonbilious) with immediate improvement in chest pain though it was still present. Subsquently given nitro x 2 from EMS, pain continued to decrease after this. Currently 3/10 in severity. No shortness of breath or back pain. No numbness or tingling to her upper extremities. Has felt generally fatigued and unwell for the past several days with some diarrhea (nonbloody) and had been planning on coming in to the ED later in the morning to evaluated for this. Otherwise in her usual state of health with no fevers, chills, rash, abdomminal pain, dysuria, hematuria, LE edema, or other concerns. Related Data Home Medications ?Medication ?Instructions ?Recorded ?Confirmed levothyroxine 50 mcg capsule 50 mcg PO DAILY 12/24/18 04/22/25 pantoprazole 40 mg tablet,delayed 40 mg PO DAILY 12/2404/22/25 release rosuvastatin 40 mg tablet (Crestor) 40 mg PO DAILY 04/22/25 alprazolam 0.25 mg tablet 0.25 - 0.75 mg PO HS 9 04/22/25 ascorbic acid (vitamin C) 500 mg 500 mg PO DAILY 12/2604/22/25 tablet (Vitamin C) cholecalciferol (vitamin D3) 25 1,000 unit PO BID 11/2804/22/25 mcg (1,000 unit) capsule (Vitamin D3) desvenlafaxine succinate 50 mg 150 mg PO DAILY 9 04/22/25 tablet,extended release 24 hr magnesium L-lactate 84 mg 84 mg PO DAILY 12/26/1803/30 tablet,extended release multivit with minerals-iron 18 1 tab PO DAILY 12/26/18 04/22/25 mg-folic ac 400 mcg-vit K 25 mcg tablet (Multi-Day Plus Minerals) umeclidinium 62.5 mcg-vilanterol 1 inh inhalation ADONIS Y 12/26/18 04/22/25 25 mcg/actuation powdr for inhalation (Anoro Ellipta) vitamin B complex (B-Complex 1 tab PO DAILY 12/26/18 1 06/22/24 tablet) albuterol sulfate 90 mcg/actuation 2 puff inhalation Q ID PRN 01/18/21 04/22/25 aerosol inhaler (Proventil HFA) fluticasone propionate 50 50 mcg intranasal DAILY PRN 01/18/21 04/22/25 mcg/actuation nasal spray,suspension lisinopril 10 1 tab PO DAILY 01/18/2103/29 2/25 mg-hydrochlorothiazide 12.5 mg tablet metoprolol succinate 25 mg 25 mg PO DAILY 01/18/21 tablet,extended release 24 hr omega-3 fatty acids-vitamin E 1 cap PO DAILY 01/18/21 04/22/25 1,000 mg capsule sitagliptin phosphate 100 mg 100 mg PO DAILY 01/18/21 04/22/25 tablet (Januvia) canagliflozin 100 mg tablet 100 mg PO DAILY 05/23/24 1 06/22/24 (Invokana) escitalopram oxalate 20 mg tablet 20 mg PO DAILY 05/2304/22/25 hydroxyzine HCl 25 mg tablet 25 mg PO HS PRN 05/23/24 04/22/25 aspirin 81 mg capsule 81 mg PO DAILY 06/09/2403/30 blood sugar diagnostic (FreeStyle 04/22/25 04/22/25 Lite Strips) dapagliflozin propanediol 5 mg 5 mg PO DAILY 04/22/25 04/22/25 tablet (Farxiga) ezetimibe 10 mg tablet 10 mg PO DAILY 04/22/2503/30 insulin glargine U-300 conc 300 See Rx Instructions patterson bcut .COMPLEX 04/22/25 04/22/25 unit/mL (1.5 mL) subcutaneous pen lisinopril 5 mg tablet 5 mg PO DAILY 04/22/2504/22 potassium chloride 20 mEq 20 meq PO BID 04/22/2504/22 tablet,extended release Allergies Allergy/AdvReac Type Severity Reaction Status Date / Time Penicillins Allergy Unknown Other (See Unverified 04/22/25 00:03 Comment) adhesive Allergy Itching Unverified 04/22/25 00:03 amoxicillin (From Augmentin) Allergy Hives Unverified 04/22/25 00:03 clavulanic acid (From Allergy Hives Unverified 04/22/25 00:03 Augmentin) shrimp Allergy Anaphylaxis Unverified 04/22/25 00:03 trazodone Allergy Other (See Unverified 04/22/25 00:03 Comment) General Stated Complaint: Chest Pain ALMAZ: 2 Review of Systems Narrative: see HPI Exam Narrative Exam Narrative: General: Alert, in no acute distress. Head: Normocephalic, atraumatic Neck: Trachea midline, ?Neck supple. ENT: ?MMM.? No oropharygeal lesions or exudate. Cardiac: ?RRR, no murmurs appreciated. Equal radial pulses. Resp: No respiratory distress. CTAB. Abd: ?Soft, non-distended, diffusley tender to palpation with no rebound or guarding. : ?No suprapubic tenderness. No CVA tenderness. Extremities: ?No deformities.? No peripheral edema. Neurologic: GCS 15. ? Moves all extremities freely against gravity Course Vital Signs Vital signs: Vital Signs Temperature 35.7 C L 04/21/25 23:54 Pulse 111 H 04/21/25 23:54 Respiratory Rate 24 04/21/25 23:54 Pulse Oximetry 97 04/21/25 23:54 Temperature 35.7 C L 04/21/25 23:54 Temperature Source Tympanic 04/21/25 23:54 Pulse 111 H 04/21/25 23:54 Respiratory Rate 16 04/21/25 23:59 Respiratory Effort Normal, Non-Labored 04/21/25 23:59 Respiratory Depth Normal 04/21/25 23:59 Respiratory Pattern Normal 04/21/25 23:59 Blood Pressure Position Sitting 04/21/25 23:54 Pulse Oximetry 97 04/21/25 23:54 Oxygen Delivery Method Room Air 04/21/25 23:54 Oxygen Flow Rate 0 04/21/25 23:54 Pain Level 5 04/21/25 23:59 Medical Decision Making 74yo F with hx T2DM, HTN, HLD, CKD, COPD, hypokalemia, hx aortibifemoral bypass presenting via EMS for chest pain. Started around 11pm while watching TV; first felt very nauseated, and then had 8/10 sharp nonradiating chest pain. After EMS arrival vomited x 1 (nonbloody nonbilious) with immediate improvement in chest pain though it was still present; subsquently given nitro x 2 from EMS, pain continued to decrease after this. Hypertensive on arrival 160's/80's and tachycardiac to low 100's. Non-toxic and in no distress on exam, reports ongoing chest pain 3/10. Diffuse abdominal tenderness on exam. She had 325 of ASA and 2 SL nitro prior to arrival; will give 3rd nitro and GI cocktail here while awaiting results of workup. -EKG sinus tachycardia, appropriate intervals, no ST segment or T wave abnormalities to suggest occlusive AL. -Labs reviewed as below, CBC with marked leukocytosis to 17 (with tachcyardia and abdominal tenderness will treat empirically for sepsis, send cultures), CMP with mild hyponatremia and Cr around baseline on [facility] record review with no actionable abnormalities, Mg normal, VBG with metabolic acidosis with respiratory compensation pH 7.28 and bicarb 20, lactate mildly elevated at 2.3 (will repeat after 1L IVFB), TSH elevated with normal, T4, procal reassuring. Troponin negative with one hour repeat also negative. UA not infected. -CTA independently reviewed; no clear aortic dissection or saddle embolus on my view though concern for bowel obstruction, radiology read discussed with reading [facility] radiologist with cecal volvulus and resultant obstruction. Discussed with surgeon loss prevention/safety district manager Dr. Plasencia who will come to see pt. Repeat lactate improved to 0.9, pt reports minimal pain (will give 2mg IV morphine). BP remains acceptable, HR in low 100's. Surgery evaluated pt; taken emergently to OR. IMPRESSION: Swirling of mesenteric vessels at the right abdomen with focal gaseous distension of the cecum with the appearance suspicious for cecal volvulus. Surrounding dilated bowel loops consistent with resulting obstruction. Lab Data Lab results reviewed: Yes I reviewed the patient's lab results. Labs: 04/22/25 01:34 Blood Blood Culture - Pending 04/22/25 01:14 Urine - Clean Catch Urine Culture - Pending 04/22/25 01:18 Blood Blood Culture - Pending Laboratory Tests Range/Units 04/22/25 04/22/25 00:01 01:18 WBC (4.4-10.8) 10^3/uL 17.00 H RBC (3.93-5.22) 10^6/uL 5.26 H Hgb (11.2-15.7) g/dL 14.2 Hct (36.0-46.0) % 43.4 MCV (80-95) fL 83 MCH (27.0-33.0) pg 27.0 MCHC (32.0-36.0) % 32.7 RDW (11.7-14.6) % 16.9 H Plt Count (130-400) 10^3/uL 309 MPV (8.0-11.0) fL 9.8 Immature Gran % % 0.0 Neutrophils % % 63.0 Lymphocytes % % 33.0 Atypical Lymphs % % 2 Monocytes % % 2.0 Eosinophils % % 0.0 Basophils % % 0.0 Nucleated RBC % (0.0-0.3) % 0.0 Absolute Neutrophils (1.2-6.7) 10^3/uL 10.71 H Absolute Lymphocytes (1.2-3.4) 10^3/uL 5.95 H Absolute Monocytes (0.1-0.8) 10^3/uL 0.34 Absolute Eosinophils (0.0-0.7) 10^3/uL 0.00 Absolute Basophils (0.0-0.2) 10^3/uL 0.00 RBC Morphology Normal PT (9.1-11.1) sec 11.7 H INR (0.9-1.1) 1.2 H APTT (20.6-30.2) sec 23.0 VBG pH (7.31-7.41) 7.28 L VBG pCO2 (41-51) mmHg 41 VBG pO2 mmHg 29 VBG HCO3 (23-28) mmol/L 20 L VBG Total CO2 (24-29) mmol/L 18 L VBG O2 Saturation % 43 VBG Base Excess (-2-3) mmol/L -7 L VBG Lactate (<or=2.0) mmol/L 2.3 H* Sodium (136-145) mmol/L 132 L Potassium (3.5-5.1) mmol/L 4.5 Chloride (98-107) mmol/L 105 Carbon Dioxide (20.0-31.0) mmol/L 20.0 Anion Gap (3-11) mmol/L 7 BUN (9-23) mg/dL 22 Creatinine (0.55-1.02) mg/dL 1.49 H Est GFR (CKD-EPI 2020) (mL/min/1.73m2) 34.08 Glucose (74-106) mg/dL 220 H Calcium (8.3-10.6) mg/dL 9.7 Magnesium (1.6-2.6) mg/dL 2.1 Total Bilirubin (0.2-1.2) mg/dL 0.40 AST (<34) U/L 40 H ALT (10-49) U/L 37 Alkaline Phosphatase (46-116) U/L 125 H Troponin I (<35) ng/L < 3 < 3 NT-Pro-B Natriuret Pep (<300) pg/mL 84 Total Protein (5.7-8.2) g/dL 7.4 Albumin (3.4-5.0) g/dL 4.4 Lipase (<53) U/L 31 Procalcitonin ng/mL < 0.10 TSH (0.55-4.78) uIU/mL 16.13 H Free T4 (0.89-1.76) ng/mL 1.27 Urine Color (Yellow) Yellow Urine Clarity (Clear) Clear Urine pH (5-8) 5.5 Ur Specific [place] (1.005-1.025) 1.015 Urine Protein (Neg-Trace) mg/dL Negative Urine Ketones (Negative) mg/dL 15 H Urine Blood (Negative) Negative Urine Nitrite (Negative) Negative Urine Bilirubin (Negative) Negative Urine Urobilinogen (Up to 0.2) mg/dL 0.2 Ur Leukocyte Esterase (Negative) Negative Urine RBC (0-2) HPF 0-2 Urine WBC (0-5) HPF 3-5 Ur Epithelial Cells (Negative) HPF Few Urine Crystals (Negative) HPF Negative Urine Bacteria (Negative) HPF Few Urine Casts (Negative) LPF Negative Urine Mucus (Negative) Trace Ur Culture Indicated? No Urine Glucose (Negative) mg/dL >=1000 H Critical Care Time Critical Care Time Critical Care Time: Yes Total Critical Care Time: 34 Attestation: Due to a high probability of clinically significant, life threatening deterioration, the patient required my highest level of preparedness to inte rvene emergently and I personally spent this critical care time directly and personally managing the patient. This critical care time included obtaining a history; examining the patient; pulse oximetry; ordering and review of studies; arranging urgent treatment with development of a management plan; evaluation of patient's response to treatment; frequent reassessment; and, discussions with other providers. This critical care time was performed to assess and manage the high probability of imminent, life-threatening deterioration that could result in multi-organ failure. It was exclusive of separately billable procedures and treating other patients [facility] All Active Problems (Updated 04/22/25 @ 03:59 by Dorene Zuluaga MD) Metabolic acidosis (Acute) Bowel obstruction (Acute) Cecal volvulus (Acute) Hypokalemia (Acute) UTI (urinary tract infection) (Acute) Acute hypokalemia (Acute) Acute dehydration (Acute) Anxiety (Chronic) CKD (chronic kidney disease) stage 3, GFR 30-59 ml/min (Chronic) Abdominal pain (Chronic) COPD (chronic obstructive pulmonary disease) (Chronic) Diet-controlled type 2 diabetes mellitus (Acute) Hyperlipidemia (Acute) Hypertension (Chronic) Medical History (Updated 04/22/25 @ 03:59 by Dorene Zuluaga MD) Discharged to home Small bowel obstruction Vomiting Ileus Diverticulitis large intestine Colitis Surgical History S/P ventral herniorrhaphy S/P aortic aneurysm repair S/P tonsillectomy S/P cholecystectomy H/O non-cataract eye surgery L eye - retinal surgery S/P cataract extraction and insertion of intraocular lens Family History Father Heart disease CHF (congestive heart failure) Diabetes Hypertension Maternal Grandmother Stroke Paternal Grandmother Breast cancer Mother Vulvar cancer Social History Smoking/Tobacco Use Status: Former Tobacco Use Pack-years: 120 Tobacco: How many years used: 30 Smoking risk assessment performed?: Yes Alcohol Intake: current Drug use: Never Substance use type: does not use Housing: house Do you feel safe at home: Yes Do you feel safe in your relationship?: Yes
[2025-04-22 00:38] LABS: Lipase 31 U/L (<53)
[2025-04-22 00:39] LABS: Magnesium 2.1 mg/dL (1.6-2.6)
[2025-04-22 00:40] LABS: ALT 37 U/L (10-49); AST 40 U/L (<34); Albumin 4.4 g/dL (3.4-5.0); Alkaline Phosphatase 125 U/L (46-116); Anion Gap 7 mmol/L (3-11); BUN 22 mg/dL (9-23); Bilirubin, Total 0.40 mg/dL (0.2-1.2); CO2 20.0 mmol/L (20.0-31.0); Calcium 9.7 mg/dL (8.3-10.6); Chloride 105 mmol/L (98-107); Glucose 220 mg/dL (74-106); Potassium 4.5 mmol/L (3.5-5.1); Sodium 132 mmol/L (136-145); Total Protein 7.4 g/dL (5.7-8.2)
[2025-04-22 00:41] LABS: Troponin I < 3 ng/L (<35)
[2025-04-22 00:44] LABS: Immature Grans % 0.0 %
[2025-04-22 00:45] LABS: RBC Morphology Normal
[2025-04-22 00:54] LABS: TSH (W/Ref FT4) 16.13 uIU/mL (0.55-4.78)
[2025-04-22 01:25] LABS: BE (Venous) -7 mmol/L (-2-3); HCO3 (Venous) 20 mmol/L (23-28); O2 Sat (Venous) 43 %; TCO2 (Venous) 18 mmol/L (24-29); pCO2 (Venous) 41 mmHg (41-51); pO2 (Venous) 29 mmHg
[2025-04-22] MEDS: AZTREONAM 2,000 MG in Normal Saline 100 ML 200 MG IVPB (01:25)
[2025-04-22 01:31] LABS: Glucose >=1000 mg/dL (Negative)
[2025-04-22 01:41] LABS: C & S Indicated? No; RBC 0-2 HPF (0-2)
[2025-04-22 01:45] LABS: Troponin I < 3 ng/L (<35)
[2025-04-22] MEDS: Normal Saline 1,000 ML 1000 ML IV (01:51)
[2025-04-22 01:54] LABS: Procalcitonin < 0.10 ng/mL
--- NOTE | 2025-04-22 02:05 | DI.[facility]_ITS ---
Addendum created by Emeka Bennett MD on 04/22/2025 2:06:03 AM EST: THIS REPORT CONTAINS FINDINGS THAT MAY BE CRITICAL TO PATIENT CARE. The findings were verbally communicated via telephone conference with ALESHA DREW at 2:05 AM EST on 04/22/2025. The findings were acknowledged and understood. Initial report created on 04/22/2025 2:05:39 AM EST: PROCEDURE INFORMATION: Exam: CTA Chest With Contrast CTA Abdomen and Pelvis With Contrast Exam date and time: 04/22/2025 12:22 AM Age: 74 years old Clinical indication: Abdominal pain; Generalized; Prior surgery; Surgery date: 6+ months; Surgery type: Cholecystectomy; Chest pain concern for dissection TECHNIQUE: Imaging protocol: Computed tomographic angiography of the chest with contrast. Exam focused on the arteries. Computed tomographic angiography of the abdomen and pelvis with contrast. Exam focused on the arteries. 3D rendering (Not supervised by radiologist): MIP and/or 3D reconstructed images were created by the technologist. Radiation optimization: All CT scans at this facility use at least one of these dose optimization techniques: automated exposure control; mA and/or kV adjustment per patient size (includes targeted exams where dose is matched to clinical indication); or iterative reconstruction. Contrast material: OMNIPAQUE 350; Contrast volume: 65 ml; Contrast route: INTRAVENOUS (IV); COMPARISON: CT CHEST/ABD/PEL WO 06/02/2020 2:07 PM FINDINGS: VASCULATURE: Pulmonary arteries: Normal. No pulmonary emboli. Aorta: Aorta demonstrates mild atherosclerotic calcification. No aortic aneurysm or dissection. Celiac and mesenteric arteries: No occlusion or significant stenosis. Renal arteries: No occlusion or significant stenosis. Right iliac arteries: No occlusion or significant stenosis. Left iliac arteries: No occlusion or significant stenosis. CHEST: Lungs: Unremarkable. No consolidation. No masses. Pleural spaces: Unremarkable. No pneumothorax. No pleural effusion. Heart: Unremarkable. No cardiomegaly. No pericardial effusion. Coronary arteries: No coronary artery calcification. Diaphragm: Small hiatal hernia. ABDOMEN AND PELVIS: Liver: No mass. Gallbladder and biliary ducts: No gallbladder is identified. Pancreas: Unremarkable. No mass. No ductal dilation. Spleen: Unremarkable. No splenomegaly. Adrenal glands: Unremarkable. No mass. Kidneys and ureters: Unremarkable. No solid mass. No hydronephrosis. Stomach and bowel: Swirling of mesenteric vessels at the right abdomen with focal gaseous distension of the cecum with the appearance suspicious for cecal volvulus. Surrounding dilated bowel loops consistent with resulting obstruction. No findings to suggest bowel perforation. Appendix: No evidence of appendicitis. Intraperitoneal space: Unremarkable. No free air. No significant fluid collection. Urinary bladder: Unremarkable. No mass. Reproductive: Unremarkable as visualized. Lymph nodes: Unremarkable. No enlarged lymph nodes. Bones/joints: Thoracolumbar scoliosis. Soft tissues: Diastasis recti and laxity of the ventral abdominal wall noted. Other findings: Previous aortobifemoral bypass graft. IMPRESSION: Swirling of mesenteric vessels at the right abdomen with focal gaseous distension of the cecum with the appearance suspicious for cecal volvulus. Surrounding dilated bowel loops consistent with resulting obstruction. Dictated and Authenticated by: Emeka Bennett MD. Orderin Zan Catherine MD
[2025-04-22] MEDS: VANCOMYCIN IVPB (02:09)
[2025-04-22] MEDS: NORMAL SALINE IVPB (02:09)
[2025-04-22] MEDS: MORPHine 10 MG/ML VIAL 2 MG IVP (02:55)
[2025-04-22] MEDS: Ondansetron 4 MG/2 ML VIAL IVP (02:55)
[2025-04-22 03:37] LABS: Troponin I < 3 ng/L (<35)
[2025-04-22 03:53] LABS: Salicylate < 3.0 mg/dL (<30.0)
--- NOTE | 2025-04-22 03:54 | W.PM.HP.N ---
Date of service: 04/22/25 Time of Service: 03:54 Assessment and Plan Assessment and plan (1) Cecal volvulus: Status: Acute Assessment and plan: volvulus with obstruction. No perforation or peritonitis. Proceed with ileocecectomy as the best indicated course of action. Discussedprocedure risks, benefits, alternatives and expectations with patient and including risk of pain, bleeding, infection of skin, intraabd abscess or mesh infection, damage to nearby structures such as bowel or bladder, and the possible need for more procedures. Discussed indications for more extensive resection or right hemicolectomy such as ischemia. Plan to place garcía and leave it in place to monitor UOP given acute on chronic renal insufficiency. Patient and spouse asked good questions and are agreeable. Proceed to OR. Will consult hospitalist postoperatively for management of medical problems such as diabetes with hyperglycemia, HTN, CKD. (2) Acute on chronic kidney failure: Status: Resolved Assessment and plan: Volume deplete due to volvulus and obstruction. Plan to manage volvulus as above, replete fluid volume and monitor closely. Will keep garcía catheter in place post op to monitor UOP. Hold nephrotoxic meds. renal dose meds. (3) COPD (chronic obstructive pulmonary disease): Status: Chronic Assessment and plan: Manage expectantly. Discussed risks of ventilator requirement post op. Possible but low. She is oxygenating well now and does not use oxygen at baseline. (4) Hypertension: Status: Chronic Assessment and plan: manage expectantly, restart home meds when appropriate. (5) Hyperlipidemia: Status: Acute Assessment and plan: resume homemeds when appropriate. (6) Anxiety: Status: Chronic Assessment and plan: Resume home meds when appropriate. History of Present Illness Narrative: Chief Complaint: cecal volvulus HPI: 74yo F with cecal volvulus. She has been weak for 7-8 days at home, feeling progressively tired, poor appetite, feeling dehydrated. Tonight she experienced severe acute epigastric pain with nausea. She thought she was having a heart attack and called EMS. She was given 325mg of aspirin and brought to ED where evaluation ruled out [place] and identified cecal volvulus. Pain is new, she has never had it before. abdomen feels bloated and like its popping out in the epigastrium near a prior hernia repair. She denies current nausea or emesis. Flatus has been minimal today but had been having BMs prior. Notes a lifelong history of GI issues. She has had colonoscopy and is up to date. She is diabetic. She has COPD and uses an Anoro inhaler irregularly, not as well as she should she says. She has CKD. Was here with hypokalemia a few days ago and potassium supplement was increased to 30meq BID. Urine has been yellow. is present and notes she has an epigastric mesh from prior hernia repair 10 years ago. History of open aortic graft in [facility]. PFSH All Active Problems (Updated 04/22/25 @ 03:59 by Dorene Zuluaga MD) Metabolic acidosis (Acute) Bowel obstruction (Acute) Cecal volvulus (Acute) Hypokalemia (Acute) UTI (urinary tract infection) (Acute) Acute hypokalemia (Acute) Acute dehydration (Acute) Anxiety (Chronic) CKD (chronic kidney disease) stage 3, GFR 30-59 ml/min (Chronic) Abdominal pain (Chronic) COPD (chronic obstructive pulmonary disease) (Chronic) Diet-controlled type 2 diabetes mellitus (Acute) Hyperlipidemia (Acute) Hypertension (Chronic) Medical History (Updated 04/22/25 @ 03:59 by Dorene Zuluaga MD) Discharged to home Small bowel obstruction Vomiting Ileus Diverticulitis large intestine Colitis Surgical History S/P ventral herniorrhaphy S/P aortic aneurysm repair S/P tonsillectomy S/P cholecystectomy H/O non-cataract eye surgery L eye - retinal surgery S/P cataract extraction and insertion of intraocular lens Family History Father Heart disease CHF (congestive heart failure) Diabetes Hypertension Maternal Grandmother Stroke Paternal Grandmother Breast cancer Mother Vulvar cancer Social History Smoking/Tobacco Use Status: Former Tobacco Use Pack-years: 120 Tobacco: How many years used: 30 Smoking risk assessment performed?: Yes Alcohol Intake: current Drug use: Never Substance use type: does not use Housing: house Do you feel safe at home: Yes Do you feel safe in your relationship?: Yes Meds Allergies and Home Medications Allergies Allergy/AdvReac Type Severity Reaction Status Date / Time Penicillins Allergy Unknown Other (See Unverified 04/22/25 00:03 Comment) adhesive Allergy Itching Unverified 04/22/25 00:03 amoxicillin (From Augmentin) Allergy Hives Unverified 04/22/25 00:03 clavulanic acid (From Allergy Hives Unverified 04/22/25 00:03 Augmentin) shrimp Allergy Anaphylaxis Unverified 04/22/25 00:03 trazodone Allergy Other (See Unverified 04/22/25 00:03 Comment) Home Medications ?Medication ?Instructions ?Recorded ?Confirmed ?Type levothyroxine 50 mcg capsule 50 mcg PO DAILY 12/24/18 04/22/25 History pantoprazole 40 mg tablet,delayed 40 mg PO DAILY 12/24/18 04/22/25 History release rosuvastatin 40 mg tablet (Crestor) 40 mg PO DAILY 12/24/18 04/22/25 History alprazolam 0.25 mg tablet 0.25 - 0.75 mg PO HS 12/26/18 04/22/25 History ascorbic acid (vitamin C) 500 mg 500 mg PO DAILY 12/26/18 04/22/25 History tablet (Vitamin C) cholecalciferol (vitamin D3) 25 1,000 unit PO BID 12/26/18 04/22/25 History mcg (1,000 unit) capsule (Vitamin D3) desvenlafaxine succinate 50 mg 150 mg PO DAILY 12/26/18 04/22/25 History tablet,extended release 24 hr magnesium L-lactate 84 mg 84 mg PO DAILY 12/26/18 04/22/25 History tablet,extended release multivit with minerals-iron 18 1 tab PO DAILY 12/26/18 04/22/25 History mg-folic ac 400 mcg-vit K 25 mcg tablet (Multi-Day Plus Minerals) umeclidinium 62.5 mcg-vilanterol 1 inh inhalation DAILY 12/26/18 04/22/25 History 25 mcg/actuation powdr for inhalation (Anoro Ellipta) vitamin B complex (B-Complex 1 tab PO DAILY 12/26/18 04/22/25 History tablet) albuterol sulfate 90 mcg/actuation 2 puff inhalation QID PRN 01/18/21 04/22/25 History aerosol inhaler (Proventil HFA) fluticasone propionate 50 50 mcg intranasal DAILY PRN 01/18/21 04/22/25 History mcg/actuation nasal spray,suspension lisinopril 10 1 tab PO DAILY 01/18/21 04/09/25 History mg-hydrochlorothiazide 12.5 mg tablet metoprolol succinate 25 mg 25 mg PO DAILY 01/18/21 04/22/25 History tablet,extended release 24 hr omega-3 fatty acids-vitamin E 1 cap PO DAILY 01/18/21 04/22/25 History 1,000 mg capsule sitagliptin phosphate 100 mg 100 mg PO DAILY 01/18/21 04/22/25 History tablet (Januvia) canagliflozin 100 mg tablet 100 mg PO DAILY 05/23/24 04/22/25 History (Invokana) escitalopram oxalate 20 mg tablet 20 mg PO DAILY 05/23/24 04/22/25 History hydroxyzine HCl 25 mg tablet 25 mg PO HS PRN 05/23/24 04/22/25 History aspirin 81 mg capsule 81 mg PO DAILY 06/09/24 04/22/25 History blood sugar diagnostic (FreeStyle 04/22/25 04/22/25 History Lite Strips) dapagliflozin propanediol 5 mg 5 mg PO DAILY 04/22/25 04/22/25 History tablet (Farxiga) ezetimibe 10 mg tablet 10 mg PO DAILY 04/22/25 04/22/25 History insulin glargine U-300 conc 300 See Rx Instructions subcut .COMPLEX 04/22/25 04/22/25 History unit/mL (1.5 mL) subcutaneous pen lisinopril 5 mg tablet 5 mg PO DAILY 04/22/25 04/22/25 History potassium chloride 20 mEq 20 meq PO BID 04/22/25 04/22/25 History tablet,extended release Exam Narrative Exam Narrative: awake, NAD eomi, MMM midline trachea, neck is symmetric PULM: normal resp effort, equal chest rise with respiration, no wheezing audible CARDIAC: normal PMI, no jvd, regular rate, normal perfusion abdomen is softly distended, tender to palpation in epigastrium, no rebound or guarding. Palpable epigastric mesh in appx 8cm round area. extremities are without deformity, normal movement of all four extremities speech is clear and coherent mood and affect are congruent, no focal neurological deficits skin without rash Results Imaging Abdomen CT scan report/results: report reviewed and image reviewed Labs 04/22/25 00:01 04/22/25 00:01 Labs: Laboratory Results - last 24 hr 04/22/25 04/22/25 04/22/25 00:01 01:18 03:06 WBC 17.00 H RBC 5.26 H Hgb 14.2 Hct 43.4 MCV 83 MCH 27.0 MCHC 32.7 RDW 16.9 H Plt Count 309 MPV 9.8 Immature Gran % 0.0 Neutrophils % 63.0 Lymphocytes % 33.0 Atypical Lymphs % 2 Monocytes % 2.0 Eosinophils % 0.0 Basophils % 0.0 Nucleated RBC % 0.0 Absolute Neutrophils 10.71 H Absolute Lymphocytes 5.95 H Absolute Monocytes 0.34 Absolute Eosinophils 0.00 Absolute Basophils 0.00 RBC Morphology Normal PT 11.7 H INR 1.2 H APTT 23.0 VBG pH 7.28 L VBG pCO2 41 VBG pO2 29 VBG HCO3 20 L VBG Total CO2 18 L VBG O2 Saturation 43 VBG Base Excess -7 L VBG Lactate 2.3 H* 0.9 Sodium 132 L Potassium 4.5 Chloride 105 Carbon Dioxide 20.0 Anion Gap 7 BUN 22 Creatinine 1.49 H Est GFR (CKD-EPI 2020) 34.08 Glucose 220 H Calcium 9.7 Magnesium 2.1 Total Bilirubin 0.40 AST 40 H ALT 37 Alkaline Phosphatase 125 H Troponin I < 3 < 3 < 3 NT-Pro-B Natriuret Pep 84 Total Protein 7.4 Albumin 4.4 Lipase 31 Procalcitonin < 0.10 TSH 16.13 H Free T4 1.27 Urine Color Yellow Urine Clarity Clear Urine pH 5.5 Ur Specific [place] 1.015 Urine Protein Negative Urine Ketones 15 H Urine Blood Negative Urine Nitrite Negative Urine Bilirubin Negative Urine Urobilinogen 0.2 Ur Leukocyte Esterase Negative Urine RBC 0-2 Urine WBC 3-5 Ur Epithelial Cells Few Urine Crystals Negative Urine Bacteria Few Urine Casts Negative Urine Mucus Trace Ur Culture Indicated? No Urine Glucose >=1000 H Salicylates 04/22/25 03:18 WBC RBC Hgb Hct MCV MCH MCHC RDW Plt Count MPV Immature Gran % Neutrophils % Lymphocytes % Atypical Lymphs % Monocytes % Eosinophils % Basophils % Nucleated RBC % Absolute Neutrophils Absolute Lymphocytes Absolute Monocytes Absolute Eosinophils Absolute Basophils RBC Morphology PT INR APTT VBG pH VBG pCO2 VBG pO2 VBG HCO3 VBG Total CO2 VBG O2 Saturation VBG Base Excess VBG Lactate Sodium Potassium Chloride Carbon Dioxide Anion Gap BUN Creatinine Est GFR (CKD-EPI 2020) Glucose Calcium Magnesium Total Bilirubin AST ALT Alkaline Phosphatase Troponin I NT-Pro-B Natriuret Pep Total Protein Albumin Lipase Procalcitonin TSH Free T4 Urine Color Urine Clarity Urine pH Ur Specific [place] Urine Protein Urine Ketones Urine Blood Urine Nitrite Urine Bilirubin Urine Urobilinogen Ur Leukocyte Esterase Urine RBC Urine WBC Ur Epithelial Cells Urine Crystals Urine Bacteria Urine Casts Urine Mucus Ur Culture Indicated? Urine Glucose Salicylates < 3.0 Last Vital Signs Temp 96.2 F L 04/21/25 23:54 Pulse 105 H 04/22/25 03:30 Resp 10 L 04/22/25 03:30 BP 167/100 H 04/22/25 03:30 Pulse Ox 97 04/22/25 03:30 VTE Prohylaxis Risk Level: Moderate/High Risk Contraindications: Other (emergent surgery now) Prophylaxis: Mechanical Time Spent Time spent with Patient: 40-54 minutes Time was spent: preparing to see the patient(eg.review tests), ordering medications,tests, procedures, referring, communicating with other health career technical counselor and counseling the patient
--- NOTE | 2025-04-22 04:02 | W.ANESPRE ---
General Info Date of Service Date Performed: 04/22/25 Height: 5 ft 2.5 in Weight: 51.71 kg Body Mass Index (BMI): 20.5 Surgical Procedure: Operation Date: 04/22/25 03:30 Proposed Procedure Side Surgeon p Exploratory Laparotomy Not Applicable Randi Plasencia MD Meds Allergies and Home Medications Allergies Allergy/AdvReac Type Severity Reaction Status Date / Time Penicillins Allergy Unknown Other (See Unverified 04/22/25 00:03 Comment) adhesive Allergy Itching Unverified 04/22/25 00:03 amoxicillin (From Augmentin) Allergy Hives Unverified 04/22/25 00:03 clavulanic acid (From Allergy Hives Unverified 04/22/25 00:03 Augmentin) shrimp Allergy Anaphylaxis Unverified 04/22/25 00:03 trazodone Allergy Other (See Unverified 04/22/25 00:03 Comment) Home Medication ?Medication ?Instructions ?Recorded levothyroxine 50 mcg capsule 50 mcg PO DAILY 12/24/18 pantoprazole 40 mg tablet,delayed 40 mg PO DAILY 12/24/18 release rosuvastatin 40 mg tablet (Crestor) 40 mg PO DAILY 12/24/18 alprazolam 0.25 mg tablet 0.25 - 0.75 mg PO HS 12/26/18 ascorbic acid (vitamin C) 500 mg 500 mg PO DAILY 12/26/18 tablet (Vitamin C) cholecalciferol (vitamin D3) 25 1,000 unit PO BID 12/26/18 mcg (1,000 unit) capsule (Vitamin D3) desvenlafaxine succinate 50 mg 150 mg PO DAILY 12/26/18 tablet,extended release 24 hr magnesium L-lactate 84 mg 84 mg PO DAILY 12/26/18 tablet,extended release multivit with minerals-iron 18 1 tab PO DAILY 12/26/18 mg-folic ac 400 mcg-vit K 25 mcg tablet (Multi-Day Plus Minerals) umeclidinium 62.5 mcg-vilanterol 1 inh inhalation DAILY 12/26/18 25 mcg/actuation powdr for inhalation (Anoro Ellipta) vitamin B complex (B-Complex 1 tab PO DAILY 12/26/18 tablet) albuterol sulfate 90 mcg/actuation 2 puff inhalation QID PRN 01/18/21 aerosol inhaler (Proventil HFA) fluticasone propionate 50 50 mcg intranasal DAILY PRN 01/18/21 mcg/actuation nasal spray,suspension lisinopril 10 1 tab PO DAILY 01/18/21 mg-hydrochlorothiazide 12.5 mg tablet metoprolol succinate 25 mg 25 mg PO DAILY 01/18/21 tablet,extended release 24 hr omega-3 fatty acids-vitamin E 1 cap PO DAILY 01/18/21 1,000 mg capsule sitagliptin phosphate 100 mg 100 mg PO DAILY 01/18/21 tablet (Januvia) canagliflozin 100 mg tablet 100 mg PO DAILY 05/23/24 (Invokana) escitalopram oxalate 20 mg tablet 20 mg PO DAILY 05/23/24 hydroxyzine HCl 25 mg tablet 25 mg PO HS PRN 05/23/24 aspirin 81 mg capsule 81 mg PO DAILY 06/09/24 blood sugar diagnostic (FreeStyle 04/22/25 Lite Strips) dapagliflozin propanediol 5 mg 5 mg PO DAILY 04/22/25 tablet (Farxiga) ezetimibe 10 mg tablet 10 mg PO DAILY 04/22/25 insulin glargine U-300 conc 300 See Rx Instructions subcut .COMPLEX 04/22/25 unit/mL (1.5 mL) subcutaneous pen lisinopril 5 mg tablet 5 mg PO DAILY 04/22/25 potassium chloride 20 mEq 20 meq PO BID 04/22/25 tablet,extended release Current Visit Medications: Current Medications Generic Name Dose Route Start Last Admin Trade Name Freq PRN Reason Stop Dose Admin Iohexol 100 ml 04/22/25 00:30 04/22/25 00:22 Omnipaque 350 Mg/Ml 100 Ml Btl IJ 05/22/25 23:59 65 ml DIRECTED CHANO Administration Sodium Chloride 50 ml 04/22/25 00:30 04/22/25 00:22 Normal Saline - Diluent 50 Ml Vial IJ 50 ml DIRECTED CHANO Administration Sodium Chloride 0 ml 04/22/25 00:21 04/22/25 00:23 Normal Saline Flush 10 Ml Syr IVP 10 ml PRN PRN Administration PFSH Active Problems Active Problems: Problem Status Onset Code Metabolic acidosis Acute E87.20 Bowel obstruction Acute K56.609 Cecal volvulus Acute K56.2 Hypokalemia Acute E87.6 UTI (urinary tract infection) Acute N39.0 Acute hypokalemia Acute E87.6 Acute dehydration Acute E86.0 Hypercalcemia Resolved E83.52 Acute on chronic kidney failure Resolved N17.9, N18.9 Anxiety Chronic F41.9 Dehydration Resolved E86.0 CKD (chronic kidney disease) stage 3, GFR 30-59 ml/min Chronic N18.3 Abdominal pain Chronic R10.9 COPD (chronic obstructive pulmonary disease) Chronic J44.9 Diet-controlled type 2 diabetes mellitus Acute E11.9 Hyperlipidemia Acute E78.5 Hypertension Chronic I10 Medical History Medical History (Updated 04/22/25 @ 03:59 by Dorene Zuluaga MD) Discharged to home Small bowel obstruction Vomiting Ileus Diverticulitis large intestine Colitis Surgical History Surgical History S/P ventral herniorrhaphy S/P aortic aneurysm repair S/P tonsillectomy S/P cholecystectomy H/O non-cataract eye surgery L eye - retinal surgery S/P cataract extraction and insertion of intraocular lens Tobacco Smoking/Tobacco Use Status: Former Tobacco Use Alcohol Alcohol Intake: current Substance Use Substance use: Never Substance use type: does not use Vital Signs and Lab Results Vital Signs Most Recent Vital Signs in EMR: Most Recent Vital Signs Temp Pulse Resp BP Pulse Ox 35.7 C L 105 H 10 L 167/100 H 97 04/21/25 23:54 04/22/25 03:30 04/22/25 03:30 04/22/25 03:30 04/22/25 03:30 Lab Results 04/22/25 00:01 04/22/25 00:01 Complete Blood Count: WBC, (4.4-10.8) 17.00 10^3/uL H Today, 00:01 RBC, (3.93-5.22) 5.26 10^6/uL H Today, 00:01 Hgb, (11.2-15.7) 14.2 g/dL Today, 00:01 Hct, (36.0-46.0) 43.4 % Today, 00:01 Plt Count, (130-400) 309 10^3/uL Today, 00:01 VBG Lactate, (<or=2.0) 0.9 mmol/L Today, 03:06 Complete Metabolic Panel: Sodium, (136-145) 132 mmol/L L Today, 00:01 Potassium, (3.5-5.1) 4.5 mmol/L Today, 00:01 Chloride, (98-107) 105 mmol/L Today, 00:01 Carbon Dioxide, (20.0-31.0) 20.0 mmol/L Today, 00:01 BUN, (9-23) 22 mg/dL Today, 00:01 Creatinine, (0.55-1.02) 1.49 mg/dL H Today, 00:01 Est GFR (CKD-EPI 2020), (mL/min/1.73m2) 34.08 Today, 00:01 Magnesium, (1.6-2.6) 2.1 mg/dL Today, 00:01 Calcium, (8.3-10.6) 9.7 mg/dL Today, 00:01 Albumin, (3.4-5.0) 4.4 g/dL Today, 00:01 Glucose, (74-106) 220 mg/dL H Today, 00:01 Hemoglobin A1c, (<5.7) 6.8 % H 04/09/25, 11:30 Liver Function Panel: ALT, (10-49) 37 U/L Today, 00:01 AST, (<34) 40 U/L H Today, 00:01 Coagulation Panel: INR, (0.9-1.1) 1.2 H Today, 00:01 PT, (9.1-11.1) 11.7 sec H Today, 00:01 APTT, (20.6-30.2) 23.0 sec Today, 00:01 Cardiac Panel: Troponin I, (<35) < 3 ng/L Today NT-Pro-B Natriuret Pep, (<300) 84 pg/mL Today Venous Blood Gas: VBG pH, (7.31-7.41) 7.28 L Today, 01:18 VBG pO2 29 mmHg Today, 01:18 VBG pCO2, (41-51) 41 mmHg Today, 01:18 VBG O2 Saturation 43 % Today, 01:18 VBG HCO3, (23-28) 20 mmol/L L Today, 01:18 VBG Base Excess, (-2-3) -7 mmol/L L Today, 01:18 VBG Total CO2, (24-29) 18 mmol/L L Today, 01:18 Pancreas Panel: Lipase, (<53) 31 U/L Today, 00:01 Thyroid Panel: TSH, (0.55-4.78) 16.13 uIU/mL H Today, 00:01 Anesthesia Assessment and Plan Anesthesia History Personal History: No History of Anesthesia Complications Family History: No Family History of Anesthesia Complications Exercise Tolerance Exercise Tolerance: Metabolic Equivalents>4 Pertinent Negatives Pertinent Negatives: No Symptoms of GERD Cardiac & Pulmonary Exam Cardiac Exam: Normal S1/S2 Heart Sounds Pulmonary Exam: Clear Bilateral Breath Sounds Implantable Cardiac Device Does patient have a Pacemaker or an ICD?: No Airway Exam Known Difficult Airway: No Mallampati Class: 2 Mouth Opening: Normal (> 3cm) Thyromental Distance: Greater than 3 cm Neck Range of Motion: Full ROM Neck Circumference: Normal Teeth Condition: Removable Dentures/Plates Upper ASA Classification ASA Score: ASA 3 Emergency Case?: Yes NPO Status NPO Status: NPO Clears >2 hours, Solids >8 hours Anesthesia Plan Resuscitation Status: Full Code Anesthesia Technique: General Anesthesia Airway Planned: Endotracheal Tube Monitors Used: Standard Monitors and Cerebral Oximetry Preoperative Comments:: Aortic stent. EKG=ST, no ST changes. Bowel obstruction.
[2025-04-22] MEDS: Lactated Ringers 1,000 ML 75 ML IV ×2 (04:09→20:52)
--- NOTE | 2025-04-22 04:55 | BOWEL_PTH ---
PATIENT: Marleni Tejeda LOC: U#:[id number] AGE/SX: 74/F ROOM: 207 RE04/22/[address]: Randi Plasencia MD : 1950 BED: A DIS: 04/27/2025 SPEC #: [id number] RECD: 04/22/25 12:40 STATUS: JUSTINE REQ #: [id number] HUGH: 04/22/25 04:[address]: Randi Plasencia DEPT: Surgical Specimen RECD BY: Glenda Woodard ENTERED: 04/22/25 12:42 SP TYPE: Bowel OTHR DR: SHIRLEY LAWLER, CERTIFIED RESPIRATORY THERAPIST [facility] Tissues: 1 - BIOPSY BOWEL 2 - BIOPSY BOWEL Procedures: GROSS AND MICRO LEVEL 4 Comments: [id number]
[2025-04-22] MEDS: Bupivacaine LIPOSOME/PF 133 MG/10 ML VIAL IJ (05:36)
[2025-04-22] MEDS: Bupivacaine 0.5% Pres-Free W/EPI 30 ML VIAL (05:36)
[2025-04-22] MEDS: ACETAMINOPHEN 1,000 MG/100 ML BAG 400 MG IVPB ×2 (05:42→15:32)
--- NOTE | 2025-04-22 05:58 | ROE_ITS ---
Operative Note Operative Note PRE-OP DIAGNOSIS: cecal volvulus POST-OP DIAGNOSIS: other (Internal hernia with obstruction of cecum) Mesenteric mass of sigmoid PROCEDURE: 1. Exploratory laparotomy. 2. lysis of adhesions. 3. segmental small bowel resection with anastomosis SURGEON: Randi Plasencia ANESTHESIA TYPE: Local By Surgeon and General LMA/ETT Refer to Anesthesia Record ESTIMATED BLOOD LOSS: 25 PATHOLOGY: other (1. Mesenteric mass. 2. small bowel segment) COMPLICATIONS: None Patient was transported to: PACU Patient's condition: stable Procedure Description: 74yo female who presented to the emergency department with severe abdominal pain. She was evaluated and found to have small bowel obstruction secondary to what looked to be cecal volvulus. She had acute worsening of chronic renal fa ilure and had leukocytosis. Surgical intervention was indicated. We discussed the proposed procedure as an exploratory laparotomy with ileocecectomy. Discussion about the procedure risks and benefits and alternatives and expectations was completed. The patient and her asked good questions and verbalized understanding of the plan. Informed consent was obtained. She was transferred to the operating room He was placed supine on the operating table. SCDs were placed and all pressure points padded appropriately. General anesthesia was induced. Chopra catheter was placed. The abdomen was prepped and draped in the usual sterile fashion. Midline incision was made with a 10 blade scalpel and dissection down to the fascia was completed with cautery. The fascia was opened and the peritoneal cavity entered using the cautery pen. The abdomen was examined. In the epigastrium there was an old mesh. The mesh had significant small bowel and colon adhesed to it. The cecum and distal small bowel were noted to be distended with air. The sigmoid and descending colon were also noted to be distended with air. There was no classic cecal volvulus present. The cecum and terminal ileum were involved in an internal hernia. A tethered adhesion between the sigmoid mesentery and the epigastric mesh was noted, and the cecum and terminal ileum were wrapped around this tether point. This internal hernia created an obstruction of the cecum and terminal ileum. The cecum and terminal ileum were untwisted, but the adhesive band remained tightly in place at the base of the cecal mesentery. The adhesion was cut with LigaSure device and the cecum was freed. A segment of small bowel was noted to be tethered to the epigastric mesh and this prevented it from returning to normal position and prevented complete untwisting of the ileocecal area. Metzenbaum scissors were used to carefully take down the small bowel from the mesh. It was evident that small bowel was densely adhered to the mesh and that it would not be released without cutting a piece of the mesh down. A segment of the mesh was removed to free the small bowel. The piece of small bowel was examined and found sig nificant serosal damage from the mesh, which was still stuck to it. Resection of the segment of small bowel is indicated. Segment length is 3cm. Location of the segment is approximately 30 cm from the ileocecal valve. The BILL stapler was used to transect across the small bowel proximal and distal to the abnormal segment. Enterotomies were created with cautery and the BILL stapler was used to create an anastomosis in a [id number] fashion. The common enterotomy was closed with a running 3-0 Vicryl suture. 3-0 silk interrupted Lembert sutures were used to imbricate the staple line and closure site. The mesenteric defect was closed with a figure of eight 3-0 silk suture. The anastomosis was palpated and was widely patent and hemostatic. The adhesive band from the sigmoid colon was examined. It appeared to be an elongated epiploic appendage. At the base of this adhesion on the mesentery of the sigmoid there was a 2 cm mass noted. The mass appeared benign in nature. It was not growing out of the mesentery but was adhesed to it. It was white, hardened, and rounded. It was lobulated. It is possible that it is a piece of necrotic fat from prior diverticulitis. Cautery was used to remove it from the mesentery it was passed off the field as a specimen. The abdomen was reexamined and the small bowel was run from ligament of Treitz to ileocecal valve. No areas of abnormality or obstruction were noted. The colon was examined and followed up from the cecum to the rectosigmoid junction. No areas of abnormality or obstruction were noted. The transverse colon was densely adherent to the anterior abdominal wall in the epigastrium. All small bowel and colon were viable and well perfused. There is no indication to perform ileocecectomy given there was no true cecal volvulus. The midline was closed with an 0 looped PDS suture in running fashion. The subcutaneous tissue was washed and dried. Marcaine and Exparel mixture was injected directly into the fascia in the midline. The skin was closed with karol. The abdominal wall was washed and dried. 4 x 4's and tape were placed over the staple line. All sponge and instrument counts were correct at the end of the case. The patient tolerated the procedure well. She extubated in the operating room and transferred to the recovery room in stable condition. No complications. Date of Procedure: 04/22/25
[2025-04-22] MEDS: Normal Saline 1,000 ML 30 ML IV (06:02)
--- NOTE | 2025-04-22 06:35 | W.ANESPOSTOP ---
Postoperative Evaluation Date, Time and Location Date Performed: 04/22/25 Time Performed: 06:35 Patient Location: PACU Vital Signs Most Recent Imported Vital Signs: Most Recent Vital Signs Temp Pulse Resp BP Pulse Ox 37.0 C 105 H 18 171/88 H 97 04/22/25 04:03 04/22/25 04:03 04/22/25 04:03 04/22/25 04:03 04/22/25 04:03 Pain Score Most Recent Pain Score: Most Recent Pain Score Pain Level 3 04/22/25 02:55 Assessment Mental Status: Awake (Alert & Oriented to Patient Baseline) Airway and Respiratory Function: Patent airway with normal (patient baseline) respiratory exam Cardiovascular Function: Hemodynamically Stable Hydration Status: Adequately Hydrated Nausea & Vomiting: No Nausea or Vomiting Pain: Pt. Denies Any Pain Peripheral Nerve Block: Patient did not receive a nerve block
[2025-04-22 07:31] LABS: Abs Immature Grans 0.04 10^3/uL (0.0-0.06); HCT 39.0 % (36.0-46.0); HGB 12.9 g/dL (11.2-15.7); Immature Grans % 0.3 %; MCH 27.4 pg (27.0-33.0); MCHC 33.1 % (32.0-36.0); MCV 83 fL (80-95); MPV 9.5 fL (8.0-11.0); Platelet Count 237 10^3/uL (130-400); RBC 4.71 10^6/uL (3.93-5.22); RDW 17.0 % (11.7-14.6); RDW-SD 51.6 fL; WBC 13.38 10^3/uL (4.4-10.8)
[2025-04-22 07:51] LABS: Anion Gap 5.5 mmol/L (3-11); BUN 20 mg/dL (9-23); CO2 20.5 mmol/L (20.0-31.0); Calcium 8.4 mg/dL (8.3-10.6); Chloride 109 mmol/L (98-107); Glucose 184 mg/dL (74-106); Potassium 4.6 mmol/L (3.5-5.1); Sodium 135 mmol/L (136-145)
[2025-04-22] MEDS: ALPRAZolam 0.25 MG TAB PO ×2 (07:59→17:59)
--- NOTE | 2025-04-22 09:06 | PDOC.CMIN ---
Date of service: 04/22/25 Time of Service: 09:06 Care Management Initial Assmt Initial Assessment Reason for Hospitalization: cecal volvulus Functional Status/Living Situation Patient Presentation: Marleni was sitting up in a chair when CM met with her. She was very pleasant in interaction and agreeable to conversation. Marleni was admitted last night with abdominal pain. She was found to have a cecal volvulus and was taken to surgery early this morning. She ended up having a bowel resection with end to end anastamosis as a sigmoid mass was found. Marleni reported that she is feeling well this afternoon and that her pain is about a 4/10. After discussion with her nurse Marleni decided to try the oral pain medication vs the IV Morphine. Marleni lives in a single family home in [place] with her partner of 30+ years, Tony. She proudly told CM that Tony built their home himself. It ias a log home which she had always wanted. Tony and Marleni met in [place] 30 years ago. They lived in [place] for about a year and then moved to [place]. She worked for the [email or web address] in various capacities for many years and enjoyed the work. Marleni is independnet at baseline and does not receive any community services. Town of Residence: [place] Resides with: Other Employment Status: Retired Instrumental Activities of Daily Living (ADLs): Independent Medications Medication Management: No Issues/Barriers identified Physical Functioning/Mobility Assistive Device: none Advance Directives Advance Directives: Do you have an Advance Directive: Y 10/12/12, 14:50 AD On File at [facility]: Y 10/12/12, 14:48 Date Asked 12/24/18 Today, 06:32 AD Date Reviewed 04/22/25 Today, 06:32 COLST On File at [facility] COLST Date Scanned Code Status Resuscitation Status Full Code Portal Pt does not currently have a portal and education provided: Yes Insurance Coverage/Financial Issues Insurance: MEDICARE BC/BS Care Team Visit Care Team Role Provider Type SHIRLEY LAWLER NP Primary Care Provider NON-[facility] STAFF PHYSICIAN InPatient Arik Santos Other Providers OTHER Tejas Bland MD Other Providers [facility] STAFF PHYSICIAN Dorene Zuluaga MD Emergency Provider [facility] STAFF PHYSICIAN Randi Plasencia MD Admit Provider [facility] STAFF PHYSICIAN Attending Provider Discharge Potential Discharge Needs: Surgical F/U Appt Anticipated Barriers to Discharge: None Identified Patient/Family Education Needs: Review discharge instructions, discuss Ask Me Three Transportation: Private vehicle Plan: Anticipate that Marleni will be discharged home with no new services when medically cleared. She will follow up with her surgeon and plan of care and transport with her partner. CM will follow and continue to support discharge planning efforts., Social Determinants of Health Screening Will the Patient Participate in the Screening?: Unable to obtain PFSH All Active Problems (Updated 04/22/25 @ 03:59 by Dorene Zuluaga MD) Metabolic acidosis (Acute) Bowel obstruction (Acute) Cecal volvulus (Acute) Hypokalemia (Acute) UTI (urinary tract infection) (Acute) Acute hypokalemia (Acute) Acute dehydration (Acute) Anxiety (Chronic) CKD (chronic kidney disease) stage 3, GFR 30-59 ml/min (Chronic) Abdominal pain (Chronic) COPD (chronic obstructive pulmonary disease) (Chronic) Diet-controlled type 2 diabetes mellitus (Acute) Hyperlipidemia (Acute) Hypertension (Chronic) Medical History (Updated 04/22/25 @ 03:59 by Dorene Zuluaga MD) Discharged to home Small bowel obstruction Vomiting Ileus Diverticulitis large intestine Colitis Surgical History S/P ventral herniorrhaphy S/P aortic aneurysm repair S/P tonsillectomy S/P cholecystectomy H/O non-cataract eye surgery L eye - retinal surgery S/P cataract extraction and insertion of intraocular lens Family History Father Heart disease CHF (congestive heart failure) Diabetes Hypertension Maternal Grandmother Stroke Paternal Grandmother Breast cancer Mother Vulvar cancer Social History Smoking/Tobacco Use Status: Former Tobacco Use Pack-years: 120 Tobacco: How many years used: 30 Smoking risk assessment performed?: Yes Alcohol Intake: current Drug use: Never Substance use type: does not use Housing: house Do you feel safe at home: Yes Do you feel safe in your relationship?: Yes
[2025-04-22] MEDS: Pantoprazole 40 MG VIAL IVP (09:55)
[2025-04-22] MEDS: MORPHine 2 MG/ML SYR IVP ×3 (09:56→23:20)
[2025-04-22] MEDS: Tiotropium/Olodaterol 10 PUFF INHALER 2 PUFF IH (11:26)
[2025-04-22] MEDS: Metoprolol CR 25 MG TABCR PO (12:19)
[2025-04-22] MEDS: Insulin Aspart 300 UNITS/3 ML PEN SC ×3 (12:19→21:08)
--- NOTE | 2025-04-22 14:10 | IN_ITS ---
PT Notes Visit Reasons: Cecal Volvulus, SBO Physical Therapy Inpatient Initial Evaluation Date: 04/22/2025 Referring Doctor: Randi Plasencia MD PT Orders: PT CONSULT: eval and treat Precautions: Fall. Standard. Activity as tolerated. Incision on midline of abdominal from surgery., Chopra, IV fluids LUE Patient Profile/Admitting Diagnosis: 74-year-old pt admitted to the ED for severe epigastric pain with nausea. Pt had a CT scan that revealed pt had cecal volvulus. Pt went into surgery on 04/22/25 with general anesthesia. Surgeon found mesenteric mass of sigmoid and lysis of lesions and small bowel resection with anastomosis. PMHX: Metabolic acidosis (Acute) Bowel obstruction (Acute) Cecal volvulus (Acute) Hypokalemia (Acute) UTI (urinary tract infection) (Acute) Acute hypokalemia (Acute) Acute dehydration (Acute) Anxiety (Chronic) CKD (chronic kidney disease) stage 3, GFR 30-59 ml/min (Chronic) Abdominal pain (Chronic) COPD (chronic obstructive pulmonary disease) (Chronic) Diet-controlled type 2 diabetes mellitus (Acute) Hyperlipidemia (Acute) Hypertension (Chronic) Medical History (Updated 04/22/25 @ 03:59 by Dorene Zuluaga MD) Discharged to home Small bowel obstruction Vomiting Ileus Diverticulitis large intestine Colitis Surgical History S/P ventral herniorrhaphy S/P aortic aneurysm repair S/P tonsillectomy S/P cholecystectomy H/O non-cataract eye surgery L eye - retinal surgery S/P cataract extraction and insertion of intraocular lens Social History/Home Situation: Pt lives in single family home with 6 GREGG with a rail on both sides but they are wide and she only uses one. Equipment Owned/DME: no equipment owned. Subjective: Pt reported feeling well, and only slight pain. Pt was a little nervous about standing and asked if PT would be with her. PT assured they would be there for her to stand. That calmed pt nerves. Objective: General Observation: Pt lying in bed holding one of her pillows on her abdomen, watching TV as PT arrived.IV Fluids infusing Mental Status: Alert and oriented as to person, place, time, and purpose. Able to pay attention, focus, and respond appropriately. Pain: 3/10 in abdominal resting in bed 4/10 in abdominal post ambulation Vital Signs: monitored by nursing ROM: Right Upper Extremity:?? Shoulder Flexion WFL. Shoulder abduction WFL. Elbow flexion WFL. Wrist flexion WFL. Functional opening and closing of hand WFL. Left Upper Extremity:? Shoulder Flexion WFL. Shoulder abduction WFL. Elbow flexion WFL. Wrist flexion WFL. Functional opening and closing of hand WFL. Right Lower Extremity: Hip flexion WFL. Hip abduction WFL. Knee flexion WFL. Ankle dorsiflexion WFL. Ankle plantarflexion WFL. Left Lower Extremity: Hip flexion WFL. Hip abduction WFL. Knee flexion WFL. Ankle dorsiflexion WFL. Ankle plantarflexion WFL. Strength: Right Upper Extremity: Grossly 4/5. Left Upper Extremity: Grossly 4/5. Right Lower Extremity: Grossly 4/5. Left Lower Extremity: Grossly 4/5. Bed Mobility/Transfers: Supine to sit with supervision with head of bed raised mild verbal cues for safe/correct technique Sit to supine with supervision with head of bed raised mild verbal cues for safe/correct technique Sit to stand with Supervision mild cues for safe/correct technique Stand to sit with Supervision mild cues for safe/correct technique Bed to reclining chair with FWW and CGA with mild cues for safe/correct technique Gait: Instructed patient with level surface ambulation of 20 feet with FWW requiring CGA. Nevaeh decreased. Step height decreased. Step length decreased. Balance: Static Sitting: good Dynamic Sitting: good Static Standing: good Dynamic Standing: good with B UE support Special Tests: Mobility Limitations Standardized Measure [facility] 6 clicks Basic Mobility Inpatient Short Form: Raw Score: 18? CMS Score: 46.58 % deficit? Informed Consent/Education:? Patient was instructed in purpose of PT consult and plan of care. Agreeable to proceed with established PT POC to achieve personal goals. Assessment: ? Pt was able to go from supine to EOB with supervision. Pt was able to stand with supervision. PT had the pt stand at FWW to ensure she wasn?t lightheaded or dizzy. Pt felt well. PT and the pt ambulate to the door. Pt was able to ambulate FWW CGA to the door and back to recliner 20 feet. Pt reported some SOB during ambulation. PT ask pt to take a second and pt reported feeling good. PT directed the pt to turn around and ambulate to the recliner. Pt felt tired after sitting in the recliner, but felt good to get out of bed. Next session PT will have the pt ambulate further to increase activity tolerance, and if able to ambulate the stairs to simulate stairs at home and thus preparing pt for when she is discharged. Patient presents with clinical signs and symptoms consistent with current/admitting diagnoses that have resulted to mobility limitations, gait instability, generalized weakness, and overall ADL decline as demonstrated by the following impairment level findings: 1.? Decreased strength to Lower Extremities major muscle groups 2.? Impaired sitting/standing balance 3.? Impaired activity tolerance 4.? Shortness of breath Impairments are contributing to the following functional limitations: 1.? Decline in bed mobility skills 2.? Decline in transfer skills 3.? Difficulty with ambulation without assistive device and physical assistance 4.? Increased completion time for mobility ADL performance 5.? Increased risk for falls 6.? Difficulty with managing steps alone safely Patient is assessed as a Low complexity based on the following: History: 74-year-old female with past medical history as indicated above Examination: Demonstrable impairment in strength, balance, and mobility level with underlying impairments and functional limitations as exhibited above as well as deficit score of 46.58% utilizing the [facility] Mobility Inpatient Short Form Presentation: evolving Decision Making: Low complexity Goals: Goals X1 week 1. Supine-Sit independent 2. Sit-Supine independent 3. Sit-Stand independent 4. Stand-Sit independent 5. Bed-Chair independent with single point cane/ Least restricitve device (LRD) 6. Chair-Bed independent with single point cane/ least restricitive device 7. Independent gait on level surface with use of single point cane/LRD for at least 200 feet without report of pain nor dyspnea 8. Independent stair negotiation while holding onto one rail for at least 6 steps without report of pain nor dyspnea 9. Independent with home exercise program Plan of Care/Treatment Plan: 1-2x/day, 7 days/week x 1 week. Plan of care has been reviewed with the SUPERVISOR GRAPHITE providing the service under Physical Therapy direction. Initiate Physical Therapy intervention for pain management as needed, strengthening, bed mobility, transfers, gait, stairs, balance training, and use of assistive device. DISCHARGE RECOMMENDATIONS: ?Home with outpatient PT TREATMENT CODE/TIME: 84644/1:50pm-2:08pm Thank you for the opportunity to participate in the care of this patient. Written by: Bryce Torres Supervised by: Nancy Goodman, PT [facility] [place], [place]
[2025-04-22] MEDS: HYDROcodone 5/Acetaminophen 325 TAB PO (14:27)
--- NOTE | 2025-04-22 16:27 | PGE_ITS ---
Date of Service Date of service: 04/22/25 Time of Service: 08:00 Assessment and Plan Assessment and plan (1) Cecal volvulus: Status: Acute Assessment and plan: Apr 22 ophthalmic medical technologist exlap [address] Dr Plasencia Diet started Heparin prophylaxis ordered to start Apr 22 evening (2) Diabetes mellitus with insulin therapy: Status: Acute Assessment and plan: A1C 6.8 this month, excellent control for this age and these comorbidities Home regimen includes SGLT2, unclear if she's taking canagliflozin vs dapagliflozin, held regardless She is also on glargine 10u HS and sitagliptin, both held Will do correctional only on medium scale for now, need to clarify home regimen CHO diet (3) CKD (chronic kidney disease) stage 3, GFR 30-59 ml/min: Status: Chronic Assessment and plan: Creatinine 1.49 on arrival, improved to 1.29 pre-operatively, at baseline (4) Hypertension: Status: Chronic Assessment and plan: Continue home metoprolol succinate Hold lisinopril pending BP Subjective Subjective Interval history since last seen: Ms. Tejeda is somnolent post exlap. Pain well controlled at this time. Exam Narrative Exam Narrative: General: This is a somnolent woman in no acute distress HEENT: Normocephalic, atraumatic CV: RRR Resp: CTAB Abd: midline incision site c/d/i, bandaged, appropriately tender MSK: voluntary motion x4 Neuro: awake, alert, no focal deficits Objective Last Vital Signs Temp 36.3 C L 04/22/25 10:15 Pulse 97 H 04/22/25 10:15 Resp 16 04/22/25 10:15 BP 147/67 H 04/22/25 10:15 Pulse Ox 95 04/22/25 10:15 Laboratory Results - last 24 hr 04/22/25 04/22/25 04/22/25 00:01 01:18 03:06 WBC 17.00 H RBC 5.26 H Hgb 14.2 Hct 43.4 MCV 83 MCH 27.0 MCHC 32.7 RDW 16.9 H Plt Count 309 MPV 9.8 Immature Gran % 0.0 Neutrophils % 63.0 Lymphocytes % 33.0 Atypical Lymphs % 2 Monocytes % 2.0 Eosinophils % 0.0 Basophils % 0.0 Nucleated RBC % 0.0 Absolute Neutrophils 10.71 H Absolute Lymphocytes 5.95 H Absolute Monocytes 0.34 Absolute Eosinophils 0.00 Absolute Basophils 0.00 RBC Morphology Normal PT 11.7 H INR 1.2 H APTT 23.0 VBG pH 7.28 L VBG pCO2 41 VBG pO2 29 VBG HCO3 20 L VBG Total CO2 18 L VBG O2 Saturation 43 VBG Base Excess -7 L VBG Lactate 2.3 H* 0.9 Sodium 132 L Potassium 4.5 Chloride 105 Carbon Dioxide 20.0 Anion Gap 7 BUN 22 Creatinine 1.49 H Est GFR (CKD-EPI 2020) 34.08 Glucose 220 H Calcium 9.7 Magnesium 2.1 Total Bilirubin 0.40 AST 40 H ALT 37 Alkaline Phosphatase 125 H Troponin I < 3 < 3 < 3 NT-Pro-B Natriuret Pep 84 Total Protein 7.4 Albumin 4.4 Lipase 31 Procalcitonin < 0.10 TSH 16.13 H Free T4 1.27 Urine Color Yellow Urine Clarity Clear Urine pH 5.5 Ur Specific [place] 1.015 Urine Protein Negative Urine Ketones 15 H Urine Blood Negative Urine Nitrite Negative Urine Bilirubin Negative Urine Urobilinogen 0.2 Ur Leukocyte Esterase Negative Urine RBC 0-2 Urine WBC 3-5 Ur Epithelial Cells Few Urine Crystals Negative Urine Bacteria Few Urine Casts Negative Urine Mucus Trace Ur Culture Indicated? No Urine Glucose >=1000 H Salicylates ABO/Rh Antibody Screen 04/22/25 04/22/25 03:18 07:15 WBC 13.38 H RBC 4.71 Hgb 12.9 Hct 39.0 MCV 83 MCH 27.4 MCHC 33.1 RDW 17.0 H Plt Count 237 MPV 9.5 Immature Gran % 0.3 Neutrophils % 86.6 Lymphocytes % 9.3 Atypical Lymphs % Monocytes % 3.4 Eosinophils % 0.0 Basophils % 0.4 Nucleated RBC % 0.0 Absolute Neutrophils 11.59 H Absolute Lymphocytes 1.24 Absolute Monocytes 0.45 Absolute Eosinophils 0.00 Absolute Basophils 0.05 RBC Morphology PT INR APTT VBG pH VBG pCO2 VBG pO2 VBG HCO3 VBG Total CO2 VBG O2 Saturation VBG Base Excess VBG Lactate Sodium 135 L Potassium 4.6 Chloride 109 H Carbon Dioxide 20.5 Anion Gap 5.5 BUN 20 Creatinine 1.29 H Est GFR (CKD-EPI 2020) 40.25 Glucose 184 H Calcium 8.4 Magnesium Total Bilirubin AST ALT Alkaline Phosphatase Troponin I NT-Pro-B Natriuret Pep Total Protein Albumin Lipase Procalcitonin TSH Free T4 Urine Color Urine Clarity Urine pH Ur Specific [place] Urine Protein Urine Ketones Urine Blood Urine Nitrite Urine Bilirubin Urine Urobilinogen Ur Leukocyte Esterase Urine RBC Urine WBC Ur Epithelial Cells Urine Crystals Urine Bacteria Urine Casts Urine Mucus Ur Culture Indicated? Urine Glucose Salicylates < 3.0 ABO/Rh O Positive Antibody Screen NEGATIVE VTE Prohylaxis Risk Level: Moderate/High Risk Contraindications: None Prophylaxis: Pharmacologic Time Spent with Patient Time Spent with Patient: 25-34 minutes Time was spent: preparing to see the patient(eg.review tests), obtaining and/or reviewing separately otained hiistory, ordering medications,tests, procedures, referring, communicating with other health morning caregiver, indepentently interpreting results, counseling the patient and care coordination
--- NOTE | 2025-04-22 16:44 | W.PM.PROGNOT ---
Objective Last Vital Signs Temp 36.3 C L 04/22/25 10:15 Pulse 97 H 04/22/25 10:15 Resp 16 04/22/25 10:15 BP 147/67 H 04/22/25 10:15 Pulse Ox 95 04/22/25 10:15 Laboratory Results - last 24 hr 04/22/25 04/22/25 04/22/25 00:01 01:18 03:06 WBC 17.00 H RBC 5.26 H Hgb 14.2 Hct 43.4 MCV 83 MCH 27.0 MCHC 32.7 RDW 16.9 H Plt Count 309 MPV 9.8 Immature Gran % 0.0 Neutrophils % 63.0 Lymphocytes % 33.0 Atypical Lymphs % 2 Monocytes % 2.0 Eosinophils % 0.0 Basophils % 0.0 Nucleated RBC % 0.0 Absolute Neutrophils 10.71 H Absolute Lymphocytes 5.95 H Absolute Monocytes 0.34 Absolute Eosinophils 0.00 Absolute Basophils 0.00 RBC Morphology Normal PT 11.7 H INR 1.2 H APTT 23.0 VBG pH 7.28 L VBG pCO2 41 VBG pO2 29 VBG HCO3 20 L VBG Total CO2 18 L VBG O2 Saturation 43 VBG Base Excess -7 L VBG Lactate 2.3 H* 0.9 Sodium 132 L Potassium 4.5 Chloride 105 Carbon Dioxide 20.0 Anion Gap 7 BUN 22 Creatinine 1.49 H Est GFR (CKD-EPI 2020) 34.08 Glucose 220 H Calcium 9.7 Magnesium 2.1 Total Bilirubin 0.40 AST 40 H ALT 37 Alkaline Phosphatase 125 H Troponin I < 3 < 3 < 3 NT-Pro-B Natriuret Pep 84 Total Protein 7.4 Albumin 4.4 Lipase 31 Procalcitonin < 0.10 TSH 16.13 H Free T4 1.27 Urine Color Yellow Urine Clarity Clear Urine pH 5.5 Ur Specific [place] 1.015 Urine Protein Negative Urine Ketones 15 H Urine Blood Negative Urine Nitrite Negative Urine Bilirubin Negative Urine Urobilinogen 0.2 Ur Leukocyte Esterase Negative Urine RBC 0-2 Urine WBC 3-5 Ur Epithelial Cells Few Urine Crystals Negative Urine Bacteria Few Urine Casts Negative Urine Mucus Trace Ur Culture Indicated? No Urine Glucose >=1000 H Salicylates ABO/Rh Antibody Screen 04/22/25 04/22/25 03:18 07:15 WBC 13.38 H RBC 4.71 Hgb 12.9 Hct 39.0 MCV 83 MCH 27.4 MCHC 33.1 RDW 17.0 H Plt Count 237 MPV 9.5 Immature Gran % 0.3 Neutrophils % 86.6 Lymphocytes % 9.3 Atypical Lymphs % Monocytes % 3.4 Eosinophils % 0.0 Basophils % 0.4 Nucleated RBC % 0.0 Absolute Neutrophils 11.59 H Absolute Lymphocytes 1.24 Absolute Monocytes 0.45 Absolute Eosinophils 0.00 Absolute Basophils 0.05 RBC Morphology PT INR APTT VBG pH VBG pCO2 VBG pO2 VBG HCO3 VBG Total CO2 VBG O2 Saturation VBG Base Excess VBG Lactate Sodium 135 L Potassium 4.6 Chloride 109 H Carbon Dioxide 20.5 Anion Gap 5.5 BUN 20 Creatinine 1.29 H Est GFR (CKD-EPI 2020) 40.25 Glucose 184 H Calcium 8.4 Magnesium Total Bilirubin AST ALT Alkaline Phosphatase Troponin I NT-Pro-B Natriuret Pep Total Protein Albumin Lipase Procalcitonin TSH Free T4 Urine Color Urine Clarity Urine pH Ur Specific [place] Urine Protein Urine Ketones Urine Blood Urine Nitrite Urine Bilirubin Urine Urobilinogen Ur Leukocyte Esterase Urine RBC Urine WBC Ur Epithelial Cells Urine Crystals Urine Bacteria Urine Casts Urine Mucus Ur Culture Indicated? Urine Glucose Salicylates < 3.0 ABO/Rh O Positive Antibody Screen NEGATIVE
[2025-04-22] MEDS: Heparin 5,000 UNITS/ML VIAL 5000 UNITS SC (20:50)
[2025-04-23] MEDS: ALPRAZolam 0.25 MG TAB PO ×3 (00:34→19:50)
[2025-04-23] MEDS: ACETAMINOPHEN 1,000 MG/100 ML BAG 400 MG IVPB ×3 (00:34→19:47)
[2025-04-23] MEDS: MORPHine 2 MG/ML SYR IVP ×2 (05:00→09:07)
[2025-04-23 07:17] VITALS: BP 145/83; PULSE 103; RESP 16; TEMP 36.6; O2SAT 93
[2025-04-23] MEDS: Tiotropium/Olodaterol 10 PUFF INHALER 2 PUFF IH (07:57)
--- NOTE | 2025-04-23 08:41 | CHAPLAIN ---
I visited with Marleni and her yesterday. Marleni was resting in be and easily engaged in conversation. She was very pleased with the care she's received in the ED, OR and M/S. She seems to be comfortable being here and appears to be well supported by her . I explained my role and offered support. Marleni is retired from working for the [employer], her continues to work for the [employer] remotely from their home in [place].
[2025-04-23] MEDS: Insulin Aspart 300 UNITS/3 ML PEN SC (08:56)
[2025-04-23] MEDS: Pantoprazole 40 MG VIAL IVP (08:57)
[2025-04-23] MEDS: Normal Saline Flush 10 ML SYR IVP ×3 (08:58→19:54)
[2025-04-23] MEDS: Metoprolol CR 25 MG TABCR PO (08:58)
[2025-04-23] MEDS: Heparin 5,000 UNITS/ML VIAL 5000 UNITS SC (08:58)
--- NOTE | 2025-04-23 09:50 | W.PM.PROGNOT ---
Date of Service Date of service: 04/23/25 Time of Service: 09:50 Assessment and Plan Assessment and plan (1) Cecal volvulus: Status: Acute Assessment and plan: POD 1 s/p exploratory laparotomy with lysis of adhesision and segmental small bowel resection with anastomosis. Discussed only consuming clear liquids to moisten her mouth. Concern that she is starting to have a post operative ileus given her abdominal distention and discomfort. Ordered simethicone to help with gas discomfort. Will restart IV fluids and encouraged her to continue with ambulation and sitting in the chair as tolerated. She will continue with use of the incentive spirometer. Light, clear yellow urine in the garcía, will d/c garcía. Pain is not controlled completely, anticipate she will have some relief with simethicone in conjunction with her scheduled pain medications.? Discussed with nsg, if she begins to have any nausea or vomiting they will notify general surgery. (2) Acute on chronic kidney failure: Status: Resolved (3) COPD (chronic obstructive pulmonary disease): Status: Chronic (4) Hypertension: Status: Chronic Assessment and plan: manage expectantly, restart home meds when appropriate. (5) Hyperlipidemia: Status: Acute Assessment and plan: resume homemeds when appropriate. (6) Anxiety: Status: Chronic Assessment and plan: Resume home meds when appropriate. Subjective Subjective Interval history since last seen: Arrive with Marleni resting in bed. She expresses that her pain has been 6/10PL on average and she is expressing that she has been having gas pain as well. She denies any nausea or vomiting. She describes that she has been walking and doing well with this, but it tires her out quickly. Exam Const General: cooperative, healthy appearing and comfortable Orientation: alert and oriented x3 Resp Effort & Inspection: normal respiratory effort, no audible wheezes and no cough GI Inspection: distended Palpation: soft, no guarding and tender Percussion: tympanic to percussion Objective Last Vital Signs Temp 36.6 C 04/23/25 07:17 Pulse 103 H 04/23/25 07:17 Resp 16 04/23/25 07:17 BP 145/83 H 04/23/25 07:17 Pulse Ox 93 04/23/25 07:17 VTE Prohylaxis Risk Level: Low Risk Contraindications: None Prophylaxis: Patient ambulatory Time Spent with Patient Time Spent with Patient: <25 minutes Time was spent: preparing to see the patient(eg.review tests), ordering medications,tests, procedures and counseling the patient
[2025-04-23] MEDS: Simethicone 80 MG CHEW 40 MG PO ×4 (10:13→21:39)
--- NOTE | 2025-04-23 11:01 | PTTR_ITS ---
PT Notes Visit Reasons: Cecal Volvulus, SBO Physical Therapy Inpatient Treatment Note Date: 04/23/2025 Precautions: Fall. Standard. Activity as tolerated. Incision on midline of abdominal from surgery. Subjective: Pt reported feeling well, and only slight pain. Feeling better after pain meds were administered by RN. She stated she walked last night 2 times with the nurse around the unit. Objective: General Observation: Pt lying in bed holding one of her pillows on her abdomen, watching TV as PT arrived. Pain: 3/10 in abdominal resting in bed Vital Signs: monitored by nursing ? Post 150 feet and stairs: bp:142/73, HR 123, SPO2: 94 Therapeutic activity 25184: Bed Mobility/Transfers: Supine to sit with supervision with head of bed raised mild verbal cues for safe/correct technique Sit to stand with Supervision Stand to sit with Supervision Ambulation: 350 feet. 150 feet supervision FWW. 200 feet supervision no AD Stairs: reciprocal pattern 3 sets of Two six-inch steps and three four-inch steps supervised with railings on both sides. 1 set of Two six-inch steps and three four-inch steps supervised with railing on left side. Therapeutic exercises: [id number] Standing heel raises: [id number] Mini Squats: [id number] Seated LAQ B [id number] Assessment: ? Pt was able to ambulate 150 feet supervision with FWW. Pt had no decrease in speed, no loss of balance. Pt was able to perform the stairs CGA with a rail on both sides. PT had pt perform the steps one more time with the only one rail to simulate home environment. Pt did report some lightheadedness and vitals were taken. Vitals were with expectations, and pt felt better after 2 minutes of sitting. Pt was steady during the stairs and had no loss of balance, and continued to have a reciprocal step pattern. DPTS had the pt walk back to the room without an assistive device. DPTS requested the pt to walk a little slower, pt complied and performed well. Pt had no loss of balance and no report of pain or lightheadedness. Pt needed minimal cueing for object awareness as pt reported she isn?t always aware of her surroundings. Next session PT will have pt perform the ambulation without an assistive device and the stairs to determine if pt is able to complete the task without getting lightheaded. Thus determining if pt is at their baseline. Plan of Care/Treatment Plan: 1-2x/day, 7 days/week x 1 week. Plan of care has been reviewed with the WHEEL ALIGNMENT MECHANIC providing the service under Physical Therapy direction. Initiate Physical Therapy intervention for pain management as needed, strengthening, bed mobility, transfers, gait, stairs, balance training, and use of assistive device. DISCHARGE RECOMMENDATIONS: ?Home with outpatient PT TREATMENT CODE/TIME: 65973/10:23am-10:54am 2nd Session: Pt approached in the pm with her present. She stated she just got back into bed and did not want to walk at this time. Pt stated she will walk with the nurse this evening as she did last night. No charge for 8 mins of education Written by: Bryce Torres Supervised by: Nancy Goodman, PT [facility] [place], [place]
[2025-04-23 11:48] LABS: Abs Immature Grans 0.08 10^3/uL (0.0-0.06); HCT 35.9 % (36.0-46.0); HGB 12.1 g/dL (11.2-15.7); Immature Grans % 0.6 %; MCH 27.8 pg (27.0-33.0); MCHC 33.7 % (32.0-36.0); MCV 82 fL (80-95); MPV 9.6 fL (8.0-11.0); Platelet Count 227 10^3/uL (130-400); RBC 4.36 10^6/uL (3.93-5.22); RDW 17.3 % (11.7-14.6); RDW-SD 52.3 fL; WBC 14.24 10^3/uL (4.4-10.8)
[2025-04-23 12:02] LABS: Anion Gap 10.9 mmol/L (3-11); BUN 15 mg/dL (9-23); CO2 22.1 mmol/L (20.0-31.0); Calcium 8.7 mg/dL (8.3-10.6); Chloride 103 mmol/L (98-107); Glucose 126 mg/dL (74-106); Potassium 3.9 mmol/L (3.5-5.1); Sodium 136 mmol/L (136-145)
[2025-04-23] MEDS: Lactated Ringers 1,000 ML 75 ML IV (12:27)
--- NOTE | 2025-04-23 15:15 | PGE_ITS ---
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 Diet started, clears only Heparin prophylaxis ordered to start Apr 22 evening Concern for post-op ileus, simethicone and fluids ordered by Dr Beavers (2) Diabetes mellitus with insulin therapy: Status: Acute Assessment and plan: A1C 6.8 this month, excellent control for this age and these comorbidities Home regimen includes SGLT2, unclear if she's taking canagliflozin vs dapagliflozin, held regardless She is also on glargine 10u HS and sitagliptin, both held Will do correctional only on medium scale for now, need to clarify home regimen CHO diet Apr 23: BG 120's - 180's on q6h correctional, no change in management today (3) CKD (chronic kidney disease) stage 3, GFR 30-59 ml/min: Status: Chronic Assessment and plan: Creatinine 1.49 on arrival, improved to 1.29 pre-operatively, at baseline Apr 23: creatinine improved to 1.12 (4) Hypertension: Status: Chronic Assessment and plan: Continue home metoprolol succinate Apr 23: restarting home lisinopril (5) Hypothyroidism: Status: Chronic Assessment and plan: Restarting home levothyroxine Subjective Subjective Interval history since last seen: Ms. Tejeda is comfortable in bed. Appropriate pain control. Abdomen is mildly distended. Exam Narrative Exam Narrative: General: This is a pleasant woman in no acute distress HEENT: Normocephalic, atraumatic CV: RRR Resp: CTAB Abd: midline incision site c/d/i, bandaged, appropriately tender, mildly distended MSK: voluntary motion x4 Neuro: awake, alert, no focal deficits Objective Last Vital Signs Temp 36.6 C 04/23/25 07:17 Pulse 103 H 04/23/25 07:17 Resp 16 04/23/25 07:17 BP 145/83 H 04/23/25 07:17 Pulse Ox 93 04/23/25 07:17 Laboratory Results - last 24 hr 04/23/25 11:10 WBC 14.24 H RBC 4.36 Hgb 12.1 Hct 35.9 L MCV 82 MCH 27.8 MCHC 33.7 RDW 17.3 H Plt Count 227 MPV 9.6 Immature Gran % 0.6 Neutrophils % 74.6 Lymphocytes % 19.2 Monocytes % 4.9 Eosinophils % 0.3 Basophils % 0.4 Nucleated RBC % 0.0 Absolute Neutrophils 10.62 H Absolute Lymphocytes 2.73 Absolute Monocytes 0.70 Absolute Eosinophils 0.04 Absolute Basophils 0.06 Sodium 136 Potassium 3.9 Chloride 103 Carbon Dioxide 22.1 Anion Gap 10.9 BUN 15 Creatinine 1.12 H Est GFR (CKD-EPI 2020) 47.37 Glucose 126 H Calcium 8.7 VTE Prohylaxis Risk Level: Moderate/High Risk Contraindications: None Prophylaxis: Pharmacologic Time Spent with Patient Time Spent with Patient: 25-34 minutes Time was spent: preparing to see the patient(eg.review tests), obtaining and/or reviewing separately otained hiistory, ordering medications,tests, procedures, referring, communicating with other health home health care social worker, indepentently interpreting results, counseling the patient and care coordination
--- NOTE | 2025-04-23 17:18 | PDOC.CMPRO ---
Date of service: 04/23/25 Time of Service: 17:19 Care Management Progress Note Progress Note Text Progress Note Text: Marleni was sitting up in her chair when CM met with her. She stated that she continues to have pain, but she has been up walking, hoping it will help. She expressed concern regarding her overnight RN, that she did not feel comfortable having again; CM reported this to her primary RN and conveyor line battery charger, and recommended that she have a female RN, if possible. Per report, there is concern that she may be developing a post operative ileus, due to her abdominal pain and distention; this is being closely monitored. Marleni stated that prior to this hospitalization, although she is independent, she had been tired often and not as active as she used to be. She is hopeful that after she heals from this procedure, she will regain some of her energy, and plans to maintain her more active lifestyle, walking more frequently with her partner, Tony. CM will continue to follow. Discharge Potential Discharge Needs: Surgical F/U Appt Anticipated Barriers to Discharge: Medical Status Patient/Family Education Needs: Review discharge instructions, discuss Ask Me Three Transportation: Private vehicle Plan: Anticipate that Marleni will be discharged home with no new services when medically cleared. She will follow up with her surgeon and plan of care and transport with her partner. CM will follow and continue to support discharge planning efforts. Social Determinants of Health Screening Social Determinants of health last assessed in clinic: 04/23/25 Will the Patient Participate in the Screening?: Yes Do you worry about having a steady place to live?: no Problems where you live: no known problems In the past 12 months, have you had to go without electric, gas, oil or water in your home?: no 1. Within the past 12 months, we worried whether our food would run out before we got money to buy more.: Don't know/refused 2. Within the past 12 months, the food we bought just didn't last and we didn't have money to get more.: Don't know/refused Has lack of transportation kept you from medical appointments or from doing things needed for daily living?: no Has anyone in your life made you feel unsafe or unsupported?: no How hard is it for you to pay for the very basics like food, housing, medical care, and heating? Would you say it is:: Not hard at all Do you want help finding or keeping work or a job?: I do not need or want help If for any reason you need help with day-to-day activities such as bathing, preparing meals, shopping, managing finances, etc., do you get the help you need?: I don?t need any help How often do you feel lonely or isolated from those around you?: Sometimes Do you speak a language other than Greenlandic at home?: No Does the patient want assistance with any of the above?: No Health Related Social Needs Health related social needs: feeling lonely/isolated (Z60.8) Health related social needs details: says she worries a lot
[2025-04-23 19:15] VITALS: BP 137/59; PULSE 93; RESP 19; TEMP 36.7; O2SAT 94
[2025-04-24] MEDS: Lactated Ringers 1,000 ML 75 ML IV (01:15)
[2025-04-24] MEDS: ACETAMINOPHEN 1,000 MG/100 ML BAG 400 MG IVPB (03:29)
[2025-04-24] MEDS: Enoxaparin 30 MG/0.3 ML SYR SC (05:24)
[2025-04-24] MEDS: Levothyroxine 50 MCG TAB PO (05:25)
[2025-04-24 07:42] VITALS: BP 135/77; PULSE 105; RESP 16; TEMP 36.8; O2SAT 93
[2025-04-24] MEDS: Tiotropium/Olodaterol 10 PUFF INHALER 2 PUFF IH (08:12)
[2025-04-24] MEDS: Metoprolol CR 25 MG TABCR PO (08:43)
[2025-04-24] MEDS: Simethicone 80 MG CHEW 40 MG PO ×4 (08:43→22:10)
[2025-04-24] MEDS: Normal Saline Flush 10 ML SYR IVP ×3 (08:43→19:43)
[2025-04-24] MEDS: Pantoprazole 40 MG VIAL IVP (08:44)
[2025-04-24] MEDS: Lisinopril 5 MG TAB PO (08:44)
[2025-04-24] MEDS: ALPRAZolam 0.25 MG TAB PO ×3 (08:44→19:40)
--- NOTE | 2025-04-24 09:37 | W.PM.PROGNOT ---
Date of Service Date of service: 04/24/25 Time of Service: 09:37 Assessment and Plan Assessment and plan (1) Bowel obstruction: Status: Acute Assessment and plan: Marleni is doing quite well after laparotomy for acute small bowel obstruction with a segmental resection and anastomosis. Her exam is reassuring today, and I think it is fine to stop her intravenous fluids, and gently advance her diet a bit. I will switch her over to oral medications today, and add like to see her up and walking around a little. Subjective Subjective Interval history since last seen: Marleni feels much better today. She was able to sleep through the night. She has been tolerating liquids, with no nausea. She denies any pain. Exam GI Other: Abdomen is soft, and only mildly distended and tympanitic, but she does have bowel sounds. Bandages are clean. Objective Last Vital Signs Temp 98.2 F 04/24/25 07:42 Pulse 105 H 04/24/25 07:42 Resp 16 04/24/25 07:42 BP 135/77 04/24/25 07:42 Pulse Ox 93 04/24/25 07:42 Laboratory Results - last 24 hr 04/23/25 11:10 WBC 14.24 H RBC 4.36 Hgb 12.1 Hct 35.9 L MCV 82 MCH 27.8 MCHC 33.7 RDW 17.3 H Plt Count 227 MPV 9.6 Immature Gran % 0.6 Neutrophils % 74.6 Lymphocytes % 19.2 Monocytes % 4.9 Eosinophils % 0.3 Basophils % 0.4 Nucleated RBC % 0.0 Absolute Neutrophils 10.62 H Absolute Lymphocytes 2.73 Absolute Monocytes 0.70 Absolute Eosinophils 0.04 Absolute Basophils 0.06 Sodium 136 Potassium 3.9 Chloride 103 Carbon Dioxide 22.1 Anion Gap 10.9 BUN 15 Creatinine 1.12 H Est GFR (CKD-EPI 2020) 47.37 Glucose 126 H Calcium 8.7 VTE Prohylaxis Risk Level: Moderate/High Risk Contraindications: None Prophylaxis: Pharmacologic, Mechanical and Patient ambulatory Time Spent with Patient Time Spent with Patient: 35-49 minutes Time was spent: preparing to see the patient(eg.review tests), ordering medications,tests, procedures, indepentently interpreting results, counseling the patient and care coordination
[2025-04-24 15:44] VITALS: BP 145/80; PULSE 106; RESP 16; TEMP 37.2; O2SAT 94
[2025-04-24] MEDS: MORPHine 2 MG/ML SYR IVP ×2 (15:49→19:40)
--- NOTE | 2025-04-24 16:39 | PGE_ITS ---
Date of Service Date of service: 04/24/25 Time of Service: 08:00 Assessment and Plan Assessment and plan (1) Cecal volvulus: Status: Acute Assessment and plan: Apr [address] Plasencia Diet started, clears only Heparin prophylaxis ordered to start Apr 22 evening Concern for post-op ileus, simethicone and fluids ordered by Dr Beavers Apr 24 improving PO intake, pain well controlled, distention improved. Appreciate recs from Dr Myers. (2) Diabetes mellitus with insulin therapy: Status: Acute Assessment and plan: A1C 6.8 this month, excellent control for this age and these comorbidities Home regimen includes SGLT2, unclear if she's taking canagliflozin vs dapagliflozin, held regardless She is also on glargine 10u HS and sitagliptin, both held Will do correctional only on medium scale for now, need to clarify home regimen CHO diet Apr 23: BG 120's - 180's on q6h correctional, no change in management today Apr 24: Diet advancing, no correctional insulin given today (3) CKD (chronic kidney disease) stage 3, GFR 30-59 ml/min: Status: Chronic Assessment and plan: Creatinine 1.49 on arrival, improved to 1.29 pre-operatively, at baseline Apr 23: creatinine improved to 1.12 (4) Hypertension: Status: Chronic Assessment and plan: Continue home metoprolol succinate Apr 23: restarting home lisinopril (5) Hypothyroidism: Status: Chronic Assessment and plan: Restarting home levothyroxine Subjective Subjective Interval history since last seen: Mrs. Tejeda is resting comfortably. Abdomen remains distended but patient reports less pain. After eating she has some discomfort. Exam Narrative Exam Narrative: General: This is a pleasant woman in no acute distress HEENT: Normocephalic, atraumatic CV: RRR Resp: CTAB Abd: midline incision site c/d/i, bandaged, appropriately tender, mildly distended MSK: voluntary motion x4 Neuro: awake, alert, no focal deficits Objective Last Vital Signs Temp 37.2 C 04/24/25 15:44 Pulse 106 H 04/24/25 15:44 Resp 16 04/24/25 15:44 BP 145/80 H 04/24/25 15:44 Pulse Ox 94 04/24/25 15:44 VTE Prohylaxis Risk Level: Moderate/High Risk Contraindications: None Prophylaxis: Pharmacologic Time Spent with Patient Time Spent with Patient: 25-34 minutes Time was spent: preparing to see the patient(eg.review tests), obtaining and/or reviewing separately otained hiistory, ordering medications,tests, procedures, referring, communicating with other health healthcare economics consultant, indepentently interpreting results, counseling the patient and care coordination
[2025-04-24] MEDS: Acetaminophen 325 MG TAB 650 MG PO (18:28)
[2025-04-24 19:20] VITALS: BP 146/71; PULSE 106; RESP 18; TEMP 36.5; O2SAT 95
[2025-04-25] MEDS: Levothyroxine 50 MCG TAB PO (05:27)
[2025-04-25] MEDS: Enoxaparin 30 MG/0.3 ML SYR SC (05:27)
[2025-04-25 07:04] LABS: HCT 34.8 % (36.0-46.0); HGB 11.9 g/dL (11.2-15.7); MCH 28.0 pg (27.0-33.0); MCHC 34.2 % (32.0-36.0); MCV 82 fL (80-95); MPV 9.8 fL (8.0-11.0); Platelet Count 228 10^3/uL (130-400); RBC 4.25 10^6/uL (3.93-5.22); RDW 16.7 % (11.7-14.6); RDW-SD 49.7 fL; WBC 9.85 10^3/uL (4.4-10.8)
[2025-04-25 07:16] VITALS: BP 152/82; PULSE 107; RESP 14; TEMP 36.2; O2SAT 96
[2025-04-25 07:24] LABS: Anion Gap 16.5 mmol/L (3-11); BUN 12 mg/dL (9-23); CO2 19.5 mmol/L (20.0-31.0); Calcium 8.6 mg/dL (8.3-10.6); Chloride 102 mmol/L (98-107); Glucose 111 mg/dL (74-106); Potassium 3.7 mmol/L (3.5-5.1); Sodium 138 mmol/L (136-145)
[2025-04-25] MEDS: Metoprolol CR 25 MG TABCR PO (07:47)
[2025-04-25] MEDS: Simethicone 80 MG CHEW 40 MG PO ×5 (07:47→21:16)
[2025-04-25] MEDS: Pantoprazole 40 MG TABCR PO (07:47)
[2025-04-25] MEDS: ALPRAZolam 0.25 MG TAB PO ×3 (07:47→19:38)
[2025-04-25] MEDS: Lisinopril 5 MG TAB PO (07:47)
[2025-04-25] MEDS: Tiotropium/Olodaterol 10 PUFF INHALER 2 PUFF IH (08:04)
[2025-04-25] MEDS: Normal Saline Flush 10 ML SYR IVP ×2 (08:30→19:38)
--- NOTE | 2025-04-25 09:00 | W.PM.PROGNOT ---
Date of Service Date of service: 04/25/25 Time of Service: 09:00 Assessment and Plan Assessment and plan (1) Bowel obstruction: Status: Acute Assessment and plan: Marleni remains afebrile, and she has a normal white blood cell count today. I will add some protein supplement to her diet today, and have encouraged her to increase her activity is much as she can. I would anticipate discharge home tomorrow. Subjective Subjective Interval history since last seen: Marleni is doing very well this morning. She has been tolerating a mostly soft diet without any nausea or vomiting. She does feel little bit of cramping immediately after eating, but it resides pretty quickly thereafter. She had bowel movement yesterday. Exam GI Other: Abdomen is soft, and less distended than yesterday. Still slightly tympanitic, but with quite active bowel sounds. The bandages were all removed, and the incision is clean, with no signs of infection. Objective Last Vital Signs Temp 97.2 F L 04/25/25 07:16 Pulse 107 H 04/25/25 07:16 Resp 14 04/25/25 07:16 BP 152/82 H 04/25/25 07:16 Pulse Ox 96 04/25/25 07:16 Laboratory Results - last 24 hr 04/25/25 06:36 WBC 9.85 RBC 4.25 Hgb 11.9 Hct 34.8 L MCV 82 MCH 28.0 MCHC 34.2 RDW 16.7 H Plt Count 228 MPV 9.8 Sodium 138 Potassium 3.7 Chloride 102 Carbon Dioxide 19.5 L Anion Gap 16.5 H BUN 12 Creatinine 0.91 Est GFR (CKD-EPI 2020) 60.20 Glucose 111 H Calcium 8.6 VTE Prohylaxis Risk Level: Moderate/High Risk Contraindications: None Prophylaxis: Pharmacologic, Mechanical and Patient ambulatory Time Spent with Patient Time Spent with Patient: 25-34 minutes Time was spent: preparing to see the patient(eg.review tests), ordering medications,tests, procedures, indepentently interpreting results and counseling the patient
--- NOTE | 2025-04-25 11:00 | INDS_ITS ---
PT Notes Visit Reasons: Cecal Volvulus, SBO Inpatient Physical Therapy Discharge Summary Dates: 04/25/2025 Dates of Service:04/22/25- 04/25/25 SUBJECTIVE: Pt reported they were a little tired, because they walked earlier. However, she was willing to participate in today?s session. OBJECTIVE: [] Pain: 2/10 ROM: ?GROSSLY WFL BUE and BLE STRENGTH: Grossly 4/5 BED MOBILITY/TRANSFERS: Supine-sit Independent Sit-supine Independent Sit-stand Independent Stand-sit Independent Bed-Chair Independent Chair-bed Independent GAIT: amb independently no AD 350 reciprocal pattern Stairs: FOS with 1 rail reciprocal scending step to pattern descending SBA BALANCE: Static sitting: normal Dynamic sitting: normal Static standing: normal Dynamic standing: good SPECIAL TESTS: Mobility Limitations Standardized Measure [facility] 6 clicks Basic Mobility Inpatient Short Form: Raw Score: 24? CMS Score: 0% deficit? ASSESSMENT: Pt was able to ambulate a total of 350 feet independently with no AD. Pt was able to complete a flight of stairs using one railing independently. Pt needed to rest once at the top. Pt rested for about 30 seconds. Then pt descended the stairs with a step 2 pattern. Pt reported feeling comfortable going slow, as she felt a little weak because she walked earlier. DPTS supervised the pt, but they showed no signs of unsteadiness. Pt rested in a recliner after the stairs for only 30 seconds before they felt ready to ambulate back to the room. Pt showed no signs of medial to lateral sway, and wasn?t reaching out for objects to hold onto. Pt is discharged from PT as she is functionally independent. Pt has met/partially met all goals set at SOC therefore skilled PT is no longer indicated. GOALS (Met / Not Met): Goals: 1. Supine-Sit independent (MET) 2. Sit-Supine independent (MET) 3. Sit-Stand independent (MET )? 4. Stand-Sit independent (MET) 5. Bed-Chair independent with single point cane/ Least restrictive device (LRD) (MET) 6. Chair-Bed independent with single point cane/ least restrictive device (MET) 7. Independent gait on level surface with use of single point cane/LRD for at least 200 feet without report of pain nor dyspnea (MET) 8. Independent stair negotiation while holding onto one rail for at least 6 steps without report of pain nor dyspnea ( partial MET for precaution ) 9. Independent with home exercise program (MET) DISCHARGE PLAN/RECOMMENDATIONS: ?Home with outpatient PT Written By TYRESE Romo Supervised By Nancy Goodman PT
[2025-04-25] MEDS: Acetaminophen 325 MG TAB 650 MG PO (11:08)
[2025-04-25] MEDS: Protein Nutritional Supplement 16 GM 1 OUNCE PACKET PO (13:11)
--- NOTE | 2025-04-25 16:21 | PGE_ITS ---
Date of Service Date of service: 04/25/25 Time of Service: 08:00 Assessment and Plan Assessment and plan (1) Drug eruption: Status: Acute Assessment and plan: New onset diffuse flat erythematous rash across abdomen and back, with continuous rash in groin creases No pain, little pruritis Patient is afebrile, incision site does not appear affected She is not on antibiotics or other obvious triggers at this time Will treat with PO benadryl and topical antipruritic Monitor for expansion vs improvement (2) Cecal volvulus: Status: Acute Assessment and plan: Apr 22 vp & general counsel exlap with Dr Plasencia Diet started, clears only Heparin prophylaxis ordered to start Apr 22 evening Concern for post-op ileus, simethicone and fluids ordered by Dr Beavers Apr 24 improving PO intake, pain well controlled, distention improved. Appreciate recs from Dr Myers. Apr 25: postoperative period continues to progress well. Continue simethicone. (3) Diabetes mellitus with insulin therapy: Status: Acute Assessment and plan: A1C 6.8 this month, excellent control for this age and these comorbidities Home regimen includes SGLT2, unclear if she's taking canagliflozin vs dapagliflozin, held regardless She is also on glargine 10u HS and sitagliptin, both held Will do correctional only on medium scale for now, need to clarify home regimen CHO diet Apr 23: BG 120's - 180's on q6h correctional, no change in management today Apr 24: Diet advancing, no correctional insulin given today Apr 25: Poor appetite, no correctional insulin (4) CKD (chronic kidney disease) stage 3, GFR 30-59 ml/min: Status: Chronic Assessment and plan: Creatinine 1.49 on arrival, improved to 1.29 pre-operatively, at baseline Apr 23: creatinine improved to 1.12 (5) Hypertension: Status: Chronic Assessment and plan: Continue home metoprolol succinate Apr 23: restarting home lisinopril (6) Hypothyroidism: Status: Chronic Assessment and plan: Restarting home levothyroxine Subjective Subjective Interval history since last seen: Mrs. Tejeda is comfortable in bed. Some bloating after eating, gave extra dose of simethicone. Around dinner time she reported a rash on her torso, which appears to be a drug eruption. Exam Narrative Exam Narrative: General: This is a pleasant woman in no acute distress HEENT: Normocephalic, atraumatic CV: RRR Resp: CTAB Abd: midline incision site c/d/i, bandaged, appropriately tender, mildly distended MSK: voluntary motion x4 Neuro: awake, alert, no focal deficits Objective Last Vital Signs Temp 36.2 C L 04/25/25 07:16 Pulse 107 H 04/25/25 07:16 Resp 14 04/25/25 07:16 BP 152/82 H 04/25/25 07:16 Pulse Ox 96 04/25/25 07:16 Laboratory Results - last 24 hr 04/25/25 06:36 WBC 9.85 RBC 4.25 Hgb 11.9 Hct 34.8 L MCV 82 MCH 28.0 MCHC 34.2 RDW 16.7 H Plt Count 228 MPV 9.8 Sodium 138 Potassium 3.7 Chloride 102 Carbon Dioxide 19.5 L Anion Gap 16.5 H BUN 12 Creatinine 0.91 Est GFR (CKD-EPI 2020) 60.20 Glucose 111 H Calcium 8.6 VTE Prohylaxis Risk Level: Moderate/High Risk Contraindications: None Prophylaxis: Pharmacologic Time Spent with Patient Time Spent with Patient: 25-34 minutes Time was spent: preparing to see the patient(eg.review tests), obtaining and/or reviewing separately otained hiistory, ordering medications,tests, procedures, r eferring, communicating with other health housekeeper child care, indepentently interpreting results, counseling the patient and care coordination
[2025-04-25] MEDS: diphenhydrAMINE 25 MG CAP PO ×2 (17:13→21:17)
--- NOTE | 2025-04-25 17:19 | PDOC.CMPRO ---
Date of service: 04/25/25 Time of Service: 17:20 Care Management Progress Note Progress Note Text Progress Note Text: Marleni was sitting up in bed visiting with her when CM met with her. She indicated that her was on the phone and she preferred not to disturb him with conversation. Marleni is doing very well. She is eating and drinking and had a bowel movement yesterday. Marleni remains afebrile and her WBC has normalized. Per Dr. Myers, she will likely be ready for discharge tomorrow. She had been working with PT but is now independent so was discharged from their service. Discharge Potential Discharge Needs: Surgical F/U Appt Anticipated Barriers to Discharge: None Identified Patient/Family Education Needs: Review discharge instructions, discuss Ask Me Three Transportation: Private vehicle Plan: Anticipate that Marleni will be discharged home with no new services when medically cleared. She will follow up with her surgeon and plan of care and transport with her partner. CM will follow and continue to support discharge planning efforts. Social Determinants of Health Screening Social Determinants of health last assessed in clinic: 04/25/25 Will the Patient Participate in the Screening?: Yes Do you worry about having a steady place to live?: no Problems where you live: no known problems In the past 12 months, have you had to go without electric, gas, oil or water in your home?: no 1. Within the past 12 months, we worried whether our food would run out before we got money to buy more.: Never true 2. Within the past 12 months, the food we bought just didn't last and we didn't have money to get more.: Never true Has lack of transportation kept you from medical appointments or from doing things needed for daily living?: no Has anyone in your life made you feel unsafe or unsupported?: no How hard is it for you to pay for the very basics like food, housing, medical care, and heating? Would you say it is:: Not hard at all Do you want help finding or keeping work or a job?: I do not need or want help If for any reason you need help with day-to-day activities such as bathing, preparing meals, shopping, managing finances, etc., do you get the help you need?: I don?t need any help How often do you feel lonely or isolated from those around you?: Sometimes Do you speak a language other than Frisian at home?: No Does the patient want assistance with any of the above?: No Health Related Social Needs Health related social needs: feeling lonely/isolated (Z60.8) Health related social needs details: says she worries a lot
[2025-04-25] MEDS: diphenhydrAMINE /ZINC ACET CR 30 GM TUBE TP (18:09)
[2025-04-25 18:44] VITALS: BP 140/83; PULSE 98; RESP 16; TEMP 36.7; O2SAT 96
[2025-04-25] MEDS: oxyCODONE 5 MG TAB PO (19:47)
[2025-04-25 20:28] VITALS: O2SAT 94
[2025-04-25] MEDS: Insulin Aspart 300 UNITS/3 ML PEN SC (21:15)
[2025-04-26] MEDS: Enoxaparin 30 MG/0.3 ML SYR SC (06:15)
[2025-04-26] MEDS: Levothyroxine 50 MCG TAB PO (06:15)
[2025-04-26] MEDS: Pantoprazole 40 MG TABCR PO (06:16)
[2025-04-26 07:50] VITALS: BP 145/83; PULSE 122; RESP 16; TEMP 36.6; O2SAT 98
[2025-04-26] MEDS: ALPRAZolam 0.25 MG TAB PO ×3 (08:22→21:33)
[2025-04-26] MEDS: Simethicone 80 MG CHEW 40 MG PO ×4 (08:22→21:33)
[2025-04-26] MEDS: Metoprolol CR 25 MG TABCR PO (08:22)
[2025-04-26] MEDS: oxyCODONE 5 MG TAB PO (08:23)
[2025-04-26] MEDS: Lisinopril 5 MG TAB PO (08:24)
[2025-04-26] MEDS: Protein Nutritional Supplement 16 GM 1 OUNCE PACKET PO ×3 (08:25→21:34)
[2025-04-26] MEDS: Normal Saline Flush 10 ML SYR IVP ×2 (08:26→21:34)
--- NOTE | 2025-04-26 09:45 | RT.EKG_ITS ---
APPROVED REPORT Exam: Resting ECG Reason for Exam: Rule out atrial fibrillation Patient Location: I HR:109 bpm ECG Measurements Heart Rate 109 AXIS NM 121 P 0 QRSd 78 QRS 65 QT 453 T -35 QTc 611 Conclusion Sinus tachycardia...rate> 99 Low voltage, extremity leads...all extremity leads <0.5mV Minimal ST depression, anterolateral leads...ST <-0.04mV, I aVL V2-V6 Prolonged QT interval...QTc >500mS
--- NOTE | 2025-04-26 09:51 | W.PM.PROGNOT ---
Date of Service Date of service: 04/26/25 Time of Service: 09:52 Assessment and Plan Assessment and plan (1) Bowel obstruction: Status: Acute Assessment and plan: I will discontinue the hydrocodone today, and switched over to tramadol in the case that that might be causing the rash. I will also restart her escitalopram and Zetia in an effort to restart her standing medications. I am also going to check an EKG today, as her heart rate is a little bit elevated. I want to rule out atrial fibrillation. She denies any shortness of breath, she has no lower extremity swelling, or any other secondary signs of DVT or pulmonary embolism, so I do not think a CT angiogram is warranted at this point. Subjective Subjective Interval history since last seen: Marleni has had some increased pruritus over her back, associated with a spreading rash. Benadryl seems to be helping. She had another bowel movement yesterday, and aside from some mild abdominal discomfort seems to be doing well overall Exam GI Other: The wound is clean, and there are no signs of infection. Abdomen is less distended. Objective Last Vital Signs Temp 97.9 F 04/26/25 07:50 Pulse 122 H 04/26/25 07:50 Resp 16 04/26/25 07:50 BP 145/83 H 04/26/25 07:50 Pulse Ox 98 04/26/25 07:50 VTE Prohylaxis Risk Level: Moderate/High Risk Contraindications: None Prophylaxis: Pharmacologic, Mechanical and Patient ambulatory Time Spent with Patient Time Spent with Patient: >50 minutes Time was spent: preparing to see the patient(eg.review tests), ordering medications,tests, procedures, indepentently interpreting results and counseling the patient
[2025-04-26] MEDS: Tiotropium/Olodaterol 10 PUFF INHALER 2 PUFF IH (11:31)
[2025-04-26] MEDS: Insulin Aspart 300 UNITS/3 ML PEN SC ×3 (13:07→21:56)
--- NOTE | 2025-04-26 17:01 | PGE_ITS ---
Date of Service Date of service: 04/26/25 Time of Service: 08:00 Assessment and Plan Assessment and plan (1) Drug eruption: Status: Acute Assessment and plan: New onset diffuse flat erythematous rash across abdomen and back, with continuous rash in groin creases No pain, little pruritis Patient is afebrile, incision site does not appear affected She is not on antibiotics or other obvious triggers at this time Will treat with PO benadryl and topical antipruritic Monitor for expansion vs improvement Apr 26: rash is not worse, and is less pruritic. Continue PRN benadryl and anti-pruritic cream. (2) Cecal volvulus: Status: Acute Assessment and plan: Apr 22 nurse case manager exlap with Dr Plasencia Diet started, clears only Heparin prophylaxis ordered to start Apr 22 evening Concern for post-op ileus, simethicone and fluids ordered by Dr Beavers Apr 24 improving PO intake, pain well controlled, distention improved. Appreciate recs from Dr Myers. Apr 25: postoperative period continues to progress well. Continue simethicone. Apr 26: Patient ambulating and passing flatus. Elevated heart rate, EKG without evidence of arrhythmia. (3) Diabetes mellitus with insulin therapy: Status: Acute Assessment and plan: A1C 6.8 this month, excellent control for this age and these comorbidities Home regimen includes SGLT2, unclear if she's taking canagliflozin vs dapagliflozin, held regardless She is also on glargine 10u HS and sitagliptin, both held Will do correctional only on medium scale for now, need to clarify home regimen CHO diet Apr 23: BG 120's - 180's on q6h correctional, no change in management today Apr 24: Diet advancing, no correctional insulin given today Apr 25: Poor appetite, no correctional insulin Apr 26: She is eating more, receiving a few units of correctional insulin (4) CKD (chronic kidney disease) stage 3, GFR 30-59 ml/min: Status: Chronic Assessment and plan: Creatinine 1.49 on arrival, improved to 1.29 pre-operatively, at baseline Apr 23: creatinine improved to 1.12 (5) Hypertension: Status: Chronic Assessment and plan: Continue home metoprolol succinate Apr 23: restarting home lisinopril (6) Hypothyroidism: Status: Chronic Assessment and plan: Restarting home levothyroxine Subjective Subjective Interval history since last seen: Mrs Tejeda is ambulating with at her side. She feels much better today and looks forward to going home. Exam Narrative Exam Narrative: General: This is a pleasant woman in no acute distress HEENT: Normocephalic, atraumatic CV: RRR Resp: CTAB Abd: midline incision site c/d/i, bandaged, appropriately tender, mildly distended MSK: voluntary motion x4 Neuro: awake, alert, no focal deficits Objective Last Vital Signs Temp 36.6 C 04/26/25 07:50 Pulse 122 H 04/26/25 07:50 Resp 16 04/26/25 07:50 BP 145/83 H 04/26/25 07:50 Pulse Ox 98 04/26/25 07:50 VTE Prohylaxis Risk Level: Moderate/High Risk Contraindications: None Prophylaxis: Pharmacologic Time Spent with Patient Time Spent with Patient: 25-34 minutes Time was spent: preparing to see the patient(eg.review tests), obtaining and/or reviewing separately otained hiistory, ordering medications,tests, procedures, referring, communicating with other health behavioral health care coordinator, indepentently interpreting results, counseling the patient and care coordination
[2025-04-26] MEDS: diphenhydrAMINE /ZINC ACET CR 30 GM TUBE TP (17:56)
[2025-04-26] MEDS: diphenhydrAMINE 25 MG CAP PO (21:36)
[2025-04-26] MEDS: traMADol 50 MG TAB PO (22:03)
[2025-04-27 01:18] VITALS: BP 130/63; PULSE 108; RESP 14; TEMP 37.1; O2SAT 95
[2025-04-27] MEDS: Levothyroxine 50 MCG TAB PO (06:13)
[2025-04-27] MEDS: Enoxaparin 30 MG/0.3 ML SYR SC (06:13)
[2025-04-27 07:06] VITALS: BP 109/57; PULSE 100; RESP 16; TEMP 36.8; O2SAT 97
[2025-04-27] MEDS: Tiotropium/Olodaterol 10 PUFF INHALER 2 PUFF IH (08:33)
[2025-04-27] MEDS: diphenhydrAMINE /ZINC ACET CR 30 GM TUBE TP (09:30)
[2025-04-27] MEDS: Lisinopril 5 MG TAB PO (09:31)
[2025-04-27] MEDS: ALPRAZolam 0.25 MG TAB PO ×2 (09:31→13:38)
[2025-04-27] MEDS: Normal Saline Flush 10 ML SYR IVP (09:31)
[2025-04-27] MEDS: Metoprolol CR 25 MG TABCR PO (09:32)
[2025-04-27] MEDS: Simethicone 80 MG CHEW 40 MG PO ×2 (09:32→12:22)
[2025-04-27] MEDS: Escitalopram 20 MG TAB PO (09:33)
[2025-04-27] MEDS: Ezetimibe 10 MG TAB PO (09:33)
[2025-04-27] MEDS: Pantoprazole 40 MG TABCR PO (09:34)
[2025-04-27] MEDS: Protein Nutritional Supplement 16 GM 1 OUNCE PACKET PO (09:35)
[2025-04-27] MEDS: Insulin Aspart 300 UNITS/3 ML PEN SC (09:38)
--- NOTE | 2025-04-27 10:45 | W.PM.PROGNOT ---
Date of Service Date of service: 04/27/25 Time of Service: 10:45 Assessment and Plan Assessment and plan (1) Bowel obstruction: Status: Acute Assessment and plan: At this point, there is no compelling reason for ongoing hospitalization, and I think Marleni will do well as she transitions home. Seems that the rash that she is experiencing is most likely secondary to contact dermatitis perhaps from sheets or detergents. I think getting home will help resolve that. She has no physical therapy needs, and her vital signs are all very reassuring. Will discharge her home today with instructions, follow-up in the office in the next week or 2 for staple removal and wound examination. Subjective Subjective Interval history since last seen: Marleni has been up and ambulating. She showered today, and feels well. She has been tolerating a diet. The rash that we have been observing over the past 48 hours has spread a little bit in terms of anatomy, but symptoms have improved. Exam GI Other: Her abdomen is soft, and not at all distended. The incision is clean, there are no signs of infection. Objective Last Vital Signs Temp 98.2 F 04/27/25 07:06 Pulse 100 H 04/27/25 07:06 Resp 16 04/27/25 07:06 BP 109/57 L 04/27/25 07:06 Pulse Ox 97 04/27/25 07:06 VTE Prohylaxis Risk Level: Moderate/High Risk Contraindications: None Prophylaxis: Pharmacologic, Mechanical and Patient ambulatory Time Spent with Patient Time Spent with Patient: >50 minutes Time was spent: preparing to see the patient(eg.review tests), indepentently interpreting results, counseling the patient and care coordination
--- NOTE | 2025-04-27 10:47 | W.PM.DS.N ---
Date of service: 04/27/25 Time of Service: 10:47 DS: Diagnosis Discharge Diagnosis (1) Bowel obstruction: Status: Acute Asessment and Plan: Discharge home with outpatient follow-up Discharge Plan Disposition Patient Disposition: Home Condition: Improving Discharge Details Reason For Visit: Cecal Volvulus, SBO Admit Date/Time: 04/22/25 04:10 Admit Provider: Randi Plasencia Attending Provider: Randi Plasencia Primary Care Provider: SHIRLEY LAWLER Hospital Course Hospital Course: Marleni is 74 years old, she came to the emergency department with abdominal pain. 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 Cecal anatomy was normal, but there was an acute small bowel obstruction secondary to adhesions. She underwent a small bowel resection with primary anastomosis. Recovery was complicated by mild contact dermatitis. Otherwise, she has done quite well. Home Meds and New Rx's Prescriptions: New diphenhydramine HCl [Benadryl] 25 mg capsule 25 mg PO BID Qty: 10 0RF Rx Instructions: Take 1 capsule by mouth up to every 12 hours if needed for itching. This medication can be sedating, so use it with caution. Benadryl 2 % gel 1 applic topical BID PRN (Reason: itching) Qty: 103 0RF Rx Instructions: Apply thin layer of gel to any areas of itchy rash. Use every 12 hours if needed tramadol 50 mg tablet 50 mg PO Q8H PRNQty: 12 0RF Rx Instructions: Take 1 tablet by mouth up to every 8 hours if needed for severe pain. These tablets can be broken in half for smaller doses. Continued pantoprazole 40 mg Tablet,Delayed Release (Dr/Ec) 40 mg PO DAILY rosuvastatin [Crestor] 40 mg Tablet 40 mg PO DAILY levothyroxine 50 mcg Capsule 50 mcg PO DAILY alprazolam 0.25 mg Tablet 0.25 - 0.75 mg PO HS ascorbic acid (vitamin C) [Vitamin C] 500 mg Tablet 500 mg PO DAILY vitamin B complex [B-Complex] Tablet 1 tab PO DAILY cholecalciferol (vitamin D3) [Vitamin D3] 1,000 unit Capsule 1,000 unit PO BID magnesium L-lactate 84 mg Tablet Extended Release 84 mg PO DAILY desvenlafaxine succinate 50 mg Tablet Extended Release 24 Hr 150 mg PO DAILY umeclidinium-vilanterol [Anoro Ellipta] 62.5-25 mcg/actuation Blister With Device 1 inh INHALATION DAILY Multi-Day Plus Minerals 18 mg iron-400 mcg-25 mcg Tablet 1 tab PO DAILY metoprolol succinate 25 mg Tablet Extended Release 24 Hr 25 mg PO DAILY albuterol sulfate [Proventil HFA] 90 mcg/actuation Hfa Aerosol Inhaler 2 puff INHALATION QID PRN fluticasone propionate 50 mcg/actuation spray,suspension 50 mcg INTRANASAL DAILY PRN Patient Comments: USE 1 TO 2 SPRAYS INTO EACH NOSTRILS TWO TIMES A DAY FOR 1 WEEK omega-3 fatty acids-vitamin E 1,000 mg Capsule 1 cap PO DAILY Januvia 100 mg Tablet 100 mg PO DAILY (DME) FreeStyle Lite Strips Strip MISCELLANEOUS Patient Comments: USE 1 STRIP EVERY DAY DIRECTED FOR BLOOD GLUCOSE MONITORING lisinopril 5 mg tablet 5 mg PO DAILY Patient Comments: TAKE ONE TABLET BY MOUTH EVERY DAY FOR BLOOD PRESSURE ezetimibe 10 mg tablet 10 mg PO DAILY Patient Comments: TAKE ONE TABLET BY MOUTH EVERY DAY dapagliflozin propanediol [Farxiga] 5 mg tablet 5 mg PO DAILY Patient Comments: TAKE ONE TABLET BY MOUTH EVERY DAY DIRECTED FOR KIDNEY PROTECTION AND DIABETES potassium chloride 20 mEq tablet extended release 20 meq PO BID Patient Comments: TAKE ONE TABLET BY MOUTH TWICE A DAY DIRECTED insulin glargine U-300 conc 300 unit/mL (1.5 mL) insulin pen See Rx Instructions SUBCUT .COMPLEX Patient Comments: INJECT 10 UNITS SUBCUTANEOUSLY EVERY EVENING FOR DIABETES. MAY TITRATE BY 2 UNITS EVERY THREE DAYS TO MAINTAIN A MORNING B.G BETWEEN 80-140. Rx Instructions: subcutaneously INJECT 10 UNITS SUBCUTANEOUSLY EVERY EVENING FOR DIABETES. MAY TITRATE BY 2 UNITS EVERY THREE DAYS TO MAINTAIN A MORNING B.G BETWEEN 80-140.; INJECT 10 UNITS SUBCUTANEOUSLY EVERY EVENING FOR DIABETES. MAY TITRATE BY 2 UNITS EVERY THREE DAYS TO MAINTAIN A MORNING B.G BETWEEN 80-140. escitalopram oxalate 20 mg tablet 20 mg PO DAILY Patient Comments: TAKE ONE TABLET BY MOUTH EVERY DAY hydroxyzine HCl 25 mg tablet 25 mg PO HS PRN Patient Comments: TAKE ONE TO TWO TABLETS BY MOUTH AT BEDTIME NEEDED Invokana 100 mg tablet 100 mg PO DAILY aspirin 81 mg capsule 81 mg PO DAILY Discharge Instructions Instructions: Exploratory Laparotomy Additional Instructions: Marleni, it was great meeting mayi and Germán in the hospital, and I hope you have a smooth and uneventful recovery as you transition home. As we discussed before your discharge, you underwent an emergency surgery called an exploratory laparotomy, where an obstruction of your small intestine was discovered. This segment was removed, and the bowel was put back together and a connection known as an anastomosis. Generally, your recovery has been going very nicely so far. I am sorry that you have been experiencing the rash. As we talked about, I do suspect that this will improve over the next few days once you are home. With regards to the surgical site, please be sure to wash it with warm soapy water every day. You are welcome to replace Band-Aids over the incision if you find that comfortable. Alternatively, as you know, the incision can also be left undressed at this point, and it should heal just fine. I do think it is a nino strategy to keep a pillow over your abdomen when you are resting. A little bit of gentle pressure on the pillow can make things a little more comfortable with things like sneezing and coughing. And it will probably provide some relief with your dogs at home. As I mentioned, you should be up and walking around every day. Basic tasks like getting a glass of water from the sink, or using the restroom are certainly within your scope of activity. So long as you are steady on your feet, little bit of walking around outside is also very good for you. Obviously, be careful with icy conditions. Keep your lifting less than a gallon of milk or so, and we can see how you are doing once you have your follow-up visit in the office. As we discussed, I placed prescriptions for Benadryl tablets, as well as a Benadryl based cream to help with the itchy rash. I also provided a prescription for tramadol to help with incisional pain. I also recommend using [id number] Tylenol as a first-line agent for pain after surgery. You are welcome to use ice packs, or heating pads over the incision as well. Some patients find that comforting. Things to be on the look out for are fevers, or any diet intolerance in the form of nausea or vomiting. Honestly, at this point, I do not expect any of those things to happen, but certainly if you do not feel well, it is absolutely fine to let us know. During regular business hours, you can call the office directly at [phone]. After hours, call the hospital, and have them page the surgeon on-call. As I mentioned, I will have the office reach out to you early this week to schedule a follow-up visit. If you need anything at all, please do not hesitate to call at any time. Stand Alone Forms: Portal Information Activity:: No heavy lifting Equipment/Supplies:: No Equipment Needed Diet:: As Tolerated DS: Summary Time Spent with Patient providing and/or coordinating discharge services: Greater than 30 minutes Status at Discharge Functional status at discharge: independent ambulation Overall status at discharge: patient is progressing back to baseline Mental Status: mental status grossly normal Speech and Movement: speech and movement normal Mood: congruent mood Affect: normal affect Quality:SDOH Health Related Social Needs: Health related social needs lonely/isolated Health related social needs details says she worries a lot Health related social needs details: says she worries a lot Exam Psych Mental Status: mental status grossly normal Speech and Movement: speech and movement normal Mood: congruent mood Affect: normal affect DS: Data Vitals/I&O Vitals and I&O: Vital Signs Temperature 98.2 F 04/27/25 07:06 Temperature Source Temporal Artery Scan 04/27/25 07:06 Pulse 100 H 04/27/25 07:06 Pulse 105 H 04/22/25 03:30 Respiratory Rate 16 04/27/25 07:06 Respiratory Effort Normal, Non-Labored 04/22/25 10:15 Respiratory Depth Normal 04/22/25 10:15 Respiratory Pattern Normal 04/22/25 10:15 Blood Pressure 109/57 L 04/27/25 07:06 Blood Pressure Mean 74 04/27/25 07:06 Blood Pressure Position Sitting 04/21/25 23:54 Pulse Oximetry 97 04/27/25 07:06 Respiratory End-tidal CO2 30 04/22/25 06:08 Oxygen Delivery Method Room Air 04/27/25 10:26 Oxygen Flow Rate 0 04/27/25 10:26 Pain Level 0 04/27/25 10:28 Comment pt stated pain nurse notified. 04/22/25 23:07 Intake & Output 04/26/25 04/26/25 04/27/25 11:59 23:59 11:59 Intake Total 120 / 360 240 / 360 600 / 600 Balance 120 / 360 240 / 360 600 / 600 Intake: Oral 120 / 360 240 / 360 600 / 600 Other: Urine Color Yellow Yellow Urine Appearance Clear Urine Odor Normal Comment pt stated she voided this morning at 6am Data Completed and Pending Pending Labs at Discharge: 04/22/25 04/22/25 04/22/25 00:01 01:18 03:06 WBC 17.00 H RBC 5.26 H Hgb 14.2 Hct 43.4 MCV 83 MCH 27.0 MCHC 32.7 RDW 16.9 H Plt Count 309 MPV 9.8 Immature Gran % 0.0 Neutrophils % 63.0 Lymphocytes % 33.0 Atypical Lymphs % 2 Monocytes % 2.0 Eosinophils % 0.0 Basophils % 0.0 Nucleated RBC % 0.0 Absolute Neutrophils 10.71 H Absolute Lymphocytes 5.95 H Absolute Monocytes 0.34 Absolute Eosinophils 0.00 Absolute Basophils 0.00 RBC Morphology Normal PT 11.7 H INR 1.2 H APTT 23.0 VBG pH 7.28 L VBG pCO2 41 VBG pO2 29 VBG HCO3 20 L VBG Total CO2 18 L VBG O2 Saturation 43 VBG Base Excess -7 L VBG Lactate 2.3 H* 0.9 Sodium 132 L Potassium 4.5 Chloride 105 Carbon Dioxide 20.0 Anion Gap 7 BUN 22 Creatinine 1.49 H Est GFR (CKD-EPI 2020) 34.08 Glucose 220 H Calcium 9.7 Magnesium 2.1 Total Bilirubin 0.40 AST 40 H ALT 37 Alkaline Phosphatase 125 H Troponin I < 3 < 3 < 3 NT-Pro-B Natriuret Pep 84 Total Protein 7.4 Albumin 4.4 Lipase 31 Procalcitonin < 0.10 TSH 16.13 H Free T4 1.27 Urine Color Yellow Urine Clarity Clear Urine pH 5.5 Ur Specific [place] 1.015 Urine Protein Negative Urine Ketones 15 H Urine Blood Negative Urine Nitrite Negative Urine Bilirubin Negative Urine Urobilinogen 0.2 Ur Leukocyte Esterase Negative Urine RBC 0-2 Urine WBC 3-5 Ur Epithelial Cells Few Urine Crystals Negative Urine Bacteria Few Urine Casts Negative Urine Mucus Trace Ur Culture Indicated? No Urine Glucose >=1000 H Salicylates ABO/Rh Antibody Screen 04/22/25 04/22/25 04/23/25 03:18 07:15 11:10 WBC 13.38 H 14.24 H RBC 4.71 4.36 Hgb 12.9 12.1 Hct 39.0 35.9 L MCV 83 82 MCH 27.4 27.8 MCHC 33.1 33.7 RDW 17.0 H 17.3 H Plt Count 237 227 MPV 9.5 9.6 Immature Gran % 0.3 0.6 Neutrophils % 86.6 74.6 Lymphocytes % 9.3 19.2 Atypical Lymphs % Monocytes % 3.4 4.9 Eosinophils % 0.0 0.3 Basophils % 0.4 0.4 Nucleated RBC % 0.0 0.0 Absolute Neutrophils 11.59 H 10.62 H Absolute Lymphocytes 1.24 2.73 Absolute Monocytes 0.45 0.70 Absolute Eosinophils 0.00 0.04 Absolute Basophils 0.05 0.06 RBC Morphology PT INR APTT VBG pH VBG pCO2 VBG pO2 VBG HCO3 VBG Total CO2 VBG O2 Saturation VBG Base Excess VBG Lactate Sodium 135 L 136 Potassium 4.6 3.9 Chloride 109 H 103 Carbon Dioxide 20.5 22.1 Anion Gap 5.5 10.9 BUN 20 15 Creatinine 1.29 H 1.12 H Est GFR (CKD-EPI 2020) 40.25 47.37 Glucose 184 H 126 H Calcium 8.4 8.7 Magnesium Total Bilirubin AST ALT Alkaline Phosphatase Troponin I NT-Pro-B Natriuret Pep Total Protein Albumin Lipase Procalcitonin TSH Free T4 Urine Color Urine Clarity Urine pH Ur Specific [place] Urine Protein Urine Ketones Urine Blood Urine Nitrite Urine Bilirubin Urine Urobilinogen Ur Leukocyte Esterase Urine RBC Urine WBC Ur Epithelial Cells Urine Crystals Urine Bacteria Urine Casts Urine Mucus Ur Culture Indicated? Urine Glucose Salicylates < 3.0 ABO/Rh O Positive Antibody Screen NEGATIVE 04/25/25 04/27/25 06:36 Unknown WBC 9.85 RBC 4.25 Hgb 11.9 Pending Hct 34.8 L Pending MCV 82 MCH 28.0 MCHC 34.2 RDW 16.7 H Plt Count 228 MPV 9.8 Immature Gran % Neutrophils % Lymphocytes % Atypical Lymphs % Monocytes % Eosinophils % Basophils % Nucleated RBC % Absolute Neutrophils Absolute Lymphocytes Absolute Monocytes Absolute Eosinophils Absolute Basophils RBC Morphology PT INR APTT VBG pH VBG pCO2 VBG pO2 VBG HCO3 VBG Total CO2 VBG O2 Saturation VBG Base Excess VBG Lactate Sodium 138 Pending Potassium 3.7 Pending Chloride 102 Pending Carbon Dioxide 19.5 L Pending Anion Gap 16.5 H Pending BUN 12 Pending Creatinine 0.91 Pending Est GFR (CKD-EPI 2020) 60.20 Pending Glucose 111 H Pending Calcium 8.6 Pending Magnesium Total Bilirubin AST ALT Alkaline Phosphatase Troponin I NT-Pro-B Natriuret Pep Total Protein Albumin Lipase Procalcitonin TSH Free T4 Urine Color Urine Clarity Urine pH Ur Specific [place] Urine Protein Urine Ketones Urine Blood Urine Nitrite Urine Bilirubin Urine Urobilinogen Ur Leukocyte Esterase Urine RBC Urine WBC Ur Epithelial Cells Urine Crystals Urine Bacteria Urine Casts Urine Mucus Ur Culture Indicated? Urine Glucose Salicylates ABO/Rh Antibody Screen PFSH All Active Problems (Updated 04/25/25 @ 19:23 by Tejas Bland MD) Drug eruption (Acute) Hypothyroidism (Chronic) Diabetes mellitus with insulin therapy (Acute) Metabolic acidosis (Acute) Bowel obstruction (Acute) Cecal volvulus (Acute) Hypokalemia (Acute) UTI (urinary tract infection) (Acute) Acute hypokalemia (Acute) Acute dehydration (Acute) Anxiety (Chronic) CKD (chronic kidney disease) stage 3, GFR 30-59 ml/min (Chronic) Abdominal pain (Chronic) COPD (chronic obstructive pulmonary disease) (Chronic) Diet-controlled type 2 diabetes mellitus (Acute) Hyperlipidemia (Acute) Hypertension (Chronic) Medical History (Updated 04/25/25 @ 19:23 by Tejas Bland MD) Discharged to home Small bowel obstruction Vomiting Ileus Diverticulitis large intestine Colitis Surgical History S/P ventral herniorrhaphy S/P aortic aneurysm repair S/P tonsillectomy S/P cholecystectomy H/O non-cataract eye surgery L eye - retinal surgery S/P cataract extraction and insertion of intraocular lens Family History Father Heart disease CHF (congestive heart failure) Diabetes Hypertension Maternal Grandmother Stroke Paternal Grandmother Breast cancer Mother Vulvar cancer Social History Smoking/Tobacco Use Status: Former Tobacco Use Pack-years: 120 Tobacco: How many years used: 30 Smoking risk assessment performed?: Yes Alcohol Intake: current Drug use: Never Substance use type: does not use Housing: house Do you feel safe at home: Yes Do you feel safe in your relationship?: Yes Time Spent with Patient Time Spent with Patient: <45 minutes Time was spent: preparing to see the patient(eg.review tests), counseling the patient and care coordination
[2025-04-27 11:16] LABS: HCT 34.9 % (36.0-46.0); HGB 11.6 g/dL (11.2-15.7)
[2025-04-27 11:34] LABS: Anion Gap 8 mmol/L (3-11); BUN 22 mg/dL (9-23); CO2 27.0 mmol/L (20.0-31.0); Calcium 8.5 mg/dL (8.3-10.6); Chloride 103 mmol/L (98-107); Glucose 135 mg/dL (74-106); Potassium 3.3 mmol/L (3.5-5.1); Sodium 138 mmol/L (136-145)
--- NOTE | 2025-04-27 11:34 | PDOC.CMDIS ---
Date of service: 04/27/25 Time of Service: 11:35 LACE Index Scoring Tool Questions: Length of Stay (in days): 4 - 6 Was the patient admitted via the E.D.?: Yes Comorbidities: Diabetes w/o Complication, Chronic Pulmonary Disease and Liver or Renal Disease E.D. Visits: 2 Answers: Total Score: 14 Risk of Readmission: High Risk Care Management Discharge Plan Reason for Hospitalization: bowel obstruction s/p small bowel resection with primary anastomosis. Discharge Plan: Marleni is discharged home today with no new home care services. She will f/u with her PCP and with her surgeon and continue per her plan of care. Marleni will transport home with her . Patient/Family Education Needs: Review of discharge instructions, activity, limitations, and discuss Ask me 3. SDOH Health Related Social Needs: Health related social needs lonely/isolated Health related social needs details says she worries a lot Health related social needs details: says she worries a lot
== END 2025-04-27 13:57 | disposition home or self-care (01) | DRG 330 ==
LOC: ER 04-22 03:59 → SUR 04-22 04:09 → MS 04-22 06:32
PROVIDERS: Student in an Organized Health Care Education/Training Program; Surgery; Admitting Provider Surgery; Emergency Provider Student in an Organized Health Care Education/Training Program; PCP Nurse Practitioner Family; Responsible Provider Family Medicine; Visit Provider Surgery
PROC: 0DBA0ZZ Excision of Jejunum, Open Approach (ICD-10-PCS; CPT 49000; principal; 2025-04-22 03:30)
DX: N17.9 Acute kidney failure, unspecified; N18.30 Chronic kidney disease, stage 3 unspecified; J44.9 Chronic obstructive pulmonary disease, unspecified; E78.5 Hyperlipidemia, unspecified; E11.22 Type 2 diabetes mellitus with diabetic chronic kidney disease; Z79.4 Long term (current) use of insulin; E03.9 Hypothyroidism, unspecified; K46.0 Unspecified abdominal hernia with obstruction, without gangrene; E87.20 Acidosis, unspecified; K56.50 Intestinal adhesions [bands], unspecified as to partial versus complete obstruction; K63.89 Other specified diseases of intestine; Z79.899 Other long term (current) drug therapy; E87.6 Hypokalemia; E86.0 Dehydration; F41.9 Anxiety disorder, unspecified; I12.9 Hypertensive chronic kidney disease with stage 1 through stage 4 chronic kidney disease, or unspecified chronic kidney disease; Z79.85 Long-term (current) use of injectable non-insulin antidiabetic drugs; L25.8 Unspecified contact dermatitis due to other agents
CPT/HCPCS: 44120; 44110; 36415; 71275; 80048; 80053; 82805; 83690; 84145; 85027; 86850; 86900; 86901; 87040; 88305; 93005; 94640; 96365; 96366; 96367; 96375; 97161; 97530; 99223; 99291; 74174; 80329; 81003; 81015; 83605; 83735; 83880; 84439; 84443; 84484; 85014; 85018; 85025; 85610; 85730; 87086; 93010; 94664; 99222; 99232; J0131; J0457; J0666; J1100; J1644; J1650; J1815; J2003; J2270; J2371; J2405; J2470; J2704; J3010; J3373; J3490

== ENCOUNTER → 2025-05-07 10:00 | Outpatient (BNVA) | payer MEDICARE, BC, SELFPAY | PROVIDERS: PCP Nurse Practitioner Family; Referring Provider Nurse Practitioner Family; Visit Provider Surgery | DX: Z51.89 Encounter for other specified aftercare (principal); K56.609 Unspecified intestinal obstruction, unspecified as to partial versus complete obstruction | CPT/HCPCS: 99024 ==

== ENCOUNTER → 2025-05-28 10:52 | Outpatient (BNVA) | payer MEDICARE, BC, SELFPAY | PROVIDERS: PCP Nurse Practitioner Family; Referring Provider Nurse Practitioner Family; Visit Provider Surgery | DX: Z51.89 Encounter for other specified aftercare (principal); K56.609 Unspecified intestinal obstruction, unspecified as to partial versus complete obstruction | CPT/HCPCS: 99024 ==